=== PATIENT | male | born 1955 | race Caucasian/White ===

== ENCOUNTER → 2018-01-26 | Day surgery (SDC) | payer BC ==
[~2018-01-26] MED LIST: CEFAZOLIN SOD 2 GM/D5W 50ML 50 ML IV ONE; DESFLURANE 240 ML BTL INH ONE; DOXYCYCLINE HY100 MG PO; FENTANYL CITRATE/PF 100MCG/2 ML INJ ONE; GLIMEPIRIDE4 MG PO; JANUVIA100 MG PO; LEVAQUIN-D750 MG/150 IV; LIDOCAINE HCL 2% JELLY 5 ML TUBE ONE; LIDOCAINE HCL 2% LOCAL INJ 5 ML SDV VIAL INJ ONE; LIDOCAINE100 MG/53; METFORMIN HCL1000 MG PO; METOPROLOL SUCC25 MG PO; MIDAZOLAM HCL 2 MG/2 ML VIAL ONE; ONDANSETRON HCL INJ 2 MG/ML VIAL ONE; PROPOFOL IV EMULSION 10 MG/ML 20 ML VIAL ONE; SPIRONOLACTONE50 MG PO; VANCOMYCIN HCL1 GM IV; VIAGRA100 MG PO
[2018-01-26 09:05] LABS: INR 1.1; PROTHROMBIN TIME 13.4 seconds (11.9-14.5)
[2018-01-26 09:06] LABS: PARTIAL THROMBOPLASTIN TIME 25.2 seconds (23.8-35.5)
[2018-01-26 09:11] LABS: BLOOD UREA NITROGEN 21 mg/dL (7-26); BUN/CREATININE RATIO 24 (6-25); CREATININE, SERUM 0.86 mg/dL (0.72-1.25); EST GLOMERULAR FILTRATION RATE > 60 ML/MIN (60-)
[2018-01-26 10:45] LABS: ANION GAP 15.8 mmol/L (8-16); BLOOD UREA NITROGEN 21 mg/dL (7-26); BUN/CREATININE RATIO 25 (6-25); CALCIUM 9.8 mg/dL (8.4-10.2); CARBON DIOXIDE 20 mmol/L (22-29); CHLORIDE 104 mmol/L (98-107); CREATININE, SERUM 0.85 mg/dL (0.72-1.25); EST GLOMERULAR FILTRATION RATE > 60 ML/MIN (60-); GLUCOSE 168 mg/dL (74-118); POTASSIUM 4.8 mmol/L (3.5-5.1); SODIUM 135 mmol/L (136-145)
--- NOTE | 2018-01-26 11:14 | Diagnostic Imaging Report ---
PROCEDURE: A single AP view of the chest. COMPARISON: 01/05/2017 INDICATIONS: PICC LINE PLACEMENT FINDINGS: Lines/tubes: Right upper shotty PICC line has its tip at the cavoatrial junction Lungs: The lungs are well inflated and clear. There is no evidence of pneumonia or pulmonary edema. Pleura: There is no pleural effusion or pneumothorax. Heart and mediastinum: Normal heart size. Mild tortuosity of the thoracic aorta. Bones: No acute bony abnormality. IMPRESSION: Right upper extremity PICC line has its tip at the cavoatrial junction Dictated by: Osmany Ling M.D. on 01/26/2018 at 11:19 Electronically approved by: Osmany Lign M.D. on 01/26/2018 at 11:19
--- NOTE | 2018-01-26 14:08 | Operative Report ---
DATE OF PROCEDURE: January 26, 2018 PREOPERATIVE DIAGNOSES 1. Ulcer grade 3 left foot. 2. Osteomyelitis left foot. POSTOPERATIVE DIAGNOSES 1. Ulcer grade 3 left foot. 2. Osteomyelitis left foot. OPERATIONS PERFORMED 1. Excision of the ulcer left foot. 2. Fifth metatarsal osteotomy left foot. 3. Application of Integra graft to the base of the ulcer. COMPLICATIONS: None. CONDITION: Stable. MATERIALS: A 2 x 2 Integra graft was applied. PROCEDURE IN DETAIL: Under mild sedation, the patient was brought to the operating room, placed on the operating table in the supine position. Following IV sedation anesthesia was obtained with a general anesthetic. At this point, the foot was scrubbed, prepped and draped in the usual aseptic manner. The left foot was lowered to the table. Attention was directed to the lateral aspect of the left foot where 2 semi-elliptical incisions were made overlying the ulcer. The incision was deepened down to the level of the bone. At this point a full thickness flap was removed off of the ulcer. The ulcer measured 4 cm x 3 cm x 2 cm in depth. Utilizing an oscillating saw of 5th metatarsal, osteotomy was performed down to clean viable tissue. The body of the 5th metatarsal where the osteotomy was performed was clean, it was free of soft bone, the cortices were hard. Cultures and sensitivities were taken of the area of and the bone. The area was then flushed with pulse environmental services director and bacitracin. All nonviable tissue was removed with excisional debridement with a 15 blade. At this point the base where the 5th metatarsal osteotomy was performed, the head was removed, was packed with a 2 x 2 Integra graft. Retention sutures were applied. The wound remained opened distally where the area of the infection was. The area was then dressed with sterile compressive dressings consisting of Betadine wet-to-dry, 4 x 4's, Kerlix and an Eliu bandage. Patient tolerated the procedure and anesthesia well without complications, was transported to recovery room with vital signs stable and vascular status intact. Patient will be discharged home when he meets criteria. He was given instructions to be strictly nonweightbearing, to elevate the foot while at rest, to follow up with me in the office, to call the office if he has any questions, concerns or any problems that arise. I discussed with him preop signs and symptoms of DVT since he is going to be nonweightbearing to the lower extremity. Job#: [id number] DG
== END | disposition home or self-care (01) ==
LOC: OR 08:13
PROVIDERS: ATTEND Podiatrist Foot & Ankle Surgery
DX: M86.9 Osteomyelitis, unspecified (principal); M86.172 Other acute osteomyelitis, left ankle and foot; L97.526 Non-pressure chronic ulcer of other part of left foot with bone involvement without evidence of necrosis; Z45.2 Encounter for adjustment and management of vascular access device; I10 Essential (primary) hypertension; E11.9 Type 2 diabetes mellitus without complications; Z79.84 Long term (current) use of oral hypoglycemic drugs
CPT/HCPCS: 15275; 28308; 36415; 36569; 71045; 80048; 82948; 85049; 85610; 85730; 87071; 87075; 87186; 87205; 88305; 88311; J2001 ×2; J2250; J2405; Q4104; 76000; 82565; 84520

== ENCOUNTER → 2018-01-31 | Outpatient (CLI) | payer BC ==
[~2018-01-31] MED LIST changes: -CEFAZOLIN SOD 2 GM/D5W 50ML 50 ML IV ONE; -DESFLURANE 240 ML BTL INH ONE; -FENTANYL CITRATE/PF 100MCG/2 ML INJ ONE; -LIDOCAINE HCL 2% JELLY 5 ML TUBE ONE; -LIDOCAINE HCL 2% LOCAL INJ 5 ML SDV VIAL INJ ONE; -MIDAZOLAM HCL 2 MG/2 ML VIAL ONE; +MINERAL OIL/PETROLAT/GLYCERI 6OZ BTL ONE; -ONDANSETRON HCL INJ 2 MG/ML VIAL ONE; -PROPOFOL IV EMULSION 10 MG/ML 20 ML VIAL ONE
== END ==
LOC: WCC 16:33
PROVIDERS: ATTEND Podiatrist Foot & Ankle Surgery
DX: E11.65 Type 2 diabetes mellitus with hyperglycemia (principal); E11.621 Type 2 diabetes mellitus with foot ulcer; E11.69 Type 2 diabetes mellitus with other specified complication; L97.526 Non-pressure chronic ulcer of other part of left foot with bone involvement without evidence of necrosis; I10 Essential (primary) hypertension; W22.8XXA Striking against or struck by other objects, initial encounter; Z01.810 Encounter for preprocedural cardiovascular examination; Z01.811 Encounter for preprocedural respiratory examination

== ENCOUNTER → 2018-02-02 | Outpatient (CLI) | payer BC ==
[~2018-02-02] MED LIST changes: -MINERAL OIL/PETROLAT/GLYCERI 6OZ BTL ONE
== END ==
LOC: WCC 14:24
PROVIDERS: ATTEND Podiatrist Foot & Ankle Surgery
DX: E11.621 Type 2 diabetes mellitus with foot ulcer (principal); E11.65 Type 2 diabetes mellitus with hyperglycemia; E11.69 Type 2 diabetes mellitus with other specified complication; L97.526 Non-pressure chronic ulcer of other part of left foot with bone involvement without evidence of necrosis; W22.8XXA Striking against or struck by other objects, initial encounter; I10 Essential (primary) hypertension

== ENCOUNTER → 2018-02-08 | Outpatient (CLI) | payer BC | LOC: WCC 14:50 | PROVIDERS: ATTEND Podiatrist Foot & Ankle Surgery | DX: E11.621 Type 2 diabetes mellitus with foot ulcer (principal); E11.65 Type 2 diabetes mellitus with hyperglycemia; E11.69 Type 2 diabetes mellitus with other specified complication; M86.172 Other acute osteomyelitis, left ankle and foot; L97.526 Non-pressure chronic ulcer of other part of left foot with bone involvement without evidence of necrosis; I10 Essential (primary) hypertension; W22.8XXA Striking against or struck by other objects, initial encounter; Z01.810 Encounter for preprocedural cardiovascular examination; Z01.811 Encounter for preprocedural respiratory examination ==

== ENCOUNTER → 2018-02-12 | Outpatient (CLI) | payer BC | LOC: WCC 11:47 | PROVIDERS: ATTEND Podiatrist Foot & Ankle Surgery | DX: E11.621 Type 2 diabetes mellitus with foot ulcer (principal); E11.65 Type 2 diabetes mellitus with hyperglycemia; E11.69 Type 2 diabetes mellitus with other specified complication; M86.172 Other acute osteomyelitis, left ankle and foot; L97.526 Non-pressure chronic ulcer of other part of left foot with bone involvement without evidence of necrosis; I10 Essential (primary) hypertension; W22.8XXA Striking against or struck by other objects, initial encounter; Z01.810 Encounter for preprocedural cardiovascular examination; Z01.811 Encounter for preprocedural respiratory examination ==

== ENCOUNTER → 2018-02-14 | Outpatient (CLI) | payer BC | LOC: WCC 15:35 | PROVIDERS: ATTEND Podiatrist Foot & Ankle Surgery | DX: E11.621 Type 2 diabetes mellitus with foot ulcer (principal); E11.65 Type 2 diabetes mellitus with hyperglycemia; E11.69 Type 2 diabetes mellitus with other specified complication; M86.172 Other acute osteomyelitis, left ankle and foot; L97.526 Non-pressure chronic ulcer of other part of left foot with bone involvement without evidence of necrosis; I10 Essential (primary) hypertension; W22.8XXA Striking against or struck by other objects, initial encounter; Z01.810 Encounter for preprocedural cardiovascular examination; Z01.811 Encounter for preprocedural respiratory examination ==

== ENCOUNTER → 2018-02-16 | Outpatient (CLI) | payer BC | LOC: WCC 14:06 | PROVIDERS: ATTEND Internal Medicine Infectious Disease | DX: E11.621 Type 2 diabetes mellitus with foot ulcer (principal); E11.65 Type 2 diabetes mellitus with hyperglycemia; E11.69 Type 2 diabetes mellitus with other specified complication; M86.172 Other acute osteomyelitis, left ankle and foot; L97.526 Non-pressure chronic ulcer of other part of left foot with bone involvement without evidence of necrosis; I10 Essential (primary) hypertension; W22.8XXA Striking against or struck by other objects, initial encounter; Z01.810 Encounter for preprocedural cardiovascular examination; Z01.811 Encounter for preprocedural respiratory examination ==

== ENCOUNTER → 2018-02-19 | Outpatient (CLI) | payer BC | LOC: WCC 10:42 | PROVIDERS: ATTEND Podiatrist Foot & Ankle Surgery | DX: E11.65 Type 2 diabetes mellitus with hyperglycemia (principal); E11.621 Type 2 diabetes mellitus with foot ulcer; E11.69 Type 2 diabetes mellitus with other specified complication; M86.172 Other acute osteomyelitis, left ankle and foot; L97.526 Non-pressure chronic ulcer of other part of left foot with bone involvement without evidence of necrosis; W22.8XXA Striking against or struck by other objects, initial encounter; I10 Essential (primary) hypertension; Z01.810 Encounter for preprocedural cardiovascular examination; Z01.811 Encounter for preprocedural respiratory examination ==

== ENCOUNTER → 2018-02-21 | Outpatient (CLI) | payer BC | LOC: WCC 01:00 | PROVIDERS: ATTEND Family Medicine Adult Medicine | DX: E11.621 Type 2 diabetes mellitus with foot ulcer (principal); E11.65 Type 2 diabetes mellitus with hyperglycemia; E11.69 Type 2 diabetes mellitus with other specified complication; M86.172 Other acute osteomyelitis, left ankle and foot; L97.526 Non-pressure chronic ulcer of other part of left foot with bone involvement without evidence of necrosis; I10 Essential (primary) hypertension; W22.8XXA Striking against or struck by other objects, initial encounter; Z01.810 Encounter for preprocedural cardiovascular examination; Z01.811 Encounter for preprocedural respiratory examination ==

== ENCOUNTER → 2018-02-23 | Outpatient (CLI) | payer BC | LOC: WCC 15:21 | PROVIDERS: ATTEND Podiatrist Foot & Ankle Surgery | DX: E11.65 Type 2 diabetes mellitus with hyperglycemia (principal); E11.621 Type 2 diabetes mellitus with foot ulcer; E11.69 Type 2 diabetes mellitus with other specified complication; M86.172 Other acute osteomyelitis, left ankle and foot; L97.526 Non-pressure chronic ulcer of other part of left foot with bone involvement without evidence of necrosis; I10 Essential (primary) hypertension; W22.8XXA Striking against or struck by other objects, initial encounter; Z01.810 Encounter for preprocedural cardiovascular examination; Z01.811 Encounter for preprocedural respiratory examination ==

== ENCOUNTER → 2018-02-23 | Outpatient (CLI) | payer BC | LOC: WCC 16:05 | PROVIDERS: ATTEND Podiatrist Foot & Ankle Surgery | DX: E11.65 Type 2 diabetes mellitus with hyperglycemia (principal); E11.69 Type 2 diabetes mellitus with other specified complication; E11.621 Type 2 diabetes mellitus with foot ulcer; M86.172 Other acute osteomyelitis, left ankle and foot; L97.526 Non-pressure chronic ulcer of other part of left foot with bone involvement without evidence of necrosis; W22.8XXA Striking against or struck by other objects, initial encounter; I10 Essential (primary) hypertension; Z01.810 Encounter for preprocedural cardiovascular examination; Z01.811 Encounter for preprocedural respiratory examination ==

== ENCOUNTER → 2018-02-26 | Outpatient (CLI) | payer BC | LOC: WCC 13:34 | PROVIDERS: ATTEND Podiatrist Foot & Ankle Surgery | DX: E11.621 Type 2 diabetes mellitus with foot ulcer (principal); E11.69 Type 2 diabetes mellitus with other specified complication; E11.65 Type 2 diabetes mellitus with hyperglycemia; L97.526 Non-pressure chronic ulcer of other part of left foot with bone involvement without evidence of necrosis; M86.172 Other acute osteomyelitis, left ankle and foot; I10 Essential (primary) hypertension; W22.8XXA Striking against or struck by other objects, initial encounter; Z01.810 Encounter for preprocedural cardiovascular examination; Z01.811 Encounter for preprocedural respiratory examination ==

== ENCOUNTER → 2018-02-28 | Outpatient (CLI) | payer BC | LOC: WCC 09:51 | PROVIDERS: ATTEND Podiatrist Foot & Ankle Surgery | DX: E11.65 Type 2 diabetes mellitus with hyperglycemia (principal); E11.621 Type 2 diabetes mellitus with foot ulcer; E11.69 Type 2 diabetes mellitus with other specified complication; M86.172 Other acute osteomyelitis, left ankle and foot; L97.526 Non-pressure chronic ulcer of other part of left foot with bone involvement without evidence of necrosis; I10 Essential (primary) hypertension; W22.8XXA Striking against or struck by other objects, initial encounter; Z01.810 Encounter for preprocedural cardiovascular examination; Z01.811 Encounter for preprocedural respiratory examination ==

== ENCOUNTER → 2018-03-02 | Outpatient (CLI) | payer BC | LOC: WCC 14:42 | PROVIDERS: ATTEND Podiatrist Foot & Ankle Surgery | DX: E11.621 Type 2 diabetes mellitus with foot ulcer (principal); E11.65 Type 2 diabetes mellitus with hyperglycemia; E11.69 Type 2 diabetes mellitus with other specified complication; M86.172 Other acute osteomyelitis, left ankle and foot; L97.526 Non-pressure chronic ulcer of other part of left foot with bone involvement without evidence of necrosis; I10 Essential (primary) hypertension; W22.8XXA Striking against or struck by other objects, initial encounter; Z01.810 Encounter for preprocedural cardiovascular examination; Z01.811 Encounter for preprocedural respiratory examination ==

== ENCOUNTER → 2018-03-07 | Outpatient (CLI) | payer BC ==
[~2018-03-07] MED LIST changes: +LIDOCAINE VISC 2% SOLN 15 ML UDC ONE
== END ==
LOC: WCC 13:48
PROVIDERS: ATTEND Family Medicine
DX: E11.621 Type 2 diabetes mellitus with foot ulcer (principal); E11.65 Type 2 diabetes mellitus with hyperglycemia; E11.69 Type 2 diabetes mellitus with other specified complication; M86.172 Other acute osteomyelitis, left ankle and foot; L97.526 Non-pressure chronic ulcer of other part of left foot with bone involvement without evidence of necrosis; I10 Essential (primary) hypertension; W22.8XXA Striking against or struck by other objects, initial encounter; Z01.810 Encounter for preprocedural cardiovascular examination; Z01.811 Encounter for preprocedural respiratory examination

== ENCOUNTER → 2018-03-09 | Outpatient (CLI) | payer BC ==
[~2018-03-09] MED LIST changes: -LIDOCAINE VISC 2% SOLN 15 ML UDC ONE
--- NOTE | 2018-03-09 13:06 | Diagnostic Imaging Report ---
EXAMINATION: PA and lateral views of the chest. COMPARISON: None CLINICAL HISTORY: PICC position DISCUSSION: Right upper extremity PICC is noted. The tip projects over the low superior vena cava. Lungs are well-inflated and without focal consolidation, pleural effusion, or pneumothorax. Tortuosity of the thoracic aorta with atherosclerotic calcification. Normal heart size. No pulmonary edema. No acute osseous abnormalities. Multilevel degenerative disc changes of the thoracic spine. IMPRESSION: Tip of the right upper extremity PICC projects over the low superior vena cava. Signed by: Dr. Rod Lofton M.D. on 03/09/2018 1:02 PM
== END ==
LOC: RAD 11:56
PROVIDERS: ATTEND Internal Medicine Infectious Disease
DX: Z01.818 Encounter for other preprocedural examination (principal); Z45.2 Encounter for adjustment and management of vascular access device
CPT/HCPCS: 71046

== ENCOUNTER → 2018-03-21 | Outpatient (CLI) | payer BC | LOC: WCC 12:37 | PROVIDERS: ATTEND Family Medicine | DX: E11.621 Type 2 diabetes mellitus with foot ulcer (principal); E11.65 Type 2 diabetes mellitus with hyperglycemia; E11.69 Type 2 diabetes mellitus with other specified complication; M86.172 Other acute osteomyelitis, left ankle and foot; L97.526 Non-pressure chronic ulcer of other part of left foot with bone involvement without evidence of necrosis; I10 Essential (primary) hypertension; W22.8XXA Striking against or struck by other objects, initial encounter; Z01.810 Encounter for preprocedural cardiovascular examination; Z01.811 Encounter for preprocedural respiratory examination ==

== ENCOUNTER → 2018-03-28 | Outpatient (CLI) | payer BC ==
[~2018-03-28] MED LIST changes: +ANTIBIOTIC28.4 GM PO; +antibiotic PO
== END ==
LOC: WCC 12:23
PROVIDERS: ATTEND Family Medicine
DX: E11.621 Type 2 diabetes mellitus with foot ulcer (principal); E11.69 Type 2 diabetes mellitus with other specified complication; E11.65 Type 2 diabetes mellitus with hyperglycemia; L97.526 Non-pressure chronic ulcer of other part of left foot with bone involvement without evidence of necrosis; I10 Essential (primary) hypertension; M86.172 Other acute osteomyelitis, left ankle and foot; W22.8XXA Striking against or struck by other objects, initial encounter; Z01.810 Encounter for preprocedural cardiovascular examination; Z01.811 Encounter for preprocedural respiratory examination

== ENCOUNTER → 2018-04-11 | Outpatient (CLI) | payer BC ==
[~2018-04-11] MED LIST changes: -ANTIBIOTIC28.4 GM PO; -antibiotic PO
== END ==
LOC: WCC 13:47
PROVIDERS: ATTEND Family Medicine
DX: E11.621 Type 2 diabetes mellitus with foot ulcer (principal); E11.65 Type 2 diabetes mellitus with hyperglycemia; E11.69 Type 2 diabetes mellitus with other specified complication; L97.526 Non-pressure chronic ulcer of other part of left foot with bone involvement without evidence of necrosis; L97.529 Non-pressure chronic ulcer of other part of left foot with unspecified severity; I10 Essential (primary) hypertension; W22.8XXA Striking against or struck by other objects, initial encounter; Z01.810 Encounter for preprocedural cardiovascular examination; Z01.811 Encounter for preprocedural respiratory examination
CPT/HCPCS: 87071; 87075; 87205

== ENCOUNTER → 2018-04-18 | Outpatient (CLI) | payer BC ==
[~2018-04-18] MED LIST changes: +ANTIBIOTIC28.4 GM PO; +antibiotic PO
== END ==
LOC: WCC 13:11
PROVIDERS: ATTEND Family Medicine
DX: E11.621 Type 2 diabetes mellitus with foot ulcer (principal); L97.529 Non-pressure chronic ulcer of other part of left foot with unspecified severity; L97.526 Non-pressure chronic ulcer of other part of left foot with bone involvement without evidence of necrosis; W22.8XXA Striking against or struck by other objects, initial encounter; Z01.810 Encounter for preprocedural cardiovascular examination; Z01.811 Encounter for preprocedural respiratory examination

== ENCOUNTER → 2018-04-27 | Outpatient (CLI) | payer BC ==
[2018-04-27 14:05] LABS: BASOPHILS % 0.2 % (0.0-1.0); EOSINOPHILS # (AUTO) 0.2 (0.0-0.4); EOSINOPHILS % 1.9 % (0.0-6.0); HEMATOCRIT 41.1 % (38.2-49.6); HEMOGLOBIN 14.6 g/dL (14.0-18.0); LYMPHOCYTES # (AUTO) 1.3 (1.0-3.2); LYMPHOCYTES % 14.6 % (18.0-39.1); MEAN CORPUSCULAR HGB CONC 35.5 g/dL (31-35); MEAN CORPUSCULAR VOLUME 92.8 fL (81-99); MONOCYTES % 11.7 % (4.4-11.3); NEUTROPHILS # (AUTO) 6.1 (2.1-6.9); PLATELET COUNT 151 x10e3/uL (140-360); RED BLOOD COUNT 4.43 x10e6/uL (4.3-5.7); RED CELL DISTRIBUTION WIDTH 12.2 % (11.7-14.4)
[2018-04-27 14:46] LABS: ERYTHROCYTE SEDIMENTATION RATE 20 mm/hr (0-13)
[2018-04-27 15:12] LABS: ALBUMIN 3.7 g/dL (3.5-5.0); ALBUMIN/GLOBULIN RATIO 0.9 (0.8-2.0); ANION GAP 14.4 mmol/L (8-16); CALCIUM 9.6 mg/dL (8.4-10.2); CREATININE, SERUM 1.34 mg/dL (0.72-1.25); POTASSIUM 4.4 mmol/L (3.5-5.1)
== END ==
LOC: WCC 14:18
PROVIDERS: ATTEND Family Medicine
DX: E11.621 Type 2 diabetes mellitus with foot ulcer (principal); E11.65 Type 2 diabetes mellitus with hyperglycemia; E11.69 Type 2 diabetes mellitus with other specified complication; L97.529 Non-pressure chronic ulcer of other part of left foot with unspecified severity; I10 Essential (primary) hypertension; B96.89 Other specified bacterial agents as the cause of diseases classified elsewhere; W22.8XXA Striking against or struck by other objects, initial encounter; Z01.810 Encounter for preprocedural cardiovascular examination; Z01.811 Encounter for preprocedural respiratory examination
CPT/HCPCS: 36415; 80053; 83036; 84134; 85025; 85651

== ENCOUNTER → 2018-05-11 | Outpatient (CLI) | payer BC ==
[~2018-05-11] MED LIST changes: +LIDOCAINE VISC 2% SOLN 15 ML UDC ONE; +LIDOCAINE/PRILOCAINE 2.5-2.5% KIT ONE
== END ==
LOC: WCC 13:16
PROVIDERS: ATTEND Family Medicine
DX: E11.621 Type 2 diabetes mellitus with foot ulcer (principal); E11.65 Type 2 diabetes mellitus with hyperglycemia; E11.69 Type 2 diabetes mellitus with other specified complication; L97.529 Non-pressure chronic ulcer of other part of left foot with unspecified severity; I10 Essential (primary) hypertension; W22.8XXA Striking against or struck by other objects, initial encounter; Z01.810 Encounter for preprocedural cardiovascular examination; Z01.811 Encounter for preprocedural respiratory examination
CPT/HCPCS: 15275; Q4131

== ENCOUNTER → 2018-05-23 | Outpatient (CLI) | payer BC ==
[~2018-05-23] MED LIST changes: -LIDOCAINE VISC 2% SOLN 15 ML UDC ONE; -LIDOCAINE/PRILOCAINE 2.5-2.5% KIT ONE; +MEROPENEM1 GM
== END ==
LOC: WCC 01:00
PROVIDERS: ATTEND Family Medicine
DX: E11.621 Type 2 diabetes mellitus with foot ulcer (principal); E11.65 Type 2 diabetes mellitus with hyperglycemia; E11.69 Type 2 diabetes mellitus with other specified complication; L97.529 Non-pressure chronic ulcer of other part of left foot with unspecified severity; I10 Essential (primary) hypertension; W22.8XXA Striking against or struck by other objects, initial encounter; Z01.810 Encounter for preprocedural cardiovascular examination; Z01.811 Encounter for preprocedural respiratory examination

== ENCOUNTER → 2018-05-30 | Outpatient (CLI) | payer BC ==
[~2018-05-30] MED LIST changes: -MEROPENEM1 GM
== END ==
LOC: WCC 15:16
PROVIDERS: ATTEND Family Medicine
DX: E11.621 Type 2 diabetes mellitus with foot ulcer (principal); E11.65 Type 2 diabetes mellitus with hyperglycemia; E11.69 Type 2 diabetes mellitus with other specified complication; L97.529 Non-pressure chronic ulcer of other part of left foot with unspecified severity; I10 Essential (primary) hypertension; W22.8XXA Striking against or struck by other objects, initial encounter; Z01.810 Encounter for preprocedural cardiovascular examination; Z01.811 Encounter for preprocedural respiratory examination
CPT/HCPCS: 15275; Q4131

== ENCOUNTER → 2018-06-06 | Outpatient (CLI) | payer SELFPAY ==
[~2018-06-06] MED LIST changes: +LIDOCAINE/PRILOCAINE 2.5-2.5% KIT ONE; +MINERAL OIL/PETROLAT/GLYCERI 2OZ CRM ONE; +MINERAL OIL/PETROLAT/GLYCERI 6OZ BTL ONE
--- NOTE | 2018-06-19 09:59 | Discharge Summary ---
VICTOR M WOODARD, LENGTH 0:4 MALLIKA PEACE MD Job#: [id number] RI
== END ==
LOC: WCC 14:24
PROVIDERS: ATTEND Family Medicine
DX: E11.621 Type 2 diabetes mellitus with foot ulcer (principal); E11.65 Type 2 diabetes mellitus with hyperglycemia; E11.69 Type 2 diabetes mellitus with other specified complication; L97.529 Non-pressure chronic ulcer of other part of left foot with unspecified severity; I10 Essential (primary) hypertension; W22.8XXA Striking against or struck by other objects, initial encounter; Z01.810 Encounter for preprocedural cardiovascular examination; Z01.811 Encounter for preprocedural respiratory examination
CPT/HCPCS: 36415; 82948

== ENCOUNTER → 2018-06-11 | Outpatient (CLI) | payer BC ==
[~2018-06-11] MED LIST changes: -LIDOCAINE/PRILOCAINE 2.5-2.5% KIT ONE; -MINERAL OIL/PETROLAT/GLYCERI 2OZ CRM ONE; -MINERAL OIL/PETROLAT/GLYCERI 6OZ BTL ONE
== END ==
LOC: WCC 10:24
PROVIDERS: ATTEND Family Medicine
DX: E11.621 Type 2 diabetes mellitus with foot ulcer (principal); E11.65 Type 2 diabetes mellitus with hyperglycemia; E11.69 Type 2 diabetes mellitus with other specified complication; L97.529 Non-pressure chronic ulcer of other part of left foot with unspecified severity; I10 Essential (primary) hypertension; W22.8XXA Striking against or struck by other objects, initial encounter; Z01.810 Encounter for preprocedural cardiovascular examination; Z01.811 Encounter for preprocedural respiratory examination

== ENCOUNTER → 2018-06-13 | Day surgery (SDC) | payer SELFPAY ==
[2018-06-12 11:40] LABS: ANION GAP 13.5 mmol/L (8-16); BLOOD UREA NITROGEN 15 mg/dL (7-26); BUN/CREATININE RATIO 14 (6-25); CALCIUM 9.4 mg/dL (8.4-10.2); CARBON DIOXIDE 22 mmol/L (22-29); CHLORIDE 102 mmol/L (98-107); CREATININE, SERUM 1.11 mg/dL (0.72-1.25); EST GLOMERULAR FILTRATION RATE > 60 ML/MIN (60-); GLUCOSE 239 mg/dL (74-118); POTASSIUM 4.5 mmol/L (3.5-5.1); SODIUM 133 mmol/L (136-145)
[~2018-06-13] MED LIST changes: +BACITRACIN 50,000 UNIT VIAL ONE; +BUPIVACAINE HCL 0.5% INJ 30 ML VIAL INJ ONE; +CEFAZOLIN SOD 2 GM/D5W 50ML 50 ML IV ONE; +DEXAMETHASONE SOD PHOS INJ 4 MG/ML VIAL ONE; +FENTANYL CITRATE/PF 100MCG/2 ML INJ ONE; +INSULIN REGULAR, HUMAN 100 UNIT/1 ML 3ML VIAL ONE; +LIDOCAINE HCL 2% LOCAL INJ 5 ML SDV VIAL INJ ONE; +MIDAZOLAM HCL 2 MG/2 ML VIAL ONE; +NEOSTIGMINE 1 MG/ML 10ML VIAL ONE; +ONDANSETRON HCL INJ 2 MG/ML VIAL ONE; +PROPOFOL IV EMULSION 10 MG/ML 20 ML VIAL ONE; +SEVOFLURANE INHAL SOLN 250 ML PEN BTL ONE
--- OUTSIDE RECORDS SUMMARY | 2018-06-13 08:56 | XMS REPORT ---
Author Author Pantera Mancia Organization [employer] Address Unknown Phone Unavailable Care Team Providers Care Ambulatory Care Nurse Name Role Phone Pantera Mancia CP Unavailable Allergies No Known Allergies Problems Problem Type Condition Code Onset Dates Condition Status Problem Pressure ulcer of left foot, stage 4 L89.894 Active Problem Other acute osteomyelitis of left foot M86.172 Active Problem Type 2 diabetes mellitus with diabetic neuropathy, without long-term current use of insulin E11.40 Active Medications No Known Medications Results No Known Results Summary Purpose [employer] Submission
--- OUTSIDE RECORDS SUMMARY | 2018-06-13 08:56 | XMS REPORT ---
Author Author Pantera Mancia Organization [employer] Address Unknown Phone Unavailable Care Team Providers Care Senior Integration Developer Name Role Phone Pantera Mancia CP Unavailable [...]
--- OUTSIDE RECORDS SUMMARY | 2018-06-13 08:56 | XMS REPORT ---
Author Author [facility] Address Unknown Phone Unavailable Care Team Providers Care Casting Machine Service Operator Name Role Phone MAGALI CONTRERAS Unavailable Unavailable HAWK JIMENEZ Unavailable Unavailable Problems This patient has no known problems. Allergies, Adverse Reactions, Alerts This patient has no known allergies or adverse reactions. Medications This patient has no known medications. Results Test Description Test Time Test Comments Text Results Atomic Results Result Comments CHEST 2 VIEWS 2018-03-09 13:00:00 [place] [address] Patient Name: YORDAN LAMBERT MR #: [id number] : 1955 Age/Sex: 62/M Req #: [id number] Adm Physician: Ordered by: MAGALI CONTRERAS MD Report #: [id number] [facility] Room/Bed: Procedure: [id number] DX/CHEST 2 VIEWS Exam Date: 03/09/18 Exam Time: 1233 REPORT STATUS: Signed EXAMINATION: PA and lateral views of the chest. COMPARISON: None CLINICAL HISTORY: PICC position DISCUSSION: Right upper extremity PICC is noted. The tip projects over the low superior vena cava. Lungs are well-inflated and without focal consolidation, pleural effusion, or pneumothorax. Tortuosity of the thoracic aorta with atherosclerotic calcification. Normal heart size. No pulmonary edema. No acute osseous abnormalities. Multilevel degenerative disc changes of the thoracic spine. IMPRESSION: Tip of the right upper extremity PICC projects over the low superior vena cava. Signed by: Dr. Yordan Reynoso M.D. on 03/09/2018 1:02 PM Dictated By: YORDAN REYNOSO MD 1302 Transcribed By: RUBA on 03/09/18 1302 COPY TO: MAGALI CONTRERAS MD CHEST XRAY LINE PLACEMENT 2018-01-26 11:19:00 [place] [address] Patient Name: YORDAN LAMBERT MR #: [id number] : 1955 Age/Sex: 62/M Req #: [id number] Adm Physician: Ordered by: MAGALI CONTRERAS MD Report #: [id number] Location: OR Room/Bed: Procedure: [id number] DX/CHEST XRAY LINE PLACEMENT Exam Date: 01/26/18 Exam Time: 0900 REPORT STATUS: Signed PROCEDURE: A single AP view of the chest. COMPARISON: 01/05/2017 INDICATIONS: PICC LINE PLACEMENT FINDINGS: Lines/tubes: Right upper shotty PICC line has its tip at the cavoatrial junction Lungs: The lungs are well inflated and clear. There is no evidence of pneumonia or pulmonary edema. Pleura: There is no pleural effusion or pneumothorax. Heart and mediastinum: Normal heart size. Mild tortuosity of the thoracic aorta. Bones: No acute bony abnormality. IMPRESSION: Right upper extremity PICC line has its tip at the cavoatrial junction Dictated by: Osmany Ling M.D. on 01/26/2018 at 11:19 Electronically approved by: Osmany Ling M.D. on 01/26/2018 at 11:19 Dictated By: OSMANY LING MD 1119 Transcribed By: VICKI on 01/26/18 1119 COPY TO: MAGALI CONTRERAS MD
--- OUTSIDE RECORDS SUMMARY | 2018-06-13 08:56 | XMS REPORT | Continuity of Care Document ---
Author Author [facility] Interface Address Unknown Phone Unavailable Problems Problem Status Onset Date Classification Date Reported Comments Source Pressure ulcer of left foot, stage 4 Active Problem 02/09/2018 [facility] Other acute osteomyelitis of left foot Active Problem 02/09/2018 [facility] Type 2 diabetes mellitus with diabetic neuropathy, without long-term current use of insulin Active Problem 02/09/2018 [facility] Medications Medication Details Route Status Patient Instructions Ordering Provider Order Date Source Allergies, Adverse Reactions, Alerts Substance Category Reaction Severity Reaction type Status Date Reported Comments Source Immunizations Immunization Date Given Site Status Last Updated Comments Source Results Order Name Results Value Reference Range Date Interpretation Comments Source Vital Signs Vital Sign Value Date Comments Source Encounters Location Location Details Encounter Type Encounter Number Reason For Visit Attending Provider ADM Date DC Date Status Source Procedures Procedure Code Date Perfomer Comments Source
[2018-06-13 13:10] VITALS: BP 156/79
--- NOTE | 2018-06-19 15:30 | Operative Report ---
DATE OF PROCEDURE: June 13, 2018 PREOPERATIVE DIAGNOSIS: Osteomyelitis of left 4th diabetic foot wound, grade 3. POSTOPERATIVE DIAGNOSIS: Osteomyelitis of left 4th diabetic foot wound, grade 3. PROCEDURES 1. Debridement down to include the 4th metatarsal head of the left foot. 2. Bone cultures and sensitivities. 3. Application of an allograft with wound VAC, left foot. PATHOLOGY: Cultures and sensitivities, biopsy. COMPLICATIONS: None. CONDITION: Stable. DETAILS OF PROCEDURE: Under mild sedation, the patient was brought to the operating room and placed on the operating table in a supine position. Following IV sedation, anesthesia was obtained with a general anesthetic. At this point, the left foot was scrubbed, prepped and draped in the usual aseptic manner. The leg was lowered to the table. Attention was then directed to the plantar aspect of the left foot where utilizing a #15 blade, bone rongeurs and an oscillating saw, all nonviable tissue was removed to include the head of the 4th metatarsal. It was debrided down to clean viable bleeding tissue. Once all nonviable tissue was removed, pressure electrical development engineer was used to irrigate the wound. Cultures and sensitivity were taken. The bone was sent for biopsy. At this point, the wound was then packed with a human allograft and in order to provide healing a wound VAC will be applied in PACU. The patient tolerated the procedure and anesthesia well without complications and was transferred to the emergency room with vital signs stable and vascular status intact to both feet. The patient will be discharged home when he meets criteria. He was given instructions to be nonweightbearing, to elevate the foot while at rest, to follow up with [facility] and to call the office if any questions, concerns or any problems arise. Job#: [id number]
== END | disposition home or self-care (01) ==
LOC: OR 08:53
PROVIDERS: ATTEND Podiatrist Foot & Ankle Surgery
DX: E11.69 Type 2 diabetes mellitus with other specified complication (principal); M86.172 Other acute osteomyelitis, left ankle and foot; M86.672 Other chronic osteomyelitis, left ankle and foot; E11.621 Type 2 diabetes mellitus with foot ulcer; I10 Essential (primary) hypertension; Z01.810 Encounter for preprocedural cardiovascular examination; Z79.84 Long term (current) use of oral hypoglycemic drugs; Z01.812 Encounter for preprocedural laboratory examination
CPT/HCPCS: 11044; 36415 ×2; 80048; 82948; 87071; 87075; 87186; 87205; 88305; 88311; 93005; J0690; J1100; J2001; J2250; J2405; J2704; J2710

== ENCOUNTER → 2018-06-15 | Outpatient (CLI) | payer SELFPAY ==
[~2018-06-15] MED LIST changes: -BACITRACIN 50,000 UNIT VIAL ONE; -BUPIVACAINE HCL 0.5% INJ 30 ML VIAL INJ ONE; -CEFAZOLIN SOD 2 GM/D5W 50ML 50 ML IV ONE; -DEXAMETHASONE SOD PHOS INJ 4 MG/ML VIAL ONE; -FENTANYL CITRATE/PF 100MCG/2 ML INJ ONE; -INSULIN REGULAR, HUMAN 100 UNIT/1 ML 3ML VIAL ONE; -LIDOCAINE HCL 2% LOCAL INJ 5 ML SDV VIAL INJ ONE; -MIDAZOLAM HCL 2 MG/2 ML VIAL ONE; -NEOSTIGMINE 1 MG/ML 10ML VIAL ONE; -ONDANSETRON HCL INJ 2 MG/ML VIAL ONE; -PROPOFOL IV EMULSION 10 MG/ML 20 ML VIAL ONE; -SEVOFLURANE INHAL SOLN 250 ML PEN BTL ONE
== END ==
LOC: WCC 09:58
PROVIDERS: ATTEND Family Medicine
DX: E11.621 Type 2 diabetes mellitus with foot ulcer (principal); E11.65 Type 2 diabetes mellitus with hyperglycemia; E11.69 Type 2 diabetes mellitus with other specified complication; L97.529 Non-pressure chronic ulcer of other part of left foot with unspecified severity; I10 Essential (primary) hypertension; W22.8XXA Striking against or struck by other objects, initial encounter; Z01.810 Encounter for preprocedural cardiovascular examination; Z01.811 Encounter for preprocedural respiratory examination

== ENCOUNTER → 2018-06-18 | Outpatient (CLI) | payer SELFPAY | LOC: WCC 12:10 | PROVIDERS: ATTEND Family Medicine | DX: E11.621 Type 2 diabetes mellitus with foot ulcer (principal); E11.65 Type 2 diabetes mellitus with hyperglycemia; E11.69 Type 2 diabetes mellitus with other specified complication; L97.529 Non-pressure chronic ulcer of other part of left foot with unspecified severity; I10 Essential (primary) hypertension; B96.89 Other specified bacterial agents as the cause of diseases classified elsewhere; B96.5 Pseudomonas (aeruginosa) (mallei) (pseudomallei) as the cause of diseases classified elsewhere; B96.20 Unspecified Escherichia coli [E. coli] as the cause of diseases classified elsewhere; W22.8XXA Striking against or struck by other objects, initial encounter; Z01.810 Encounter for preprocedural cardiovascular examination; Z01.811 Encounter for preprocedural respiratory examination ==

== ENCOUNTER → 2018-06-22 | Outpatient (CLI) | payer SELFPAY ==
--- NOTE | 2018-06-22 18:07 | Diagnostic Imaging Report ---
EXAMINATION: CHEST XRAY LINE PLACEMENT COMPARISON: None INDICATION: PICC line placement DISCUSSION: Frontal view of the chest obtained at 1732 hours. HEART AND MEDIASTINUM: The cardiomediastinal silhouette is unremarkable. LINES: Right PICC line terminates in the SVC. LUNGS: The lungs are well inflated and clear. No pneumonia or pulmonary edema. PLEURA: No pleural effusion or pneumothorax. BONES AND SOFT TISSUES: Mild degenerative changes of the right AC joint. No focal osseous lesion. The soft tissues are normal. IMPRESSION: Right PICC line terminates in the SVC. No pneumothorax. Signed by: Dr. Fara Beth MD on 06/22/2018 6:03 PM
== END ==
LOC: DX 14:10
PROVIDERS: ATTEND Internal Medicine Infectious Disease
DX: M86.8X7 Other osteomyelitis, ankle and foot (principal)
CPT/HCPCS: 36569; 71045

== ENCOUNTER → 2018-06-22 | Outpatient (CLI) | payer SELFPAY | LOC: WCC 11:03 | PROVIDERS: ATTEND Family Medicine | DX: E11.621 Type 2 diabetes mellitus with foot ulcer (principal); E11.65 Type 2 diabetes mellitus with hyperglycemia; E11.69 Type 2 diabetes mellitus with other specified complication; M86.172 Other acute osteomyelitis, left ankle and foot; L97.529 Non-pressure chronic ulcer of other part of left foot with unspecified severity; I10 Essential (primary) hypertension; B96.20 Unspecified Escherichia coli [E. coli] as the cause of diseases classified elsewhere; B96.5 Pseudomonas (aeruginosa) (mallei) (pseudomallei) as the cause of diseases classified elsewhere; B96.89 Other specified bacterial agents as the cause of diseases classified elsewhere; W22.8XXA Striking against or struck by other objects, initial encounter; Z01.810 Encounter for preprocedural cardiovascular examination; Z01.811 Encounter for preprocedural respiratory examination ==

== ENCOUNTER → 2018-06-27 | Outpatient (CLI) | payer SELFPAY | LOC: WCC 12:50 | PROVIDERS: ATTEND Family Medicine | DX: E11.621 Type 2 diabetes mellitus with foot ulcer (principal); E11.65 Type 2 diabetes mellitus with hyperglycemia; E11.69 Type 2 diabetes mellitus with other specified complication; M86.172 Other acute osteomyelitis, left ankle and foot; L97.529 Non-pressure chronic ulcer of other part of left foot with unspecified severity; I10 Essential (primary) hypertension; B96.89 Other specified bacterial agents as the cause of diseases classified elsewhere; B96.5 Pseudomonas (aeruginosa) (mallei) (pseudomallei) as the cause of diseases classified elsewhere; B96.20 Unspecified Escherichia coli [E. coli] as the cause of diseases classified elsewhere; W22.8XXA Striking against or struck by other objects, initial encounter; Z01.810 Encounter for preprocedural cardiovascular examination; Z01.811 Encounter for preprocedural respiratory examination ==

== ENCOUNTER → 2018-06-29 | Outpatient (CLI) | payer SELFPAY | LOC: WCC 14:25 | PROVIDERS: ATTEND Family Medicine | DX: E11.621 Type 2 diabetes mellitus with foot ulcer (principal); E11.69 Type 2 diabetes mellitus with other specified complication; E11.65 Type 2 diabetes mellitus with hyperglycemia; M86.172 Other acute osteomyelitis, left ankle and foot; L97.529 Non-pressure chronic ulcer of other part of left foot with unspecified severity; I10 Essential (primary) hypertension; B96.20 Unspecified Escherichia coli [E. coli] as the cause of diseases classified elsewhere; B96.5 Pseudomonas (aeruginosa) (mallei) (pseudomallei) as the cause of diseases classified elsewhere; B96.89 Other specified bacterial agents as the cause of diseases classified elsewhere; W22.8XXA Striking against or struck by other objects, initial encounter; Z01.810 Encounter for preprocedural cardiovascular examination; Z01.811 Encounter for preprocedural respiratory examination ==

== ENCOUNTER → 2018-07-06 | Outpatient (CLI) | payer BC ==
[~2018-07-06] MED LIST changes: +MINERAL OIL/PETROLAT/GLYCERI 6OZ BTL ONE
== END ==
LOC: WCC 12:24
PROVIDERS: ATTEND Family Medicine
DX: E11.621 Type 2 diabetes mellitus with foot ulcer (principal); E11.65 Type 2 diabetes mellitus with hyperglycemia; E11.69 Type 2 diabetes mellitus with other specified complication; M86.172 Other acute osteomyelitis, left ankle and foot; L97.529 Non-pressure chronic ulcer of other part of left foot with unspecified severity; I10 Essential (primary) hypertension; B96.20 Unspecified Escherichia coli [E. coli] as the cause of diseases classified elsewhere; B96.5 Pseudomonas (aeruginosa) (mallei) (pseudomallei) as the cause of diseases classified elsewhere; B96.89 Other specified bacterial agents as the cause of diseases classified elsewhere; W22.8XXA Striking against or struck by other objects, initial encounter; Z01.810 Encounter for preprocedural cardiovascular examination; Z01.811 Encounter for preprocedural respiratory examination

== ENCOUNTER 2018-07-14 18:20 | Observation (INO) | payer BC ==
[~2018-07-14] VITALS: Ht 193 cm; Wt 135.3 kg
[~2018-07-14 18:20] MED LIST changes: -MINERAL OIL/PETROLAT/GLYCERI 6OZ BTL ONE
[2018-07-14] MEDS ORDERED: SODIUM CHLORIDE 0.9% 1000ML 1,000 ML IV SCH (19:00)
--- NOTE | 2018-07-14 19:39 | Diagnostic Imaging Report ---
CHEST SINGLE (PORTABLE), 07/14/2018 6:44 PM Technique: CHEST SINGLE (PORTABLE) Comparison: 06/22/2018 Clinical history: Orthostatic hypotension Findings: See Impression Impression: Limited by portable technique and soft tissue attenuation 1. Lines/Tubes: Right PICC now seen projecting over the right brachiocephalic subclavian vein junction. 2. Stable prominent cardiomediastinal silhouette. 3. No consolidation or edema. No effusion or pneumothorax. Signed by: Dr Verito Forbes MD on 07/14/2018 7:36 PM
[2018-07-14 19:50] LABS: BASOPHILS # (AUTO) 0.1 (0.0-0.1); BASOPHILS % 0.9 % (0.0-1.0); EOSINOPHILS # (AUTO) 0.6 (0.0-0.4); EOSINOPHILS % 8.7 % (0.0-6.0); HEMATOCRIT 35.6 % (38.2-49.6); HEMOGLOBIN 12.4 g/dL (14.0-18.0); LYMPHOCYTES # (AUTO) 1.1 (1.0-3.2); LYMPHOCYTES % 16.8 % (18.0-39.1); MEAN CORPUSCULAR HEMOGLOBIN 32.3 pg (28-32); MEAN CORPUSCULAR HGB CONC 34.8 g/dL (31-35); MEAN CORPUSCULAR VOLUME 92.7 fL (81-99); NEUTROPHILS % 58.9 % (38.7-80.0); PLATELET COUNT 160 x10e3/uL (140-360); RED BLOOD COUNT 3.84 x10e6/uL (4.3-5.7); RED CELL DISTRIBUTION WIDTH 11.2 % (11.7-14.4)
[2018-07-14 19:54] LABS: INR 0.96; PROTHROMBIN TIME 13.7 seconds (11.9-14.5)
[2018-07-14 20:01] LABS: ALANINE AMINOTRANSFERASE 17 IU/L (0-55); ALBUMIN 2.9 g/dL (3.5-5.0); ALBUMIN/GLOBULIN RATIO 0.7 (0.8-2.0); ALKALINE PHOSPHATASE 106 IU/L (40-150); ANION GAP 16.4 mmol/L (8-16); BLOOD UREA NITROGEN 12 mg/dL (7-26); BUN/CREATININE RATIO 14 (6-25); CALCIUM 8.9 mg/dL (8.4-10.2); CARBON DIOXIDE 22 mmol/L (22-29); CHLORIDE 102 mmol/L (98-107); CREATINE KINASE 40 IU/L (30-200); CREATININE, SERUM 0.85 mg/dL (0.72-1.25); EST GLOMERULAR FILTRATION RATE > 60 ML/MIN (60-); GLUCOSE 153 mg/dL (74-118); MAGNESIUM 2.5 MG/DL (1.3-2.1); POTASSIUM 5.4 mmol/L (3.5-5.1); SODIUM 135 mmol/L (136-145)
[2018-07-14] MEDS ORDERED: DEXTROSE 50% SYRINGE 50 ML IV PRN (20:30)
[2018-07-14] MEDS ORDERED: ONDANSETRON HCL INJ 2 MG/ML VIAL IV PRN (20:30)
[2018-07-14 20:33] LABS: COLOR,URINE YELLOW (YELLOW)
[2018-07-14 20:34] LABS: BILIRUBIN,URINE NEGATIVE (NEGATIVE); CLARITY,URINE HAZY (CLEAR); KETONES,URINE NEGATIVE (NEGATIVE); LEUKOCYTE ESTERASE ,URINE NEGATIVE (NEGATIVE); NITRITE,URINE NEGATIVE (NEGATIVE); PROTEIN,URINE DIPSTICK NEGATIVE (NEGATIVE); URINE UROBILINOGEN 0.2 mg/dL (0.2 - 1)
[2018-07-14 20:41] LABS: AMORPHOUS SEDIMENT,URINE FEW (FEW); BACTERIA,URINE FEW /HPF; CALCIUM OXALATE CRYSTALS,UR FEW (FEW); EPITHELIAL CELLS,URINE FEW /LPF; MUCUS,URINE FEW (RARE); RBC,URINE 0-5 /HPF (0-5)
[2018-07-14] MEDS ORDERED: MEROPENEM1 GM (20:56)
[2018-07-14] MEDS ORDERED: VANCOMYCIN HCL1 GM IV (20:56)
[2018-07-14] MEDS: INSULIN LISPRO 100 UNIT/1 ML 3ML VIAL SQ SCH (21:00)
[2018-07-14 21:14] VITALS: BP 147/66
[2018-07-14] MEDS ORDERED: MEROPENEM 1 GM VIAL IV SCH (21:15)
[2018-07-14 21:30] VITALS: BP 147/66
[2018-07-14] MEDS ORDERED: SODIUM CHLORIDE 0.9% 50ML 50 ML ONE (21:41)
[2018-07-14] MEDS: SODIUM CHLORIDE 0.9% 1000ML 1,000 ML IV SCH (22:18)
[2018-07-15 05:07] LABS: BASOPHILS # (AUTO) 0.1 (0.0-0.1); BASOPHILS % 0.9 % (0.0-1.0); EOSINOPHILS # (AUTO) 0.6 (0.0-0.4); EOSINOPHILS % 9.8 % (0.0-6.0); HEMATOCRIT 31.5 % (38.2-49.6); HEMOGLOBIN 10.9 g/dL (14.0-18.0); LYMPHOCYTES # (AUTO) 1.3 (1.0-3.2); LYMPHOCYTES % 22.8 % (18.0-39.1); MEAN CORPUSCULAR HEMOGLOBIN 31.8 pg (28-32); MEAN CORPUSCULAR HGB CONC 34.6 g/dL (31-35); MEAN CORPUSCULAR VOLUME 91.8 fL (81-99); MONOCYTES # (AUTO) 0.8 (0.2-0.8); MONOCYTES % 13.9 % (4.4-11.3); NEUTROPHILS # (AUTO) 2.9 (2.1-6.9); NEUTROPHILS % 51.9 % (38.7-80.0); PLATELET COUNT 138 x10e3/uL (140-360); RED BLOOD COUNT 3.43 x10e6/uL (4.3-5.7)
[2018-07-15 05:33] LABS: CREATINE KINASE MB 1.1 ng/mL (0-5.0)
[2018-07-15 05:36] VITALS: BP 160/79
[2018-07-15 05:54] LABS: ALANINE AMINOTRANSFERASE 14 IU/L (0-55); ALBUMIN 2.7 g/dL (3.5-5.0); ALBUMIN/GLOBULIN RATIO 0.9 (0.8-2.0); ALKALINE PHOSPHATASE 93 IU/L (40-150); BLOOD UREA NITROGEN 10 mg/dL (7-26); BUN/CREATININE RATIO 13 (6-25); CALCIUM 8.6 mg/dL (8.4-10.2); CARBON DIOXIDE 25 mmol/L (22-29); CHLORIDE 107 mmol/L (98-107); CREATININE, SERUM 0.76 mg/dL (0.72-1.25); EST GLOMERULAR FILTRATION RATE > 60 ML/MIN (60-); GLUCOSE 66 mg/dL (74-118); SODIUM 138 mmol/L (136-145)
[2018-07-15] MEDS: SODIUM CHLORIDE 0.9% 1000ML 1,000 ML IV SCH ×2 (06:26→12:16)
--- NOTE | 2018-07-15 07:12 | NUR ---
RCD PT AT BED PT IS ALERT AND ORIENTED PT RESTING ON BED NO SIGNS OF ANY DISTRESS NOTED IV PATENT FAMILY AT BED SIDE BED LOW AND LOCKED CALL LIGHT IN REACH
[2018-07-15] MEDS: INSULIN LISPRO 100 UNIT/1 ML 3ML VIAL SQ SCH ×2 (07:30→11:30)
[2018-07-15 07:48] VITALS: BP 158/83
[2018-07-15 08:00] VITALS: BP 158/83
[2018-07-15] MEDS ORDERED: VANCOMYCIN HCL 1 GM VIAL IV SCH (09:00)
[2018-07-15] MEDS ORDERED: MEROPENEM 1GM 100 ML IV SCH ×2 (09:00→09:45)
[2018-07-15] MEDS ORDERED: VANCOMYCIN HCL IV SCH (10:00)
[2018-07-15] MEDS ORDERED: SODIUM CHLORIDE 0.9% IV SCH (10:00)
[2018-07-15 11:57] VITALS: BP 167/93
--- NOTE | 2018-07-15 14:15 | NUR ---
PT WENT HOME IN SAFE CONDITION WITH HIS
--- NOTE | 2018-07-15 15:49 | History and Physical ---
DATE OF DISCHARGE: 07/15/2018 ADMIT DIAGNOSES: 1. Lactic acidosis. 2. Iatrogenic hypotension. 3. Left diabetic foot ulcer. 4. Type 2 diabetes. 5. Hyperkalemia. 6. Peripheral artery disease. HOSPITAL COURSE/HISTORY OF PRESENT ILLNESS: This is a 62-year-old white man who initially presented to [facility] with complaints of hypotension. Apparently, patient had been taking spironolactone and metoprolol up until 1 week prior to this admission. The patient's display decorator, Dr. Bender had stopped the spironolactone and metoprolol. In the emergency room, the patient was found to have an elevated lactic acid level of 19.9. The patient also was found to have potassium level of 5.4. The patient was started on intravenous fluids. He was continued on intravenous meropenem and vancomycin which he had been receiving as an outpatient for his chronic left diabetic foot ulcer. During this hospitalization, the patient's lactic acid normalized to a value of 10.8. Also, potassium normalized to a value of 4.0. Patient's hypotension which was thought to be iatrogenic in etiology resolved during this hospitalization with intravenous fluids. It was concluded that the patient's lactic acidosis was caused by his metformin use. Patient's condition on discharge was stable. REVIEW OF SYSTEMS: GENERAL: Weight has been stable. No fever or chills. He has had generalized weakness and lightheadedness in the last week though. HEENT: No headaches. No visual changes. CARDIOVASCULAR: No chest pain or cough. GI: No nausea or vomiting. No constipation. : No dysuria, hematuria or incontinence. NEUROMUSCULAR: He has a chronic wound in his left foot. PAST MEDICAL HISTORY: 1. Chronic left diabetic foot ulcer (receiving outpatient intravenous antibiotic therapy). 2. Hypertensive heart disease. 3. Obesity, BMI of 36. 4. Bilateral lower extremity venous insufficiency. PAST SURGICAL HISTORY: 1. Left ankle surgery. 2. Right lower extremity angioplasty. ALLERGIES: NO KNOWN DRUG ALLERGIES. HOME MEDICATIONS: 1. Glimepiride 4 mg daily. 2. Meropenem 1 g intravenous antibiotic. 3. Sitagliptin 100 mg daily. 4. Vancomycin 1.75 g intravenous daily. 5. Spironolactone 25 mg daily. 6. Metoprolol tartrate 25 mg b.i.d. FAMILY HISTORY: Father had type 2 diabetes and in fact was on hemodialysis when he at age 86. SOCIAL HISTORY: This man is . Lives with his . 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 Does not smoke tobacco. He quit drinking alcohol in May 2018 when he was diagnosed with left diabetic foot ulcer. Patient states that he drank primarily beer. PHYSICAL EXAMINATION GENERAL: He is awake, alert, and found to be very pleasant. Comes in with his and is at bedside. VITALS: Height is 6 feet 4 inches, weight is 298 pounds, calculated body mass 36, blood pressure is 167/93, pulse 82, respiratory rate is 18, oxygen saturation is 96%, and temperature 97.3. INTEGUMENT: Skin is warm and dry. No pallor, jaundice or diaphoresis. HEENT: Anicteric sclerae. Moist mucous membranes. NECK: Supple. CARDIOVASCULAR: Distant heart sounds. Regular rate and rhythm. LUNGS: No rales. No rhonchi. ABDOMEN: Obese, benign. EXTREMITIES: Left foot is currently dressed. Patient has skin discoloration in the right lower leg chronic venostasis. NEUROLOGIC: Intact. No gross focal deficits appreciated. DISCHARGE DIAGNOSES: 1. Lactic acidosis secondary to metformin use, resolved. 2. Iatrogenic hypotension, resolved. 3. Hypertensive heart disease. 4. Left diabetic foot ulcer (chronic). 5. Hyperkalemia, resolved. 6. Peripheral artery disease. PLAN: 1. Patient was discharged home and will continue his home medications except he will stop spironolactone and metformin. 2. Resume metoprolol tartrate 25 mg twice a day. 3. Resume outpatient intravenous antibiotic therapy namely meropenem and vancomycin. 4. Informed that patient's lactic acidosis most likely was caused by his metformin use. 5. Patient will follow up with his primary care physician namely Dr. Vito Blum, within 7 to 10 days. DISCHARGE MEDICATIONS: Will be as follows; 1. Glimepiride 4 mg daily. 2. Meropenem 1 g intravenous antibiotic. 3. Vancomycin 1.75 g intravenous daily. 4. Metoprolol tartrate 25 mg b.i.d. 5. Sitagliptin 100 mg daily. FOLLOWUP: As previously stated, patient will follow up with his primary care physician namely Dr. Vito Blum within 7 to 10 days. Job#: [id number] [facility] cc: DO TIMOTEO BAE MD MTDD
--- NOTE | 2018-07-15 21:53 | Discharge Summary ---
No dictation 74 minutes 47 seconds. MALLIKA PEACE MD Job#: [id number]
== END 2018-07-15 14:27 | disposition home or self-care (01) ==
LOC: ER 18:20 → ERHOLD 20:44 → MED/SURG2 21:16
PROVIDERS: ADMIT Internal Medicine; ATTEND Internal Medicine
DX: E87.2 Acidosis (principal); T38.3X5A Adverse effect of insulin and oral hypoglycemic [antidiabetic] drugs, initial encounter; E87.5 Hyperkalemia; E11.51 Type 2 diabetes mellitus with diabetic peripheral angiopathy without gangrene; Z79.4 Long term (current) use of insulin; E11.621 Type 2 diabetes mellitus with foot ulcer; E86.0 Dehydration; I87.2 Venous insufficiency (chronic) (peripheral); E66.9 Obesity, unspecified; Z68.36 Body mass index [BMI] 36.0-36.9, adult; I95.89 Other hypotension; L97.529 Non-pressure chronic ulcer of other part of left foot with unspecified severity
CPT/HCPCS: 36415 ×2; 71045; 80053 ×2; 80202; 81001; 82550 ×2; 82553 ×2; 82948 ×2; 83605 ×2; 83735; 84484 ×2; 85025 ×2; 85610; 85730; 87040; 87086; 93005; 99284; G0378 ×2; J2185 ×2; J3370; J7030 ×2; J7040

== ENCOUNTER → 2018-07-20 | Outpatient (CLI) | payer BC ==
[~2018-07-20] MED LIST changes: +MEROPENEM1 GM
== END ==
LOC: WCC 12:41
PROVIDERS: ATTEND Family Medicine
DX: E11.621 Type 2 diabetes mellitus with foot ulcer (principal); E11.65 Type 2 diabetes mellitus with hyperglycemia; M86.172 Other acute osteomyelitis, left ankle and foot; L97.529 Non-pressure chronic ulcer of other part of left foot with unspecified severity; I10 Essential (primary) hypertension; B96.20 Unspecified Escherichia coli [E. coli] as the cause of diseases classified elsewhere; B96.5 Pseudomonas (aeruginosa) (mallei) (pseudomallei) as the cause of diseases classified elsewhere; B96.89 Other specified bacterial agents as the cause of diseases classified elsewhere; W22.8XXA Striking against or struck by other objects, initial encounter; Z01.810 Encounter for preprocedural cardiovascular examination; Z01.811 Encounter for preprocedural respiratory examination

== ENCOUNTER → 2018-07-25 | Outpatient (CLI) | payer BC | LOC: WCC 14:55 | PROVIDERS: ATTEND Family Medicine | DX: E11.621 Type 2 diabetes mellitus with foot ulcer (principal); E11.69 Type 2 diabetes mellitus with other specified complication; E11.65 Type 2 diabetes mellitus with hyperglycemia; M86.172 Other acute osteomyelitis, left ankle and foot; L97.529 Non-pressure chronic ulcer of other part of left foot with unspecified severity; I10 Essential (primary) hypertension; B96.20 Unspecified Escherichia coli [E. coli] as the cause of diseases classified elsewhere; B96.5 Pseudomonas (aeruginosa) (mallei) (pseudomallei) as the cause of diseases classified elsewhere; B96.89 Other specified bacterial agents as the cause of diseases classified elsewhere; W22.8XXA Striking against or struck by other objects, initial encounter; Z01.810 Encounter for preprocedural cardiovascular examination; Z01.811 Encounter for preprocedural respiratory examination ==

== ENCOUNTER → 2018-07-27 | Outpatient (CLI) | payer BC | LOC: WCC 10:54 | PROVIDERS: ATTEND Family Medicine | DX: E11.621 Type 2 diabetes mellitus with foot ulcer (principal); E11.65 Type 2 diabetes mellitus with hyperglycemia; E11.69 Type 2 diabetes mellitus with other specified complication; M86.172 Other acute osteomyelitis, left ankle and foot; L97.529 Non-pressure chronic ulcer of other part of left foot with unspecified severity; I10 Essential (primary) hypertension; B96.20 Unspecified Escherichia coli [E. coli] as the cause of diseases classified elsewhere; B96.5 Pseudomonas (aeruginosa) (mallei) (pseudomallei) as the cause of diseases classified elsewhere; B96.89 Other specified bacterial agents as the cause of diseases classified elsewhere; W22.8XXA Striking against or struck by other objects, initial encounter; Z01.810 Encounter for preprocedural cardiovascular examination; Z01.811 Encounter for preprocedural respiratory examination ==

== ENCOUNTER → 2018-08-01 | Outpatient (CLI) | payer BC | LOC: WCC 12:55 | PROVIDERS: ATTEND Family Medicine | DX: E11.621 Type 2 diabetes mellitus with foot ulcer (principal); E11.69 Type 2 diabetes mellitus with other specified complication; E11.65 Type 2 diabetes mellitus with hyperglycemia; M86.172 Other acute osteomyelitis, left ankle and foot; L97.529 Non-pressure chronic ulcer of other part of left foot with unspecified severity; I10 Essential (primary) hypertension; B96.20 Unspecified Escherichia coli [E. coli] as the cause of diseases classified elsewhere; B96.5 Pseudomonas (aeruginosa) (mallei) (pseudomallei) as the cause of diseases classified elsewhere; B96.89 Other specified bacterial agents as the cause of diseases classified elsewhere; W22.8XXA Striking against or struck by other objects, initial encounter; Z01.810 Encounter for preprocedural cardiovascular examination; Z01.811 Encounter for preprocedural respiratory examination | CPT/HCPCS: 15275; Q4186 ==

== ENCOUNTER → 2018-08-03 | Outpatient (CLI) | payer BC | LOC: WCC 12:45 | PROVIDERS: ATTEND Podiatrist Foot & Ankle Surgery | DX: E11.621 Type 2 diabetes mellitus with foot ulcer (principal); E11.65 Type 2 diabetes mellitus with hyperglycemia; E11.69 Type 2 diabetes mellitus with other specified complication; M86.172 Other acute osteomyelitis, left ankle and foot; L97.529 Non-pressure chronic ulcer of other part of left foot with unspecified severity; I10 Essential (primary) hypertension; B96.20 Unspecified Escherichia coli [E. coli] as the cause of diseases classified elsewhere; B96.5 Pseudomonas (aeruginosa) (mallei) (pseudomallei) as the cause of diseases classified elsewhere; B96.89 Other specified bacterial agents as the cause of diseases classified elsewhere; W22.8XXA Striking against or struck by other objects, initial encounter; Z01.810 Encounter for preprocedural cardiovascular examination; Z01.811 Encounter for preprocedural respiratory examination ==

== ENCOUNTER → 2018-08-08 | Outpatient (CLI) | payer MEDICARE, BC | LOC: WCC 13:34 | PROVIDERS: ATTEND Family Medicine | DX: E11.621 Type 2 diabetes mellitus with foot ulcer (principal); E11.69 Type 2 diabetes mellitus with other specified complication; E11.65 Type 2 diabetes mellitus with hyperglycemia; L97.529 Non-pressure chronic ulcer of other part of left foot with unspecified severity; B96.20 Unspecified Escherichia coli [E. coli] as the cause of diseases classified elsewhere; B96.5 Pseudomonas (aeruginosa) (mallei) (pseudomallei) as the cause of diseases classified elsewhere; B96.89 Other specified bacterial agents as the cause of diseases classified elsewhere; I10 Essential (primary) hypertension; M86.172 Other acute osteomyelitis, left ankle and foot; W22.8XXA Striking against or struck by other objects, initial encounter; Z01.810 Encounter for preprocedural cardiovascular examination; Z01.811 Encounter for preprocedural respiratory examination ==

== ENCOUNTER → 2018-08-20 | Outpatient (CLI) | payer BC | LOC: WCC 14:25 | PROVIDERS: ATTEND Family Medicine | DX: E11.621 Type 2 diabetes mellitus with foot ulcer (principal); E11.65 Type 2 diabetes mellitus with hyperglycemia; L97.521 Non-pressure chronic ulcer of other part of left foot limited to breakdown of skin; L97.529 Non-pressure chronic ulcer of other part of left foot with unspecified severity; I10 Essential (primary) hypertension; W22.8XXA Striking against or struck by other objects, initial encounter; Z01.810 Encounter for preprocedural cardiovascular examination; Z01.811 Encounter for preprocedural respiratory examination | CPT/HCPCS: 15275; Q4186 ==

== ENCOUNTER → 2018-08-27 | Outpatient (CLI) | payer BC, MEDICARE | LOC: WCC 11:52 | PROVIDERS: ATTEND Family Medicine | DX: E11.621 Type 2 diabetes mellitus with foot ulcer (principal); E11.65 Type 2 diabetes mellitus with hyperglycemia; E11.69 Type 2 diabetes mellitus with other specified complication; L97.521 Non-pressure chronic ulcer of other part of left foot limited to breakdown of skin; L97.529 Non-pressure chronic ulcer of other part of left foot with unspecified severity; I10 Essential (primary) hypertension; W22.8XXA Striking against or struck by other objects, initial encounter; Z01.810 Encounter for preprocedural cardiovascular examination; Z01.811 Encounter for preprocedural respiratory examination ==

== ENCOUNTER 2018-09-27 09:26 | Outpatient (RCR) | payer MEDICARE, OTHER ==
[2018-09-30] MEDS ORDERED: METFORMIN HCL1000 MG PO (11:20)
[2018-09-30] MEDS ORDERED: CYMBALTA30 MG PO (11:22)
== END 2018-09-30 ==
LOC: WCC 09:26
PROVIDERS: ATTEND Family Medicine
DX: E11.621 Type 2 diabetes mellitus with foot ulcer (principal); E11.65 Type 2 diabetes mellitus with hyperglycemia; E11.69 Type 2 diabetes mellitus with other specified complication; L97.521 Non-pressure chronic ulcer of other part of left foot limited to breakdown of skin; L97.529 Non-pressure chronic ulcer of other part of left foot with unspecified severity; I10 Essential (primary) hypertension; W22.8XXA Striking against or struck by other objects, initial encounter; Z01.810 Encounter for preprocedural cardiovascular examination; Z01.811 Encounter for preprocedural respiratory examination

== ENCOUNTER 2018-09-29 16:16 | Inpatient (IN) | payer MEDICARE, OTHER ==
[~2018-09-29] VITALS: Ht 193 cm; Wt 145.1 kg
[~2018-09-29 16:16] MED LIST changes: +ACETAMINOPHEN 325 MG TAB PO ONE
[2018-09-29] MEDS ORDERED: SODIUM CHLORIDE 0.9% 1000ML 1,000 ML IV STA (16:40)
[2018-09-29] MEDS ORDERED: ONDANSETRON HCL INJ 2MG/ML 2ML 2 MG/ML VIAL IV ONE (17:00)
[2018-09-29 17:28] LABS: BASOPHILS % 0.2 % (0.0-1.0); EOSINOPHILS % 0.3 % (0.0-6.0); HEMATOCRIT 35.9 % (38.2-49.6); HEMOGLOBIN 12.8 g/dL (14.0-18.0); LYMPHOCYTES # (AUTO) 0.6 (1.0-3.2); LYMPHOCYTES % 5.6 % (18.0-39.1); MEAN CORPUSCULAR HEMOGLOBIN 33.2 pg (28-32); MEAN CORPUSCULAR HGB CONC 35.7 g/dL (31-35); MEAN CORPUSCULAR VOLUME 93.2 fL (81-99); MONOCYTES # (AUTO) 1.2 (0.2-0.8); MONOCYTES % 10.2 % (4.4-11.3); NEUTROPHILS # (AUTO) 9.5 (2.1-6.9); PLATELET COUNT 152 x10e3/uL (140-360); RED BLOOD COUNT 3.85 x10e6/uL (4.3-5.7); RED CELL DISTRIBUTION WIDTH 12.7 % (11.7-14.4)
[2018-09-29] MEDS ORDERED: MORPHINE SULFATE INJ 4 MG/ML INJ 1ML IV ONE (17:30)
--- NOTE | 2018-09-29 17:36 | Diagnostic Imaging Report ---
FOOT LEFT COMPLETE - 3 views HISTORY: Swollen toes. COMPARISON: None available. FINDINGS: Multifocal erosions, involving the second, third, fourth and fifth distal metatarsals with subluxation of the second metatarsophalangeal joint and complete destruction of the third through fifth metatarsophalangeal joints. There is associated soft tissue swelling of the fore and midfoot and periosteal thickening of the remainder of the metatarsal bones. Partially imaged distal fibular intramedullary telma fixation. Plantar calcaneal enthesophyte. IMPRESSION: Multifocal erosions, involving the second, third, fourth and fifth distal metatarsals with subluxation of the second metatarsophalangeal joint and complete destruction of the third through fifth metatarsophalangeal joints. Signed by: Dr. Juan Carlos Dupree MD on 09/29/2018 5:33 PM
[2018-09-29 17:40] LABS: ALANINE AMINOTRANSFERASE 13 IU/L (0-55); ALBUMIN 2.9 g/dL (3.5-5.0); ALBUMIN/GLOBULIN RATIO 0.6 (0.8-2.0); ALKALINE PHOSPHATASE 116 IU/L (40-150); ANION GAP 12.7 mmol/L (8-16); BLOOD UREA NITROGEN 17 mg/dL (7-26); BUN/CREATININE RATIO 17 (6-25); CARBON DIOXIDE 22 mmol/L (22-29); CHLORIDE 100 mmol/L (98-107); CREATININE, SERUM 1.01 mg/dL (0.72-1.25); EST GLOMERULAR FILTRATION RATE > 60 ML/MIN (60-); GLUCOSE 174 mg/dL (74-118); POTASSIUM 4.7 mmol/L (3.5-5.1); SODIUM 130 mmol/L (136-145)
[2018-09-29] MEDS: PIPER-TAZ 3.375 GM 50 ML IV SCH (17:51)
[2018-09-29] MEDS: VANCOMYCIN 1GM/NS 250 ML 250 ML IV SCH (18:26)
[2018-09-29] MEDS ORDERED: DEXTROSE 50% SYRINGE 50 ML IV PRN (18:30)
--- NOTE | 2018-09-29 18:42 | NUR ---
I SPOKE WITH Joe CARVER AND DR SEBASTIAN ZAMUDIO (COVERING FOR [facility])
[2018-09-29] MEDS: MORPHINE SULFATE INJ 4 MG/ML INJ 1ML IV PRN (18:47)
[2018-09-29] MEDS: ONDANSETRON HCL INJ 2MG/ML 2ML 2 MG/ML VIAL IV PRN (18:47)
[2018-09-29] MEDS: SODIUM CHLORIDE 0.9% 1000ML 1,000 ML IV SCH (21:25)
[2018-09-29] MEDS: INSULIN LISPRO 100 UNIT/1 ML 3ML VIAL SQ SCH (23:02)
--- NOTE | 2018-09-29 23:05 | NUR ---
RECEIVED REPORT FROM RIC LINARES DAY SHIFT NURSE.
--- NOTE | 2018-09-29 23:06 | NUR ---
Walking rounds completed with Maricruz LARIOS. Pt is in no acute distress at this time.
[2018-09-30] MEDS: ONDANSETRON HCL INJ 2MG/ML 2ML 2 MG/ML VIAL IV PRN ×2 (01:00→13:42)
[2018-09-30] MEDS: MORPHINE SULFATE INJ 4 MG/ML INJ 1ML IV PRN ×3 (01:00→20:49)
[2018-09-30] MEDS: PIPER-TAZ 3.375 GM 50 ML IV SCH ×4 (01:09→20:35)
[2018-09-30 05:39] LABS: BASOPHILS % 0.1 % (0.0-1.0); EOSINOPHILS # (AUTO) 0.1 (0.0-0.4); EOSINOPHILS % 0.7 % (0.0-6.0); HEMOGLOBIN 11.2 g/dL (14.0-18.0); LYMPHOCYTES # (AUTO) 0.7 (1.0-3.2); LYMPHOCYTES % 9.4 % (18.0-39.1); MEAN CORPUSCULAR HEMOGLOBIN 32.9 pg (28-32); MEAN CORPUSCULAR VOLUME 94.1 fL (81-99); MONOCYTES % 13.2 % (4.4-11.3); NEUTROPHILS # (AUTO) 5.5 (2.1-6.9); PLATELET COUNT 115 x10e3/uL (140-360); RED CELL DISTRIBUTION WIDTH 12.5 % (11.7-14.4)
[2018-09-30 06:08] LABS: ALANINE AMINOTRANSFERASE 9 IU/L (0-55); ALBUMIN 2.4 g/dL (3.5-5.0); ALBUMIN/GLOBULIN RATIO 0.6 (0.8-2.0); ALKALINE PHOSPHATASE 90 IU/L (40-150); BLOOD UREA NITROGEN 16 mg/dL (7-26); BUN/CREATININE RATIO 20 (6-25); CALCIUM 8.4 mg/dL (8.4-10.2); CARBON DIOXIDE 23 mmol/L (22-29); CHLORIDE 104 mmol/L (98-107); CREATININE, SERUM 0.81 mg/dL (0.72-1.25); EST GLOMERULAR FILTRATION RATE > 60 ML/MIN (60-); GLUCOSE 98 mg/dL (74-118); SODIUM 132 mmol/L (136-145)
[2018-09-30] MEDS: VANCOMYCIN 1GM/NS 250 ML 250 ML IV SCH ×2 (06:34→19:03)
--- NOTE | 2018-09-30 07:15 | NUR ---
REPORT GIVEN TO RIC CHINCHILLA DAY SHIFT NURSE.
[2018-09-30] MEDS: SODIUM CHLORIDE 0.9% 1000ML 1,000 ML IV SCH ×3 (07:52→23:10)
[2018-09-30] MEDS: INSULIN LISPRO 100 UNIT/1 ML 3ML VIAL SQ SCH ×4 (08:00→20:35)
[2018-09-30] MEDS ORDERED: METFORMIN HCL1000 MG PO (11:20)
[2018-09-30] MEDS ORDERED: CYMBALTA30 MG PO (11:22)
--- NOTE | 2018-09-30 13:07 | NUR ---
DR. Evonne CARVER AT [facility] AT THIS TIME FOR PT EVAL, PENDING ORDERS.
[2018-09-30 17:10] VITALS: BP 143/70
[2018-09-30] MEDS ORDERED: ACETAMINOPHEN 325 MG TAB PO PRN (18:00)
--- NOTE | 2018-09-30 19:23 | Consultation ---
DATE OF CONSULTATION: 09/30/2018 REASON FOR CONSULTATION: Possible osteomyelitis with cellulitis, left foot. HISTORY OF PRESENT ILLNESS: This is a pleasant 63-year-old male was seen at the emergency room accompanied by family members, who relates he has had an ulceration started approximately a week ago. His foot started turning red and swollen, but he is denying any history of fever, chills, nausea, or vomiting. PAST MEDICAL HISTORY: Remarkable for vcz-xtdkfyf-dewxwmpzu diabetes times 15+ years. Depression. PAST SURGICAL HISTORY: Remarkable for multiple foot surgeries to both lower extremities and also right ankle surgery. ALLERGIES: PATIENT DENIES. CURRENT MEDICATIONS: Vanco and Zosyn IV. SOCIAL HISTORY: Occasionally drinks beer. Denies any recreational drug use or smoking. FAMILY HISTORY: Remarkable for diabetes. REVIEW OF SYSTEMS: CARDIAC: Denies any palpitations or arrhythmias. RESPIRATORY: Denies any shortness of breath, productive cough. GASTROINTESTINAL: Denies any diarrhea or constipation. GENITOURINARY: Denies hematuria or problems with voiding. PHYSICAL EXAMINATION: VITAL SIGNS: Afebrile, O2 saturation 100%. PODIATRIC: Reveals vasculature, pedal pulses both DP and PT are palpable. CFT to all toes less than 3 seconds. NEUROLOGIC: Reveals loss of protective sensation when utilizing [place] 5.07 monofilament wire. Muscle mass is asymmetrical. Some swelling noted to the left lower extremity when compared to the right. Muscle strength is 4 to 5/5 to all muscle groups. DERMATOLOGIC: A grade 2/3 ulceration plantar aspect left foot with cellulitis to the dorsal aspect. LABORATORY DATA: Noted as white blood cell count of 7.2, hemoglobin 11.2, hematocrit 32.0, platelet 115 with a blood glucose of 98. X-rays were negative for any gas in the tissue. There is signs of previous surgery including amputations of the 2nd, 3rd, 4th, and 5th metatarsal heads. ASSESSMENT: An ulceration grade 2/3. Possible osteo with cellulitis. PLAN: We will continue IV antibiotics. Continue local wound care. Dr. Osuna will follow up on Monday. SALINA Murphy/LINDA /[id number]
[2018-09-30 20:33] VITALS: BP 151/67
[2018-09-30] MEDS: CLONAZEPAM 0.5 MG TAB PO SCH (21:00)
[2018-09-30] MEDS ORDERED: CLONAZEPAM 0.5 MG TAB PO SCH (21:00)
[2018-09-30 22:00] VITALS: BP 128/66
[2018-10-01] VITALS (11 sets, daily range): BP systolic 115–147; BP diastolic 58–79
[2018-10-01] MEDS: PIPER-TAZ 3.375 GM 50 ML IV SCH ×5 (02:00→21:00)
[2018-10-01] MEDS: VANCOMYCIN 1GM/NS 250 ML 250 ML IV SCH ×2 (05:00→18:00)
[2018-10-01 05:12] LABS: BASOPHILS % 0.2 % (0.0-1.0); EOSINOPHILS # (AUTO) 0.1 (0.0-0.4); EOSINOPHILS % 2.2 % (0.0-6.0); HEMATOCRIT 33.6 % (38.2-49.6); HEMOGLOBIN 11.4 g/dL (14.0-18.0); LYMPHOCYTES # (AUTO) 0.8 (1.0-3.2); LYMPHOCYTES % 12.6 % (18.0-39.1); MEAN CORPUSCULAR HEMOGLOBIN 32.2 pg (28-32); MEAN CORPUSCULAR HGB CONC 33.9 g/dL (31-35); MEAN CORPUSCULAR VOLUME 94.9 fL (81-99); MONOCYTES # (AUTO) 1.2 (0.2-0.8); MONOCYTES % 19.2 % (4.4-11.3); NEUTROPHILS # (AUTO) 4.1 (2.1-6.9); NEUTROPHILS % 65.3 % (38.7-80.0); PLATELET COUNT 123 x10e3/uL (140-360); RED BLOOD COUNT 3.54 x10e6/uL (4.3-5.7); RED CELL DISTRIBUTION WIDTH 12.3 % (11.7-14.4)
[2018-10-01 05:36] LABS: ALANINE AMINOTRANSFERASE 12 IU/L (0-55); ALBUMIN 2.2 g/dL (3.5-5.0); ALBUMIN/GLOBULIN RATIO 0.6 (0.8-2.0); ALKALINE PHOSPHATASE 96 IU/L (40-150); ANION GAP 9.1 mmol/L (8-16); BLOOD UREA NITROGEN 14 mg/dL (7-26); BUN/CREATININE RATIO 16 (6-25); CALCIUM 8.3 mg/dL (8.4-10.2); CARBON DIOXIDE 25 mmol/L (22-29); CHLORIDE 104 mmol/L (98-107); CREATININE, SERUM 0.87 mg/dL (0.72-1.25); EST GLOMERULAR FILTRATION RATE > 60 ML/MIN (60-); GLUCOSE 138 mg/dL (74-118); POTASSIUM 5.1 mmol/L (3.5-5.1); SODIUM 133 mmol/L (136-145)
[2018-10-01] MEDS: INSULIN LISPRO 100 UNIT/1 ML 3ML VIAL SQ SCH ×4 (08:20→21:00)
--- NOTE | 2018-10-01 11:49 | NUR ---
WOUND CARE CONSULTATION INITIAL EVALUATION Patient admitted from Home to ER for worsening chronic diabetic foot ulcers with redness and swelling to foot. Blood cultures+ Staph. DX: Cellulitis with Possible Osteomyelitis. HX:DM type 2, Chronic Diabetic foot ulcers, Restless leg syndrome. -Dr. Nam on Case for Infectious Disease -Madhu Martinez on case for Podiatry. LABS: WBC:6.25 HGB:11.4 HCT:33.6 NEUT%65.3 ALB2.2 [id number] Wound Care Consulted For LLE foot ulcers evaluation. PATIENT VISIT: Patient is in bed calm and in good spirits. Spouse at bedside. Able to turn self. Denies rash. Philip Score = 20 Alternating Pressure Air Mattress Conservative PUP LLE with +2-3 edema. Reddened area marked on admission and appears to be improving on current antibiotics. Dressing falling of at time of visit. patient states to have restless leg syndrome and dressings tend not to last very long. - Left Foot Plantar- 2nd Metatarsal ulcer, 90% Slough, Draining Heavy Pus, Probes to Bone at 1.3 cm. Periwound Calloused. Patient states started out as a blister that opened. - Left Foot Plantar - 3rd Metatarsal - Calloused periwound, boggy, straw colored pus upon expressed. - Left Foot Redness Streaking from Distal toward mid foot. IMPRESSION: - Left Foot Plantar- 2nd Met- DFU Grade 3 - Left Foot Plantar- 3rd Met- DFU Grade 3 RECOMMENDATION: 1. Left Foot- DFU Grade 3 Ulcers x2 - Cleanse wounds with Hibiclens Soap and Normal Saline with 4x4 Gauze. - Pack wound with Drawtex Strip and Cover with ABD Pad and Wrap with Kerlix Daily & PRN Strikethrough. 2. MRI/ CT to Rule out OM of Left Foot. 3. NWB of Left Foot/ Use Heel Bearing Post Op Shoe. 4. Encourage Turning and Repositioning Every 2 Hours Thank you for consulting with Wound Care. Addendum: 10/01/18 at 1213 by Reji Ahumada RN Amended: Links added. Addendum: 10/01/18 at 1233 by Reji Ahumada RN Reviewed Care with Madhu Martinez Ordered Stat MRI of Left Foot without Contrast. Will likely need surgical intervention tomorrow. Wound Culture Ordered and Collected, Walked to LAB Addendum: 10/01/18 at 1531 by Reji Ahumada RN [id number] - 10/01/18 - Dr. Osuna states patient will go to OR for I&D of Left Foot. Will likely require NPWT started tomorrow after procedure. Will need home VAC upon discharge.
[2018-10-01] MEDS: SODIUM CHLORIDE 0.9% 1000ML 1,000 ML IV SCH ×2 (12:44→21:15)
--- NOTE | 2018-10-01 12:49 | NUR ---
patient to go to MRI for foot after current patient. nsg report given to Sylvie LARIOSsurgical garment assembler 2. nurse will call when room ready.
--- NOTE | 2018-10-01 13:45 | NUR ---
rcd pt from icu by wheel chair pt is alert and oriented vitals checked pt resting on bed family at bed side bed low and locked call light in reach
--- NOTE | 2018-10-01 15:39 | NUR ---
Nutrition Screen Note RD Recommendation for Physician: -Continue current diet as ordered. Plan of Care: RD following, monitoring for tolerance and adequacy Nutrition reason for involvement: Nutrition Risk Trigger-MST 2 Primary Diagnose(s): Possible osteo with cellulitis. PMH: Remarkable for ylp-iechiml-xzpwyqxke diabetes times 15+ years, depression. Ht:76 in Wt: 298 lb BMI: 36 kg/m2 IBW: [address] Assessment: (10/01): 63 YOM admitted for osteo with cellulitis. Pt was seen d/t MST screen. Pt reported that he has lost weight but it was intentional. Pts reported that the pt does not eat much because he felt this would help lower his BG levels. Reiterated to pt importance of eating consistently throughout the day and provided education about DM to pt and . Provided them with handouts. They both verbalized understanding. Pt had no other questions or concerns. Chart reviewed. Labs and meds reviewed. Pt stated his appetite has been good and he had no GI complaints. Pt had no chewing or swallowing complaints. Will continue to follow. Current Diet: ADA 1800 Malnutrition Evaluation (10/01/18) The patient does not meet criteria for a specified degree of malnutrition at this time. Will re-evaluate at follow-up as appropriate. Diet Education Needs Assessment: Diet education indicated, pt was agreeable. Nutrition Education Learner(s): pt and Time spent: 30 min Barriers: No barriers identified. Cultural/Language Modifications: No cultural/language modifications noted. Pt and speak Rwandan. Readiness: Acceptance. Method: Provided pt and pts with Diabetes Education and handout. Topics: Carbohydrate exchanges, Carbohydrate counting handouts, Reading the nutrition label, meal planning tips, exercise tips, servings/portion sizes. Understanding/Compliance: Expect fair understanding/compliance from pt. Will benefit from reinforcement. All questions have been answered. Nutrition Care Level: low Signed: Heidy Davis, MS, RD, LD
--- NOTE | 2018-10-01 15:43 | Consultation ---
DATE OF CONSULTATION: 10/01/2018 REASON FOR CONSULTATION: Bacteremia, sepsis, infected foot, and osteomyelitis of the foot. Thank you so much for asking me to see this patient. This is a very pleasant 63-year-old white male. He said he has been having problem with ulcer on his foot for sometime, but in the last five days or so, he has been having fever sensation, redness and swelling in the foot, the ulcer with some drainage. The is telling me that the patient has been sick for a couple of weeks at least with some fever, some dizziness on and off and not feeling well. The patient was admitted currently in the intensive care unit. The patient apparently was hypotensive, but currently he is alert, oriented, has no complaints except some pain in the foot. PAST MEDICAL HISTORY: He has history of diabetes mellitus for more than 15 years. PAST SURGICAL HISTORY: Multiple debridements on his both feet. ALLERGIES: NKA. SOCIAL HISTORY: He drinks occasionally. He works in [employer]. He smokes occasionally. But he said when he drinks beer, he drinks four beers a day and the think he is drinking more. CURRENT MEDICATIONS: He is currently on Zosyn, insulin, vancomycin. REVIEW OF SYSTEMS: HEENT: Negative. PULMONARY: Negative. CARDIAC: Negative. : Negative. PHYSICAL EXAMINATION: GENERAL: He is currently alert, oriented, does not seem to be in acute distress. HEENT: He is not icteric. NECK: Supple. CHEST: Clear bilateral. HEART: S1, S2. No S3, S4, or murmur. ABDOMEN: Soft. Bowel sounds present. There is no hepatosplenomegaly. EXTREMITIES: Left foot, there is erythema, there is edema involving the distal third of the foot. LABORATORY DATA: Reviewed. His blood cultures came back positive for Staphylococcus aureus, two sets. White count is 6, hemoglobin 11, hematocrit 33. His sodium , potassium 5.1, creatinine 0.87. His albumin of 2.2. IMPRESSION: 1. Staph aureus bacteremia present on admission, rule out endocarditis. We will get echocardiogram. We will get a CT of abdomen and pelvis. He would need a PICC line for long-term IV antibiotics, perhaps eight weeks. 2. Osteomyelitis of the foot. Vascular workup. MRI of the foot. May need surgical debridement. 3. Diabetes mellitus. 4. We will follow. MD ESA Kaye/LINDA /[id number]
--- NOTE | 2018-10-01 15:49 | NUR ---
pt went to procedure in safe condition
--- NOTE | 2018-10-01 15:55 | NUR ---
CM SPOKE TO PATIENT AT BEDSIDE REGARDING IMM LETTER. IMM LETTER GIVEN WITH EXPLANATION BASED ON ANTICIPATED DISCHARGE DATE. ORIGINAL SIGNED AND PLACED IN CHART; COPY OF ORIGINAL DOCUMENT GIVEN TO PATIENT AT BEDSIDE AND PLACED IN CARE TRANSITION FOLDER. CM CONTACT INFORMATION GIVEN TO PATIENT FOR ANY NEEDS OR CONCERNS. PATIENT WITH NO FURTHER QUESTIONS.
--- NOTE | 2018-10-01 17:00 | NUR ---
PT GOING FOR SURGERY ON TOMORROW CONSENT SIGNED NPO AFTER MIDNIGHT
--- NOTE | 2018-10-01 17:11 | NUR ---
DR FREGOSO CAME TO SEE THE PT HE SAID DR GAGNON IS THE SECTION CUTTER PAGED TO DR Joe CARVER TO NOTIFY THAT
--- NOTE | 2018-10-01 17:14 | Diagnostic Imaging Report ---
MRI of the left forefoot without contrast. History: Cellulitis. Osteomyelitis. Ulcer. Decreased range of motion. Technique: Multiplanar multisequence MRI of the foot without contrast Comparison: Radiographs 09/29/2018 Findings: Abnormal skin ulceration with sinus tract and soft tissue edema at the plantar aspect of the foot at the level of the distal third/fourth metatarsals. There is associated abnormal soft tissue edema and a lobulated fluid collection extending from the plantar aspect of the foot measuring approximately 3 cm in maximal dimension consistent with a phlegmon/abscess. This is best seen on series 4 image 18. There is associated cortical destruction and bone marrow replacement with bone marrow edema centered at the third distal metatarsal and proximal third toe. Additionally, abnormal bone marrow edema and cortical destruction is seen at the distal second metatarsal, proximal second toe, distal fourth metatarsal and to a lesser extent proximal fourth toe. Findings are consistent with osteomyelitis. Chronic appearing deformity of the distal fifth metatarsal and proximal fifth toe. Dorsal medial subluxation of the proximal second toe with respect to the distal second metatarsal best seen on sagittal image 18 and 19. Scattered degenerative change. Diffuse soft tissue edema. Impression: Findings consistent with skin ulceration, sinus tract, phlegmon/abscess, cellulitis and osteomyelitis as described above centered at the distal third metatarsal/proximal third toe. Signed by: Dr. Trevon Espinal M.D. on 10/01/2018 5:11 PM
--- NOTE | 2018-10-01 18:05 | Diagnostic Imaging Report ---
EXAM: CT Abdomen and Pelvis WITH contrast INDICATION: Cellulitis. Osteomyelitis. Abscess. COMPARISON: None. TECHNIQUE: Abdomen and pelvis were scanned utilizing a multidetector helical scanner from the lung base to the pubic symphysis after administration of IV contrast. Coronal and sagittal reformations were obtained. Routine protocol was performed. Scan was performed when during portal venous phase. IV CONTRAST: 100 mL of Isovue-370 ORAL CONTRAST: Water COMPLICATIONS: None RADIATION DOSE: Total DLP: 1001.13 mGy*cm Estimated effective dose: (DLP x 0.015 x size factor) mSv CTDIvol has been reviewed. It is below the limits set by the Radiation Protocol Committee (RPC). Dose modulation, iterative reconstruction, and/or weight based adjustment of the mA/kV was utilized to reduce the radiation dose to as low as reasonably achievable. FINDINGS: LINES and TUBES: None. LOWER THORAX: Unremarkable HEPATOBILIARY: Scattered calcified granulomas. No biliary ductal dilation. GALLBLADDER: No radio-opaque stones or sludge. No wall thickening. SPLEEN: No splenomegaly. Small splenule. PANCREAS: No focal masses or ductal dilatation. ADRENALS: No adrenal nodules KIDNEYS/URETERS: Kidneys enhance symmetrically. No hydronephrosis. Too small to characterize hypodensity in the anterior right kidney. Bilateral perinephric fat stranding could be due to chronic medical renal disease. Nonobstructing 3 mm stone in the posterior left kidney. GI TRACT: No abnormal distention, wall thickening, or evidence of bowel obstruction. Appendix not clearly seen. No inflammatory change in the right lower quadrant of the abdomen. Scattered diverticulosis without evidence of diverticulitis. PELVIC ORGANS/BLADDER: Coarse calcifications in the prostate gland. LYMPH NODES: No lymphadenopathy. VESSELS: Scattered vascular calcifications.. PERITONEUM / RETROPERITONEUM: No free air or fluid. BONES: Scattered degenerative change. SOFT TISSUES: Small fat-containing inguinal hernias IMPRESSION: Scattered diverticulosis without evidence of diverticulitis. Appendix not clearly seen. No inflammatory change in the right lower quadrant of the abdomen. Too small to characterize hypodensity in the anterior right kidney. Bilateral perinephric fat stranding could be due to chronic medical renal disease. Nonobstructing 3 mm stone in the posterior left kidney. No abdominal or pelvic abscess is seen. Signed by: Dr. Trevon Espinal M.D. on 10/01/2018 6:01 PM
--- NOTE | 2018-10-01 18:41 | NUR ---
PT RESTING ON BED BED SIDE REPORT GIVEN TO ONCOMING NURSE
--- NOTE | 2018-10-01 18:47 | NUR ---
DR CARVER RETURNED CALL AND GOT THE ORDER TO CHANGE CONSULTATION TO DR GAGNON
--- NOTE | 2018-10-01 20:00 | NUR ---
CONSULT TO DR KALIN TIJERINA.
[2018-10-01] MEDS ORDERED: SODIUM CHLORIDE 0.9% 50ML 50 ML ONE (20:35)
[2018-10-01] MEDS ORDERED: IOPAMIDOL 370 MG/ML 200 ML INFUS..BTL INJ ONE (20:35)
[2018-10-01] MEDS: CLONAZEPAM 0.5 MG TAB PO SCH (21:00)
--- NOTE | 2018-10-01 23:39 | Progress Note ---
DATE: 10/01/2018 SUBJECTIVE: He was seen at bedside today. He is a patient well-known to my office. He is a patient of Wound Care. He developed a wound on the plantar aspect of the left foot at the 2nd metatarsal. He began to have a drainage, so he came in to the Emergency Room. PHYSICAL EXAMINATION: There is an ulcer at the plantar aspect of the left foot to metatarsal to the bone. There is purulence to the area, purulence was expressed. There is erythema and edema into the dorsal foot. Pedal pulses are palpable. Capillary refilling time is delayed. Skin is thin, shiny, and atrophic. Muscle mass is symmetrical, but the threshold is absent. He is pending an MRI, but the x-ray is positive for osteomyelitis. His blood culture is also positive. He is having CT of the abdomen to rule on another potential source of the foot. ASSESSMENT: 1. Diabetic foot ulcer grade 3, left foot, new ulcer. 2. Neuropathy. 3. Peripheral vascular disease. 4. Sepsis. PLAN: At this point, he is on-call to the OR tomorrow at 9:30. He will be n.p.o. after midnight. He will be consented. He is going to need to a wound VAC. Once he is discharged, he probably will go home on IV antibiotics. He has had a PICC line before and knows how to do it and he will follow up in the wound care center. For now, he is n.p.o. after midnight. He has to come to the OR tomorrow at 9:30. SALINA Figueroa/LINDA /[id number]
[2018-10-02] VITALS (9 sets, daily range): BP systolic 126–166; BP diastolic 61–72
[2018-10-02] MEDS: PIPER-TAZ 3.375 GM 50 ML IV SCH ×2 (02:26→08:00)
[2018-10-02] MEDS: VANCOMYCIN 1GM/NS 250 ML 250 ML IV SCH (05:49)
[2018-10-02 06:15] LABS: BASOPHILS % 0.4 % (0.0-1.0); EOSINOPHILS # (AUTO) 0.2 (0.0-0.4); EOSINOPHILS % 2.9 % (0.0-6.0); HEMATOCRIT 31.4 % (38.2-49.6); HEMOGLOBIN 10.7 g/dL (14.0-18.0); LYMPHOCYTES # (AUTO) 0.7 (1.0-3.2); LYMPHOCYTES % 13.5 % (18.0-39.1); MEAN CORPUSCULAR HEMOGLOBIN 32.2 pg (28-32); MEAN CORPUSCULAR HGB CONC 34.1 g/dL (31-35); MEAN CORPUSCULAR VOLUME 94.6 fL (81-99); MONOCYTES # (AUTO) 0.9 (0.2-0.8); NEUTROPHILS # (AUTO) 3.6 (2.1-6.9); NEUTROPHILS % 65.8 % (38.7-80.0); PLATELET COUNT 118 x10e3/uL (140-360); RED BLOOD COUNT 3.32 x10e6/uL (4.3-5.7); RED CELL DISTRIBUTION WIDTH 12.2 % (11.7-14.4)
[2018-10-02 06:44] LABS: ALANINE AMINOTRANSFERASE 12 IU/L (0-55); ALBUMIN 2.2 g/dL (3.5-5.0); ALBUMIN/GLOBULIN RATIO 0.6 (0.8-2.0); ALKALINE PHOSPHATASE 90 IU/L (40-150); ANION GAP 8.1 mmol/L (8-16); BLOOD UREA NITROGEN 12 mg/dL (7-26); BUN/CREATININE RATIO 16 (6-25); CALCIUM 8.2 mg/dL (8.4-10.2); CARBON DIOXIDE 24 mmol/L (22-29); CHLORIDE 103 mmol/L (98-107); CREATININE, SERUM 0.75 mg/dL (0.72-1.25); EST GLOMERULAR FILTRATION RATE > 60 ML/MIN (60-); GLUCOSE 145 mg/dL (74-118); POTASSIUM 4.1 mmol/L (3.5-5.1); SODIUM 131 mmol/L (136-145)
--- NOTE | 2018-10-02 07:00 | NUR ---
RCD PT AT BED PT IS ALERT AND ORIENTED PT RESTING ON BED NO SIGNS OF ANY DISTRESS NOTED IV PATENT PT NPO FOR PROCEDURE BED LOW AND LOCKED CALL LIGHT IN REACH
--- NOTE | 2018-10-02 07:02 | NUR ---
REPORT GIVEN TO ONCOMING NURSE.WALKING ROUNDS MADE.PT RESTING IN BED WITH NO S/S OF DISTRESS.
[2018-10-02] MEDS: SODIUM CHLORIDE 0.9% 1000ML 1,000 ML IV SCH ×2 (07:04→16:17)
[2018-10-02] MEDS: INSULIN LISPRO 100 UNIT/1 ML 3ML VIAL SQ SCH ×4 (07:30→21:15)
--- NOTE | 2018-10-02 09:12 | NUR ---
PT WENT TO PROCEDURE IN SAFE CONDITION
--- NOTE | 2018-10-02 10:45 | NUR ---
PT BACK AFTER PROCEDURE PT IS ALERT AND ORIENTED VITALS CHECKED PT RESTING ON BED SMALL OOZING ON THE SURGICAL SITE DR AWARE ABOUT IT AN ORDER TO WOUND VAC ORDER PAGED TO MATERIAL MGT AND NOTIFIED WOUND CARE
[2018-10-02 11:11] LABS: BASOPHILS % 0.4 % (0.0-1.0); EOSINOPHILS # (AUTO) 0.2 (0.0-0.4); EOSINOPHILS % 2.9 % (0.0-6.0); HEMOGLOBIN 9.9 g/dL (14.0-18.0); LYMPHOCYTES # (AUTO) 0.8 (1.0-3.2); LYMPHOCYTES % 14.8 % (18.0-39.1); MEAN CORPUSCULAR HGB CONC 34.1 g/dL (31-35); MEAN CORPUSCULAR VOLUME 93.9 fL (81-99); MONOCYTES # (AUTO) 0.7 (0.2-0.8); MONOCYTES % 14.2 % (4.4-11.3); NEUTROPHILS # (AUTO) 3.5 (2.1-6.9); NEUTROPHILS % 67.3 % (38.7-80.0); PLATELET COUNT 124 x10e3/uL (140-360); RED BLOOD COUNT 3.09 x10e6/uL (4.3-5.7); RED CELL DISTRIBUTION WIDTH 12.3 % (11.7-14.4)
[2018-10-02] MEDS: CEFAZOLIN SOD 2 GM/D5W 50ML 50 ML IV SCH ×2 (13:00→21:16)
[2018-10-02] MEDS: MORPHINE SULFATE INJ 4 MG/ML INJ 1ML IV PRN ×2 (13:47→23:00)
[2018-10-02] MEDS ORDERED: CEFAZOLIN SOD 1 GM VIAL IV SCH (14:00)
--- NOTE | 2018-10-02 14:00 | NUR ---
PT IS ON WOUND VAC ON THE LEFT FOOT
--- NOTE | 2018-10-02 14:33 | Operative Report ---
DATE OF PROCEDURE: 10/01/2018 SURGEON: Teri Hall DPM SAP DATA ARCHITECT: None. PREOPERATIVE DIAGNOSES: 1. Abscessed left foot. 2. Osteomyelitis. 3. Sepsis. 4. Diabetes with neuropathy and peripheral vascular disease. POSTOPERATIVE DIAGNOSES: 1. Abscessed left foot. 2. Osteomyelitis. 3. Sepsis. 4. Diabetes with neuropathy and peripheral vascular disease. PROCEDURES: 1. Debridement past fascia to include bone. 2. Bone culture and sensitivity with bone biopsy. 3. Application of wound VAC in PACU, left foot. PATHOLOGY: Culture and sensitivity and bone biopsy ANESTHESIA: General anesthetic. HEMOSTASIS: None. ESTIMATED BLOOD LOSS: Less than 30 mL. MATERIALS: Pulse systems support specialist with bacitracin and Betadine wet-to-dry. COMPLICATIONS: None. CONDITION: Stable. PROCEDURE IN DETAIL: Under mild sedation, the patient was brought to the operating room and placed on the operating table in a supine position. Following IV sedation, anesthesia was obtained with general anesthetic. At this point, the left foot was scrubbed, prepped, and draped in usual aseptic manner. Utilizing sharp dissection, two same elliptical incisions were made overlying the plantar aspect of the ulcer. The incisions were deepened down to the level of the intermetatarsal space. At this point, there was noted to be an abscess to the area. The abscess was completely drained. The ulcer was completely removed. Excisional debridement with a 15 blade, bone rongeur, and an oscillating saw was made past the fascia to include bone. The head of the first metatarsal was then removed. The area was then flushed with copious amount of irrigation with bacitracin with pulse systems support specialist. The area was then packed with Betadine wet to dry dressing, 4x4s, Kerlix, and Eliu bandage. The patient tolerated the procedure and anesthesia well without complications and was transported to recovery room, will be readmitted back into the hospital. He will need the wound VAC applied today, which will be applied by wound care. He will need to be nonweightbearing to that foot. ID is on the case and they have recommended IV antibiotics from possibly 6 to 8 weeks. He is going to need a wound VAC at home and he is going to need to follow up with me at wound care center. SALINA Figueroa/KANEL /[id number]
--- NOTE | 2018-10-02 14:47 | NUR ---
WOUND CARE CONSULTATION Follow up Patient admitted from Home to ER for worsening chronic diabetic foot ulcers with redness and swelling to foot. Blood cultures+ Staph. DX: Cellulitis with Possible Osteomyelitis. HX:DM type 2, Chronic Diabetic foot ulcers, Restless leg syndrome. -Dr. Nam on Case for Infectious Disease- Patient on IV ABX. -Madhu Martinez on case for Podiatry. - S/P Abscession and 1st Met Head Removal 10/02/[address] Osuna PATIENT VISIT: Patient is in bed calm and in good spirits. Spouse at bedside. Philip Score = 20 Alternating Pressure Air Mattress Conservative PUP LLE with +3 edema. Reddened area improving on current antibiotics. Dressing bloody strikethrough of at time of visit. - Left Foot Plantar- 2nd Metatarsal ulcer, 90% Slough, Draining Heavy Pus, Probes to Bone at 1.3 cm. Periwound macerated. - Reviewed Care with Madhu Martinez Ordered NPWT -120mmHG Continuous change TIW to left Foot Ulcer. IMPRESSION: DFU Grade 3 - S/P Abscession and 1st Met Head Removal PLAN: 1. Left Foot- DFU Grade 3 Ulcers x2 - NPWT -120mmHG Continuous. Change TIW. 2. D/C Home with OP . F/U with Dr. Osuna at [facility]. Addendum: 10/02/18 at 1456 by Reji Ahumada RN Amended: Links added.
--- NOTE | 2018-10-02 15:39 | NUR ---
ZAY SPOKE TO DEANNE WITH DR. JIMENEZ'S OFFICE REGARDING REQUESTED SIGNATURE FOR WOUND VAC ORDER. CM ASKED IF SHE WOULD LIKE TO SIGN IN HOUSE AT [facility] OR DOES SHE WANT US TO FAX THE PAPER WORK TO HER OFFICE. PER DEANNE, MD WILL BE IN HER OFFICE TOMORROW MORNING AND HER DERMATOLOGICAL SURGEON WILL HAVE MD SIGN PAPER WORK AFTER 8:30 AM MEETING. CM TO FOLLOW UP AND REQUEST SIGNED DOCUMENT FROM DR. MICHAEL MONTOYA TOMRROW AFTER 8:[address] MICHAEL MONTOYA OFFICE P) [phone] (F) [phone] NOT IN OFFICE TO GIVE ANTICIPATED DC DATE AT THIS TIME BUT CAN BE REQUESTED TOMORROW WHEN MD IS IN OFFICE. Addendum: 10/02/18 at 1554 by Urmila Sprague CM FAX NOT WORKING DUE TO NO TONER DOCUMENT REROUTED TO FAX [phone]
--- NOTE | 2018-10-02 15:51 | NUR ---
CASE MANAGEMENT ASSESSMENT Cake Former to bedside to discuss plan of care with patient/family. CM/SW role and care transitions discussed. Anticipated discharge plan discussed along with duration of care. CM/SW discussed patients right to make decisions in care. CM/SW work hours given. Patient lives: with [facility] Admit/Transfer: thru ED Hospital/ER visits since last admit: was discharged from this facility on Jul 15, 2018; was in observation POA/Emergency contact: [facility] [phone] Current/Previous Home Health: none PCP/Follow-up Care: Dr. Osuna (podiatry) - pt states he has a follow up appointment on Monday Current/Previous DME: none Medications (referring to index hospitalization or the first time you were in the hospital) a. Were changes made in your medications when you were in the hospital on Jul 2018? no new meds; just stopped some b. Did you understand the changes? yes c. Were you able to obtain your new medications right away? n/a d. Were you able to take your medications like the doctor wanted you to? n/a e. Did the hospital give you an accurate, easy to understand list of medications when you left? n/a Scale of 1-10 how comfortable does patient feel with disease management in outpatient setting: Other Services: was being seen in the wound clinic Employment Status: self-employed Areas of Concerns: foot infection Referral Needs: need wound vac; outpatient wound care choice letter signed for [facility] for wound vac. signed copy placed in chart. copy in pt's transition of care folder. Education Needs: wound care. medical management. IMM/UNDERWOOD given and signed (if applicable): none at this time Goal for discharge: home with outpatient wound care CM/SW left business card at the bedside with contact information. Name and number was also written on the patients whiteboard. Patient verbalized understanding of discussion. CM will follow-up with ongoing discharge and transition of care needs.
--- NOTE | 2018-10-02 18:47 | NUR ---
PT RESTING ON BED BED SIDE REPORT GIVEN TO ONCOMING NURSE
[2018-10-02] MEDS ORDERED: LIDOCAINE HCL 2% LOCAL INJ 5 ML SDV VIAL INJ ONE (18:54)
[2018-10-02] MEDS ORDERED: SEVOFLURANE INHAL SOLN 250 ML PEN BTL ONE (18:54)
[2018-10-02] MEDS ORDERED: PROPOFOL IV EMULSION 10 MG/ML 20 ML VIAL ONE (18:54)
[2018-10-02] MEDS ORDERED: ONDANSETRON HCL INJ 2MG/ML 2ML 2 MG/ML VIAL ONE (18:54)
[2018-10-02] MEDS ORDERED: FENTANYL CITRATE/PF 100MCG/2 ML INJ ONE (19:15)
[2018-10-02] MEDS ORDERED: MIDAZOLAM HCL 2 MG/2 ML VIAL ONE (19:15)
[2018-10-02] MEDS: CLONAZEPAM 0.5 MG TAB PO SCH (21:16)
[2018-10-03] VITALS (8 sets, daily range): BP systolic 125–156; BP diastolic 62–82
[2018-10-03] MEDS: SODIUM CHLORIDE 0.9% 1000ML 1,000 ML IV SCH ×3 (02:17→17:30)
[2018-10-03] MEDS: CEFAZOLIN SOD 2 GM/D5W 50ML 50 ML IV SCH ×3 (05:20→22:00)
[2018-10-03 05:44] LABS: BASOPHILS % 0.4 % (0.0-1.0); EOSINOPHILS # (AUTO) 0.2 (0.0-0.4); EOSINOPHILS % 3.7 % (0.0-6.0); HEMATOCRIT 29.4 % (38.2-49.6); LYMPHOCYTES # (AUTO) 0.9 (1.0-3.2); LYMPHOCYTES % 17.2 % (18.0-39.1); MEAN CORPUSCULAR HEMOGLOBIN 32.2 pg (28-32); MEAN CORPUSCULAR HGB CONC 34.4 g/dL (31-35); MEAN CORPUSCULAR VOLUME 93.6 fL (81-99); MONOCYTES # (AUTO) 0.7 (0.2-0.8); MONOCYTES % 13.1 % (4.4-11.3); NEUTROPHILS # (AUTO) 3.3 (2.1-6.9); NEUTROPHILS % 65.2 % (38.7-80.0); PLATELET COUNT 130 x10e3/uL (140-360); RED BLOOD COUNT 3.14 x10e6/uL (4.3-5.7); RED CELL DISTRIBUTION WIDTH 12.3 % (11.7-14.4)
[2018-10-03 05:55] LABS: HEMOGLOBIN 10.1 g/dL (14.0-18.0)
[2018-10-03 06:11] LABS: ALANINE AMINOTRANSFERASE 10 IU/L (0-55); ALBUMIN 2.1 g/dL (3.5-5.0); ALBUMIN/GLOBULIN RATIO 0.6 (0.8-2.0); ALKALINE PHOSPHATASE 100 IU/L (40-150); ANION GAP 7.9 mmol/L (8-16); BLOOD UREA NITROGEN 12 mg/dL (7-26); BUN/CREATININE RATIO 17 (6-25); CARBON DIOXIDE 24 mmol/L (22-29); CHLORIDE 107 mmol/L (98-107); CREATININE, SERUM 0.69 mg/dL (0.72-1.25); EST GLOMERULAR FILTRATION RATE > 60 ML/MIN (60-); GLUCOSE 136 mg/dL (74-118); POTASSIUM 3.9 mmol/L (3.5-5.1); SODIUM 135 mmol/L (136-145)
--- NOTE | 2018-10-03 07:09 | NUR ---
REPORT GIVEN TO ONCOMING NURSE,WALKING ROUNDS MADE.PT RESTING IN BED WITH NO S/S OF DISTRESS.
[2018-10-03] MEDS: INSULIN LISPRO 100 UNIT/1 ML 3ML VIAL SQ SCH ×4 (08:25→21:00)
--- NOTE | 2018-10-03 13:40 | NUR ---
REMOVED IV FROM RIGHT FOREARM, IV IN RIGHT HAND ALREADY INTACT, PATENT, AND CLEAN.
--- NOTE | 2018-10-03 16:19 | NUR ---
Spoke with Dr. Nam and received order for home IV abx. Spoke to pt at bedside. Pt signed choice letter for [facility]. Signed letter placed in chart. Copy to pt. [facility] will set up home health. Referral was faxed to [phone]. Nury with [facility] was notified [phone].
--- NOTE | 2018-10-03 16:40 | NUR ---
WOUND CARE CONSULTATION Follow up Patient admitted from Home to ER for worsening chronic diabetic foot ulcers with redness and swelling to foot. Blood cultures+ Staph. DX: Cellulitis with Possible Osteomyelitis. HX:DM type 2, Chronic Diabetic foot ulcers, Restless leg syndrome. -Dr. Nam on Case for Infectious Disease- Patient on IV ABX. -Madhu Martinez on case for Podiatry. - S/P Abscession and 1st Met Head Removal 10/02/[address] Coleman - Wound CX- S. Aureus+ many PATIENT VISIT: Patient is in bed calm and in good spirits. Spouse at bedside. Philip Score = 20 Alternating Pressure Air Mattress Conservative PUP Swelling Improved LLE with mild edema. Reddened area improving on current antibiotics. Dressing bloody strikethrough of at time of visit. - Left Foot Plantar- 2nd Metatarsal ulcer, 90% Slough, Draining Heavy Pus, Probes to Bone at 1.3 cm. Periwound macerated. - NPWT -120mmHG Continuous change TIW to left Foot Ulcer. VAC REMOVED AND REAPPLIED INSTRUCTED BY DR COLEMAN. REVIEWED PROGRESS WITH DR COLEMAN, WILL CONTINUE CURRENT TREATMENT PLAN IMPRESSION: DFU Grade 3 - S/P Abscession and 1st Met Head Removal PLAN: 1. Left Foot- DFU Grade 3 Ulcers x2 - NPWT -120mmHG Continuous. Change TIW. 2. D/C Home with OP . F/U with Dr. Coleman at [facility] Center. Addendum: 10/03/18 at 1642 by Reji Ahumada RN Amended: Links added.
[2018-10-03] MEDS ORDERED: ISOSORBIDE DINI20 MG PO (16:44)
[2018-10-03] MEDS ORDERED: eliquis PO (16:44)
[2018-10-03] MEDS ORDERED: LOSARTAN POTAS100 MG PO (16:44)
[2018-10-03] MEDS ORDERED: LEVOTHYROXINE50 MCG PO (16:44)
[2018-10-03] MEDS ORDERED: MIRTAZAPINE15 MG PO (16:44)
[2018-10-03] MEDS ORDERED: PROAIR HFA INH8.5 GM (16:44)
[2018-10-03] MEDS ORDERED: FUROSEMIDE40 MG PO (16:44)
[2018-10-03] MEDS ORDERED: CARVEDILOL3.125 MG PO (16:44)
[2018-10-03] MEDS ORDERED: ATORVASTATIN CA20 MG PO (16:44)
[2018-10-03] MEDS ORDERED: MELOXICAM7.5 MG PO (16:44)
[2018-10-03] MEDS ORDERED: CLOPIDOGREL75 MG PO (16:44)
--- NOTE | 2018-10-03 20:00 | NUR ---
PICC bottle line worker here for PICC line placement. Time out conducted.
--- NOTE | 2018-10-03 20:43 | NUR ---
PICC line placement completed in right upper arm 2X. X-Ray ordered to verify line placement.
--- NOTE | 2018-10-03 21:11 | Diagnostic Imaging Report ---
Examination: Single AP view of the chest. COMPARISON: None. INDICATION: Line placement DISCUSSION: Lines/tubes: Left PICC line with the tip overlying the SVC. Lungs: The lungs are well inflated and clear. No pneumonia or pulmonary edema. Pleura: No pleural effusion or pneumothorax. Heart and mediastinum: The heart and the mediastinum are unremarkable. Bones and soft tissues: No acute bony abnormalities. IMPRESSION: 1. PICC line with tip over the SVC. Signed by: Dr. Jerry Black M.D. on 10/03/2018 9:08 PM
[2018-10-03] MEDS: CLONAZEPAM 0.5 MG TAB PO SCH (22:07)
[2018-10-04] VITALS (8 sets, daily range): BP systolic 114–177; BP diastolic 70–91
--- NOTE | 2018-10-04 03:37 | Progress Note ---
DATE: 10/03/2018 HISTORY OF PRESENT ILLNESS: This patient is doing better. Currently, no new complaints. REVIEW OF SYSTEMS: HEENT: Negative. PULMONARY: Negative. PHYSICAL EXAMINATION: GENERAL: He is currently alert, oriented, does not seem to be in acute distress. VITAL SIGNS: Stable, currently afebrile. HEENT: He is not icteric. NECK: Supple. CHEST: Clear. EXTREMITIES: On the foot, she had a wound VAC on his left foot. IMPRESSION: Sepsis. Methicillin-sensitive Staphylococcus aureus bacteremia present on admission. 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 PLAN: Eight weeks of IV antibiotic, cefazolin 2 g q.8. Would need a PICC line. We will recheck her blood cultures. If they are negative, then start discharge planning. Further recommendations to follow. MD ESA Kaye/LINDA /[id number]
[2018-10-04 05:42] LABS: BASOPHILS % 0.4 % (0.0-1.0); EOSINOPHILS # (AUTO) 0.2 (0.0-0.4); HEMATOCRIT 29.7 % (38.2-49.6); HEMOGLOBIN 10.3 g/dL (14.0-18.0); LYMPHOCYTES # (AUTO) 0.8 (1.0-3.2); LYMPHOCYTES % 15.6 % (18.0-39.1); MEAN CORPUSCULAR HGB CONC 34.7 g/dL (31-35); MEAN CORPUSCULAR VOLUME 92.2 fL (81-99); MONOCYTES # (AUTO) 0.7 (0.2-0.8); MONOCYTES % 13.8 % (4.4-11.3); NEUTROPHILS # (AUTO) 3.3 (2.1-6.9); NEUTROPHILS % 65.6 % (38.7-80.0); PLATELET COUNT 146 x10e3/uL (140-360); RED BLOOD COUNT 3.22 x10e6/uL (4.3-5.7); RED CELL DISTRIBUTION WIDTH 11.9 % (11.7-14.4)
--- NOTE | 2018-10-04 05:48 | NUR ---
Patient's BP elevated (177/91). Dr. Evonne Merida notified. New order received.
[2018-10-04] MEDS ORDERED: HYDRALAZINE HCL 20 MG/ML VIAL IV PRN (06:00)
[2018-10-04 06:09] LABS: ALANINE AMINOTRANSFERASE 9 IU/L (0-55); ALBUMIN 2.2 g/dL (3.5-5.0); ALBUMIN/GLOBULIN RATIO 0.5 (0.8-2.0); ALKALINE PHOSPHATASE 102 IU/L (40-150); ANION GAP 7.8 mmol/L (8-16); BLOOD UREA NITROGEN 9 mg/dL (7-26); BUN/CREATININE RATIO 12 (6-25); CALCIUM 8.3 mg/dL (8.4-10.2); CARBON DIOXIDE 25 mmol/L (22-29); CHLORIDE 106 mmol/L (98-107); CREATININE, SERUM 0.74 mg/dL (0.72-1.25); EST GLOMERULAR FILTRATION RATE > 60 ML/MIN (60-); GLUCOSE 145 mg/dL (74-118); POTASSIUM 3.8 mmol/L (3.5-5.1); SODIUM 135 mmol/L (136-145)
[2018-10-04] MEDS: CEFAZOLIN SOD 2 GM/D5W 50ML 50 ML IV SCH ×3 (06:30→21:31)
[2018-10-04] MEDS: INSULIN LISPRO 100 UNIT/1 ML 3ML VIAL SQ SCH ×4 (08:45→21:00)
--- NOTE | 2018-10-04 11:09 | NUR ---
ZAY spoke with Nury with [facility] regarding status of IV abx referral. She stated that pt has accepted the copay costs. stated that she doesn't need teaching because she has done this three times before. [facility] is ready to deliver medication when pt discharges. CM or nursing staff to call Nury [phone] and inform her of when pt will discharge. Home health has been set up with [facility] [phone].
--- NOTE | 2018-10-04 14:31 | NUR ---
PATIENT PICKED UP BY MARKETING EDITOR FOR PERIPHERAL ANGIOGRAPH PROCEDURE
[2018-10-04] MEDS ORDERED: MIDAZOLAM HCL 2 MG/2 ML VIAL ONE ×2 (14:40→15:51)
[2018-10-04] MEDS ORDERED: HEPARIN SOD/SOD CHLORIDE 2,000 ML ONE (14:41)
[2018-10-04] MEDS ORDERED: LIDOCAINE HCL 2% LOCAL 20 ML VIAL ONE (14:41)
[2018-10-04] MEDS ORDERED: FENTANYL CITRATE/PF 100MCG/2 ML INJ ONE (14:41)
[2018-10-04] MEDS ORDERED: HEPARIN SOD (PORCINE) 1000 UNIT/ML 30ML ONE (15:02)
[2018-10-04] MEDS ORDERED: VERAPAMIL HCL 2.5 MG/ML 2 ML VIAL ONE (16:21)
[2018-10-04] MEDS ORDERED: SODIUM CHLORIDE 0.9% 1000ML 1,000 ML ONE (16:22)
[2018-10-04] MEDS ORDERED: IOPAMIDOL 370 MG/ML 200 ML INFUS..BTL INJ ONE (17:02)
[2018-10-04] MEDS ORDERED: CLOPIDOGREL BISULFATE 75 MG TAB ONE (17:15)
--- NOTE | 2018-10-04 17:20 | NUR ---
Received report from RIC Edmonds in the manager labor relations. Patient is s/p peripheral angio and coming back to room 214.
--- NOTE | 2018-10-04 18:05 | Progress Note ---
DATE: 10/04/2018 Cardiology Progress Note SUBJECTIVE: The patient is ready to go home. Denies any chest pain, shortness of breath. OBJECTIVE: VITAL SIGNS: Temperature is 97.1, heart rate is 101, respirations are 18, blood pressure is 151/90, and ox saturation 100% on room air. GENERAL: Well appearing, no apparent distress. CARDIOVASCULAR: Regular rate and rhythm. LUNGS: Clear to auscultation. ABDOMEN: Soft, nontender. EXTREMITIES: Left foot wound VAC in place. LABORATORY DATA: Reviewed. CARDIOVASCULAR MEDICATIONS: Reviewed. Peripheral angiography revealed chronic total occlusion of the left posterior tibial vessel with severe 70% to 80% stenosis of the ostium of the anterior tibial with 60% to 70% disease in the mid anterior tibial. IMPRESSION: 1. Peripheral arterial disease. 2. Diabetic foot ulcer status post debridement and wound VAC placement. 3. Hypertension. 4. Hyperlipidemia. RECOMMENDATIONS: The patient underwent successful percutaneous revascularization of the anterior tibial. During the procedure, the patient developed thrombus burden in the peroneal, which required angioplasty. We will give a dose of Lovenox tonight and start the patient on Plavix. Otherwise, continue current cardiovascular medications. Resume home antihypertensives. DO COREY Ellsworth/MODL /[id number]
--- NOTE | 2018-10-04 18:06 | NUR ---
PATIENT RETURNED FROM AUTOMOTIVE TIRE WORKER PROCEDURE ALERT AND ORIENTED, AUTOMOTIVE TIRE WORKER NURSE PRESENT, DRESSING ON RIGHT FEMUR DRY AND INTACT, PATIENT VOICED UNDERSTANDING OF EDUCATION AND INSTRUCTIONS, UNDERSTOOD THAT HE IS TO LAY FLAT FOR 4 HOURS, CALL LIGHT WITHIN REACH, FAMILY MEMBER AT BEDSIDE, WILL CONTINUE TO MONITOR. Addendum: 10/04/18 at 1819 by Nando Morocho RN PATIENT ARRIVED FROM [employer]OMOTIVE [employer]RE WORKER AT 17:35
--- NOTE | 2018-10-04 18:42 | NUR ---
PATIENT'S DRESSING ON RIGHT FEMORAL DRY AND INTACT, NO BLEEDING, NO BRUISING, PEDAL PULSES STRONG, SKIN WARM TO TOUCH, NO DRAINAGE NOTED.
[2018-10-04] MEDS ORDERED: ENOXAPARIN SODIUM INJ 100 MG/ML SYR SC ONE (19:00)
[2018-10-04] MEDS ORDERED: ENOXAPARIN SOD INJ 60 MG/0.6 ML SYR SC ONE ×2 (19:00)
--- NOTE | 2018-10-04 19:30 | NUR ---
Patient received lying flat in bed s/p peripheral angiogram as instructed by . at bedside. No c/o pain. No signs of respiratory distress. No drainage to dressing in femoral region. Wound vac in place with no drainage. Patient instructed to call for assistance when needed. Call light within reach.
[2018-10-04] MEDS: CLONAZEPAM 0.5 MG TAB PO SCH (21:20)
[2018-10-04] MEDS: MORPHINE SULFATE INJ 4 MG/ML INJ 1ML IV PRN (21:32)
[2018-10-05] VITALS: BP 138/57
[2018-10-05 04:00] VITALS: BP 135/62
[2018-10-05 04:12] VITALS: BP 138/57
--- NOTE | 2018-10-05 04:23 | Operative Report ---
DATE OF PROCEDURE: 10/04/2018 SURGEON: Song Blum DO PROCEDURES PERFORMED: 1. Conscious sedation 90 minutes. 2. Abdominal aortography. 3. Third-order peripheral angiography of the left lower extremity. 4. Bilateral extremity angiography. 5. Secondary thrombectomy. 6. Orbital atherectomy and percutaneous transluminal angioplasty of the left anterior tibial artery. 7. Percutaneous transluminal angioplasty of the left peroneal artery. PREPROCEDURE DIAGNOSIS: Peripheral artery disease with diabetic foot ulcer. POSTPROCEDURE DIAGNOSIS: Peripheral artery disease with diabetic foot ulcer. ESTIMATED BLOOD LOSS: Less than 20 mL. SPECIMENS REMOVED: None. PROCEDURE IN DETAIL: After informed consent was obtained, the patient was brought to the cardiac catheterization laboratory in a fasting and nonsedated state. Bilateral groins are prepped and draped in usual sterile fashion. A 2% lidocaine was injected over the right anterior groin for local anesthesia. Using a micropuncture needle, the right common femoral artery was accessed via the modified Seldinger technique and a 5-[place] sheath was placed. Abdominal aortography was performed using an Omni Flush catheter. Next, this was taken up and over the iliac bifurcation using an Advantage Wire and third-order peripheral angiography of left lower extremity was performed. Decision was made to attempt intervention of the left posterior tibial artery. This was revealed that there was 100% occluded with mild collateral flow from the peroneal arteries and the plantar arch. A 65 cm 6-[place] sheath was placed. I attempted to cross the chronic total occlusion with wire escalation in micro catheters; however, this proved to be unsuccessful. Next, I crossed the anterior tibial vessel with a Viper wire and performed orbital atherectomy and percutaneous transluminal angioplasty with a 3 mm balloon in the midportion and a 4 mm balloon at the ostium. Subsequent angiography revealed that there was thrombus burden in the peroneal vessel, so this was crossed with a wire and balloon angioplasty was performed with a 2.5 mm balloon distally and a 3 mm balloon within the midportion. Final angiography revealed excellent two-vessel runoff toward the foot with mild collateral flow to the distal PT from peroneal vessels. The patient tolerated the procedure well with no immediate complications. A right lower extremity angiogram was then performed, which revealed 100% occlusion of the right posterior tibial artery. PROCEDURAL FINDINGS: 1. The iliac and femoral systems are patent bilaterally in addition to patent popliteal vessels. 2. The left anterior tibial artery has an ostial 70-80% stenosis and to 60-70% tandem lesions in the midportion of the vessel. The peroneal vessel was patent however formed clot intraprocedurally. The left posterior tibial artery is chronically occluded at its ostium. 3. The right anterior tibial and peroneal vessels are patent with 100% occlusion of the right posterior tibial vessel. IMPRESSION AND PLAN: The patient underwent successful revascularization of the left anterior tibial and peroneal vessels. We will place the patient on dual antiplatelet therapy in addition to his anticoagulant. DO COREY Ellsworth/MODL /[id number]
--- NOTE | 2018-10-05 07:00 | NUR ---
RCD PT AT BED PT IS ALERT AND ORIENTED PT RESTING ON BED NO SIGNS OF ANY DISTRESS NOTED IV PATENT BED LOW AND LOCKED CALL LIGHT IN REACH
--- NOTE | 2018-10-05 07:11 | NUR ---
Walking rounds done. Shift report given to oncoming nurse.
[2018-10-05] MEDS: INSULIN LISPRO 100 UNIT/1 ML 3ML VIAL SQ SCH (07:30)
[2018-10-05 09:00] VITALS: BP 138/57
[2018-10-05] MEDS ORDERED: CLOPIDOGREL BISULFATE 75 MG TAB PO SCH (09:00)
[2018-10-05 09:36] VITALS: BP 136/63
[2018-10-05] MEDS: SODIUM CHLORIDE 0.9% 1000ML 1,000 ML IV SCH (09:41)
--- NOTE | 2018-10-05 11:54 | NUR ---
PT WENT HOME IN SAFE CONDITION WITH HIS HOME HEALTH SET UP AT HOME FOR IV ANTIBIOTICS
--- NOTE | 2018-10-05 11:54 | NUR ---
WOUND CARE CONSULTATION Follow up Patient admitted from Home to ER for worsening chronic diabetic foot ulcers with redness and swelling to foot. Blood cultures+ Staph. DX: Cellulitis with Possible Osteomyelitis. HX:DM type 2, Chronic Diabetic foot ulcers, Restless leg syndrome. -Dr. Nam on Case for Infectious Disease- Patient on IV ABX. -Madhu Martinez on case for Podiatry. - S/P Abscession and 1st Met Head Removal 10/02/[address] Coleman - Wound CX- S. Aureus+ many - Patient underwent Successful revascularization of the left anterior tibial and peroneal vessels. PATIENT VISIT: Patient is in bed calm and in good spirits. Spouse at bedside. Philip Score = 20 Alternating Pressure Air Mattress Conservative PUP Swelling Continues to Improve LLE with mild edema. Reddened area improving on current antibiotics. Dressing bloody strikethrough of at time of visit. - Left Foot Plantar- 2nd Metatarsal ulcer, 100 granular- Minimal Drainage. Healing Well - NPWT -120mmHG Continuous change TIW to left Foot Plantar Ulcer. VAC REMOVED AND REAPPLIED INSTRUCTED BY DR COLEMAN. PATIENT TO DISCHARGE TO DAY HOME AND FOLLOW UP AT [facility] FOR DRESSING CHANGES AND FOLLOW UP WITH DR. COLEMAN. IMPRESSION: DFU Grade 3 - S/P Abscession and 1st Met Head Removal. HEALING PLAN: 1. Left Foot- DFU Grade 3 Ulcers x2 - NPWT -120mmHG Continuous. Change TIW. 2. D/C Home with [facility]. F/U with Dr. Coleman at [facility]. 3. Patient to follow up at [facility] On Monday. Addendum: 10/05/18 at 1158 by Reji Ahumada RN Amended: Links added.
== END 2018-10-05 11:54 | disposition home health service (06) | DRG 853 ==
LOC: ER 16:16 → ERHOLD 18:17 → ICU 09-30 17:15 → MED/SURG2 10-01 14:14
PROC: 0QBP0ZZ Excision of Left Metatarsal, Open Approach (ICD-10-PCS; principal; 2018-10-02 09:29)
PROC: 02HV33Z Insertion of Infusion Device into Superior Vena Cava, Percutaneous Approach (ICD-10-PCS; 2018-10-03)
PROC: B548ZZA Ultrasonography of Superior Vena Cava, Guidance (ICD-10-PCS; 2018-10-03)
PROC: 047U3Z1 Dilation of Left Peroneal Artery using Drug-Coated Balloon, Percutaneous Approach (ICD-10-PCS; 2018-10-04)
PROC: 04CQ3ZZ Extirpation of Matter from Left Anterior Tibial Artery, Percutaneous Approach (ICD-10-PCS; 2018-10-04)
PROC: 04CU3ZZ Extirpation of Matter from Left Peroneal Artery, Percutaneous Approach (ICD-10-PCS; 2018-10-04)
PROC: 047Q3Z1 Dilation of Left Anterior Tibial Artery using Drug-Coated Balloon, Percutaneous Approach (ICD-10-PCS; 2018-10-04)
PROC: B41D1ZZ Fluoroscopy of Aorta and Bilateral Lower Extremity Arteries using Low Osmolar Contrast (ICD-10-PCS; 2018-10-04)
DX: A41.01 Sepsis due to Methicillin susceptible Staphylococcus aureus (principal); I33.0 Acute and subacute infective endocarditis; M86.172 Other acute osteomyelitis, left ankle and foot; L03.116 Cellulitis of left lower limb; I76 Septic arterial embolism; I74.3 Embolism and thrombosis of arteries of the lower extremities; L97.521 Non-pressure chronic ulcer of other part of left foot limited to breakdown of skin; I10 Essential (primary) hypertension; F32.9 Major depressive disorder, single episode, unspecified; E11.69 Type 2 diabetes mellitus with other specified complication; Z89.422 Acquired absence of other left toe(s); E11.621 Type 2 diabetes mellitus with foot ulcer; B95.61 Methicillin susceptible Staphylococcus aureus infection as the cause of diseases classified elsewhere; E11.42 Type 2 diabetes mellitus with diabetic polyneuropathy; E11.51 Type 2 diabetes mellitus with diabetic peripheral angiopathy without gangrene; I70.202 Unspecified atherosclerosis of native arteries of extremities, left leg; Z79.84 Long term (current) use of oral hypoglycemic drugs; Z79.01 Long term (current) use of anticoagulants
CPT/HCPCS: 36247; 36415; 36569; 37225; 71045; 74177; 75625; 75716; 80053; 80202; 82948; 83605; 84134; 85025; 87040; 87071; 87075; 87186; 87205; 88304; 88305; 88311; 93306; 93925; 96372; 97605; 97607; 99284; C1724; C1725; C1760; C1769; J0360; J0690; J1644; J1650; J2001; J2250; J2270; J2405; J2543; J3370; J7030; Q9967

== ENCOUNTER 2018-10-29 13:53 | Outpatient (RCR) | payer MEDICARE, OTHER ==
--- NOTE | 2018-10-02 23:24 | Consultation ---
DATE OF CONSULTATION: Cardiology Consultation HISTORY OF PRESENT ILLNESS: This is a 63-year-old man with a history of peripheral arterial disease, venous insufficiency, diabetes mellitus, hypertension, and hyperlipidemia, who was admitted for a left lower extremity foot wound. He had progressive redness and swelling of the foot, which began to become infected with drainage and he underwent debridement with wound VAC placement. He has history of peripheral arterial disease, status post interventions. We have been asked to evaluate the patient for his vascular status. The patient is currently recovering from his Anesthesia and cannot provide exact details of his medical history. He otherwise is feeling well. REVIEW OF SYSTEMS: Cannot be obtained due to recent Anesthesia. PAST MEDICAL HISTORY: As stated above. PAST SURGICAL HISTORY: As stated above. PAST FAMILY HISTORY: No premature coronary artery disease or sudden cardiac . ALLERGIES: NO DRUG ALLERGIES. MEDICATIONS: See medication reconciliation form. SOCIAL HISTORY: No illicit drugs, alcohol, or tobacco use. PHYSICAL EXAMINATION: VITAL SIGNS: Temperature is 97.2, heart rate is 60, respirations 18, blood pressure is 126/68, oxygen saturation 98% on room air. GENERAL: He is a well-appearing man, who is sleeping comfortably, arousable. CARDIOVASCULAR: Regular rate and rhythm. LUNGS: Clear to auscultation. ABDOMEN: Soft, nontender, and nondistended with normoactive bowel sounds. EXTREMITIES: Trace edema. Left lower extremity wound VAC in place with bandage present. Diminished pulses. LABORATORY DATA: Reviewed. Medications reviewed. IMPRESSION: 1. Peripheral arterial disease. 2. Osteomyelitis with abscess formation, status post wound debridement and wound VAC placement. 3. Hypertension. 4. Hyperlipidemia. RECOMMENDATIONS: Continue antibiotic therapy as per primary team. We will check arterial Dopplers to assess his vascular status. Restart home medications for his cardiovascular medical problems. Thank you for consultation. We will follow along with you. Song Blum DO BM/MODL /[id number]
--- NOTE | 2018-10-03 17:39 | Progress Note ---
DATE: Cardiology Progress Note SUBJECTIVE: The patient is overall feeling well. Denies any chest pain or shortness of breath. Mild foot pain. OBJECTIVE: VITAL SIGNS: Temperature is 96.2, heart rate is 62, respirations are 20, blood pressure is 145/62, and oxygen saturation 95% on room air. GENERAL: Well appearing, well built, in no apparent distress. CARDIOVASCULAR: Regular rate and rhythm. LUNGS: Clear to auscultation. ABDOMEN: Soft, nontender, and nondistended. EXTREMITIES: Trace edema. Left foot wound with wound VAC and dressed. 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 LABORATORY DATA: Reviewed. MEDICATIONS: Reviewed. IMPRESSION: 1. Diabetic foot ulcer, status post debridement and wound VAC placement. 2. Peripheral arterial disease. 3. Venous insufficiency. 4. Diabetes mellitus. RECOMMENDATIONS: To ensure adequate wound healing, recommend peripheral angiography with possible intervention. This can be performed tomorrow, October 04. Song Blum DO BM/MODL /[id number]
[~2018-10-29 13:53] MED LIST changes: -ACETAMINOPHEN 325 MG TAB PO ONE; +ATORVASTATIN CA20 MG PO; +BACITRACIN 50,000 UNIT VIAL ONE; +CARVEDILOL3.125 MG PO; +CLOPIDOGREL75 MG PO; +CYMBALTA30 MG PO; +FUROSEMIDE40 MG PO; +ISOSORBIDE DINI20 MG PO; +LEVOTHYROXINE50 MCG PO; +LOSARTAN POTAS100 MG PO; +MELOXICAM7.5 MG PO; +MINERAL OIL/PETROLAT/GLYCERI 6OZ BTL ONE; +MIRTAZAPINE15 MG PO; +PROAIR HFA INH8.5 GM; +VANCOMYCIN HCL 1 GM VIAL ONE; +eliquis PO
== END 2018-10-30 ==
LOC: WCC 13:53
PROVIDERS: ATTEND Family Medicine
DX: E11.621 Type 2 diabetes mellitus with foot ulcer (principal); E11.65 Type 2 diabetes mellitus with hyperglycemia; E11.69 Type 2 diabetes mellitus with other specified complication; L97.429 Non-pressure chronic ulcer of left heel and midfoot with unspecified severity; L84 Corns and callosities; S90.822A Blister (nonthermal), left foot, initial encounter; I10 Essential (primary) hypertension; W22.8XXA Striking against or struck by other objects, initial encounter; Z01.810 Encounter for preprocedural cardiovascular examination; Z01.811 Encounter for preprocedural respiratory examination
CPT/HCPCS: J3370

== ENCOUNTER 2018-11-19 15:30 | Outpatient (RCR) | payer MEDICARE, OTHER ==
[~2018-11-19 15:30] MED LIST changes: -BACITRACIN 50,000 UNIT VIAL ONE; -VANCOMYCIN HCL 1 GM VIAL ONE
== END 2018-11-30 ==
LOC: WCC 15:30
PROVIDERS: ATTEND Family Medicine
DX: E11.621 Type 2 diabetes mellitus with foot ulcer (principal); E11.65 Type 2 diabetes mellitus with hyperglycemia; E11.69 Type 2 diabetes mellitus with other specified complication; L97.429 Non-pressure chronic ulcer of left heel and midfoot with unspecified severity; S90.822A Blister (nonthermal), left foot, initial encounter; I87.8 Other specified disorders of veins; R60.0 Localized edema; L84 Corns and callosities; W22.8XXA Striking against or struck by other objects, initial encounter; I10 Essential (primary) hypertension; Z01.810 Encounter for preprocedural cardiovascular examination; Z01.811 Encounter for preprocedural respiratory examination

== ENCOUNTER 2018-12-17 15:54 | Outpatient (RCR) | payer MEDICARE, OTHER | END 2018-12-30 | LOC: WCC 15:54 | PROVIDERS: ATTEND Podiatrist Foot & Ankle Surgery | DX: E11.621 Type 2 diabetes mellitus with foot ulcer (principal); E11.65 Type 2 diabetes mellitus with hyperglycemia; E11.69 Type 2 diabetes mellitus with other specified complication; L97.429 Non-pressure chronic ulcer of left heel and midfoot with unspecified severity; I87.8 Other specified disorders of veins; W22.8XXA Striking against or struck by other objects, initial encounter; I10 Essential (primary) hypertension; Z01.810 Encounter for preprocedural cardiovascular examination; Z01.811 Encounter for preprocedural respiratory examination ==

== ENCOUNTER 2019-05-27 14:25 | Outpatient (RCR) | payer MEDICARE, OTHER ==
[2019-05-13 14:39] LABS: BASOPHILS % 0.3 % (0.0-1.0); EOSINOPHILS # (AUTO) 0.2 (0.0-0.4); EOSINOPHILS % 2.4 % (0.0-6.0); HEMATOCRIT 39.5 % (38.2-49.6); HEMOGLOBIN 13.9 g/dL (14.0-18.0); LYMPHOCYTES # (AUTO) 1.6 (1.0-3.2); LYMPHOCYTES % 17.5 % (18.0-39.1); MEAN CORPUSCULAR HEMOGLOBIN 32.1 pg (28-32); MEAN CORPUSCULAR HGB CONC 35.2 g/dL (31-35); MEAN CORPUSCULAR VOLUME 91.2 fL (81-99); MONOCYTES # (AUTO) 0.9 (0.2-0.8); MONOCYTES % 9.8 % (4.4-11.3); NEUTROPHILS # (AUTO) 6.3 (2.1-6.9); NEUTROPHILS % 69.7 % (38.7-80.0); PLATELET COUNT 148 x10e3/uL (140-360); RED BLOOD COUNT 4.33 x10e6/uL (4.3-5.7); RED CELL DISTRIBUTION WIDTH 11.1 % (11.7-14.4)
[~2019-05-27 14:25] MED LIST changes: -MINERAL OIL/PETROLAT/GLYCERI 6OZ BTL ONE
== END 2019-06-01 ==
LOC: WCC 14:25
PROVIDERS: ATTEND Podiatrist Foot & Ankle Surgery
DX: E11.621 Type 2 diabetes mellitus with foot ulcer (principal); E11.69 Type 2 diabetes mellitus with other specified complication; E11.65 Type 2 diabetes mellitus with hyperglycemia; I87.8 Other specified disorders of veins; I10 Essential (primary) hypertension; W22.8XXA Striking against or struck by other objects, initial encounter; Z01.810 Encounter for preprocedural cardiovascular examination; Z01.811 Encounter for preprocedural respiratory examination
CPT/HCPCS: 15275 ×4; 29445 ×2; 36415; 82948; 84550; 85025; 99213; Q4133; Q4186 ×3

== ENCOUNTER 2019-08-26 13:38 | Outpatient (RCR) | payer MEDICARE, OTHER ==
[~2019-08-26 13:38] MED LIST changes: +METFORMIN HCL500 MG PO
== END 2019-08-31 ==
LOC: WCC 13:38
PROVIDERS: ATTEND Podiatrist Foot & Ankle Surgery
DX: E11.621 Type 2 diabetes mellitus with foot ulcer (principal); E11.69 Type 2 diabetes mellitus with other specified complication; E11.65 Type 2 diabetes mellitus with hyperglycemia; L97.421 Non-pressure chronic ulcer of left heel and midfoot limited to breakdown of skin; L97.521 Non-pressure chronic ulcer of other part of left foot limited to breakdown of skin; I87.8 Other specified disorders of veins; L84 Corns and callosities; I10 Essential (primary) hypertension; W22.8XXA Striking against or struck by other objects, initial encounter; Z01.810 Encounter for preprocedural cardiovascular examination; Z01.811 Encounter for preprocedural respiratory examination
CPT/HCPCS: 36415; 82948

== ENCOUNTER 2019-09-30 13:33 | Outpatient (RCR) | payer MEDICARE, OTHER | END 2019-10-01 | LOC: WCC 13:33 | PROVIDERS: ATTEND Podiatrist Foot & Ankle Surgery | DX: E11.621 Type 2 diabetes mellitus with foot ulcer (principal); E11.69 Type 2 diabetes mellitus with other specified complication; E11.65 Type 2 diabetes mellitus with hyperglycemia; L97.521 Non-pressure chronic ulcer of other part of left foot limited to breakdown of skin; L97.421 Non-pressure chronic ulcer of left heel and midfoot limited to breakdown of skin; I87.8 Other specified disorders of veins; I10 Essential (primary) hypertension; W22.8XXA Striking against or struck by other objects, initial encounter; Z01.810 Encounter for preprocedural cardiovascular examination; Z01.811 Encounter for preprocedural respiratory examination | CPT/HCPCS: 36415; 82948 ==

== ENCOUNTER 2019-10-21 13:34 | Observation (INO) | payer MEDICARE, OTHER ==
[~2019-10-21] VITALS: Ht 193 cm; Wt 137.0 kg
[2019-10-21] MEDS ORDERED: PLAVIX75 MG PO (14:00)
[2019-10-21] MEDS ORDERED: ENOXAPARIN SODIUM INJ 100 MG/ML SYR SC STA (14:02)
[2019-10-21 14:11] LABS: BASOPHILS % 0.3 % (0.0-1.0); EOSINOPHILS # (AUTO) 0.2 (0.0-0.4); HEMATOCRIT 41.2 % (38.2-49.6); HEMOGLOBIN 14.6 g/dL (14.0-18.0); LYMPHOCYTES # (AUTO) 1.7 (1.0-3.2); LYMPHOCYTES % 16.7 % (18.0-39.1); MEAN CORPUSCULAR HEMOGLOBIN 31.5 pg (28-32); MEAN CORPUSCULAR HGB CONC 35.4 g/dL (31-35); MEAN CORPUSCULAR VOLUME 88.8 fL (81-99); MONOCYTES # (AUTO) 0.9 (0.2-0.8); MONOCYTES % 9.2 % (4.4-11.3); NEUTROPHILS # (AUTO) 7.1 (2.1-6.9); NEUTROPHILS % 71.1 % (38.7-80.0); PLATELET COUNT 174 x10e3/uL (140-360); RED BLOOD COUNT 4.64 x10e6/uL (4.3-5.7); RED CELL DISTRIBUTION WIDTH 11.9 % (11.7-14.4)
[2019-10-21 14:20] LABS: INR 0.96; PROTHROMBIN TIME 13.4 seconds (11.9-14.5)
[2019-10-21 14:21] LABS: PARTIAL THROMBOPLASTIN TIME 25.2 seconds (23.8-35.5)
--- NOTE | 2019-10-21 14:25 | Diagnostic Imaging Report ---
EXAMINATION: CHEST SINGLE (PORTABLE) INDICATION: Dizziness COMPARISON: Chest radiograph 10/03/2018 FINDINGS: LINES/TUBES:Previously seen right PICC line has been removed. LUNGS:The lungs are well-inflated. No focal consolidation or pulmonary edema. PLEURA:No pleural effusion or pneumothorax. MEDIASTINUM:The cardiomediastinal silhouette appears normal in size and shape. BONES/SOFT TISSUES:No acute osseous injury. ABDOMEN:No free air under the diaphragm. IMPRESSION: No focal pneumonia or pulmonary edema. Signed by: Lillie Logan MD on 10/21/2019 2:21 PM
[2019-10-21 14:28] LABS: ALANINE AMINOTRANSFERASE 14 IU/L (0-55); ALBUMIN 3.5 g/dL (3.5-5.0); ALBUMIN/GLOBULIN RATIO 0.8 (0.8-2.0); ALKALINE PHOSPHATASE 129 IU/L (40-150); ANION GAP 11.5 mmol/L (8-16); BLOOD UREA NITROGEN 18 mg/dL (7-26); BUN/CREATININE RATIO 16 (6-25); CALCIUM 9.8 mg/dL (8.4-10.2); CARBON DIOXIDE 27 mmol/L (22-29); CHLORIDE 104 mmol/L (98-107); CREATINE KINASE 62 IU/L (30-200); CREATININE, SERUM 1.16 mg/dL (0.72-1.25); EST GLOMERULAR FILTRATION RATE > 60 ML/MIN (60-); GLUCOSE 185 mg/dL (74-118); MAGNESIUM 1.9 MG/DL (1.3-2.1); POTASSIUM 4.5 mmol/L (3.5-5.1); SODIUM 138 mmol/L (136-145)
--- NOTE | 2019-10-21 14:37 | Diagnostic Imaging Report ---
History:Dizziness when walking Comparison studies:None Technique: Axial images were obtained from the skull base to the vertex. Coronal and sagittal images reconstructed from the axial data. Intravenous contrast: None Dose modulation, iterative reconstruction, and/or weight based adjustment of the mA/kV was utilized to reduce the radiation dose to as low as reasonably achievable. Findings: Scalp/skull: No abnormalities. Extra-axial spaces: 1.5 cm extra-axial calcification lateral to the right anterior clinoid, may represent a small calcified meningioma. Dystrophic calcification at the anterior falx cerebri. No fluid collections. Brain sulci: Age-appropriate. Ventricles: Age-appropriate. No hydrocephalus. Parenchyma: Subtle hypodensities in the supratentorial white matter are small vessel ischemic changes. Left subinsular chronic lacunar infarct. No masses, hemorrhage, acute or chronic cortical vascular insults. Sellar/suprasellar region: No abnormalities. Craniocervical junction: Patent foramen magnum. No Chiari one malformation. Incidental findings: Atherosclerotic calcifications in the carotid siphons and vertebral arteries . Impression: No acute abnormalities. Chronic findings: 1. Mild supratentorial white matter small vessel ischemic changes. 2. Left subinsular chronic lacunar infarct Signed by: DR Mike Roger M.D. on 10/21/2019 2:33 PM
[2019-10-21 14:49] LABS: THYROID STIMULATING HORMONE 0.944 uIU/mL (0.350-4.940)
[2019-10-21] MEDS ORDERED: DEXTROSE 50% SYRINGE 50 ML IV PRN (15:45)
[2019-10-21] MEDS ORDERED: ONDANSETRON HCL INJ 2MG/ML 2ML 2 MG/ML VIAL IV PRN (15:45)
[2019-10-21] MEDS: INSULIN LISPRO 100 UNIT/1 ML 3ML VIAL SQ SCH ×2 (16:29→21:00)
[2019-10-21] MEDS: METOPROLOL TARTRATE 25 MG TAB PO SCH (16:37)
[2019-10-21 20:00] VITALS: BP 134/68
[2019-10-21] MEDS: FAMOTIDINE 20 MG/2 ML VIAL IV SCH (20:59)
[2019-10-21 21:00] VITALS: BP 134/68
[2019-10-21 21:36] LABS: CREATINE KINASE 45 IU/L (30-200)
[2019-10-22] VITALS: BP 121/71
[2019-10-22 01:14] VITALS: BP 134/68
[2019-10-22] MEDS ORDERED: METFORMIN HCL850 MG PO (01:37)
[2019-10-22] MEDS ORDERED: ALPHA LIPOIC A300 MG PO (01:37)
[2019-10-22] MEDS: METOPROLOL TARTRATE 25 MG TAB PO SCH (04:44)
[2019-10-22 05:23] LABS: BASOPHILS % 0.3 % (0.0-1.0); EOSINOPHILS # (AUTO) 0.3 (0.0-0.4); EOSINOPHILS % 3.3 % (0.0-6.0); HEMATOCRIT 37.8 % (38.2-49.6); HEMOGLOBIN 13.3 g/dL (14.0-18.0); LYMPHOCYTES # (AUTO) 1.5 (1.0-3.2); LYMPHOCYTES % 19.7 % (18.0-39.1); MEAN CORPUSCULAR HEMOGLOBIN 31.4 pg (28-32); MEAN CORPUSCULAR HGB CONC 35.2 g/dL (31-35); MEAN CORPUSCULAR VOLUME 89.2 fL (81-99); MONOCYTES # (AUTO) 0.8 (0.2-0.8); MONOCYTES % 10.2 % (4.4-11.3); NEUTROPHILS # (AUTO) 4.9 (2.1-6.9); NEUTROPHILS % 65.7 % (38.7-80.0); PLATELET COUNT 137 x10e3/uL (140-360); RED BLOOD COUNT 4.24 x10e6/uL (4.3-5.7); RED CELL DISTRIBUTION WIDTH 12.1 % (11.7-14.4)
[2019-10-22 05:53] LABS: ALANINE AMINOTRANSFERASE 13 IU/L (0-55); ALBUMIN 3.1 g/dL (3.5-5.0); ALBUMIN/GLOBULIN RATIO 0.8 (0.8-2.0); ALKALINE PHOSPHATASE 103 IU/L (40-150); BLOOD UREA NITROGEN 19 mg/dL (7-26); BUN/CREATININE RATIO 20 (6-25); CALCIUM 9.1 mg/dL (8.4-10.2); CARBON DIOXIDE 27 mmol/L (22-29); CHLORIDE 108 mmol/L (98-107); CHOL/HDL RATIO 4.8 (3.9-4.7); CHOLESTEROL 154 MD/DL (0-199); CREATININE, SERUM 0.93 mg/dL (0.72-1.25); EST GLOMERULAR FILTRATION RATE > 60 ML/MIN (60-); GLUCOSE 63 mg/dL (74-118); HDL CHOLESTEROL 32 MG/DL (40-60); POTASSIUM 4.3 mmol/L (3.5-5.1); SODIUM 136 mmol/L (136-145)
[2019-10-22 05:54] LABS: ANION GAP 5.3 mmol/L (8-16)
[2019-10-22 06:17] LABS: CREATINE KINASE 48 IU/L (30-200)
[2019-10-22 06:50] LABS: LDL CHOLESTEROL 99 MG/DL (60-130); TRIGLYCERIDES 113 MG/DL (0-149)
[2019-10-22] MEDS: INSULIN LISPRO 100 UNIT/1 ML 3ML VIAL SQ SCH (07:30)
[2019-10-22 08:00] VITALS: BP 141/67
[2019-10-22 08:38] VITALS: BP 141/67
[2019-10-22] MEDS: FAMOTIDINE 20 MG/2 ML VIAL IV SCH (08:52)
[2019-10-22] MEDS ORDERED: ASPIRIN 81 MG ENTERIC COATED PO SCH (09:00)
[2019-10-22] MEDS ORDERED: CLOPIDOGREL BISULFATE 75 MG TAB PO SCH (09:00)
[2019-10-22] MEDS ORDERED: ELIQUIS5 MG PO (10:56)
[2019-10-22] MEDS ORDERED: METOPROLOL SUCC25 MG PO (10:57)
--- NOTE | 2019-10-23 17:21 | Consultation ---
DATE OF CONSULTATION: 10/22/2019 Cardiology consultation. REQUESTING PHYSICIAN: Keiry Merida MD REASON FOR CONSULTATION: Atrial fibrillation. HISTORY OF PRESENT ILLNESS: This is a 64-year-old male with history of hypertension, hyperlipidemia, peripheral arterial disease with recent right lower extremity revascularization, who presents with complaints of diaphoresis and weakness. The patient reports he was in his usual state of health yesterday until around 10:00 a.m. he states he had been at wound care when he began to feel diaphoretic and weak. He felt his heart flutter in his chest. Wound care instructed him to present to the ER for further evaluation. In the ER, EKG revealed atrial fibrillation and the patient was admitted for further management. The patient denies any chest pain, shortness of breath, orthopnea, or PND. He does endorse dizziness, but he states this has been ongoing for a number of years. REVIEW OF SYSTEMS: Negative except as per HPI. PAST MEDICAL HISTORY: 1. Hypertension. 2. Hyperlipidemia. 3. Diabetes mellitus. 4. Peripheral arterial disease. 5. Venous insufficiency. PAST SURGICAL HISTORY: 1. Knee surgery. 2. Back surgery. ALLERGIES: PLEASE SEE EMR. MEDICATIONS: Please see medication list. SOCIAL HISTORY: Denies tobacco, alcohol, or illicit drugs. FAMILY HISTORY: Pertinent for father with coronary artery disease. PHYSICAL EXAMINATION: VITAL SIGNS: Temperature 97.7 degrees, pulse 53, respiratory rate 20, blood pressure 141/67, oxygen saturation 99%. GENERAL: Awake and alert, in no acute distress. Well developed, well nourished. HEENT: Normocephalic, atraumatic. Pupils equal. No scleral icterus. NECK: Supple. No thyromegaly or cervical lymphadenopathy. No carotid bruits. LUNGS: Clear to auscultation bilaterally. No wheeze or crackles. CARDIOVASCULAR: Normal rate, regular rhythm. No murmur. Normal S1 and S2. ABDOMEN: Soft and nontender. EXTREMITIES: No edema. NEUROLOGIC: Nonfocal exam. LABORATORY DATA: WBC 7.4, hemoglobin 13.3, hematocrit 37.8, platelets 137. Sodium 136, potassium 4.3, chloride 108, CO2 of 27, BUN 19, and creatinine 0.93. Chest x-ray; no focal pneumonia or pulmonary edema. EKG; atrial fibrillation. Telemetry was personally reviewed and interpreted, revealing sinus bradycardia. IMPRESSION: 1. Atrial fibrillation, newly diagnosed. 2. Peripheral arterial disease. 3. Hypertension. 4. Hyperlipidemia. 5. Diabetes mellitus. RECOMMENDATIONS: The patient has converted back to normal sinus rhythm. Change to metoprolol succinate 25 mg daily for discharge. Discussed anticoagulation with the patient. His CHADS-VASc score is 4. Anticoagulation indicated. We will start Eliquis for CVA prophylaxis. The patient had an echocardiogram performed at the office earlier this year. No indication to repeat echocardiogram at this time. Given chronicity of his dizziness, he can obtain carotid Doppler as an outpatient. The patient to follow up with Dr. Blum in the office in 2 weeks. Thank you for this consult. We will continue to follow. Jaqueline Kinney MD ABS/MODL /[id number]
== END 2019-10-22 12:36 | disposition home or self-care (01) ==
LOC: ER 13:34 → ERHOLD 15:41 → MED/SURG2 18:55
DX: I48.91 Unspecified atrial fibrillation (principal); R00.2 Palpitations; I10 Essential (primary) hypertension; E11.9 Type 2 diabetes mellitus without complications; I25.10 Atherosclerotic heart disease of native coronary artery without angina pectoris; Z96.652 Presence of left artificial knee joint; E78.5 Hyperlipidemia, unspecified; I73.9 Peripheral vascular disease, unspecified; Z79.84 Long term (current) use of oral hypoglycemic drugs
CPT/HCPCS: 36415; 70450; 71045; 80053; 80061; 82550; 82553; 82948; 83735; 83880; 84443; 84484; 85025; 85610; 85730; 93005; 99284; G0378; J1650

== ENCOUNTER 2019-10-28 14:30 | Outpatient (RCR) | payer MEDICARE, OTHER ==
[~2019-10-28 14:30] MED LIST changes: +ALPHA LIPOIC A300 MG PO; +ELIQUIS5 MG PO; +LIDOCAINE/PRILOCAINE 2.5-2.5% KIT ONE; +METFORMIN HCL850 MG PO; +PLAVIX75 MG PO
== END 2019-10-31 ==
LOC: WCC 14:30
PROVIDERS: ATTEND Podiatrist Foot & Ankle Surgery
DX: E11.621 Type 2 diabetes mellitus with foot ulcer (principal); E11.69 Type 2 diabetes mellitus with other specified complication; E11.65 Type 2 diabetes mellitus with hyperglycemia; L97.521 Non-pressure chronic ulcer of other part of left foot limited to breakdown of skin; L97.421 Non-pressure chronic ulcer of left heel and midfoot limited to breakdown of skin; I87.8 Other specified disorders of veins; I10 Essential (primary) hypertension; W22.8XXA Striking against or struck by other objects, initial encounter; Z01.810 Encounter for preprocedural cardiovascular examination; Z01.811 Encounter for preprocedural respiratory examination
CPT/HCPCS: 36415; 82948

== ENCOUNTER 2019-11-18 13:13 | Outpatient (RCR) | payer MEDICARE, OTHER ==
[~2019-11-18 13:13] MED LIST changes: +LIDOCAINE VISC 2% SOLN 15 ML UDC ONE; -LIDOCAINE/PRILOCAINE 2.5-2.5% KIT ONE
== END 2019-12-01 ==
LOC: WCC 13:13
PROVIDERS: ATTEND Podiatrist Foot & Ankle Surgery
DX: E11.621 Type 2 diabetes mellitus with foot ulcer (principal); E11.69 Type 2 diabetes mellitus with other specified complication; E11.65 Type 2 diabetes mellitus with hyperglycemia; L97.421 Non-pressure chronic ulcer of left heel and midfoot limited to breakdown of skin; L97.521 Non-pressure chronic ulcer of other part of left foot limited to breakdown of skin; I87.8 Other specified disorders of veins; I10 Essential (primary) hypertension; I48.91 Unspecified atrial fibrillation; W22.8XXA Striking against or struck by other objects, initial encounter; Z01.810 Encounter for preprocedural cardiovascular examination; Z01.811 Encounter for preprocedural respiratory examination

== ENCOUNTER 2019-12-16 12:33 | Outpatient (RCR) | payer MEDICARE, OTHER ==
[~2019-12-16 12:33] MED LIST changes: -LIDOCAINE VISC 2% SOLN 15 ML UDC ONE; +MINERAL OIL/PETROLAT/GLYCERI 6OZ BTL ONE
[2019-12-31] MEDS ORDERED: METFORMIN HCL500 MG PO (10:04)
[2019-12-31] MEDS ORDERED: CYMBALTA30 MG PO (10:04)
== END 2019-12-31 ==
LOC: WCC 12:33
PROVIDERS: ATTEND Podiatrist Foot & Ankle Surgery
DX: E11.621 Type 2 diabetes mellitus with foot ulcer (principal); E11.69 Type 2 diabetes mellitus with other specified complication; E11.65 Type 2 diabetes mellitus with hyperglycemia; L97.421 Non-pressure chronic ulcer of left heel and midfoot limited to breakdown of skin; I87.8 Other specified disorders of veins; I10 Essential (primary) hypertension; I48.91 Unspecified atrial fibrillation; W22.8XXA Striking against or struck by other objects, initial encounter; Z01.810 Encounter for preprocedural cardiovascular examination; Z01.811 Encounter for preprocedural respiratory examination
CPT/HCPCS: 87071; 87075; 87186; 87205

== ENCOUNTER → 2019-12-30 | Outpatient (CLI) | payer MEDICARE, OTHER ==
[~2019-12-30] VITALS: Ht 193 cm; Wt 139.3 kg
[~2019-12-30] MED LIST changes: -MINERAL OIL/PETROLAT/GLYCERI 6OZ BTL ONE
[2019-12-30 13:38] LABS: BASOPHILS # (AUTO) 0.1 (0.0-0.1); BASOPHILS % 0.6 % (0.0-1.0); EOSINOPHILS # (AUTO) 0.2 (0.0-0.4); EOSINOPHILS % 2.5 % (0.0-6.0); HEMATOCRIT 42.1 % (38.2-49.6); HEMOGLOBIN 14.4 g/dL (14.0-18.0); LYMPHOCYTES # (AUTO) 1.6 (1.0-3.2); LYMPHOCYTES % 18.3 % (18.0-39.1); MEAN CORPUSCULAR HEMOGLOBIN 31.6 pg (28-32); MEAN CORPUSCULAR HGB CONC 34.2 g/dL (31-35); MEAN CORPUSCULAR VOLUME 92.5 fL (81-99); MONOCYTES # (AUTO) 0.7 (0.2-0.8); MONOCYTES % 8.7 % (4.4-11.3); NEUTROPHILS # (AUTO) 5.9 (2.1-6.9); NEUTROPHILS % 69.5 % (38.7-80.0); PLATELET COUNT 143 x10e3/uL (140-360); RED BLOOD COUNT 4.55 x10e6/uL (4.3-5.7)
[2019-12-30 13:47] LABS: INR 1.18; PROTHROMBIN TIME 15.8 seconds (11.9-14.5)
[2019-12-30 13:55] LABS: ALBUMIN 3.5 g/dL (3.5-5.0); ALBUMIN/GLOBULIN RATIO 0.8 (0.8-2.0); ANION GAP 11.2 mmol/L (8-16); CALCIUM 9.7 mg/dL (8.4-10.2); CREATININE, SERUM 1.23 mg/dL (0.72-1.25); POTASSIUM 4.2 mmol/L (3.5-5.1)
== END | disposition home or self-care (01) ==
LOC: LAB 05:00 → CATH LAB 01-02 06:21 → EDSTATUS 01-02 08:00
PROVIDERS: ATTEND Internal Medicine Cardiovascular Disease
DX: I25.10 Atherosclerotic heart disease of native coronary artery without angina pectoris (principal); Z53.9 Procedure and treatment not carried out, unspecified reason; Z11.59 Encounter for screening for other viral diseases
CPT/HCPCS: 36415; 80053; 85025; 85610; 87635

== ENCOUNTER → 2020-01-06 | Day surgery (SDC) | payer MEDICARE, OTHER ==
[2020-01-06] VITALS (9 sets, daily range): BP systolic 137–179; BP diastolic 70–91
--- NOTE | 2020-01-23 13:38 | Operative Report ---
DATE OF PROCEDURE: 01/06/2020 SURGEON: Song Blum DO PROCEDURES PERFORMED: 1. Conscious sedation, 26 minutes. 2. Selective coronary angiography x2. PREPROCEDURE DIAGNOSIS: Abnormal stress test. POSTPROCEDURE DIAGNOSIS: Nonobstructive coronary artery disease. ESTIMATED BLOOD LOSS: Less than 20 mL. SPECIMENS REMOVED: None. PROCEDURE IN DETAIL: After informed consent was obtained, the patient was brought to the cardiac catheterization laboratory in a fasting and nonsedated state. Bilateral groins were prepped and draped in usual sterile fashion. A 2% lidocaine was infiltrated over the right wrist for local anesthesia. The patient received fentanyl and midazolam for 26 minutes administered by the hospital laboratory technician nurse and his neurologic and physiologic status was monitored by myself and catheterization staff. Diagnostic coronary angiography was performed using a TIG-4 catheter. The patient tolerated the procedure well with no immediate complications. Hemostasis was achieved via TR band. There were no complications. PROCEDURAL FINDINGS: 1. Left main coronary artery is patent without significant coronary artery disease. 2. Left anterior descending coronary artery is patent proximally and has a mid 40% non-flow limiting stenosis. 3. The left circumflex coronary provides 3 obtuse marginal vessels with luminal irregularities only. 4. The right coronary artery is a medium caliber dominant vessel, provides posterior descending coronary artery and has a long diffuse 20% mid RCA stenosis. IMPRESSION: Nonobstructive coronary artery disease. RECOMMENDATIONS: Medical management. Song Blum DO BM/MODL /[id number]
== END | disposition home or self-care (01) ==
LOC: CATH LAB 06:33
PROVIDERS: ATTEND Internal Medicine Cardiovascular Disease
DX: I25.10 Atherosclerotic heart disease of native coronary artery without angina pectoris (principal); R94.39 Abnormal result of other cardiovascular function study; I82.493 Acute embolism and thrombosis of other specified deep vein of lower extremity, bilateral; I70.211 Atherosclerosis of native arteries of extremities with intermittent claudication, right leg; I87.2 Venous insufficiency (chronic) (peripheral); E66.01 Morbid (severe) obesity due to excess calories; I48.0 Paroxysmal atrial fibrillation; R00.1 Bradycardia, unspecified; E11.9 Type 2 diabetes mellitus without complications; Z79.02 Long term (current) use of antithrombotics/antiplatelets; Z79.82 Long term (current) use of aspirin; Z79.84 Long term (current) use of oral hypoglycemic drugs; Z68.37 Body mass index [BMI] 37.0-37.9, adult; Z82.49 Family history of ischemic heart disease and other diseases of the circulatory system; Z83.3 Family history of diabetes mellitus
CPT/HCPCS: 93454; C1887; C1894; J1644; J2001; J2250; J3010; J7030; Q9967; 99152; 99153

== ENCOUNTER 2020-01-07 12:56 | Emergency (ER) | payer MEDICARE, OTHER ==
[2020-01-07] MEDS ORDERED: AMOXICILLIN/CLAVULANATE K 500 MG TAB PO NR (14:00)
[2020-01-07] MEDS ORDERED: FENTANYL 50 MCG/HR PATCH TOP SCH (14:00)
== END 2020-01-07 15:02 | disposition left against medical advice (07) ==
LOC: ER 15:01
DX: R51 Headache (principal)

== ENCOUNTER → 2020-01-08 | Outpatient (CLI) | payer MEDICARE, OTHER ==
--- NOTE | 2020-01-08 13:06 | Diagnostic Imaging Report ---
EXAMINATION: MRI of the brain without contrast. HISTORY: Visual changes, right sided peripheral vision loss, headaches, right-sided numbness. COMPARISON: Head CT 10/21/2019 TECHNIQUE: Sagittal T2; axial DWI, T2, FLAIR, T1-IR, T2 gradient echo; coronal FLAIR. FINDINGS: Parenchyma: 1. Focal area of FLAIR hyperintensity and restricted diffusion along the anterior aspect of the left medial occipital lobe (calcarine cortex), which likely explains the patient's symptoms. 2. She is currently matter T2 hyperintense foci, most likely nonspecific chronic microvascular ischemic changes. Tiny chronic lacunar infarct in the right posterior putamen, and posterior body of the left caudate nucleus. 3. No mass, hemorrhage, or other infarcts. Skull: Unremarkable. Vessels: Expected flow voids present in the major arteries and dural sinuses. Extra-axial spaces: No abnormal signal intensity or mass effect. Brain volume: Within normal limits for age. Ventricles: No hydrocephalus or displacement. Foramen magnum: Unremarkable. Sella: Unremarkable. Paranasal / mastoid sinuses: No significant inflammatory disease. IMPRESSION: 1. Small acute left medial occipital cortical ischemic infarct which likely explains the patient's visual symptoms. 2. Minimal chronic microvascular ischemic changes and tiny chronic lacunar infarcts as detail above. A message was left for the attending physician Dr. Blum on 01/08/2020 at 1:00 PM about this finding. Signed by: Dr. Irma Ruffin M.D. on 01/08/2020 1:03 PM
== END ==
LOC: MRI 11:37
PROVIDERS: ATTEND Internal Medicine Cardiovascular Disease
DX: H53.8 Other visual disturbances (principal)
CPT/HCPCS: 70551

== ENCOUNTER 2020-01-27 13:10 | Outpatient (RCR) | payer MEDICARE, OTHER ==
[~2020-01-27 13:10] MED LIST changes: +FENTANYL CITRATE/PF 100MCG/2 ML INJ ONE; +HEPARIN SOD (PORCINE) 1000 UNIT/ML 30ML ONE; +IOPAMIDOL 370 MG/ML 200 ML INFUS..BTL INJ ONE; +LIDOCAINE HCL 2% LOCAL 20 ML VIAL ONE; +MIDAZOLAM HCL 2 MG/2 ML VIAL ONE; +NITROGLYCERIN/D5W 200 MCG/ML 250 ML ONE; +SODIUM CHLORIDE 0.9% 1000ML 1,000 ML ONE; +VERAPAMIL HCL 2.5 MG/ML 2 ML VIAL ONE
[2020-01-27] MEDS ORDERED: LIDOCAINE VISC 2% SOLN 15 ML UDC ONE (15:22)
== END 2020-01-31 ==
LOC: WCC 13:10
PROVIDERS: ATTEND Podiatrist Foot & Ankle Surgery
DX: E11.621 Type 2 diabetes mellitus with foot ulcer (principal); E11.69 Type 2 diabetes mellitus with other specified complication; E11.65 Type 2 diabetes mellitus with hyperglycemia; L97.421 Non-pressure chronic ulcer of left heel and midfoot limited to breakdown of skin; I87.8 Other specified disorders of veins; B96.5 Pseudomonas (aeruginosa) (mallei) (pseudomallei) as the cause of diseases classified elsewhere; G45.9 Transient cerebral ischemic attack, unspecified; I10 Essential (primary) hypertension; I48.91 Unspecified atrial fibrillation; W22.8XXA Striking against or struck by other objects, initial encounter; Z01.810 Encounter for preprocedural cardiovascular examination; Z01.811 Encounter for preprocedural respiratory examination
CPT/HCPCS: 93454; 99152; 99153; C1887; C1894; J1644; J2001; J2250; J3010; J7030; Q9967

== ENCOUNTER 2020-02-07 21:07 | Emergency (ER) | payer MEDICARE, OTHER ==
[~2020-02-07] VITALS: Ht 193 cm; Wt 139.3 kg
[~2020-02-07 21:07] MED LIST changes: -FENTANYL CITRATE/PF 100MCG/2 ML INJ ONE; -HEPARIN SOD (PORCINE) 1000 UNIT/ML 30ML ONE; -IOPAMIDOL 370 MG/ML 200 ML INFUS..BTL INJ ONE; -LIDOCAINE HCL 2% LOCAL 20 ML VIAL ONE; -MIDAZOLAM HCL 2 MG/2 ML VIAL ONE; -NITROGLYCERIN/D5W 200 MCG/ML 250 ML ONE; -SODIUM CHLORIDE 0.9% 1000ML 1,000 ML ONE; -VERAPAMIL HCL 2.5 MG/ML 2 ML VIAL ONE
[2020-02-07 21:55] LABS: BASOPHILS % 0.3 % (0.0-1.0); EOSINOPHILS # (AUTO) 0.2 (0.0-0.4); EOSINOPHILS % 2.8 % (0.0-6.0); HEMATOCRIT 40.6 % (38.2-49.6); HEMOGLOBIN 13.9 g/dL (14.0-18.0); LYMPHOCYTES # (AUTO) 1.7 (1.0-3.2); LYMPHOCYTES % 22.4 % (18.0-39.1); MEAN CORPUSCULAR HEMOGLOBIN 30.8 pg (28-32); MEAN CORPUSCULAR HGB CONC 34.2 g/dL (31-35); MONOCYTES # (AUTO) 0.9 (0.2-0.8); MONOCYTES % 11.7 % (4.4-11.3); NEUTROPHILS # (AUTO) 4.8 (2.1-6.9); NEUTROPHILS % 62.3 % (38.7-80.0); PLATELET COUNT 122 x10e3/uL (140-360); RED BLOOD COUNT 4.51 x10e6/uL (4.3-5.7); RED CELL DISTRIBUTION WIDTH 11.4 % (11.7-14.4)
--- NOTE | 2020-02-07 22:01 | Emergency Department Note ---
History of Present Illnes History of Present Illness Chief Complaint: Headache History of Present Illness This is a 64 year old male reports headache to right side of head x9.5 hrs; smile symmetrical, speech clear, hand doping supervisor equal and strong, no drift noted, no neuro deficits noted; PT HAD AN ISCHEMIC STROKE 1 MONTH AGO THAT AFFECTED HIS VISION. PT ON ELOQUIS. RATES PAIN 5/10 . Historian: Patient, Family Member Arrival Mode: Car Onset (how long ago): hour(s) (9.5) Location: RIGHT Quality: PAIN, HEADACHE Radiation: Reports non-radiation Severity: moderate Onset quality: gradual Duration (how long): hour(s) (9.5) Progression: unchanged Chronicity: new Context: Denies recent illness, Denies recent surgery Relieving factors: none Exacerbating factors: none Associated symptoms: Reports denies other symptoms Treatments prior to arrival: none Past Medical/Family History Physician Review I have reviewed the patient's past medical and family history. Any updates have been documented here. Past Medical History Recent Fever: No Clinical Suspicion of Infectio: No New/Unexplained Change in Ment: No Past Medical History: Diabetes, CVA, Kidney Stones Other Medical History: father- CAD, HTN Past Surgical History: Knee Replacement Other Surgery: stent placement to BLE Social History Smoking Cessation: Never Smoker Alcohol Use: Occasional Any Illegal Drug Use: No Family History Family history of heart diseas: Yes Other family history HTN,DM,CAD Other Last Tetanus: OOD Review of Systems Review of Systems Constitutional: Reports no symptoms EENTM: Reports no symptoms Cardiovascular: Reports no symptoms Respiratory: Reports no symptoms Gastrointestinal: Reports no symptoms Genitourinary: Reports no symptoms Musculoskeletal: Reports no symptoms Integumentary: Reports no symptoms Neurological: Reports as per HPI Psychological: Reports no symptoms Endocrine: Reports no symptoms Hematological/Lymphatic: Reports no symptoms Physical Exam Related Data Allergies: Coded Allergies: No Known Allergies (Unverified , 07/14/18) Triage Vital Signs Vital Signs Date Time Temp Pulse Resp B/P (MAP) Pulse Ox O2 Delivery O2 Flow Rate FiO2 02/07/20 21:20 98.4 88 17 152/79 100 Room Air Vital signs reviewed: Yes Physical Exam CONSTITUTIONAL Constitutional: Present well-developed, Present well-nourished; Absent distressed (PT IN NAD) HENT HENT: Present normocephalic, Present atraumatic, Present oropharynx clear/moist, Present nose normal HENT L/R: Present left ext ear normal, Present right ext ear normal EYES Eyes: Reports PERRL, Reports conjunctivae normal NECK Neck: Present ROM normal PULMONARY Pulmonary: Present effort normal, Present breath sounds normal CARDIOVASCULAR Cardiovascular: Present regular rhythm, Present heart sounds normal, Present capillary refill normal, Present normal rate GASTROINTESTINAL Abdominal: Present soft, Present nontender, Present bowel sounds normal GENITOURINARY Genitourinary: Present exam deferred SKIN Skin: Present warm, Present dry MUSCULOSKELETAL Musculoskeletal: Present ROM normal NEUROLOGICAL Neurological: Present alert, Present oriented x 3, Present no gross motor or sensory deficits PSYCHOLOGICAL Psychological: Present mood/affect normal, Present judgement normal Results Laboratory Result Diagram: 02/07/208 Laboratory Laboratory Tests Test 02/07/20 21:48 White Blood Count 7.63 x10e3/uL (4.8-10.8) Red Blood Count 4.51 x10e6/uL (4.3-5.7) Hemoglobin 13.9 g/dL (14.0-18.0) Hematocrit 40.6 % (38.2-49.6) Mean Corpuscular Volume 90.0 fL (81-99) Mean Corpuscular Hemoglobin 30.8 pg (28-32) Mean Corpuscular Hemoglobin Concent 34.2 g/dL (31-35) Red Cell Distribution Width 11.4 % (11.7-14.4) Platelet Count 122 x10e3/uL (140-360) Neutrophils (%) (Auto) 62.3 % (38.7-80.0) Lymphocytes (%) (Auto) 22.4 % (18.0-39.1) Monocytes (%) (Auto) 11.7 % (4.4-11.3) Eosinophils (%) (Auto) 2.8 % (0.0-6.0) Basophils (%) (Auto) 0.3 % (0.0-1.0) Neutrophils # (Auto) 4.8 (2.1-6.9) Lymphocytes # (Auto) 1.7 (1.0-3.2) Monocytes # (Auto) 0.9 (0.2-0.8) Eosinophils # (Auto) 0.2 (0.0-0.4) Basophils # (Auto) 0.0 (0.0-0.1) Absolute Immature Granulocyte (auto 0.04 x10e3/uL (0-0.1) Prothrombin Time 14.8 seconds (11.9-14.5) Prothromb Time International Ratio 1.10 Activated Partial Thromboplast Time 28.5 seconds (23.8-35.5) Sodium Level 134 mmol/L (136-145) Potassium Level 4.9 mmol/L (3.5-5.1) Chloride Level 104 mmol/L (98-107) Carbon Dioxide Level 24 mmol/L (22-29) Anion Gap 10.9 mmol/L (8-16) Blood Urea Nitrogen 20 mg/dL (7-26) Creatinine 1.24 mg/dL (0.72-1.25) Estimat Glomerular Filtration Rate 58 ML/MIN (60-) BUN/Creatinine Ratio 16 (6-25) Glucose Level 170 mg/dL (74-118) Calcium Level 9.3 mg/dL (8.4-10.2) Laboratory Tests Test 02/07/20 21:48 White Blood Count 7.63 x10e3/uL (4.8-10.8) Red Blood Count 4.51 x10e6/uL (4.3-5.7) Hemoglobin 13.9 g/dL (14.0-18.0) Hematocrit 40.6 % (38.2-49.6) Mean Corpuscular Volume 90.0 fL (81-99) Mean Corpuscular Hemoglobin 30.8 pg (28-32) Mean Corpuscular Hemoglobin Concent 34.2 g/dL (31-35) Red Cell Distribution Width 11.4 % (11.7-14.4) Platelet Count 122 x10e3/uL (140-360) Neutrophils (%) (Auto) 62.3 % (38.7-80.0) Lymphocytes (%) (Auto) 22.4 % (18.0-39.1) Monocytes (%) (Auto) 11.7 % (4.4-11.3) Eosinophils (%) (Auto) 2.8 % (0.0-6.0) Basophils (%) (Auto) 0.3 % (0.0-1.0) Neutrophils # (Auto) 4.8 (2.1-6.9) Lymphocytes # (Auto) 1.7 (1.0-3.2) Monocytes # (Auto) 0.9 (0.2-0.8) Eosinophils # (Auto) 0.2 (0.0-0.4) Basophils # (Auto) 0.0 (0.0-0.1) Absolute Immature Granulocyte (auto 0.04 x10e3/uL (0-0.1) Lab results reviewed: Yes Imaging Imaging results reviewed: Yes Impressions CT BRAIN IMPRESSION: 1. Progressive acute to subacute infarct in the medial left occipital lobe with local cytotoxic edema/brain swelling and possible petechial hemorrhagic conversion. The infarct is slightly larger when compared to acute ischemic signal abnormalities seen on MRI dated 01/08/2020. 2. No other significant changes were compared to MRI of the brain dated 01/08/2020 with differences in technique taken into account. 3. No other acute intracranial abnormalities. 4. Mild supratentorial chronic microvascular ischemic change. Mild generalized cerebral volume loss. Signed by: Dr. Fady Escalante M.D. on 02/07/2020 10:42 PM Assessment & Plan Medical Decision Making MDM PT WITH HEADACHE FOR [address] BRAIN, CBC, BMP ORDERED TO EVAL FOR INTRACRANIAL ABNORMALITY, ELECTROLYTE ABNORMALITY, CT BRAIN SHOWS PROGRESSION OF LEFT OCCIPITAL STROKE THAT OCCURRED ONE MONTH AGO AND ALSO NOW APPEARS TO HAVE A HEMOGRAPHIC CONVERSION WELL WITH SWELLING AND EDEMA PT WILL REQUIRE TRANSFER TO ANOTHER FACILITY WITH NEURO AND NEURO SURGERY SERVICES [address] HARLEEN ARCINIEGA AT [facility], HE STATES PT CAN BE TRANSFERRED BUT NEEDS TO BE ADMITTED TO A HOSPITALIST. AWAITING TO TALK WITH HOSPITALIST FOR TRANSFER [address] SPAIN HOSPITALIST AT [facility] ACCEPTS FOR TRANSFER. Reassessment Reassessment time: 23:04 Reassessment PT STILL WITH HEADACHE, NO NEURO DEFICITS, ALERT AND ORIENTED TIMES THREE Assessment & Plan Final Impression: (1) Intrapartum hemorrhage (2) Headache Depart Disposition: TRANS TO OTHER [facility] FAC[facility] Last Vital Signs Date Time Temp Pulse Resp B/P (MAP) Pulse Ox O2 Delivery O2 Flow Rate FiO2 02/07/20 21:20 98.4 88 17 152/79 100 Room Air Home Meds Reported Medications Duloxetine Hcl (CYMBALTA) 30 Mg Capsule., 30 MG PO DAILY, #30 CAP 12/31/19 Metformin Hcl (METFORMIN HCL) 500 Mg Tablet, 1000 MG PO DAILY, #60 TAB 12/31/19 Apixaban (Eliquis) 5 Mg Tablet, 5 MG PO DAILY, #60 10/22/19 Sitagliptin Phosphate (JANUVIA) 100 Mg Tablet, 100 MG PO DAILY, #30 TAB 07/04/19 Glimepiride (GLIMEPIRIDE) 4 Mg Tablet, 4 MG PO DAILY 08/29/16 ABBEY RUBIN MD Feb 07, 2020 22:01
[2020-02-07 22:04] LABS: INR 1.1; PROTHROMBIN TIME 14.8 seconds (11.9-14.5)
[2020-02-07 22:05] LABS: PARTIAL THROMBOPLASTIN TIME 28.5 seconds (23.8-35.5)
[2020-02-07 22:11] LABS: ANION GAP 10.9 mmol/L (8-16); CALCIUM 9.3 mg/dL (8.4-10.2); CREATININE, SERUM 1.24 mg/dL (0.72-1.25); POTASSIUM 4.9 mmol/L (3.5-5.1)
--- OUTSIDE RECORDS SUMMARY | 2020-02-07 22:21 | XMS REPORT | Continuity of Care Document ---
Author Author YORDAN Juarez [employer] 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, without long-term current use of insulin Active Problem 02/09/2018 [facility] Medications No Data Provided for This Section Allergies, Adverse Reactions, Alerts No Known Medication Allergies Immunizations No Data Provided for This Section Results No Data Provided for This Section Pathology Reports No Data Provided for This Section Diagnostic Reports No Data Provided for This Section Consultation Notes No Data Provided for This Section Discharge Summaries No Data Provided for This Section History and Physicals No Data Provided for This Section Vital Signs No Data Provided for This Section Encounters No Data Provided for This Section Procedures No Data Provided for This Section Assessment and Plan No Data Provided for This Section Plan of Care No Data Provided for This Section Social History No Data Provided for This Section Family History No Data Provided for This Section Advance Directives No Data Provided for This Section Functional Status No Data Provided for This Section
--- OUTSIDE RECORDS SUMMARY | 2020-02-07 22:21 | XMS REPORT | Clinical Summary ---
Author Author [facility]wan [facility] Organization [facility] Address Unknown Phone Unavailable Care Team Providers Care Sap Security Architect Name Role Phone ViktoriaHero red PCP Allergies No Known Allergies Medications End Date Status Medication Sig Dispensed Refills Start Date Active glimepiride (AMARYL) 2 MG Take 2 mg by 0 tablet mouth daily. Active metFORMIN (GLUCOPHAGE) Take 500 mg 0 500 mg tablet by mouth daily. Active metoprolol tartrate Take 25 mg by 0 (LOPRESSOR) 25 mg tablet mouth daily. Active SITagliptin (JANUVIA) 50 Take 50 mg by 0 MG tablet mouth daily. Active aspirin (ECOTRIN) 81 MG Take 81 mg by 0 enteric coated tablet mouth daily. Active apixaban (ELIQUIS) 5 mg Take by mouth 0 tablet 2 (two) times a day. Patient and spouse unsure of exact dosage Active Problems Problem Noted Date Ischemic stroke 01/13/2020 Atrial fibrillation 01/13/2020 Essential hypertension 01/13/2020 Cognitive impairment 01/13/2020 Encounters Care Team Description Date Type Specialty Ting Jett MD Ischemic stroke (HCC); Atrial fibrillation, unspecified type (HCC) 01/17/2020 Hospital Radiology Encounter Ting Jett MD Ischemic stroke (HCC); Atrial fibrillation, unspecified type (HCC) 01/17/2020 Hospital Radiology Encounter 01/17/2020 Travel Ting Jett MD Ischemic stroke (HCC) (Primary Dx); Atrial fibrillation, unspecified type (HCC); Essential hypertension; Cognitive impairment 01/13/2020 Office Visit Neurology 01/13/2020 Travel after 02/06/2019 Social History Date Tobacco Use Types Packs/Day Years Used Never Smoker Smokeless Tobacco: Never Used Drinks/Week oz/Week Comments Alcohol Use social Not Currently Sex Assigned at Date Recorded Not on file Industry Job Start Date Occupation Not on file Not on file Not on file Travel End Travel History Travel Start No recent travel history available. Date Recorded COVID-19 Exposure Response 01/17/2020 1:16 PM CDT In the last month, have you been in contact with No / Unsure someone who was confirmed or suspected to have Coronavirus / COVID-19? Last Filed Vital Signs Reading Time Taken Comments Vital Sign 137/80 01/13/2020 10:41 AM CDT Blood Pressure 66 01/13/2020 10:41 AM CDT Pulse - - Temperature - - Respiratory Rate - - Oxygen Saturation - - Inhaled Oxygen Concentration - - Weight - - Height - - Body Mass Index Plan of Treatment Care Team Description Date Type Specialty Ting Jett MD [address] [facility] [address] [place] [address] 07/17/2020 Office Visit Neurology Health Maintenance Due Date Last Done Comments DIABETIC RETINAL EYE EXAM 1953 DIABETIC FOOT EXAM 1963 URINE MICROALBUMIN 1963 COLONOSCOPY SCREENING 2003 SHINGLES VACCINES (#1) 2003 65+ PNEUMOCOCCAL VACCINE 2018 (1 of 2 - PCV13) INFLUENZA VACCINE 02/01/2020 Procedures Comments Procedure Name Priority Date/Time Associated Diag nosis CT ANGIOGRAM NECK W WO Routine 01/17/2020 Ischemi c stroke (HCC) CONTRAST 2:16 PM CDT Atrial fibrillation , unspecified type (HCC) CT ANGIOGRAM HEAD W WO Routine 01/17/2020 Ischemi c stroke (HCC) CONTRAST 2:16 PM CDT Atrial fibrillation , unspecified type (HCC) ESTIMATED GFR Routine 01/17/2020 2:09 PM CDT POC CREATININE Routine 01/17/2020 2:09 PM CDT FOLATE LEVEL Routine 01/17/2020 Cognitive impai rment 8:57 AM CDT VITAMIN B12 LEVEL Routine 01/17/2020 Cognitive im pairment 8:57 AM CDT VITAMIN B1 LEVEL, WHOLE Routine 01/17/2020 [place] impairment BLOOD 8:57 AM CDT THYROID STIMULATING Routine 01/17/2020 Cognitive impairment HORMONE 8:57 AM CDT LIPID PANEL Routine 01/17/2020 Ischemic stroke (HCC) 8:57 AM CDT after 02/06/2019 Results * CTA Neck W Wo Contrast (01/17/2020 2:16 PM CDT) Specimen Narrative Performed At EXAMINATION: CT ANGIOGRAM NECK W WO CONTRAST DIAJAVAD CLINICAL HISTORY: I63.9 Cerebral infa rction unspecified, I48.91 Unspecified atrial fibrillation, L occipital stroke COMPARISON: None. TECHNIQUE: Neck CTA with multi-planar MIP and volu metric rendering (3D) after bolus intravenous iodinated contrast administ ration was performed. All CT images were acquired using low-dose technique with automated exposure control. FINDINGS: Aortic arch is not imaged. There is no significant stenosis of the bilateral common, internal, and external carotid arteries. There is no significa nt stenosis according to the NASCET criteria (0%). Minimal calcified athero sclerosis of the carotid bifurcations. There is no significant stenosis of the bilateral vertebral arteries. Vertebral arteries are codominant. Left CRAFT DEMONSTRATOR distribution infarct, age inde terminate on this examination. Occlusion of the left posterior cerebral artery P 1 segment. Multiple thyroid nodules, the largest i dentified measuring 2 cm in the right lobe of the thyroid gland. Multilevel severe degenerative changes of the cervical spine with multilevel severe neural foraminal stenosis. There is moderate to severe spinal canal stenosis at C5-6 secondary to uncoverte bral osteophytes. IMPRESSION: 1. No significant cervical carotid or v ertebral artery stenosis. 2. Redemonstration of occluded left pos terior cerebral artery P1 segment. 3. Thyroid nodules, the largest measuri ng 2 cm in the right lobe of the thyroid gland. Nonemergent carotid ultrasound c an be performed for further assessment. 4. Multilevel severe degenerative davila es of the cervical spine with multilevel severe neural foraminal stenosis. Moder ate to severe spinal canal stenosis at C5-6 secondary to uncovertebral osteoph ytes. Results will be tracked in [employer] tracker . HMRM-MPHYBXN Procedure Note Hm Interface, Radiology Results Incoming - 01/17/2020 3:03 PM CDT EXAMINATION: CT ANGIOGRAM NECK W WO CONTRAST CLINICAL HISTORY: I63.9 Cerebral infarction unspecified, I48.91 Unspecified atrial fibrillation, L occipital stroke COMPARISON: None. TECHNIQUE: Neck CTA with multi-planar MIP and volumetric rendering (3D) after bolus intravenous iodinated contrast administration was performed. All CT images were acquired using low-dose technique with automated exposure control. FINDINGS: Aortic arch is not imaged. There is no significant stenosis of the bilateral common, internal, and external carotid arteries. There is no significant stenosis according to the NASCET criteria (0%). Minimal calcified atherosclerosis of the carotid bifurcations. There is no significant stenosis of the bilateral vertebral arteries. Vertebral arteries are codominant. Left CRAFT DEMONSTRATOR distribution infarct, age indeterminate on this examination. Occlusion of the left posterior cerebral artery P1 segment. Multiple thyroid nodules, the largest identified measuring 2 cm in the right lobe of the thyroid gland. Multilevel severe degenerative changes of the cervical spine with multilevel severe neural foraminal stenosis. There is moderate to severe spinal canal stenosis at C5-6 secondary to uncovertebral osteophytes. IMPRESSION: 1. No significant cervical carotid or ve rtebral artery stenosis. 2. Redemonstration of occluded left post erior cerebral artery P1 segment. 3. Thyroid nodules, the largest measurin g 2 cm in the right lobe of the thyroid gland. Nonemergent carotid ultrasound can be performed for further assessment. 4. Multilevel severe degenerative change s of the cervical spine with multilevel severe neural foraminal stenosis. Moderate to severe spinal canal stenosis at C5-6 secondary to uncovertebral osteophytes. Results will be tracked in [employer] tracker. HMRM-MPHYBXN Performing Organization Address City/State/Zipcode Ph one Number [facility] [address] [place] [address] * CTA Head W Wo Contrast (01/17/2020 2:16 PM CDT) Specimen Narrative Performed At EXAMINATION: CT ANGIOGRAM HEAD W WO CONTRAST [facility] CLINICAL HISTORY: I63.9 Cerebral infarc tion unspecified, I48.91 Unspecified atrial fibrillation, L occipital stroke COMPARISON: None TECHNIQUE: Imaging of the intracrania l circulation was obtained from the skull base to the vertex during the arterial phase of enhancement. Postprocessing was performed with MIP multiplanar and 3D r econstructed images. CT imaging was performed with iterative reconstruction technique and/ or automated exposure control to reduce radiation dose. FINDINGS: Calcified arteriosclerosis of the carot id siphons with luminal irregularity. No focal stenosis of the anterior intracra nial circulation. No aneurysm. The conclusion of the left posterior ce rebral artery P1 segment with large infarct in left occipital lobe. This ex amination is not optimized for evaluation of acuity of infarcts. Limited evaluation of the venous sinuse s demonstrates no evidence of thrombosis. Limited examination of the brain demons trates no evidence of acute intracranial abnormality. IMPRESSION: Occlusion of the left posterior cerebra l artery P1 segment, with left occipital lobe infarct. This examination is not o ptimized for evaluation of acuity of infarct. Recommend comparison with prev ious examination. Findings were discussed with and acknow ledged by VALARIE Abarca at 01/17/2020 2:51 PM who verbalized understanding. MILAGRO-MPHYBFAMILIA Procedure Note Hm Interface, Radiology Results Incoming - 01/17/2020 3:01 PM CDT EXAMINATION: CT ANGIOGRAM HEAD W WO CONTRAST CLINICAL HISTORY: I63.9 Cerebral infarction unspecified, I48.91 Unspecified atrial fibrillation, L occipital stroke COMPARISON: None TECHNIQUE: Imaging of the intracranial circulation was obtained from the skull base to the vertex during the arterial phase of enhancement. Postprocessing was performed with MIP multiplanar and 3D reconstructed images. CT imaging was performed with iterative reconstruction technique and/or automated exposure control to reduce radiation dose. FINDINGS: Calcified arteriosclerosis of the carotid siphons with luminal irregularity. No focal stenosis of the anterior intracranial circulation. No aneurysm. The conclusion of the left posterior cerebral artery P1 segment with large infarct in left occipital lobe. This examination is not optimized for evaluation of acuity of infarcts. Limited evaluation of the venous sinuses demonstrates no evidence of thrombosis. Limited examination of the brain demonstrates no evidence of acute intracranial abnormality. IMPRESSION: Occlusion of the left posterior cerebral artery P1 segment, with left occipital lobe infarct. This examination is not optimized for evaluation of acuity of infarct. Recommend comparison with previous examination. Findings were discussed with and acknowledged by VALARIE Abarca at 01/17/2020 2:51 PM who verbalized understanding. RM-MPHYBXN Performing Organization Address City/State/Zipcode Ph one Number [facility] [address] [place] [address] * Estimated GFR (01/17/2020 2:09 PM CDT) [facility] Estimated GFR 78 mL/min/1.73 m2 [place] Comment: RELIGION CLEAR [facility] Interpretation G1 >=90 Normal or high G2 60-89 Mildly decreased G3a 45-59 Mildly to moderately decreased G3b 30-44 Moderately to severely decreased G4 15-29 Severely decreased G5 <15 Kidney failure The eGFR was calculated using the Chronic Kidney Disease Epidemiology Collaboration (CKD-EPI) equation. Interpretation is based on recommendations of the National Kidney Foundation-Kidney Disease Outcomes Quality Initiative (NKF-KDOQI) published in 2014. Specimen Blood Performing Organization Address [facility] one Number [place] [address] [place], [place] [address] PATHOLOGY AND GENOMIC MEDICINE [place] MAKSIM LANG [address] [place] [address] [facility] [place] * POC creatinine (01/17/2020 2:09 PM CDT) [facility] POC creatinine 1.0 0.7 - 1.2 mg/dl [place] Comment: MAKSIM LANG Pharmacy Services Representative Name: [facility] Device ID: [id number] Specimen Blood Performing Organization Address [facility] one Number [facility] [address] [place] [id number] [place] [address] [place], [place] [address] PATHOLOGY AND GENOMIC MEDICINE [place] MAKSIM LANG [address] [place] [address] [facility] [place] * Vitamin B1 level, whole blood (01/17/2020 8:57 AM CDT) [facility] Vitamin B1, 144 78 - 185 nmol/L [facility] whole blood Comment: DIAGNOSTICS Vitamin supplementation within [place] 24 hours prior to [place] blood draw may affect the accuracy of results. This test was developed and its analytical performance characteristics have been determined by [facility]. It has not been cleared or approved by the FDA. This assay has been validated pursuant to the CLIA regulations and is used for clinical purposes. Specimen Blood Narrative Performed At FASTING:YES [facility] FASTING: YES Resulting Agency Comment Performing Organization Information: Site ID: [id number] Name: [facility] Address: [address] [place] [id number] Director: Balwinder Tavera M.D., Ph.D Performing Organization Address [facility] Ph one Number [employer] [address] [place] * Thyroid stimulating hormone (01/17/2020 8:57 AM CDT) [facility] TSH 1.12 0.40 - 4.50 mIU/L [employer] [place] Specimen Blood Narrative Performed At FASTING:YES [facility] FASTING: YES Resulting Agency Comment Performing Organization Information: Site ID: [id number] Name: [facility] Address: [address] [place], [place] [address] Director: Saurav Hutchinson Performing Organization Address [facility] one Number [employer] [place] [phone] * Folate level (01/17/2020 8:57 AM CDT) [facility] Folate 11.8 ng/mL [facility] Comment: DIAGNOSTICS [place] Reference Range Low: <3.4 Borderline: 3.4-5.4 Normal: >5.4 Specimen Blood Narrative Performed At FASTING:YES [facility] FASTING: YES Resulting Agency Comment Performing Organization Information: Site ID: [facility] Name: [facility] Address: [address] [place] [phone] Director: Saurav Hutchinson Performing Organization Address [facility] one Number [employer] [place] [address] * Vitamin B12 level (01/17/2020 8:57 AM CDT) [facility] Vitamin B12 319 200 - 1,100 pg/mL [facility] Comment: DIAGNOSTICS Please Note: Although the [place] reference range for vitamin B12 is 200-1100 pg/mL, it has been reported that between 5 and 10% of patients with values between 200 and 400 pg/mL may experience neuropsychiatric and hematologic abnormalities due to occult B12 deficiency; less than 1% of patients with values above 400 pg/mL will have symptoms. Specimen Blood Narrative Performed At FASTING:YES [facility] FASTING: YES Resulting Agency Comment Performing Organization Information: Site ID: [facility] Name: [facility] Address: [address] [place] [phone] Director: Saurav Hutchinson Performing Organization Address [facility] one Number [employer] [place] [address] * Lipid panel (01/17/2020 8:57 AM CDT) Cholesterol, 149 <200 mg/dL [facility] total DIAGNOSTICS [place] HDL cholesterol 37 (L) > OR = 40 mg/dL [facility] [place] Triglycerides 122 <150 mg/dL [facility] [place] LDL cholesterol 90 mg/dL (calc) [facility] calculated Comment: DIAGNOSTICS Reference range: <100 [place] Desirable range <100 mg/dL for primary prevention; <70 mg/dL for patients with CHD or diabetic patients with > or = 2 CHD risk factors. LDL-C is now calculated using the Jazmine calculation, which is a validated novel method providing better accuracy than the Friedewald equation in the estimation of LDL-C. Naldo JAIMES et al. IDANIA. 2013;310(19): 4541-3160 (http://education.[employer].com/faq/EMT642) Cholesterol/HDL 4.0 <5.0 (calc) [facility] ratio DIAGNOSTICS [place] Non-HDL 112 <130 mg/dL (calc) [facility] cholesterol Comment: DIAGNOSTICS For patients with diabetes [place] plus 1 major ASCVD risk factor, treating to a non-HDL-C goal of <100 mg/dL (LDL-C of <70 mg/dL) is considered a therapeutic option. Specimen Blood Narrative Performed At FASTING:YES [facility] FASTING: YES Resulting Agency Comment Performing Organization Information: Site ID: [id number] Name: [facility] Address: [address] [place] [address] Director: Saurav Hutchinson Performing Organization Address City/State/[facility] Ph one Number [employer] [place] [address] [place] [phone] after 02/06/2019 Insurance Type Payer Benefit Subscriber ID Effective Phone Address Plan / Dates Group Medicare MEDICARE MEDICARE xxxxxxxxxxx 2018-P [place], PART A AND resent [place] B Commercial COMMERCIAL MISC MISC xxxxxxxx 2019-P COMMERCIAL resent Advance Directives For more information, please contact: [phone] Patient Segmental Wall Installer Explanation Type Date Recorded Advance Directives, 01/17/2020 1:18 PM 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
--- OUTSIDE RECORDS SUMMARY | 2020-02-07 22:23 | XMS REPORT | Continuity of Care Document ---
Author Author [facility] t Organization [facility] Address [facility] [place] [address] Phone Unavailable Care Team Providers Care Lightning Rod Erector Name Role Phone DO ROSA BLUM DO PCP Johnie BLOCK, Avtar Attphys Cecile BLUM Attphys Unavailable YAMILA, Mohsen LAIRD Attphys Unavailable CARVER, SOUHEIL Attphys Unavailable PEDRO, MEERA Attphys Unavailable SHEBIB, ZAHER Attphys Unavailable VIRGINIA-MONTOYA, HAWK Attphys Unavailable CARVER, SOUHEIL Admphys Unavailable Payers Payer Name Policy Type Policy Number Effective Date Expiration Date Joe stauffer Miscellaneous Indemnity [id number] 2018 00:00:00 [facility] Medicare A & B [id number] 2018 00:00:00 [facility] Cdc Review Covid19 [id number] [facility] MEDICAREMEDICARE PART A AND Bxxxxxxxxxxx2018-PresentGINA VELA TXMedicare xxxxxxxxxxx 2018 00:00:00 [place] COMMERCIAL MISCMISC COMMERCIALxxxxxxxx2019-PresentCommercial xxxxxxxx 2019 00:00:00 [facility] Pp [id number] 2015 00:00:00 [facility] Problems Condition Name Condition Details Condition Category Status Onset Date Resolution Date Last Treatment Date Treating Clinician Comments Source Ischemic stroke Ischemic stroke Disease Active 2020-01-13 00:00:00 Juwan Gonzáles Essential hypertension Essential hypertension Disease Active 2020-01-13 00:00:[address] Cognitive impairment Cognitive impairment Disease Active 00:00:00 Juwan Gonzáles Pressure ulcer of left foot, stage 4 Pressure ulcer of left foot, stage 4 Active Problem 02/09/2018 [facility] Problem Active 2018-02-09 02:45:04 Mo Horton Other acute osteomyelitis of left foot Other acute osteomyelitis of left foot Active Problem 02/09/2018 [facility] Problem Active 2018-02-09 02:45:04 Levi Horton Type 2 diabetes mellitus with diabetic n europathy, without long-term current use of insulin Type 2 diabetes mellitus with diabetic neuropathy, without long-term current use of insulin Active Problem 02/09/2018 [facility] Problem Active 2018-02-09 02:45:04 [facility] Hyperkalemia Hyperkalemia Problem Active [facility] Orthostatic hypotension Postural hypotension Problem Active [facility] Cellulitis Cellulitis Problem Active [facility] Osteomyelitis Osteomyelitis Problem Active [facility] Volume depletion Volume depletion Problem Active [facility] Dizziness Dizziness Problem Active [facility] New onset atrial fibrillation New onset atrial fibrillation Problem Active [facility] Allergies, Adverse Reactions, Alerts This patient has no known allergies or adverse reactions. Social History Social Habit Start Date Stop Date Quantity Comments Source Exposure to SARS-CoV-2 (event) Not sure Juwan Gonzáles Alcohol intake 2020-01-17 00:00:00 2020-01-17 00:00:00 Ex-drinker (fi nding) Juwan Gonzáles Alcohol Comment 2020-01-13 00:00:00 2020-01-13 00:00:00 social Juwan Gonzáles Sex Ass[birth year] At 1955 00:00:00 1955 00:00:00 Male [facility] Smoking Status Start Date Stop Date Source Never smoker Juwan hernandez Medications Ordered Medication Name Filled Medication Name Start Date Stop Da te Current Medication? Ordering Clinician Indication Dosage Frequency Signature (SIG) Comments Components Source glimepiride (AMARYL) 2 MG tablet 2020-01-13 11:37:46 Yes 2mg QD Take 2 mg by mouth daily. Juwan Gonzáles metFORMIN (GLUCOPHAGE) 500 mg tablet 2020-01-13 11:37:46 Ye s 500mg QD Take 500 mg by mouth daily. Juwan del rio metoprolol tartrate (LOPRESSOR) 25 mg tablet 2020-01-13 11:37:46 Yes 25mg QD Take 25 mg by mouth daily. Juwan Gonzáles SITagliptin (JANUVIA) 50 MG tablet 2020-01-13 11:37:46 Yes 50mg QD Take 50 mg by mouth daily. Juwan Gonzáles aspirin (ECOTRIN) 81 MG enteric coated tablet 2020-01-13 11:37:4 6 Yes 81mg QD Take 81 mg by mouth daily. Evangelista Gonzáles apixaban (ELIQUIS) 5 mg tablet 2020-01-13 11:37:46 Yes Q.5D Take by mouth 2 (two) times a day. Patient and spouse unsure of exact dosage Juwan Gonzáles Apixaban (Eliquis) 5 Mg TABLET Apixaban (Eliquis) 5 Mg TABLET Yes 5 Daily [facility] Duloxetine Hcl (Cymbalta) 30 Mg CAPSULE. Duloxetine Hcl (Cymbalta) 30 Mg CAPSULE. Yes 30 Daily [facility] Glimepiride Glimepiride Yes 4 Daily [facility] Metformin Hcl Metformin Hcl Yes 1000 Daily [facility] Sitagliptin Phosphate (Januvia) 100 Mg TABLET Sitaglip tin Phosphate (Januvia) 100 Mg TABLET Yes 100 Daily [facility] Alpha Lipoic Acid Alpha Lipoic Acid 2019-12-31 00:00:00 No 600 [facility] Clopidogrel Bisulfate (Plavix) 75 Mg TABLET Clopidogre l Bisulfate (Plavix) 75 Mg TABLET 2019-12-31 00:00:00 No 75 Daily [facility] Metformin Hcl Metformin Hcl 2019-12-31 00:00:00 No 1000 Daily [facility] Metoprolol Succinate Metoprolol Succinate 2019-12-31 00:00:00 No Daily [facility] Metformin Hcl Metformin Hcl 2019-10-22 00:00:00 No 1000 Twice A Day [facility] Albuterol Sulfate (Proair Hfa Inhaler*) 8.5 Gm INH Alb uterol Sulfate (Proair Hfa Inhaler*) 8.5 Gm INH 2019-07-04 00:00:00 No 2 Every 6 Hours as needed for Shortness Of Breath [facility] Atorvastatin Calcium Atorvastatin Calcium 2019-07-04 00:00:00 No 20 Daily [facility] Carvedilol Carvedilol 2019-07-04 00:00:00 No 3.125 Tw ice A Day [facility] Clopidogrel Bisulfate (Clopidogrel) 75 Mg TABLET Clopi dogrel Bisulfate (Clopidogrel) 75 Mg TABLET 2019-07-04 00:00:00 No 75 Daily [facility] Eliquis Eliquis 2019-07-04 00:00:00 No 2.5 Twice A D ay [facility] Furosemide Furosemide 2019-07-04 00:00:00 No 40 Marilee ly [facility] Isosorbide Dinitrate Isosorbide Dinitrate 2019-07-04 00:00:00 No 10 Twice A Day [facility] Levothyroxine Sodium Levothyroxine Sodium 2019-07-04 00:00:00 No 50 Before Breakfast [facility] Losartan Potassium Losartan Potassium 2019-07-04 00:00:00 No 100 Daily [facility] Meloxicam Meloxicam 2019-07-04 00:00:00 No 15 Daily [facility] Mirtazapine Mirtazapine 2019-07-04 00:00:00 No 30 D aily [facility] Metformin Hcl Metformin Hcl 2018-10-03 00:00:00 No 1000 Twice A Day [facility] Sitagliptin Phosphate (Januvia) 100 Mg TABLET Sitaglip tin Phosphate (Januvia) 100 Mg TABLET 2018-10-03 00:00:00 No 100 Daily [facility] Meropenem Meropenem 2018-09-30 00:00:00 No 1 Every 12 Hours [facility] Vancomycin Hcl Vancomycin Hcl 2018-09-30 00:00:00 No 1750 Daily [facility] Metformin Hcl Metformin Hcl 2018-07-15 00:00:00 No 1000 Daily [facility] Antibiotic Antibiotic 2018-07-14 00:00:00 No [facility] Metoprolol Succinate Metoprolol Succinate 2018-07-14 00:00:00 No 25 Daily [facility] Spironolactone Spironolactone 2018-07-14 00:00:00 No 50 Daily [facility] Bacitracin Zinc (Antibiotic) 28.4 Gm OINT...G. Bacitra martina Zinc (Antibiotic) 28.4 Gm OINT...G. 2018-06-13 00:00:00 No [facility] Doxycycline Hyclate Doxycycline Hyclate 2018-06-12 00:00:00 No 100 Daily [facility] Sildenafil Citrate (Viagra) 100 Mg TABLET Sildenafil C itrate (Viagra) 100 Mg TABLET 2018-01-25 00:00:00 No 100 Daily [facility] Levofloxacin/Dextrose (Levaquin-D5w 750 Mg/150 Ml Bag) 750 Mg/150 Ml SOLN Levofloxacin/Dextrose (Levaquin-D5w 750 Mg/150 Ml Bag) 750 Mg/150 Ml SOLN 2017-01-05 00:00:00 No 500 Daily [facility] Lidocaine Hcl/Pf (Lidocaine Hcl 2% Luer-Jet) 100 Mg/5 Ml DISP.SYRIN Lidocaine Hcl/Pf (Lidocaine Hcl 2% Luer-Jet) 100 Mg/5 Ml DISP.SYRIN 20 16-01-06 00:00:00 [facility] Vancomycin Hcl Vancomycin Hcl 2017-01-05 00:00:00 No 1.5 Daily [facility] Vital Signs Vital Name Observation Time Observation Value Comments Source Systolic blood pressure 2020-01-13 10:41:00 137 mm[Hg] Juwan Gonzáles Diastolic blood pressure 2020-01-13 10:41:00 80 mm[Hg] Juwan Gonzáles Heart rate 2020-01-13 10:41:00 66 /min Juwan Gonzáles Body Temperature 2020-01-06 07:00:00 98.8 [degF] [facility] Body Temperature 2019-10-22 08:38:00 97.7 [degF] [facility] Procedures Procedure Date / Time Performed Performing Clinician [facility] e CT ANGIOGRAM HEAD W WO CONTRAST 2020-01-17 14:16:[address] ANGIOGRAM NECK W WO CONTRAST 2020-01-17 14:16:00 Avtar Jett POC CREATININE 2020-01-17 14:09:00 Avtar Jett ESTIMATED GFR 2020-01-17 14:09:00 Avtar Jett LIPID PANEL 2020-01-17 08:57:00 Avtar Jett THYROID STIMULATING HORMONE 2020-01-17 08:57:00 Josselin Jett VITAMIN B1 LEVEL, WHOLE BLOOD 2020-01-17 08:57:00 Mohsen Jett VITAMIN B12 LEVEL 2020-01-17 08:57:00 Avtar Jett FOLATE LEVEL 2020-01-17 08:57:00 Avtar Jett Magnetic resonance imaging of brain without contrast 2020-01-08 00:00:00 [facility] Computed tomography of brain without radiopaque contrast 00:00:00 SARAH TALLEY [facility] TIB/PER REVASC W/TLA 2019-07-04 00:00:00 [facility] TIB/PER REVASC ADD-ON 2019-07-04 00:00:00 [facility] CONTRAST EXAM ABDOMINL AORTA 2019-07-04 00:00:00 [facility] Plan of Care Planned Activity Planned Date Details Comments Source Future Scheduled Test 2020-02-01 00:00:00 INFLUENZA VACCINE [code = INFLUENZA VACCINE] [facility] Scheduled Test 2018 00:00:00 65+ PNEUMOCOCCAL V ACCINE (1 of 2 - PCV13) [code = 65+ PNEUMOCOCCAL VACCINE (1 of 2 - PCV13)] [facility] Scheduled Test 2003 00:00:00 COLONOSCOPY SCREEN ING [code = COLONOSCOPY SCREENING] [facility] Scheduled Test 2003 00:00:00 SHINGLES VACCINES (#1) [code = SHINGLES VACCINES (#1)] [facility] Scheduled Test 1963 00:00:00 DIABETIC FOOT EXAM [code = DIABETIC FOOT EXAM] [facility] Scheduled Test 1963 00:00:00 URINE MICROALBUMIN [code = URINE MICROALBUMIN] [facility] Scheduled Test 1955 00:00:00 DIABETIC RETINAL E YE EXAM [code = DIABETIC RETINAL EYE EXAM] [facility] Encounters Start Date/Time End Date/Time Encounter Type Admission Type Attendi [facility] Care Department Encounter ID Source 2020-01-27 13:10:00 2020-01-31 23:59:00 Discharged Recurring [facility] [id number] [facility] 2020-01-17 00:00:00 2020-01-17 00:00:00 Outpatient AVTAR GILLESPIE [facility] [id number] [facility] 2020-01-17 00:00:00 2020-01-17 00:00:00 Outpatient AVTAR GILLESPIE [facility] [id number] [facility] 2020-01-13 00:00:00 2020-01-13 00:00:00 Outpatient VIJAYAKAVTAR ESTRELLA [facility] [id number] [facility] 2020-01-08 11:37:00 2020-01-08 11:37:00 Registered Clinic 3 AUGUSTUS BLUM [facility] [id number] [facility] 2020-01-08 10:47:00 2020-01-08 10:58:00 Departed Emergency Room [facility] [id number] [facility] 2020-01-07 15:01:00 2020-01-07 15:02:[address] [facility] [id number] [facility] 2020-01-06 06:37:00 2020-01-06 06:37:00 Registered Surgical Day Care [facility] [id number] [facility] 2019-12-02 14:31:00 2019-12-31 23:59:[address] [facility] [id number] [facility] 2019-12-30 05:00:00 2019-12-30 05:00:[address] [facility] [id number] [facility] 2019-11-11 13:48:00 2019-12-01 23:59:[address] [facility] [id number] [facility] 2019-10-14 12:55:00 2019-10-31 23:59:[address] [facility] [id number] [facility] 2019-10-21 15:41:00 2019-10-22 12:36:00 Discharged Inpatient (obs) [address] [facility] [id number] [facility] 2019-09-09 02:00:00 2019-10-01 23:59:[address] [facility] [id number] [facility] 2019-08-05 02:00:00 2019-08-31 22:59:[address] [facility] [id number] [facility] 2019-07-08 13:02:00 2019-08-02 22:59:[address] [facility] [id number] [facility] 2019-07-04 05:21:00 2019-07-04 05:21:00 Registered Surgical Day Care [facility] [id number] [facility] 2019-06-03 15:15:00 2019-07-02 22:59:[address] [facility] [id number] [facility] 2019-05-06 14:05:00 2019-06-01 22:59:[address] [facility] [id number] [facility] 2018-12-04 12:10:00 2018-12-30 23:59:00 Discharged Recurring [facility] [id number] [facility] 2018-10-31 12:27:00 2018-11-30 23:59:00 Discharged Recurring [facility] [id number] [facility] 2018-10-08 14:31:00 2018-10-30 23:59:00 Discharged Recurring [facility] [id number] [facility] 2018-09-29 18:17:00 2018-10-05 11:54:00 Discharged Inpatient 1 PAULETTE CARVER [facility] [id number] [facility] 2018-09-17 14:06:00 2018-09-30 23:59:00 Discharged Recurring [facility] [id number] [facility] 2018-08-27 11:52:00 2018-08-27 11:52:00 Registered Clinic [facility] [id number] [facility] 2018-08-20 14:25:00 2018-08-20 14:25:00 Registered Clinic [facility] [id number] [facility] 2018-08-08 13:34:00 2018-08-08 13:34:00 Registered Clinic [facility] [id number] [facility] 2018-08-03 12:45:00 2018-08-03 12:45:00 Registered [facility] [id number] [facility] 2018 12:55:00 2018 12:55:00 Registered [facility] [id number] [facility] 2018-07-27 10:54:00 2018-07-27 10:54:00 Registered [facility] [id number] [facility] 2018-07-25 14:55:00 2018-07-25 14:55:00 Registered [facility] [id number] [facility] 2018-07-20 12:41:00 2018-07-20 12:41:00 Registered [facility] [id number] [facility] 2018-07-14 20:44:00 2018-07-15 14:27:00 Discharged Inpatient (obs) 1 ROSELINE DRISCOLL [facility] [id number] [facility] 2018-07-13 13:34:00 2018-07-13 13:34:00 Registered [facility] [id number] [facility] 2018-07-06 12:24:00 2018-07-06 12:24:00 Registered [facility] [id number] [facility] 2018-06-29 14:25:00 2018-06-29 14:25:00 Registered [facility] [id number] [facility] 2018-06-27 12:50:00 2018-06-27 12:50:00 Registered [facility] [id number] [facility] 2018-06-22 14:10:00 2018-06-22 14:10:00 Registered Clinic 3 LYNDONMEERA [facility] [id number] [facility] 2018-06-22 11:03:00 2018-06-22 11:03:00 Registered Clinic [facility] [id number] [facility] 2018-06-18 12:10:00 2018-06-18 12:10:00 Registered Clinic [facility] [id number] [facility] 2018-06-15 09:58:00 2018-06-15 09:58:00 Registered Clinic [facility] [id number] [facility] 2018-06-13 08:53:00 2018-06-13 08:53:00 Registered Surgical Day Care [facility] [id number] [facility] 2018-06-11 10:24:00 2018-06-11 10:24:00 Registered Clinic [facility] [id number] [facility] 2018-06-06 14:24:00 2018-06-06 14:24:00 Registered Clinic [facility] [id number] [facility] 2018-05-30 15:16:00 2018-05-30 15:16:00 Registered Clinic [facility] [id number] [facility] 2018-05-23 01:00:00 2018-05-23 01:00:00 Registered Clinic [facility] [id number] [facility] 2018-05-18 13:10:00 2018-05-18 13:10:00 Registered Clinic [facility] [id number] [facility] 2018-05-11 13:16:00 2018-05-11 13:16:00 Registered Clinic [facility] [id number] [facility] 2018-04-27 14:18:00 2018-04-27 14:18:00 Registered Clinic [facility] [id number] [facility] 2018-04-18 13:11:00 2018-04-18 13:11:00 Registered Clinic [facility] [id number] [facility] 2018-04-11 13:47:00 2018-04-11 13:47:00 Registered Clinic [facility] [id number] [facility] 2018-03-28 12:23:00 2018-03-28 12:23:00 Registered Clinic [facility] [id number] [facility] 2018-03-21 12:37:00 2018-03-21 12:37:00 Registered Clinic [facility] [id number] [facility] 2018-03-14 12:13:00 2018-03-14 12:13:00 Registered Clinic [facility] [id number] [facility] 2018-03-09 11:56:00 2018-03-09 11:56:00 Registered Clinic MAGALI HERNÁNDEZ [facility] [id number] [facility] 2018-03-07 13:48:00 2018-03-07 13:48:00 Registered Clinic [facility] [id number] [facility] 2018-03-02 14:42:00 2018-03-02 14:42:00 Registered Clinic [facility] [id number] [facility] 2018-02-28 09:51:00 2018-02-28 09:51:00 Registered Clinic [facility] [id number] [facility] 2018-02-26 13:34:00 2018-02-26 13:34:00 Registered Clinic [facility] [id number] [facility] 2018-02-23 16:05:00 2018-02-23 16:05:00 Registered Clinic [facility] [id number] [facility] 2018-02-23 15:21:00 2018-02-23 15:21:00 Registered Clinic [facility] [id number] [facility] 2018-02-21 01:00:00 2018-02-21 01:00:00 Registered Clinic [facility] [id number] [facility] 2018-02-19 10:42:00 2018-02-19 10:42:00 Registered Clinic [facility] [id number] [facility] 2018-02-16 14:06:00 2018-02-16 14:06:00 Registered Clinic [facility] [id number] [facility] 2018-02-14 15:35:00 2018-02-14 15:35:00 Registered Clinic [facility] [id number] [facility] 2018-02-12 11:47:00 2018-02-12 11:47:00 Registered Clinic [facility] [id number] [facility] 2018-02-08 14:50:00 2018-02-08 14:50:00 Registered Clinic [facility] [id number] [facility] 2018-02-07 12:30:00 2018-02-07 12:30:00 Outpatient [facility] [place] [id number] eClinicalWorks 2018-02-05 13:32:00 2018-02-05 13:32:00 Outpatient [facility] [place] [id number] eClinicalFirstString 2018-02-02 14:24:00 2018-02-02 14:24:00 Registered Clinic [facility] [id number] [facility] 2018-01-31 16:33:00 2018-01-31 16:33:00 Registered Clinic [facility] [id number] [facility] 2018-01-26 08:13:00 2018-01-26 08:13:00 Registered Surgical Day Car e 3 VIRGINIAOralia MONTOYA, HAWK [facility] [id number] [facility] Results Test Description Test Time Test Comments Results Result Comments Source Lipid panel 2020-01-21 20:48:00 Test Item Cholesterol, total (test code = 2093-3) 149 mg/dL <200 HDL cholesterol (test code = 2085-9) 37 mg/dL > OR = 40 L Triglycerides (test code = 2571-8) 122 mg/dL <150 LDL cholesterol calculated (test code = 73488-8) 90 mg/dL (calc) Reference range: <100 Desirable range <100 mg/dL for primary prevention; <70 mg/dL for patients with CHD or diabetic patients with > or = 2 CHD risk factors. LDL-C is now calculated using the Jazmine calculation, which is a validated novel method providing better accuracy than the Friedewald equation in the estimation of LDL-C. Naldo SS et al. IDANIA. 2013;310(19): 3830-3555 (http:/ /education.Apparcando/faq/PKH922) Cholesterol/HDL ratio (test code = 9830-1) 4.0 <5.0 (calc) Non-HDL cholesterol (test code = 64769-6) 112 <130 mg/dL ( calc) For patients with diabetes plus 1 major ASCVD risk factor, treating to a non-HDL-C goal of <100 mg/dL (LDL-C of <70 mg/dL) is considered a therapeutic option. RAIMUNDO (test code = RAIMUNDO) FASTING:YESFASTING: YES RAC (test code = RAC) Performing Organization Info rmation: Site ID: [id number] Name: [facility] Lab Address: [address] [place] [id number] Director: Saurav Hutchinson Lab Interpretation (test code = 70205-4) Abnormal [place] [facility] [id number] 20:48:00* Test Item Value Reference Range Interpretation Comments Vitamin B12 (test code = 2132-9) 319 pg/mL 200-1100 Please Note: Although the reference range for [id number] is 200-1100 pg/mL, it has been reported that between5 and 10% of patients with values between 200 and 400pg/mL may experience neuropsychiatric and hematologicabnormalities due to occult B12 deficiency; less than 1%of patients with values above 400 pg/mL will have symptoms. RAIMUNDO (test code = RAIMUNDO) FASTING:YESFASTING: YES RAC (test code = RAC) Performing Organization Info rmation: Site ID: RGA Name: [facility] Lab Address: [address] [place] [phone] Director: Saurav Hutchinson [place] MethodistFolate [id number] 20:48:00* Test Item Value Reference Range Interpretation Comments Folate (test code = 2284-8) 11.8 ng/mL Reference Range Low: <3.4 Borderline: 3.4-5.4 Normal: >5.4 RAIMUNDO (test code = RAIMUNDO) FASTING:YESFASTING: YES RAC (test code = RAC) Performing Organization Info rmation: Site ID: RGA Name: [facility] Address: [address] [place] [phone] Director: Saurav Echeverria MethodistThyroid stimulating [id number] 20:48:00* Test Item Value Reference Range Interpretation Comments TSH (test code = 3016-3) 1.12 0.40- 4.50 mIU/L RAIMUNDO (test code = RAIMUNDO) FASTING:YESFASTING: YES RAC (test code = RAC) Performing Organization Info rmation: Site ID: RGA Name: [facility] Address: [address] [place] [phone] Director: Saurav Hutchinson [place] NiviaVitamin B1 level, whole [id number] 20:48:00* Test Item Value Reference Range Interpretation Comments Vitamin B1, whole blood (test code = 57290-3) 144 nmol/L 78-185 Vitamin supplementation within 24 hours prior toblood draw may affect the accuracy of results. This test was developed and its analytical performance characteristics have been determined by [employer]. It has not been cleared or approved by theA. This assay has been validated pursuant to the CLIA regulations and is used for clinical purposes. RAIMUNDO (test code = RAIMUNDO) FASTING:YESFASTING: YES RAC (test code = RAC) Performing Organization Info rmation: Site ID: SLI Name: [facility] Address: [address] [place] [address] Director: Balwinder Tavera M.D., Ph.D [facility] [id number] 19:47:21* Test Item Value Reference Range Interpretation Comments POC creatinine (test code = 50700-8) 1.0 mg/dl 0.7-1.2 Help Desk Agent Name: Teofilo Jaylyn ID: [id number] [place] MethodistEstimated [id number] 19:47:21* Test Item Value Reference Range Interpretation Comments Estimated GFR (test code = 5488) 78 mL/min/1.73 m2 Catergory Units InterpretationG1 >=90 Normal or highG2 60-89 Mildly jyeojpfdyZ0f 45-59 Mildly to moderately zoczjduvjU3i 30-44 Moderately to severely decreasedG4 15-29 Severely decreasedG5 <15 Kidney failureThe eGFR was calculated using the Chronic Kidney Disease Epidemiology Collaboration (CKD-EPI) equation. Interpretation is based on recommendations of the National Kidney Foundation-Kidney Disease Outcomes Quality Initiative (NKF-KDOQI) published in 2014. Echeverria NiviaCT Neck W Wo Zaxogwtr8564-36-79 15:00:44Hm Interface, Radiology Results 01/17/2020 3:03 PM CDTEXAMINATION: CT ANGIOGRAM NECK W WO CONTRASTCLINICAL HISTORY: I63.9 Cerebral infarction unspecified, I48.91 Unspecified atrial fibrillation, L occipital strokeCOMPARISON: None.TECHNIQUE:Neck CTA with multi-planar MIP and volumetric rendering (3D) aft er bolus intravenous iodinated contrast administration was performed. All CT umer ges were acquired using low-dose technique with automated exposure control.FINDI NGS:Aortic arch is not imaged.There is no significant stenosis of the bilateral common, internal, and external carotid arteries. There is no significant stenosi s according to the NASCET criteria (0%). Minimal calcified atherosclerosis of th e carotid bifurcations.There is no significant stenosis of the bilateral vertebr al arteries. Vertebral arteries are codominant.Left [employer]INTE[employer]CE INSTRUCTOR distribution infarct, ag e indeterminate on this examination. Occlusion of the left posterior cerebral ar lalo P1 segment.Multiple thyroid nodules, the largest identified measuring 2 cm in the right lobe of the thyroid gland.Multilevel severe degenerative changes of the cervical spine with multilevel severe neural foraminal stenosis. There is m oderate to severe spinal canal stenosis at C5-6 secondary to uncovertebral osteo phytes.IMPRESSION:1. No significant cervical carotid or vertebral artery stenosi s.2. Redemonstration of occluded left posterior cerebral artery P1 segment.3. Th yroid nodules, the largest measuring 2 cm in the right lobe of the thyroid gland . Nonemergent carotid ultrasound can be performed for further assessment.4. Mult ilevel severe degenerative changes of the cervical spine with multilevel severe neural foraminal stenosis. Moderate to severe spinal canal stenosis at C5-6 seco ndary to uncovertebral osteophytes.Results will be tracked in Epic tracker.RM- MPHYBXNHousmichael MethodistCTA Head W Wo Jzfkjexu4991-30-42 14:57:54Hm Interface, Radiology Results - 01/17/2020 3:01 PM CDTEXAMINATION: CT ANGIOGRAM HEAD W WO CONTRASTCLINICAL HISTORY: I63.9 Cerebral infarction unspecified, I48.91 Unspecified atrial fibrillation, L occipital strokeCOMPARISON: N oneTECHNIQUE: Imaging of the intracranial circulation was obtained from the sku ll base to the vertex during the arterial phase of enhancement. Postprocessing w as performed with MIP multiplanar and 3D reconstructed images. CT imaging was p erformed with iterative reconstruction technique and/or automated exposure contr ol to reduce radiation dose.FINDINGS:Calcified arteriosclerosis of the carotid s iphons with luminal irregularity. No focal stenosis of the anterior intracranial circulation. No aneurysm.The conclusion of the left posterior cerebral artery P1 segment with large infarct in left occipital lobe. This examination is not opt imized for evaluation of acuity of infarcts.Limited evaluation of the venous sin uses demonstrates no evidence of thrombosis. Limited examination of the brain d emonstrates no evidence of acute intracranial abnormality.IMPRESSION:Occlusion o f the left posterior cerebral artery P1 segment, with left occipital lobe infarc t. This examination is not optimized for evaluation of acuity of infarct. Recomm end comparison with previous examination.Findings were discussed with and acknow ledged by VALARIE Abarca at 01/17/2020 2:51 PM who verbalized understanding. RM-M PHYBXNHousmichael MethodistMRI BRAIN [id number] 12:55:00 [place] [address] Patient Name: YORDAN LAMBERT MR #: [id number] : 1955 Age/Sex: 64/M Req #: [id number] Adm Physician: Ordered by: AUGUSTUS BLUM DO Report #: [id number] Location: MRI Room/Bed: Procedure: [id number] MRI/MRI BRAIN WO Exam Date: Exam Time: REPORT STATUS: Signed EXAMINATION: MRI of the brain with out contrast. HISTORY: Visual changes, right sided peripheral vision loss, headaches, right-sided numbness. COMPARISON: Head CT 10/21/2019 TECHNIQUE: Sagittal T2; axial DWI, T2, FLAIR, T1-IR, T2 gradient echo; coronal FLAIR. FINDINGS: Parenchyma: 1. Focal area of FLAIR hyperintensity and re stricted diffusion along the anterior aspect of the left medial occipital lobe (calcarine cortex), which likely explains the patient's symptoms. 2. She is currently matter T2 hyperintense foci, most likely nonspecific chronic micro vascular ischemic changes. Tiny chronic lacunar infarct in the right posterior putamen, and posterior body of the left caudate nucleus. 3. No mass, hemorrh age, or other infarcts. Skull: Unremarkable. Vessels: Ex pected flow voids present in the major arteries and dural sinuses. Extr a-axial spaces: No abnormal signal intensity or mass effect. Brain volume : Within normal limits for age. Ventricles: No hydrocephalus or displacem ent. Foramen magnum: Unremarkable. Sella: Unremarkable. Paranasal / mastoid sinuses: No significant inflammatory disease. IMPRESSI ON: 1. 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 2. Minimal chronic microva scular ischemic changes and tiny chronic lacunar infarcts as detail above. A message was left for the attending physician Dr. Blum on 01/08/2020 at 1:00 PM about this finding. Signed by: Dr. Negra Ruffin M.D. on 01/08/2020 1:03 PM Dictated By: NEGRA RUFFIN MD 1305 Transcribed By: RUBA on 01/08/20 1303 COPY TO: AUGUSTUS BLUM DO Fluoroscopic procedure less than one hour duration 2019-12-30 13:54:00* Test Item Value Reference Range Interpretation Comments Coronavirus (PCR) (test code = Coronavirus (PCR)) NOT DETECTED NOTD ETECTED SARS-COV-2 (COVID19), HIGHRISK, RT-PCRNegative results do not preclude SARS-CoV- 2 infection and should not be used as the sole basis for patient management deci sions. Negative results must be combined with clinical observations, patient his tory, and epidemiological information. Optimum specimen types and timing for pea k viral levels during infections caused by SARS-CoV-2 have not been determined. Collection of multiple specimens ot types of specimens may be necessary to detec t virus. Improper specimen collection and handling, sequence variability under p rimers/probes, or organism present below the limit of detection may lead to fals e negative results. Positive and negative predictive values of testing are highl y dependent on prevalance. False negative test results are more likely when prev alence is high.The expected result is negative (not detected).The SARS-CoV-2 luisito t is intended for the qualitative detection of nucleic acid from SARS-CoV-2 in n asopharyngeal and oropharyngeal swab samples from patients who meet COVID-19 cli nical and or epidemiological criteria. For lower respiratory tract specimens, th e assay is submitted for authoriztion by FDA under an Emergency Use Authorizatio n (EUA). Testing methodology is real time RT-PCR. If received as separate collec tion devices, nasopharygeal and oropharyngeal specimens are combined for analysi s. Additional specimens may be split to a separate accession for analysi and rep orting as this test includes a single unit of service.Test results must be corre lated with clinical presentation and evaluated in the context of other laborator y and epidemiologic data. Test performance can be affected because the epidemiol ogy and clinical spectrum of infection caused by SARS-CoV-2 is not fully known. For example, the optimum types of specimens to collect and when during the cours e of infection these specimens are most likely to contain detectable viral RNA m ay not be known.This test has not been Food and Drug Administration (FDA) cleare d or approved and has been authorized by FDA under an Emergency Use Authorizatio n (EUA). The test is only authorized for the duration of the declaration that ci rcumstances exist justifying the authorization of emergency use of in vitro diag nostic tests for detection and/or diagnosis of SARS-CoV-2 under section 564(b) o f the Act, 21 U.S.C. section 360bbb-3(b)(1), unless the authorization is termina najma or revoked sooner. [facility] are certified under the C linical Laboratory Improvement Amendments of 1988 (CLIA), 42 U.S.C. section 263a , to perform high complexity tests.Testing performed by [facility] [id number] [place], [place] [phone] Director: Marcelino Dalton M.D.CLIA # [id number] [facility] Fluoroscopic procedure less than one hour adpkucdv1773-67-89 13:54:00* Test Item Value Reference Range Interpretation Comments Coronavirus (PCR) (test code = Coronavirus (PCR)) NOT DETECTED NOTD ETECTED SARS-COV-2 (COVID19), HIGHRISK, RT-PCRNegative results do not preclude SARS-CoV- 2 infection and should not be used as the sole basis for patient management deci sions. Negative results must be combined with clinical observations, patient his tory, and epidemiological information. Optimum specimen types and timing for pea k viral levels during infections caused by SARS-CoV-2 have not been determined. Collection of multiple specimens ot types of specimens may be necessary to detec t virus. Improper specimen collection and handling, sequence variability under p rimers/probes, or organism present below the limit of detection may lead to fals e negative results. Positive and negative predictive values of testing are highl y dependent on prevalance. False negative test results are more likely when prev alence is high.The expected result is negative (not detected).The SARS-CoV-2 luisito t is intended for the qualitative detection of nucleic acid from SARS-CoV-2 in n asopharyngeal and oropharyngeal swab samples from patients who meet COVID-19 cli nical and or epidemiological criteria. For lower respiratory tract specimens, th e assay is submitted for authoriztion by FDA under an Emergency Use Authorizatio n (EUA). Testing methodology is real time RT-PCR. If received as separate collec tion devices, nasopharygeal and oropharyngeal specimens are combined for analysi s. Additional specimens may be split to a separate accession for analysi and rep orting as this test includes a single unit of service.Test results must be corre lated with clinical presentation and evaluated in the context of other laborator y and epidemiologic data. Test performance can be affected because the epidemiol ogy and clinical spectrum of infection caused by SARS-CoV-2 is not fully known. For example, the optimum types of specimens to collect and when during the cours e of infection these specimens are most likely to contain detectable viral RNA m ay not be known.This test has not been Food and Drug Administration (FDA) cleare d or approved and has been authorized by FDA under an Emergency Use Authorizatio n (EUA). The test is only authorized for the duration of the declaration that ci rcumstances exist justifying the authorization of emergency use of in vitro diag nostic tests for detection and/or diagnosis of SARS-CoV-2 under section 564(b) o f the Act, 21 U.S.C. section 360bbb-3(b)(1), unless the authorization is termina najma or revoked sooner. [facility] are certified under the C linical Laboratory Improvement Amendments of 1988 (CLIA), 42 U.S.C. section 263a , to perform high complexity tests.Testing performed by [facility] [id number] [place], [place] [phone] Director: Marcelino Dalton M.D.CLIA # [id number] [facility] Fluoroscopic procedure less than one hour tpgumbbm1540-06-16 13:54:00* Test Item Value Reference Range Interpretation Comments Coronavirus (PCR) (test code = Coronavirus (PCR)) NOT DETECTED NOTD ETECTED SARS-COV-2 (COVID19), HIGHRISK, RT-PCRNegative results do not preclude SARS-CoV- 2 infection and should not be used as the sole basis for patient management deci sions. Negative results must be combined with clinical observations, patient his tory, and epidemiological information. Optimum specimen types and timing for pea k viral levels during infections caused by SARS-CoV-2 have not been determined. Collection of multiple specimens ot types of specimens may be necessary to detec t virus. Improper specimen collection and handling, sequence variability under p rimers/probes, or organism present below the limit of detection may lead to fals e negative results. Positive and negative predictive values of testing are highl y dependent on prevalance. False negative test results are more likely when prev alence is high.The expected result is negative (not detected).The SARS-CoV-2 luisito t is intended for the qualitative detection of nucleic acid from SARS-CoV-2 in n asopharyngeal and oropharyngeal swab samples from patients who meet COVID-19 cli nical and or epidemiological criteria. For lower respiratory tract specimens, th e assay is submitted for authoriztion by FDA under an Emergency Use Authorizatio n (EUA). Testing methodology is real time RT-PCR. If received as separate collec tion devices, nasopharygeal and oropharyngeal specimens are combined for analysi s. Additional specimens may be split to a separate accession for analysi and rep orting as this test includes a single unit of service.Test results must be corre lated with clinical presentation and evaluated in the context of other laborator y and epidemiologic data. Test performance can be affected because the epidemiol ogy and clinical spectrum of infection caused by SARS-CoV-2 is not fully known. For example, the optimum types of specimens to collect and when during the cours e of infection these specimens are most likely to contain detectable viral RNA m ay not be known.This test has not been Food and Drug Administration (FDA) cleare d or approved and has been authorized by FDA under an Emergency Use Authorizatio n (EUA). The test is only authorized for the duration of the declaration that ci rcumstances exist justifying the authorization of emergency use of in vitro diag nostic tests for detection and/or diagnosis of SARS-CoV-2 under section 564(b) o f the Act, 21 U.S.C. section 360bbb-3(b)(1), unless the authorization is termina najma or revoked sooner. [facility] are certified under the C linical Laboratory Improvement Amendments of 1988 (CLIA), 42 U.S.C. section 263a , to perform high complexity tests.Testing performed by [facility] [id number] [place] [phone] Director: Marcelino Dalton M.D.CLIA # [id number] [facility] leukocytes automated count (number/volume)2019-12-30 13:28:00* Test Item Value Reference Range Interpretation Comments White Blood Count (test code = 6690-2) 8.48 4.8-10.8 [facility] automated count (number/volume)2019-12-30 13:28:00* Test Item Value Reference Range Interpretation Comments Red Blood Count (test code = 789-8) 4.55 4.3-5.7 [facility] hemoglobin measurement (moles/volume)2019-12-30 13:28:00* Test Item Value Reference Range Interpretation Comments Hemoglobin (test code = 08929-3) 14.4 14.0-18.0 [facility]eville[facility] blood hematocrit (volume fraction)2019-12-30 13:28:00* Test Item Value Reference Range Interpretation Comments Hematocrit (test code = 4544-3) 42.1 38.2-49.6 [facility] erythrocyte mean corpuscular [id number] 13:28:00* Test Item Value Reference Range Interpretation Comments Mean Corpuscular Volume (test code = 787-2) 92.5 81-99 [facility] erythrocyte mean corpuscular hemoglobin (mass per erythrocyte)2019-12-30 13:28:00* Test Item Value Reference Range Interpretation Comments Mean Corpuscular Hemoglobin (test code = 785-6) 31.6 28-32 [facility] erythrocyte mean corpuscular hemoglobin concentration measurement (mass/volume)2019-12-30 13:28:00* Test Item Value Reference Range Interpretation Comments Mean Corpuscular Hemoglobin Concent (test code = 786-4) 34.2 31-35 [facility]evilleRDW BorBg-Kxy8335-58-29 13:28:00* Test Item Value Reference Range Interpretation Comments Red Cell Distribution Width (test code = 61144-0) 12.0 11.7 -14.4 [facility]eville[facility] blood platelet count (count/volume)2019-12-30 13:28:00* Test Item Value Reference Range Interpretation Comments Platelet Count (test code = 777-3) 143 140-360 [facility]eville[facility] blood segmented neutrophil count as percentage of total lioijxxfqq5131-40-98 13:28:00* Test Item Value Reference Range Interpretation Comments Neutrophils (%) (Auto) (test code = 96574-0) 69.5 38.7-80.0 [facility] blood lymphocyte count as percentage ot total hkerunhnvj6900-36-67 13:28:00* Test Item Value Reference Range Interpretation Comments Lymphocytes (%) (Auto) (test code = 736-9) 18.3 18.0-39.1 [facility] blood monocyte count as percentage of total pqdqvxlnct2503-26-37 13:28:00* Test Item Value Reference Range Interpretation Comments Monocytes (%) (Auto) (test code = 5905-5) 8.7 4.4-11.3 [facility] blood eosinophil count as percentage of total ifgqatxzxd4155-45-79 13:28:00* Test Item Value Reference Range Interpretation Comments Eosinophils (%) (Auto) (test code = 713-8) 2.5 0.0-6.0 [facility] blood basophil count as percentage of total yrhhcqbqih8843-59-93 13:28:00* Test Item Value Reference Range Interpretation Comments Basophils (%) (Auto) (test code = 706-2) 0.6 0.0-1.0 [facility]evilleFluoroscopic procedure less than one hour nsdjgyfg3634-79-13 13:28:00* Test Item Value Reference Range Interpretation Comments IM GRANULOCYTES % (test code = IM GRANULOCYTES %) 0.4 0.0- 1.0 [facility] blood neutrophil count 2019-12-30 13:28:00* Test Item Value Reference Range Interpretation Comments Neutrophils # (Auto) (test code = 751-8) 5.9 2.1-6.9 [facility] lymphocytes count (number/volume) 2019-12-30 13:28:00* Test Item Value Reference Range Interpretation Comments Lymphocytes # (Auto) (test code = 44404-8) 1.6 1.0-3.2 [facility] monocytes automated count (number/volume)2019-12-30 13:28:00* Test Item Value Reference Range Interpretation Comments Monocytes # (Auto) (test code = 742-7) 0.7 0.2-0.8 [facility] blood eosinophil count 2019-12-30 13:28:00* Test Item Value Reference Range Interpretation Comments Eosinophils # (Auto) (test code = 711-2) 0.2 0.0-0.4 [facility] blood basophil count (count/volume)2019-12-30 13:28:00* Test Item Value Reference Range Interpretation Comments Basophils # (Auto) (test code = 704-7) 0.1 0.0-0.1 [facility]evilleFluoroscopic procedure less than one hour isnayrex5920-47-17 13:28:00* Test Item Value Reference Range Interpretation Comments Absolute Immature Granulocyte (auto (luisito t code = Absolute Immature Granulocyte (auto) 0.03 0-0.1 [facility]evilleProthrombin time (PT) in platelet poor plasma by coagulation pqild8599-94-91 13:28:00* Test Item Value Reference Range Interpretation Comments Prothrombin Time (test code = 5902-2) 15.8 11.9-14.5 [facility]evilleINR in Platelet poor plasma by Coagulation gmwfe0319-02-77 13:28:00* Test Item Value Reference Range Interpretation Comments Prothromb Time International Ratio (test code = 6301-6) 1.18 Oral Anticoagulant Therapy INR Values:1. Low Intensity Therapy 1.5 - 2.02 . Moderate Intensity Therapy 2.0 - 3.03. High Intensity Therapy(1) 2.5 - 3. 54. High Intensity Therapy(2) 3.0 - 4.05. Panic Value INR > 5.0 [facility] plasma sodium measurement (moles/volume)2019-12-30 13:28:00* Test Item Value Reference Range Interpretation Comments Sodium Level (test code = 2951-2) 135 136-145 [facility] Lake[facility]um or plasma potassium measurement (moles/volume)2019-12-30 13:28:00* Test Item Value Reference Range Interpretation Comments Potassium Level (test code = 2823-3) 4.2 3.5-5.1 [facility] Lakeerum or plasma chloride measurement (moles/volume)2019-12-30 13:28:00* Test Item Value Reference Range Interpretation Comments Chloride Level (test code = 2075-0) 105 98-107 [facility] Lakeerum or plasma carbon dioxide, total measurement (moles/volume)2019-12-30 13:28:00* Test Item Value Reference Range Interpretation Comments Carbon Dioxide Level (test code = 2028-9) 23 22-29 [facility] Lakeerum or plasma anion eki5691-60-96 13:28:00* Test Item Value Reference Range Interpretation Comments Anion Gap (test code = 26939-8) 11.2 8-16 [facility] Lake[facility]um or plasma urea nitrogen measurement (mass/volume)2019-12-30 13:28:00* Test Item Value Reference Range Interpretation Comments Blood Urea Nitrogen (test code = 3094-0) 17 7-26 [facility] Lake[facility]um or plasma creatinine measurement (mass/volume)2019-12-30 13:28:00* Test Item Value Reference Range Interpretation Comments Creatinine (test code = 2160-0) 1.23 0.72-1.25 [facility] Lake[facility]um or plasma urea nitrogen/creatinine mass rltgq3318-28-45 13:28:00* Test Item Value Reference Range Interpretation Comments BUN/Creatinine Ratio (test code = 3097-3) 14 6-25 [facility]evilleEstimated glomerular filtration rate (GFR) izuwhalluzloo4914-09-78 13:28:00* Test Item Value Reference Range Interpretation Comments Estimat Glomerular Filtration Rate (test code = 783160526) 59 >60 Ranges were taken from the National Kidney Disease Education Program and the [facility] literature.Reference ranges:60 or greater: Vzxoqh04-22 ( for 3 consecutive months): Chronic kidney disease 15 or less: Kidney failureCH[facility]ST[facility] BeevilleGlucose gqwycigvwie4476-24-58 13:28:00* Test Item Value Reference Range Interpretation Comments Glucose Level (test code = JQQ2466) 166 74-118 [facility] calcium measurement (mass/volume)2019-12-30 13:28:00* Test Item Value Reference Range Interpretation Comments Calcium Level (test code = 83931-1) 9.7 8.4-10.2 [facility] Lakeerum or plasma total bilirubin measurement (mass/volume)2019-12-30 13:28:00* Test Item Value Reference Range Interpretation Comments Total Bilirubin (test code = 1975-2) 0.7 0.2-1.2 [facility] BeevilleFluoroscopic procedure less than one hour gwizmody8555-73-96 13:28:00* Test Item Value Reference Range Interpretation Comments Aspartate Amino Transf (AST/SGOT) (test code = Aspartate Amino Transf (AST/SGOT)) 24 5-34 [facility] Lakeerum or plasma alanine aminotransferase measurement (enzymatic activity/volume)2019-12-30 13:28:00* Test Item Value Reference Range Interpretation Comments Alanine Aminotransferase (ALT/SGPT) (test code = 1742-6) 19 0-55 [facility] Lakeerum or plasma protein measurement (mass/volume)2019-12-30 13:28:00* Test Item Value Reference Range Interpretation Comments Total Protein (test code = 2885-2) 7.7 6.5-8.1 [facility] Lakeerum or plasma albumin measurement (mass/volume)2019-12-30 13:28:00* Test Item Value Reference Range Interpretation Comments Albumin (test code = 1751-7) 3.5 3.5-5.0 [facility] BeevillePlasma globulin measurement (mass/volume) 2019-12-30 13:28:00* Test Item Value Reference Range Interpretation Comments Globulin (test code = 02162-0) 4.2 2.3-3.5 [facility] Lakeerum or plasma albumin/globulin mass ulbou5886-01-15 13:28:00* Test Item Value Reference Range Interpretation Comments Albumin/Globulin Ratio (test code = 1759-0) 0.8 0.8-2.0 [facility] Lakeerum or plasma alkaline phosphatase measurement (enzymatic activity/volume)2019-12-30 13:28:00* Test Item Value Reference Range Interpretation Comments Alkaline Phosphatase (test code = 6768-6) 124 40-150 [facility] BeevilleBlood leukocytes automated count (number/volume)2019-12-30 13:28:00* Test Item Value Reference Range Interpretation Comments White Blood Count (test code = 6690-2) 8.48 4.8-10.8 [facility] erythrocytes automated count (number/volume)2019-12-30 13:28:00* Test Item Value Reference Range Interpretation Comments Red Blood Count (test code = 789-8) 4.55 4.3-5.7 [facility]evilleBlood hemoglobin measurement (moles/volume)2019-12-30 13:28:00* Test Item Value Reference Range Interpretation Comments Hemoglobin (test code = 32811-0) 14.4 14.0-18.0 [facility] BeevilleAutomated blood hematocrit (volume fraction)2019-12-30 13:28:00* Test Item Value Reference Range Interpretation Comments Hematocrit (test code = 4544-3) 42.1 38.2-49.6 [facility] BeevilleAutomated erythrocyte mean corpuscular hgwsjv1633-37-23 13:28:00* Test Item Value Reference Range Interpretation Comments Mean Corpuscular Volume (test code = 787-2) 92.5 81-99 [facility] BeevilleAutomated erythrocyte mean corpuscular hemoglobin (mass per erythrocyte)2019-12-30 13:28:00* Test Item Value Reference Range Interpretation Comments Mean Corpuscular Hemoglobin (test code = 785-6) 31.6 28-32 [facility] BeevilleAutomated erythrocyte mean corpuscular hemoglobin concentration measurement (mass/volume)2019-12-30 13:28:00* Test Item Value Reference Range Interpretation Comments Mean Corpuscular Hemoglobin Concent (test code = 786-4) 34.2 31-35 [facility] BeevilleRDW UieVo-Ows7259-56-29 13:28:00* Test Item Value Reference Range Interpretation Comments Red Cell Distribution Width (test code = 01288-7) 12.0 11.7 -14.4 [facility] BeevilleAutomated blood platelet count (count/volume)2019-12-30 13:28:00* Test Item Value Reference Range Interpretation Comments Platelet Count (test code = 777-3) 143 140-360 [facility] BeevilleAutomated blood segmented neutrophil count as percentage of total uydtwvrgpp8184-08-79 13:28:00* Test Item Value Reference Range Interpretation Comments Neutrophils (%) (Auto) (test code = 65550-8) 69.5 38.7-80.0 [facility] BeevilleAutomated blood lymphocyte count as percentage ot total xohjixpguh2513-21-96 13:28:00* Test Item Value Reference Range Interpretation Comments Lymphocytes (%) (Auto) (test code = 736-9) 18.3 18.0-39.1 [facility] BeevilleAutomated blood monocyte count as percentage of total uqnnfrqmie6313-81-27 13:28:00* Test Item Value Reference Range Interpretation Comments Monocytes (%) (Auto) (test code = 5905-5) 8.7 4.4-11.3 [facility] BeevilleAutomated blood eosinophil count as percentage of total okfjsviwmd8506-34-07 13:28:00* Test Item Value Reference Range Interpretation Comments Eosinophils (%) (Auto) (test code = 713-8) 2.5 0.0-6.0 [facility] BeevilleAutomated blood basophil count as percentage of total djoejgfqnl0406-15-55 13:28:00* Test Item Value Reference Range Interpretation Comments Basophils (%) (Auto) (test code = 706-2) 0.6 0.0-1.0 [facility] BeevilleFluoroscopic procedure less than one hour bjrhevvq9438-14-59 13:28:00* Test Item Value Reference Range Interpretation Comments IM GRANULOCYTES % (test code = IM GRANULOCYTES %) 0.4 0.0- 1.0 [facility] BeevilleAutomated blood neutrophil count 2019-12-30 13:28:00* Test Item Value Reference Range Interpretation Comments Neutrophils # (Auto) (test code = 751-8) 5.9 2.1-6.9 [facility]evilleBlood lymphocytes count (number/volume) 2019-12-30 13:28:00* Test Item Value Reference Range Interpretation Comments Lymphocytes # (Auto) (test code = 55569-7) 1.6 1.0-3.2 [facility]evilleBlood monocytes automated count (number/volume)2019-12-30 13:28:00* Test Item Value Reference Range Interpretation Comments Monocytes # (Auto) (test code = 742-7) 0.7 0.2-0.8 [facility]evilleAutomated blood eosinophil count 2019-12-30 13:28:00* Test Item Value Reference Range Interpretation Comments Eosinophils # (Auto) (test code = 711-2) 0.2 0.0-0.4 [facility]evilleAutomated blood basophil count (count/volume)2019-12-30 13:28:00* Test Item Value Reference Range Interpretation Comments Basophils # (Auto) (test code = 704-7) 0.1 0.0-0.1 [facility]evilleFluoroscopic procedure less than one hour gjrncvza0666-47-11 13:28:00* Test Item Value Reference Range Interpretation Comments Absolute Immature Granulocyte (auto (luisito t code = Absolute Immature Granulocyte (auto) 0.03 0-0.1 [facility] BeevilleProthrombin time (PT) in platelet poor plasma by coagulation efltm0332-11-69 13:28:00* Test Item Value Reference Range Interpretation Comments Prothrombin Time (test code = 5902-2) 15.8 11.9-14.5 [facility] BeevilleINR in Platelet poor plasma by Coagulation aoyvy2160-71-04 13:28:00* Test Item Value Reference Range Interpretation Comments Prothromb Time International Ratio (test code = 6301-6) 1.18 Oral Anticoagulant Therapy INR Values:1. Low Intensity Therapy 1.5 - 2.02 . Moderate Intensity Therapy 2.0 - 3.03. High Intensity Therapy(1) 2.5 - 3. 54. High Intensity Therapy(2) 3.0 - 4.05. Panic Value INR > 5.0 [facility] or plasma sodium measurement (moles/volume)2019-12-30 13:28:00* Test Item Value Reference Range Interpretation Comments Sodium Level (test code = 2951-2) 135 136-145 [facility] Lakeerum or plasma potassium measurement (moles/volume)2019-12-30 13:28:00* Test Item Value Reference Range Interpretation Comments Potassium Level (test code = 2823-3) 4.2 3.5-5.1 [facility] Lakeerum or plasma chloride measurement (moles/volume)2019-12-30 13:28:00* Test Item Value Reference Range Interpretation Comments Chloride Level (test code = 2075-0) 105 98-107 [facility] Lakeerum or plasma carbon dioxide, total measurement (moles/volume)2019-12-30 13:28:00* Test Item Value Reference Range Interpretation Comments Carbon Dioxide Level (test code = 2028-9) 23 22- [facility] Lakeerum or plasma anion zyi6464-51-17 13:28:00* Test Item Value Reference Range Interpretation Comments Anion Gap (test code = 58919-8) 11.2 8-16 [facility] Lakeerum or plasma urea nitrogen measurement (mass/volume)2019-12-30 13:28:00* Test Item Value Reference Range Interpretation Comments Blood Urea Nitrogen (test code = 3094-0) 17 7-26 [facility] Lakeerum or plasma creatinine measurement (mass/volume)2019-12-30 13:28:00* Test Item Value Reference Range Interpretation Comments Creatinine (test code = 2160-0) 1.23 0.72-1.25 [facility] Lakeerum or plasma urea nitrogen/creatinine mass otnys0276-39-41 13:28:00* Test Item Value Reference Range Interpretation Comments BUN/Creatinine Ratio (test code = 3097-3) 14 6-25 [facility] BeevilleEstimated glomerular filtration rate (GFR) jjmcwdoivhduu9160-91-09 13:28:00* Test Item Value Reference Range Interpretation Comments Estimat Glomerular Filtration Rate (test code = 708657616) 59 >60 Ranges were taken from the National Kidney Disease Education Program and the [facility] literature.Reference ranges:60 or greater: [id number] ( for 3 consecutive months): Chronic kidney disease 15 or less: Kidney failureCHRISTUS Spohn Hospital BeevilleGlucose kcvayoozcvg4100-71-38 13:28:00* Test Item Value Reference Range Interpretation Comments Glucose Level (test code = TWX3152) 166 74-118 [facility] Lakeer[facility] or plasma calcium measurement (mass/volume)2019-12-30 13:28:00* Test Item Value Reference Range Interpretation Comments Calcium Level (test code = 23112-8) 9.7 8.4-10.2 [facility] Lakeerum or plasma total bilirubin measurement (mass/volume)2019-12-30 13:28:00* Test Item Value Reference Range Interpretation Comments Total Bilirubin (test code = 1975-2) 0.7 0.2-1.2 [facility] BeevilleFluoroscopic procedure less than one hour rsnmxmve5687-37-15 13:28:00* Test Item Value Reference Range Interpretation Comments Aspartate Amino Transf (AST/SGOT) (test code = Aspartate Amino Transf (AST/SGOT)) 24 5-34 [facility] Lakeerum or plasma alanine aminotransferase measurement (enzymatic activity/volume)2019-12-30 13:28:00* Test Item Value Reference Range Interpretation Comments Alanine Aminotransferase (ALT/SGPT) (test code = 1742-6) 19 0-55 [facility] Lakeerum or plasma protein measurement (mass/volume)2019-12-30 13:28:00* Test Item Value Reference Range Interpretation Comments Total Protein (test code = 2885-2) 7.7 6.5-8.1 [facility] Lakeerum or plasma albumin measurement (mass/volume)2019-12-30 13:28:00* Test Item Value Reference Range Interpretation Comments Albumin (test code = 1751-7) 3.5 3.5-5.0 [facility]evillePlasma globulin measurement (mass/volume) 2019-12-30 13:28:00* Test Item Value Reference Range Interpretation Comments Globulin (test code = 83138-2) 4.2 2.3-3.5 [facility] Lakeerum or plasma albumin/globulin mass kzflc7167-06-83 13:28:00* Test Item Value Reference Range Interpretation Comments Albumin/Globulin Ratio (test code = 1759-0) 0.8 0.8-2.0 [facility] Lakeerum or plasma alkaline phosphatase measurement (enzymatic activity/volume)2019-12-30 13:28:00* Test Item Value Reference Range Interpretation Comments Alkaline Phosphatase (test code = 6768-6) 124 40-150 [facility]evilleBlood leukocytes automated count (number/volume)2019-12-30 13:28:00* Test Item Value Reference Range Interpretation Comments White Blood Count (test code = 6690-2) 8.48 4.8-10.8 [facility]evilleBlood erythrocytes automated count (number/volume)2019-12-30 13:28:00* Test Item Value Reference Range Interpretation Comments Red Blood Count (test code = 789-8) 4.55 4.3-5.7 [facility]evilleBlood hemoglobin measurement (moles/volume)2019-12-30 13:28:00* Test Item Value Reference Range Interpretation Comments Hemoglobin (test code = 78252-3) 14.4 14.0-18.0 [facility] BeevilleAutomated blood hematocrit (volume fraction)2019-12-30 13:28:00* Test Item Value Reference Range Interpretation Comments Hematocrit (test code = 4544-3) 42.1 38.2-49.6 [facility] BeevilleAutomated erythrocyte mean corpuscular tvwuoz5736-28-28 13:28:00* Test Item Value Reference Range Interpretation Comments Mean Corpuscular Volume (test code = 787-2) 92.5 81-99 [facility] BeevilleAutomated erythrocyte mean corpuscular hemoglobin (mass per erythrocyte)2019-12-30 13:28:00* Test Item Value Reference Range Interpretation Comments Mean Corpuscular Hemoglobin (test code = 785-6) 31.6 28-32 [facility] BeevilleAutomated erythrocyte mean corpuscular hemoglobin concentration measurement (mass/volume)2019-12-30 13:28:00* Test Item Value Reference Range Interpretation Comments Mean Corpuscular Hemoglobin Concent (test code = 786-4) 34.2 31-35 [facility] BeevilleRDW XgcJh-Rpj4041-21-29 13:28:00* Test Item Value Reference Range Interpretation Comments Red Cell Distribution Width (test code = 79541-2) 12.0 11.7 -14.4 [facility] BeevilleAutomated blood platelet count (count/volume)2019-12-30 13:28:00* Test Item Value Reference Range Interpretation Comments Platelet Count (test code = 777-3) 143 140-360 [facility] BeevilleAutomated blood segmented neutrophil count as percentage of total xilyatyjfm4331-16-33 13:28:00* Test Item Value Reference Range Interpretation Comments Neutrophils (%) (Auto) (test code = 88547-1) 69.5 38.7-80.0 [facility] BeevilleAutomated blood lymphocyte count as percentage ot total mvznxwjppx4486-19-64 13:28:00* Test Item Value Reference Range Interpretation Comments Lymphocytes (%) (Auto) (test code = 736-9) 18.3 18.0-39.1 [facility] BeevilleAutomated blood monocyte count as percentage of total xnercndiyc8047-86-89 13:28:00* Test Item Value Reference Range Interpretation Comments Monocytes (%) (Auto) (test code = 5905-5) 8.7 4.4-11.3 [facility]evilleAutomated blood eosinophil count as percentage of total rukssyzqap3445-71-12 13:28:00* Test Item Value Reference Range Interpretation Comments Eosinophils (%) (Auto) (test code = 713-8) 2.5 0.0-6.0 [facility] BeevilleAutomated blood basophil count as percentage of total ohylrufrzz5861-67-92 13:28:00* Test Item Value Reference Range Interpretation Comments Basophils (%) (Auto) (test code = 706-2) 0.6 0.0-1.0 [facility] BeevilleFluoroscopic procedure less than one hour wdsmqjtr6042-10-10 13:28:00* Test Item Value Reference Range Interpretation Comments IM GRANULOCYTES % (test code = IM GRANULOCYTES %) 0.4 0.0- 1.0 [facility] BeevilleAutomated blood neutrophil count 2019-12-30 13:28:00* Test Item Value Reference Range Interpretation Comments Neutrophils # (Auto) (test code = 751-8) 5.9 2.1-6.9 [facility]evilleBlood lymphocytes count (number/volume) 2019-12-30 13:28:00* Test Item Value Reference Range Interpretation Comments Lymphocytes # (Auto) (test code = 80938-8) 1.6 1.0-3.2 [facility]evilleBlood monocytes automated count (number/volume)2019-12-30 13:28:00* Test Item Value Reference Range Interpretation Comments Monocytes # (Auto) (test code = 742-7) 0.7 0.2-0.8 [facility] BeevilleAutomated blood eosinophil count 2019-12-30 13:28:00* Test Item Value Reference Range Interpretation Comments Eosinophils # (Auto) (test code = 711-2) 0.2 0.0-0.4 [facility]evilleAutomated blood basophil count (count/volume)2019-12-30 13:28:00* Test Item Value Reference Range Interpretation Comments Basophils # (Auto) (test code = 704-7) 0.1 0.0-0.1 [facility] BeevilleFluoroscopic procedure less than one hour vmqoakui0609-08-78 13:28:00* Test Item Value Reference Range Interpretation Comments Absolute Immature Granulocyte (auto (luisito t code = Absolute Immature Granulocyte (auto) 0.03 0-0.1 [facility] BeevilleProthrombin time (PT) in platelet poor plasma by coagulation qaade4708-73-26 13:28:00* Test Item Value Reference Range Interpretation Comments Prothrombin Time (test code = 5902-2) 15.8 11.9-14.5 [facility] BeevilleINR in Platelet poor plasma by Coagulation thcrm2190-91-86 13:28:00* Test Item Value Reference Range Interpretation Comments Prothromb Time International Ratio (test code = 6301-6) 1.18 Oral Anticoagulant Therapy INR Values:1. Low Intensity Therapy 1.5 - 2.02 . Moderate Intensity Therapy 2.0 - 3.03. High Intensity Therapy(1) 2.5 - 3. 54. High Intensity Therapy(2) 3.0 - 4.05. Panic Value INR > 5.0 [facility] Lakeer[facility] or plasma sodium measurement (moles/volume)2019-12-30 13:28:00* Test Item Value Reference Range Interpretation Comments Sodium Level (test code = 2951-2) 135 136-145 [facility] Lakeerum or plasma potassium measurement (moles/volume)2019-12-30 13:28:00* Test Item Value Reference Range Interpretation Comments Potassium Level (test code = 2823-3) 4.2 3.5-5.1 [facility] Lakeerum or plasma chloride measurement (moles/volume)2019-12-30 13:28:00* Test Item Value Reference Range Interpretation Comments Chloride Level (test code = 2075-0) 105 98-107 [facility] Lakeerum or plasma carbon dioxide, total measurement (moles/volume)2019-12-30 13:28:00* Test Item Value Reference Range Interpretation Comments Carbon Dioxide Level (test code = 2028-9) 23 22-29 [facility] Lakeerum or plasma anion qmw1746-63-79 13:28:00* Test Item Value Reference Range Interpretation Comments Anion Gap (test code = 24621-4) 11.2 8-16 [facility] Lakeerum or plasma urea nitrogen measurement (mass/volume)2019-12-30 13:28:00* Test Item Value Reference Range Interpretation Comments Blood Urea Nitrogen (test code = 3094-0) 17 7-26 [facility] Lakeerum or plasma creatinine measurement (mass/volume)2019-12-30 13:28:00* Test Item Value Reference Range Interpretation Comments Creatinine (test code = 2160-0) 1.23 0.72-1.25 [facility] Lakeerum or plasma urea nitrogen/creatinine mass umtrv1151-88-25 13:28:00* Test Item Value Reference Range Interpretation Comments BUN/Creatinine Ratio (test code = 3097-3) 14 6-25 [facility] BeevilleEstimated glomerular filtration rate (GFR) ksefswqktuuly6399-76-62 13:28:00* Test Item Value Reference Range Interpretation Comments Estimat Glomerular Filtration Rate (test code = 692592052) 59 >60 Ranges were taken from the National Kidney Disease Education Program and the [facility] Kidney Foundation literature.Reference ranges:60 or greater: Fscwxl17-98 ( for 3 consecutive months): Chronic kidney disease 15 or less: Kidney failureCHRISTUS [facility]ohn [facility] BeevilleGlucose nexmmaemrna1015-44-53 13:28:00* Test Item Value Reference Range Interpretation Comments Glucose Level (test code = TCZ5182) 166 74-118 [facility] Lakeerum or plasma calcium measurement (mass/volume)2019-12-30 13:28:00* Test Item Value Reference Range Interpretation Comments Calcium Level (test code = 31310-9) 9.7 8.4-10.2 [facility] Lakeerum or plasma total bilirubin measurement (mass/volume)2019-12-30 13:28:00* Test Item Value Reference Range Interpretation Comments Total Bilirubin (test code = 1975-2) 0.7 0.2-1.2 [facility] BeevilleFluoroscopic procedure less than one hour imvnwpnu5523-91-13 13:28:00* Test Item Value Reference Range Interpretation Comments Aspartate Amino Transf (AST/SGOT) (test code = Aspartate Amino Transf (AST/SGOT)) 24 5-34 [facility] Lakeerum or plasma alanine aminotransferase measurement (enzymatic activity/volume)2019-12-30 13:28:00* Test Item Value Reference Range Interpretation Comments Alanine Aminotransferase (ALT/SGPT) (test code = 1742-6) 19 0-55 [facility] Lakeerum or plasma protein measurement (mass/volume)2019-12-30 13:28:00* Test Item Value Reference Range Interpretation Comments Total Protein (test code = 2885-2) 7.7 6.5-8.1 [facility] Lakeerum or plasma albumin measurement (mass/volume)2019-12-30 13:28:00* Test Item Value Reference Range Interpretation Comments Albumin (test code = 1751-7) 3.5 3.5-5.0 [facility] BeevillePlasma globulin measurement (mass/volume) 2019-12-30 13:28:00* Test Item Value Reference Range Interpretation Comments Globulin (test code = 49994-6) 4.2 2.3-3.5 [facility] Lakeerum or plasma albumin/globulin mass gosyd9331-66-89 13:28:00* Test Item Value Reference Range Interpretation Comments Albumin/Globulin Ratio (test code = 1759-0) 0.8 0.8-2.0 [facility] Lakeerum or plasma alkaline phosphatase measurement (enzymatic activity/volume)2019-12-30 13:28:00* Test Item Value Reference Range Interpretation Comments Alkaline Phosphatase (test code = 6768-6) 124 40-150 [facility] BeevilleBacteria identification in wound by czdbtdo1271-05-80 15:00:00* Test Item Value Reference Range Interpretation Comments Wound Culture (test code = 6462-6) PSEUDOMONAS AERUGINOSA [facility] BeevilleBacteria identification in wound by lmqwvzd3517-55-11 15:00:00* Test Item Value Reference Range Interpretation Comments Wound Culture (test code = 6462-6) PSEUDOMONAS AERUGINOSA [facility] BeevilleBacteria identification in wound by mqiecjz3206-26-72 15:00:00* Test Item Value Reference Range Interpretation Comments Wound Culture (test code = 6462-6) PSEUDOMONAS AERUGINOSA [facility] BeevilleBacteria identification in wound by adbaell9869-21-68 15:00:00* Test Item Value Reference Range Interpretation Comments Wound Culture (test code = 6462-6) PSEUDOMONAS AERUGINOSA [facility] BeevilleBedside Stljiko0421-20-47 08:21:00* Test Item Value Reference Range Interpretation Comments Bedside Glucose (test code = 07690-6) 84 70-120 Meter ID: [id number] [facility] LancasterCapillary blood glucose measurement by glucometer (mass/volume)2019-10-22 07:49:00* Test Item Value Reference Range Interpretation Comments Bedside Glucose (test code = 39775-0) 84 70-120 Meter ID: [id number] [facility] LancasterCapillary blood glucose measurement by glucometer (mass/volume)2019-10-22 07:49:00* Test Item Value Reference Range Interpretation Comments Bedside Glucose (test code = 19378-8) 84 70-120 Meter ID: [id number] [facility] LancasterCapillary blood glucose measurement by glucometer (mass/volume)2019-10-22 07:49:00* Test Item Value Reference Range Interpretation Comments Bedside Glucose (test code = 31372-6) 84 70-120 Meter ID: [id number] [facility] HospitalCap[facility] blood glucose measurement by glucometer (mass/volume)2019-10-22 07:49:00* Test Item Value Reference Range Interpretation Comments Bedside Glucose (test code = 75027-7) 84 70-120 Meter ID: [id number] [facility] HospitalCapillary blood glucose measurement by glucometer (mass/volume)2019-10-22 07:49:00* Test Item Value Reference Range Interpretation Comments Bedside Glucose (test code = 83548-0) 84 70-120 Meter ID: [id number] Hospital of Austinillary blood glucose measurement by glucometer (mass/volume)2019-10-22 07:49:00* Test Item Value Reference Range Interpretation Comments Bedside Glucose (test code = 19499-7) 84 70-120 Meter ID: [id number] [facility] HospitalTriglycerides Level 2019-10-22 06:50:00* Test Item Value Reference Range Interpretation Comments Triglycerides Level (test code = 2571-8) 113 0-149 [facility]LDL Ysmbvtmidho9797-71-48 06:50:00* Test Item Value Reference Range Interpretation Comments LDL Cholesterol (test code = 2089-1) 99 60-130 [facility] BeevilleCreatine Kinase ML5972-94-93 06:25:00* Test Item Value Reference Range Interpretation Comments Creatine Kinase MB (test code = 47700-5) 1.50 0-5.0 [facility]evilleTroponin S2041-99-85 06:25:00* Test Item Value Reference Range Interpretation Comments Troponin I (test code = 52791-4) < 0.001 0-0.300 [facility]evilleCreatine Fxjwzi3987-45-68 06:19:00* Test Item Value Reference Range Interpretation Comments Creatine Kinase (test code = 2157-6) 48 30-200 [facility]evilleWhite Blood Jylyf0729-51-48 05:55:00* Test Item Value Reference Range Interpretation Comments White Blood Count (test code = 6690-2) 7.48 4.8-10.8 [facility]evilleRed Blood Aaads7505-79-88 05:55:00* Test Item Value Reference Range Interpretation Comments Red Blood Count (test code = 789-8) 4.24 4.3-5.7 L [facility]evilleHemoglobin2020-04-21 05:55:00* Test Item Value Reference Range Interpretation Comments Hemoglobin (test code = 50494-4) 13.3 14.0-18.0 L [facility]evilleHematocrit2020-04-21 05:55:00* Test Item Value Reference Range Interpretation Comments Hematocrit (test code = 4544-3) 37.8 38.2-49.6 L [facility]evilleMean Corpuscular Toqzis0125-81-17 05:55:00* Test Item Value Reference Range Interpretation Comments Mean Corpuscular Volume (test code = 787-2) 89.2 81-99 [facility]evilleMean Corpuscular Jbshgvzfnj5785-24-19 05:55:00* Test Item Value Reference Range Interpretation Comments Mean Corpuscular Hemoglobin (test code = 785-6) 31.4 28-32 [facility]evilleMean Corpuscular Hemoglobin Concent 2019-10-22 05:55:00* Test Item Value Reference Range Interpretation Comments Mean Corpuscular Hemoglobin Concent (test code = 786-4) 35.2 31-35 H [facility] [place]evilleRed Cell Distribution Rdhhd5815-04-78 05:55:00* Test Item Value Reference Range Interpretation Comments Red Cell Distribution Width (test code = 69697-7) 12.1 11.7 -14.4 [facility] BeevillePlatelet Thggj6723-16-02 05:55:00* Test Item Value Reference Range Interpretation Comments Platelet Count (test code = 777-3) 137 140-360 L [facility] BeevilleNeutrophils (%) (Auto)2019-10-22 05:55:00 * Test Item Value Reference Range Interpretation Comments Neutrophils (%) (Auto) (test code = 75497-4) 65.7 38.7-80.0 [facility] BeevilleLymphocytes (%) (Auto)2019-10-22 05:55:00 * Test Item Value Reference Range Interpretation Comments Lymphocytes (%) (Auto) (test code = 736-9) 19.7 18.0-39.1 [facility]evilleMonocytes (%) (Auto)2019-10-22 05:55:00* Test Item Value Reference Range Interpretation Comments Monocytes (%) (Auto) (test code = 5905-5) 10.2 4.4-11.3 [facility]evilleEosinophils (%) (Auto)2019-10-22 05:55:00 * Test Item Value Reference Range Interpretation Comments Eosinophils (%) (Auto) (test code = 713-8) 3.3 0.0-6.0 [facility]evilleBasophils (%) (Auto)2019-10-22 05:55:00* Test Item Value Reference Range Interpretation Comments Basophils (%) (Auto) (test code = 706-2) 0.3 0.0-1.0 [facility]evilleIM GRANULOCYTES %2019-10-22 05:55:00* Test Item Value Reference Range Interpretation Comments IM GRANULOCYTES % (test code = IM GRANULOCYTES %) 0.8 0.0- 1.0 [facility]evilleNeutrophils # (Auto)2019-10-22 05:55:00* Test Item Value Reference Range Interpretation Comments Neutrophils # (Auto) (test code = 751-8) 4.9 2.1-6.9 [facility]evilleLymphocytes # (Auto)2019-10-22 05:55:00* Test Item Value Reference Range Interpretation Comments Lymphocytes # (Auto) (test code = 46057-3) 1.5 1.0-3.2 [facility]evilleMonocytes # (Auto)2019-10-22 05:55:00* Test Item Value Reference Range Interpretation Comments Monocytes # (Auto) (test code = 742-7) 0.8 0.2-0.8 [facility]evilleEosinophils # (Auto)2019-10-22 05:55:00* Test Item Value Reference Range Interpretation Comments Eosinophils # (Auto) (test code = 711-2) 0.3 0.0-0.4 [facility]evilleBasophils # (Auto)2019-10-22 05:55:00* Test Item Value Reference Range Interpretation Comments Basophils # (Auto) (test code = 704-7) 0.0 0.0-0.1 [facility] BeevilleAbsolute Immature Granulocyte (auto 2019-10-22 05:55:00* Test Item Value Reference Range Interpretation Comments Absolute Immature Granulocyte (auto (luisito t code = Absolute Immature Granulocyte (auto) 0.06 0-0.1 [facility] Lakeodium Ratiw2730-62-18 05:54:00* Test Item Value Reference Range Interpretation Comments Sodium Level (test code = 2951-2) 136 136-145 [facility]evillePotassium Ouadn1377-83-95 05:54:00* Test Item Value Reference Range Interpretation Comments Potassium Level (test code = 2823-3) 4.3 3.5-5.1 [facility]evilleChloride Fembk7722-98-02 05:54:00* Test Item Value Reference Range Interpretation Comments Chloride Level (test code = 2075-0) 108 98-107 H [facility] BeevilleCarbon Dioxide Baggo1586-23-38 05:54:00* Test Item Value Reference Range Interpretation Comments Carbon Dioxide Level (test code = 2028-9) 27 22-29 [facility] BeevilleAnion Qnl5374-85-32 05:54:00* Test Item Value Reference Range Interpretation Comments Anion Gap (test code = 29685-1) 5.3 8-16 L [facility] BeevilleBlood Urea Tyrtnhcm0920-16-48 05:54:00* Test Item Value Reference Range Interpretation Comments Blood Urea Nitrogen (test code = 3094-0) 19 7-26 [facility] BeevilleCreatinine2020-04-21 05:54:00* Test Item Value Reference Range Interpretation Comments Creatinine (test code = 2160-0) 0.93 0.72-1.25 [facility]evilleBUN/Creatinine Tivvr4394-02-98 05:54:00* Test Item Value Reference Range Interpretation Comments BUN/Creatinine Ratio (test code = 3097-3) 20 6-25 [facility] BeevilleEstimat Glomerular Filtration Rate 2019-10-22 05:54:00* Test Item Value Reference Range Interpretation Comments Estimat Glomerular Filtration Rate (test code = 079010813) > 60 >60 Ranges were taken from the National Kidney Disease Education Program and the [facility] literature.Reference ranges:60 or greater: Wwunze52-62 ( for 3 consecutive months): Chronic kidney disease 15 or less: Kidney failureCHRISTUS Spohn Hospital BeevilleGlucose Crwqo0933-53-72 05:54:00* Test Item Value Reference Range Interpretation Comments Glucose Level (test code = IJX5066) 63 74-118 L [facility] BeevilleCalcium Qfvwa6438-56-85 05:54:00* Test Item Value Reference Range Interpretation Comments Calcium Level (test code = 88879-8) 9.1 8.4-10.2 [facility] BeevilleTotal Cdxiippcn2415-22-02 05:54:00* Test Item Value Reference Range Interpretation Comments Total Bilirubin (test code = 1975-2) 0.6 0.2-1.2 [facility] BeevilleAspartate Amino Transf (AST/SGOT) 2019-10-22 05:54:00* Test Item Value Reference Range Interpretation Comments Aspartate Amino Transf (AST/SGOT) (test code = Aspartate Amino Transf (AST/SGOT)) 24 5-34 [facility] BeevilleAlanine Aminotransferase (ALT/SGPT) 2019-10-22 05:54:00* Test Item Value Reference Range Interpretation Comments Alanine Aminotransferase (ALT/SGPT) (test code = 1742-6) 13 0-55 [facility] BeevilleTotal Ybzimkx9705-08-11 05:54:00* Test Item Value Reference Range Interpretation Comments Total Protein (test code = 2885-2) 6.8 6.5-8.1 [facility] BeevilleAlbumin2020-04-21 05:54:00* Test Item Value Reference Range Interpretation Comments Albumin (test code = 1751-7) 3.1 3.5-5.0 L [facility] BeevilleGlobulin2020-04-21 05:54:00* Test Item Value Reference Range Interpretation Comments Globulin (test code = 89291-7) 3.7 2.3-3.5 H [facility] BeevilleAlbumin/Globulin Myftx3845-06-60 05:54:00 * Test Item Value Reference Range Interpretation Comments Albumin/Globulin Ratio (test code = 1759-0) 0.8 0.8-2.0 [facility] BeevilleAlkaline Ekrlqimrgin4352-36-25 05:54:00* Test Item Value Reference Range Interpretation Comments Alkaline Phosphatase (test code = 6768-6) 103 40-150 [facility] BeevilleCholesterol Axeln7203-28-43 05:54:00* Test Item Value Reference Range Interpretation Comments Cholesterol Level (test code = 2093-3) 154 0-199 Less than 200 mg/dL Low Pztq447 - 239 mg/dL Borderline Ynox991 m g/dl and greater High Risk [facility] BeevilleHDL Jaczwjqektm1365-87-35 05:54:00* Test Item Value Reference Range Interpretation Comments HDL Cholesterol (test code = 2085-9) 32 40-60 L [facility]evilleCholesterol/HDL Oided0173-76-26 05:54:00 * Test Item Value Reference Range Interpretation Comments Cholesterol/HDL Ratio (test code = 9830-1) 4.8 3.9-4.7 H [facility] BeevilleBlood leukocytes automated count (number/volume)2019-10-22 04:55:00* Test Item Value Reference Range Interpretation Comments White Blood Count (test code = 6690-2) 7.48 4.8-10.8 [facility]evilleBlood erythrocytes automated count (number/volume)2019-10-22 04:55:00* Test Item Value Reference Range Interpretation Comments Red Blood Count (test code = 789-8) 4.24 4.3-5.7 [facility]evilleBlood hemoglobin measurement (moles/volume)2019-10-22 04:55:00* Test Item Value Reference Range Interpretation Comments Hemoglobin (test code = 33590-6) 13.3 14.0-18.0 [facility] BeevilleAutomated blood hematocrit (volume fraction)2019-10-22 04:55:00* Test Item Value Reference Range Interpretation Comments Hematocrit (test code = 4544-3) 37.8 38.2-49.6 [facility] BeevilleAutomated erythrocyte mean corpuscular wurqni3635-19-88 04:55:00* Test Item Value Reference Range Interpretation Comments Mean Corpuscular Volume (test code = 787-2) 89.2 81-99 [facility] BeevilleAutomated erythrocyte mean corpuscular hemoglobin (mass per erythrocyte)2019-10-22 04:55:00* Test Item Value Reference Range Interpretation Comments Mean Corpuscular Hemoglobin (test code = 785-6) 31.4 28-32 [facility] BeevilleAutomated erythrocyte mean corpuscular hemoglobin concentration measurement (mass/volume)2019-10-22 04:55:00* Test Item Value Reference Range Interpretation Comments Mean Corpuscular Hemoglobin Concent (test code = 786-4) 35.2 31-35 [facility] BeevilleRDW KowIr-Rzx5885-98-21 04:55:00* Test Item Value Reference Range Interpretation Comments Red Cell Distribution Width (test code = 00970-0) 12.1 11.7 -14.4 [facility] BeevilleAutomated blood platelet count (count/volume)2019-10-22 04:55:00* Test Item Value Reference Range Interpretation Comments Platelet Count (test code = 777-3) 137 140-360 [facility]evilleAutformerly [facility] blood segmented neutrophil count as percentage of total smfuynfyac8761-37-99 04:55:00* Test Item Value Reference Range Interpretation Comments Neutrophils (%) (Auto) (test code = 71506-7) 65.7 38.7-80.0 [facility] BeevilleAutomated blood lymphocyte count as percentage ot total asippvmjku7869-84-21 04:55:00* Test Item Value Reference Range Interpretation Comments Lymphocytes (%) (Auto) (test code = 736-9) 19.7 18.0-39.1 [facility] BeevilleAutomated blood monocyte count as percentage of total krucifsuma9325-40-26 04:55:00* Test Item Value Reference Range Interpretation Comments Monocytes (%) (Auto) (test code = 5905-5) 10.2 4.4-11.3 [facility] BeevilleAutomated blood eosinophil count as percentage of total qhkcvxjekh5789-59-04 04:55:00* Test Item Value Reference Range Interpretation Comments Eosinophils (%) (Auto) (test code = 713-8) 3.3 0.0-6.0 [facility] BeevilleAutomated blood basophil count as percentage of total bbyodovovo2227-44-06 04:55:00* Test Item Value Reference Range Interpretation Comments Basophils (%) (Auto) (test code = 706-2) 0.3 0.0-1.0 [facility] BeevilleFluoroscopic procedure less than one hour crpaaqvu7404-00-53 04:55:00* Test Item Value Reference Range Interpretation Comments IM GRANULOCYTES % (test code = IM GRANULOCYTES %) 0.8 0.0- 1.0 [facility] BeevilleAutomated blood neutrophil count 2019-10-22 04:55:00* Test Item Value Reference Range Interpretation Comments Neutrophils # (Auto) (test code = 751-8) 4.9 2.1-6.9 [facility]evilleBlood lymphocytes count (number/volume) 2019-10-22 04:55:00* Test Item Value Reference Range Interpretation Comments Lymphocytes # (Auto) (test code = 50030-8) 1.5 1.0-3.2 [facility]evilleBlood monocytes automated count (number/volume)2019-10-22 04:55:00* Test Item Value Reference Range Interpretation Comments Monocytes # (Auto) (test code = 742-7) 0.8 0.2-0.8 [facility] BeevilleAutomated blood eosinophil count 2019-10-22 04:55:00* Test Item Value Reference Range Interpretation Comments Eosinophils # (Auto) (test code = 711-2) 0.3 0.0-0.4 [facility]evilleAutomated blood basophil count (count/volume)2019-10-22 04:55:00* Test Item Value Reference Range Interpretation Comments Basophils # (Auto) (test code = 704-7) 0.0 0.0-0.1 [facility] BeevilleFluoroscopic procedure less than one hour vzckpdnc4811-83-54 04:55:00* Test Item Value Reference Range Interpretation Comments Absolute Immature Granulocyte (auto (luisito t code = Absolute Immature Granulocyte (auto) 0.06 0-0.1 [facility] Lakeerum or plasma sodium measurement (moles/volume)2019-10-22 04:55:00* Test Item Value Reference Range Interpretation Comments Sodium Level (test code = 2951-2) 136 136-145 [facility] Lakeerum or plasma potassium measurement (moles/volume)2019-10-22 04:55:00* Test Item Value Reference Range Interpretation Comments Potassium Level (test code = 2823-3) 4.3 3.5-5.1 [facility] Lakeerum or plasma chloride measurement (moles/volume)2019-10-22 04:55:00* Test Item Value Reference Range Interpretation Comments Chloride Level (test code = 2075-0) 108 98-107 [facility] Lakeerum or plasma carbon dioxide, total measurement (moles/volume)2019-10-22 04:55:00* Test Item Value Reference Range Interpretation Comments Carbon Dioxide Level (test code = 2028-9) 27 22-29 [facility] Lakeerum or plasma anion udo2071-35-38 04:55:00* Test Item Value Reference Range Interpretation Comments Anion Gap (test code = 37729-6) 5.3 8-16 [facility] Lakeerum or plasma urea nitrogen measurement (mass/volume)2019-10-22 04:55:00* Test Item Value Reference Range Interpretation Comments Blood Urea Nitrogen (test code = 3094-0) 19 7-26 [facility] Lakeerum or plasma creatinine measurement (mass/volume)2019-10-22 04:55:00* Test Item Value Reference Range Interpretation Comments Creatinine (test code = 2160-0) 0.93 0.72-1.25 [facility] Lakeerum or plasma urea nitrogen/creatinine mass gexko4426-58-07 04:55:00* Test Item Value Reference Range Interpretation Comments BUN/Creatinine Ratio (test code = 3097-3) 20 6-25 [facility]evilleEstimated glomerular filtration rate (GFR) dygmrpbpjgovk8691-34-84 04:55:00* Test Item Value Reference Range Interpretation Comments Estimat Glomerular Filtration Rate (test code = 683353507) > 60 >60 Ranges were taken from the National Kidney Disease Education Program and the [facility] Kidney Foundation literature.Reference ranges:60 or greater: Nylaki83-69 ( for 3 consecutive months): Chronic kidney disease 15 or less: Kidney failureCHRISTUS [facility]ohn [facility] BeevilleGlucose oybgifqjynz1602-99-42 04:55:00* Test Item Value Reference Range Interpretation Comments Glucose Level (test code = WRW1173) 63 74-118 [facility] Lakeerum or plasma calcium measurement (mass/volume)2019-10-22 04:55:00* Test Item Value Reference Range Interpretation Comments Calcium Level (test code = 51096-5) 9.1 8.4-10.2 [facility] Lakeerum or plasma total bilirubin measurement (mass/volume)2019-10-22 04:55:00* Test Item Value Reference Range Interpretation Comments Total Bilirubin (test code = 1975-2) 0.6 0.2-1.2 [facility] BeevilleFluoroscopic procedure less than one hour yzcjqyov4883-06-44 04:55:00* Test Item Value Reference Range Interpretation Comments Aspartate Amino Transf (AST/SGOT) (test code = Aspartate Amino Transf (AST/SGOT)) 24 5-34 [facility] Lakeerum or plasma alanine aminotransferase measurement (enzymatic activity/volume)2019-10-22 04:55:00* Test Item Value Reference Range Interpretation Comments Alanine Aminotransferase (ALT/SGPT) (test code = 1742-6) 13 0-55 [facility] Lakeerum or plasma protein measurement (mass/volume)2019-10-22 04:55:00* Test Item Value Reference Range Interpretation Comments Total Protein (test code = 2885-2) 6.8 6.5-8.1 [facility] Lakeerum or plasma albumin measurement (mass/volume)2019-10-22 04:55:00* Test Item Value Reference Range Interpretation Comments Albumin (test code = 1751-7) 3.1 3.5-5.0 [facility]evillePlasma globulin measurement (mass/volume) 2019-10-22 04:55:00* Test Item Value Reference Range Interpretation Comments Globulin (test code = 19635-6) 3.7 2.3-3.5 [facility] Lakeerum or plasma albumin/globulin mass koitl2698-11-53 04:55:00* Test Item Value Reference Range Interpretation Comments Albumin/Globulin Ratio (test code = 1759-0) 0.8 0.8-2.0 [facility] Lakeerum or plasma alkaline phosphatase measurement (enzymatic activity/volume)2019-10-22 04:55:00* Test Item Value Reference Range Interpretation Comments Alkaline Phosphatase (test code = 6768-6) 103 40-150 [facility] Lakeerum or plasma triglyceride measurement (mass/volume)2019-10-22 04:55:00* Test Item Value Reference Range Interpretation Comments Triglycerides Level (test code = 2571-8) 113 0-149 [facility] Lakeerum or plasma cholesterol measurement (mass/volume)2019-10-22 04:55:00* Test Item Value Reference Range Interpretation Comments Cholesterol Level (test code = 2093-3) 154 0-199 Less than 200 mg/dL Low Uupv067 - 239 mg/dL Borderline Xrsv330 m g/dl and greater High Risk [facility] Lakeerum or plasma cholesterol in LDL measurement (mass/volume) 2019-10-22 04:55:00* Test Item Value Reference Range Interpretation Comments LDL Cholesterol (test code = 2089-1) 99 60-130 [facility] Lakeerum or plasma cholesterol in HDL measurement (mass/volume)2019-10-22 04:55:00* Test Item Value Reference Range Interpretation Comments HDL Cholesterol (test code = 2085-9) 32 40-60 [facility] Lakeerum or plasma total cholesterol/cholesterol in HDL mass ovxur7354-41-15 04:55:00* Test Item Value Reference Range Interpretation Comments Cholesterol/HDL Ratio (test code = 9830-1) 4.8 3.9-4.7 [facility] Lakeerum or plasma creatine kinase measurement (enzymatic activity/volume)2019-10-22 04:55:00* Test Item Value Reference Range Interpretation Comments Creatine Kinase (test code = 2157-6) 48 30-200 [facility] Lakeerum or plasma creatine kinase MB measurement (mass/volume)2019-10-22 04:55:00* Test Item Value Reference Range Interpretation Comments Creatine Kinase MB (test code = 49910-1) 1.50 0-5.0 [facility]evilleTroponin I measurement by highly sensitive enzyme phrbvzjlxlu6471-38-55 04:55:00* Test Item Value Reference Range Interpretation Comments Troponin I (test code = 16215-9) < 0.001 0-0.300 [facility]evilleBlood leukocytes automated count (number/volume)2019-10-22 04:55:00* Test Item Value Reference Range Interpretation Comments White Blood Count (test code = 6690-2) 7.48 4.8-10.8 [facility]evilleBlood erythrocytes automated count (number/volume)2019-10-22 04:55:00* Test Item Value Reference Range Interpretation Comments Red Blood Count (test code = 789-8) 4.24 4.3-5.7 [facility]evilleBlood hemoglobin measurement (moles/volume)2019-10-22 04:55:00* Test Item Value Reference Range Interpretation Comments Hemoglobin (test code = 32164-7) 13.3 14.0-18.0 [facility] BeevilleAutomated blood hematocrit (volume fraction)2019-10-22 04:55:00* Test Item Value Reference Range Interpretation Comments Hematocrit (test code = 4544-3) 37.8 38.2-49.6 [facility] BeevilleAutomated erythrocyte mean corpuscular gswbna6613-84-32 04:55:00* Test Item Value Reference Range Interpretation Comments Mean Corpuscular Volume (test code = 787-2) 89.2 81-99 [facility] BeevilleAutomated erythrocyte mean corpuscular hemoglobin (mass per erythrocyte)2019-10-22 04:55:00* Test Item Value Reference Range Interpretation Comments Mean Corpuscular Hemoglobin (test code = 785-6) 31.4 28-32 [facility] BeevilleAutomated erythrocyte mean corpuscular hemoglobin concentration measurement (mass/volume)2019-10-22 04:55:00* Test Item Value Reference Range Interpretation Comments Mean Corpuscular Hemoglobin Concent (test code = 786-4) 35.2 31-35 [facility] BeevilleRDW KwbSy-Jyy6724-61-21 04:55:00* Test Item Value Reference Range Interpretation Comments Red Cell Distribution Width (test code = 80084-8) 12.1 11.7 -14.4 [facility] BeevilleAutomated blood platelet count (count/volume)2019-10-22 04:55:00* Test Item Value Reference Range Interpretation Comments Platelet Count (test code = 777-3) 137 140-360 [facility] BeevilleAutomated blood segmented neutrophil count as percentage of total mdkqyopunm3918-66-96 04:55:00* Test Item Value Reference Range Interpretation Comments Neutrophils (%) (Auto) (test code = 94780-6) 65.7 38.7-80.0 [facility] BeevilleAutomated blood lymphocyte count as percentage ot total swazmxzrbb8054-11-51 04:55:00* Test Item Value Reference Range Interpretation Comments Lymphocytes (%) (Auto) (test code = 736-9) 19.7 18.0-39.1 [facility] BeevilleAutomated blood monocyte count as percentage of total swiekywdxf4836-10-70 04:55:00* Test Item Value Reference Range Interpretation Comments Monocytes (%) (Auto) (test code = 5905-5) 10.2 4.4-11.3 [facility]evilleAutomated blood eosinophil count as percentage of total fspooinasa0736-29-47 04:55:00* Test Item Value Reference Range Interpretation Comments Eosinophils (%) (Auto) (test code = 713-8) 3.3 0.0-6.0 [facility]evilleAutomated blood basophil count as percentage of total aavpnjevpg1383-14-65 04:55:00* Test Item Value Reference Range Interpretation Comments Basophils (%) (Auto) (test code = 706-2) 0.3 0.0-1.0 [facility] BeevilleFluoroscopic procedure less than one hour cykacbay1389-24-74 04:55:00* Test Item Value Reference Range Interpretation Comments IM GRANULOCYTES % (test code = IM GRANULOCYTES %) 0.8 0.0- 1.0 [facility] BeevilleAutomated blood neutrophil count 2019-10-22 04:55:00* Test Item Value Reference Range Interpretation Comments Neutrophils # (Auto) (test code = 751-8) 4.9 2.1-6.9 [facility]evilleBlood lymphocytes count (number/volume) 2019-10-22 04:55:00* Test Item Value Reference Range Interpretation Comments Lymphocytes # (Auto) (test code = 68761-1) 1.5 1.0-3.2 [facility]evilleBlood monocytes automated count (number/volume)2019-10-22 04:55:00* Test Item Value Reference Range Interpretation Comments Monocytes # (Auto) (test code = 742-7) 0.8 0.2-0.8 [facility] BeevilleAutomated blood eosinophil count 2019-10-22 04:55:00* Test Item Value Reference Range Interpretation Comments Eosinophils # (Auto) (test code = 711-2) 0.3 0.0-0.4 [facility]evilleAutomated blood basophil count (count/volume)2019-10-22 04:55:00* Test Item Value Reference Range Interpretation Comments Basophils # (Auto) (test code = 704-7) 0.0 0.0-0.[address] [facility] than one hour jlceqobm3528-44-44 04:55:00* Test Item Value Reference Range Interpretation Comments Absolute Immature Granulocyte (auto (luisito t code = Absolute Immature Granulocyte (auto) 0.06 0-0.1 [facility] sodium measurement (moles/volume)2019-10-22 04:55:00* Test Item Value Reference Range Interpretation Comments Sodium Level (test code = 2951-2) 136 136-145 [facility] plasma potassium measurement (moles/volume)2019-10-22 04:55:00* Test Item Value Reference Range Interpretation Comments Potassium Level (test code = 2823-3) 4.3 3.5-5.1 [facility]um or plasma chloride measurement (moles/volume)2019-10-22 04:55:00* Test Item Value Reference Range Interpretation Comments Chloride Level (test code = 2075-0) 108 98-107 [facility] Lakeerum or plasma carbon dioxide, total measurement (moles/volume)2019-10-22 04:55:00* Test Item Value Reference Range Interpretation Comments Carbon Dioxide Level (test code = 2028-9) 27 22-29 [facility] Lakeerum or plasma anion efe8792-25-54 04:55:00* Test Item Value Reference Range Interpretation Comments Anion Gap (test code = 60684-9) 5.3 8-16 [facility] plasma urea nitrogen measurement (mass/volume)2019-10-22 04:55:00* Test Item Value Reference Range Interpretation Comments Blood Urea Nitrogen (test code = 3094-0) 19 7-26 [facility] plasma creatinine measurement (mass/volume)2019-10-22 04:55:00* Test Item Value Reference Range Interpretation Comments Creatinine (test code = 2160-0) 0.93 0.72-1.25 [facility]erum or plasma urea nitrogen/creatinine mass rsoia2119-50-66 04:55:00* Test Item Value Reference Range Interpretation Comments BUN/Creatinine Ratio (test code = 3097-3) 20 6-25 [facility]evilleEstimated glomerular filtration rate (GFR) lvgqnrcjfzots3204-09-68 04:55:00* Test Item Value Reference Range Interpretation Comments Estimat Glomerular Filtration Rate (test code = 741823283) > 60 >60 Ranges were taken from the National Kidney Disease Education Program and the [facility] literature.Reference ranges:60 or greater: Lrqjbn36-15 ( for 3 consecutive months): Chronic kidney disease 15 or less: Kidney failureCHRISTUS [facility] BeevilleGlucose tjhhremqlom9963-42-80 04:55:00* Test Item Value Reference Range Interpretation Comments Glucose Level (test code = VPQ7038) 63 74-118 [facility] or plasma calcium measurement (mass/volume)2019-10-22 04:55:00* Test Item Value Reference Range Interpretation Comments Calcium Level (test code = 68451-9) 9.1 8.4-10.2 [facility] Lakeerum or plasma total bilirubin measurement (mass/volume)2019-10-22 04:55:00* Test Item Value Reference Range Interpretation Comments Total Bilirubin (test code = 1975-2) 0.6 0.2-1.2 [facility]evilleFluoroscopic procedure less than one hour cozzmixs0462-12-38 04:55:00* Test Item Value Reference Range Interpretation Comments Aspartate Amino Transf (AST/SGOT) (test code = Aspartate Amino Transf (AST/SGOT)) 24 5-34 [facility] Lakeerum or plasma alanine aminotransferase measurement (enzymatic activity/volume)2019-10-22 04:55:00* Test Item Value Reference Range Interpretation Comments Alanine Aminotransferase (ALT/SGPT) (test code = 1742-6) 13 0-55 [facility]erum or plasma protein measurement (mass/volume)2019-10-22 04:55:00* Test Item Value Reference Range Interpretation Comments Total Protein (test code = 2885-2) 6.8 6.5-8.1 [facility]er[facility] or plasma albumin measurement (mass/volume)2019-10-22 04:55:00* Test Item Value Reference Range Interpretation Comments Albumin (test code = 1751-7) 3.1 3.5-5.0 [facility]evillePlasma globulin measurement (mass/volume) 2019-10-22 04:55:00* Test Item Value Reference Range Interpretation Comments Globulin (test code = 01386-5) 3.7 2.3-3.5 [facility]erum or plasma albumin/globulin mass azkvg9076-82-39 04:55:00* Test Item Value Reference Range Interpretation Comments Albumin/Globulin Ratio (test code = 1759-0) 0.8 0.8-2.0 [facility]er[facility] or plasma alkaline phosphatase measurement (enzymatic activity/volume)2019-10-22 04:55:00* Test Item Value Reference Range Interpretation Comments Alkaline Phosphatase (test code = 6768-6) 103 40-150 [facility] Lakeerum or plasma triglyceride measurement (mass/volume)2019-10-22 04:55:00* Test Item Value Reference Range Interpretation Comments Triglycerides Level (test code = 2571-8) 113 0-149 [facility] Lakeerum or plasma cholesterol measurement (mass/volume)2019-10-22 04:55:00* Test Item Value Reference Range Interpretation Comments Cholesterol Level (test code = 2093-3) 154 0-199 Less than 200 mg/dL Low Nrot666 - 239 mg/dL Borderline Poju894 m g/dl and greater High Risk [facility]er[facility] or plasma cholesterol in LDL measurement (mass/volume) 2019-10-22 04:55:00* Test Item Value Reference Range Interpretation Comments LDL Cholesterol (test code = 2089-1) 99 60-130 [facility] Lakeerum or plasma cholesterol in HDL measurement (mass/volume)2019-10-22 04:55:00* Test Item Value Reference Range Interpretation Comments HDL Cholesterol (test code = 2085-9) 32 40-60 [facility] Lakeerum or plasma total cholesterol/cholesterol in HDL mass qnokp4658-06-42 04:55:00* Test Item Value Reference Range Interpretation Comments Cholesterol/HDL Ratio (test code = 9830-1) 4.8 3.9-4.7 [facility] or plasma creatine kinase measurement (enzymatic activity/volume)2019-10-22 04:55:00* Test Item Value Reference Range Interpretation Comments Creatine Kinase (test code = 2157-6) 48 30-200 [facility] Lakeerum or plasma creatine kinase MB measurement (mass/volume)2019-10-22 04:55:00* Test Item Value Reference Range Interpretation Comments Creatine Kinase MB (test code = 45545-9) 1.50 0-5.0 [facility]evilleTroponin I measurement by highly sensitive enzyme sbxbttknlpq7868-92-68 04:55:00* Test Item Value Reference Range Interpretation Comments Troponin I (test code = 83500-7) < 0.001 0-0.300 [facility] leukocytes automated count (number/volume)2019-10-22 04:55:00* Test Item Value Reference Range Interpretation Comments White Blood Count (test code = 6690-2) 7.48 4.8-10.8 [facility] erythrocytes automated count (number/volume)2019-10-22 04:55:00* Test Item Value Reference Range Interpretation Comments Red Blood Count (test code = 789-8) 4.24 4.3-5.7 [facility]evilleBlood hemoglobin measurement (moles/volume)2019-10-22 04:55:00* Test Item Value Reference Range Interpretation Comments Hemoglobin (test code = 95979-2) 13.3 14.0-18.0 [facility]evilleAutomated blood hematocrit (volume fraction)2019-10-22 04:55:00* Test Item Value Reference Range Interpretation Comments Hematocrit (test code = 4544-3) 37.8 38.2-49.6 [facility]evilleAutomated erythrocyte mean corpuscular ukpcda4818-82-41 04:55:00* Test Item Value Reference Range Interpretation Comments Mean Corpuscular Volume (test code = 787-2) 89.2 81-99 [facility]evilleAutomated erythrocyte mean corpuscular hemoglobin (mass per erythrocyte)2019-10-22 04:55:00* Test Item Value Reference Range Interpretation Comments Mean Corpuscular Hemoglobin (test code = 785-6) 31.4 28-32 [facility]evilleAutomated erythrocyte mean corpuscular hemoglobin concentration measurement (mass/volume)2019-10-22 04:55:00* Test Item Value Reference Range Interpretation Comments Mean Corpuscular Hemoglobin Concent (test code = 786-4) 35.2 31-35 [facility] BeevilleRDW CalFj-Ytp9196-44-21 04:55:00* Test Item Value Reference Range Interpretation Comments Red Cell Distribution Width (test code = 95352-0) 12.1 11.7 -14.4 [facility]evilleAutomated blood platelet count (count/volume)2019-10-22 04:55:00* Test Item Value Reference Range Interpretation Comments Platelet Count (test code = 777-3) 137 140-360 [facility]evilleAutomated blood segmented neutrophil count as percentage of total zlyyumtsap3660-64-60 04:55:00* Test Item Value Reference Range Interpretation Comments Neutrophils (%) (Auto) (test code = 49190-8) 65.7 38.7-80.0 [facility]evilleAutomated blood lymphocyte count as percentage ot total azuuoobbei3369-76-28 04:55:00* Test Item Value Reference Range Interpretation Comments Lymphocytes (%) (Auto) (test code = 736-9) 19.7 18.0-39.1 [facility]evilleAutomated blood monocyte count as percentage of total kvkigghjfb1239-82-83 04:55:00* Test Item Value Reference Range Interpretation Comments Monocytes (%) (Auto) (test code = 5905-5) 10.2 4.4-11.3 [facility]evilleAutom[facility] blood eosinophil count as percentage of total mnxzvhtdoh0121-58-61 04:55:00* Test Item Value Reference Range Interpretation Comments Eosinophils (%) (Auto) (test code = 713-8) 3.3 0.0-6.0 [facility]evilleAutomated blood basophil count as percentage of total sahsroqcvc8325-96-66 04:55:00* Test Item Value Reference Range Interpretation Comments Basophils (%) (Auto) (test code = 706-2) 0.3 0.0-1.0 [facility]evilleFluoroscopic procedure less than one hour alcpyhpc5946-19-51 04:55:00* Test Item Value Reference Range Interpretation Comments IM GRANULOCYTES % (test code = IM GRANULOCYTES %) 0.8 0.0- 1.0 [facility]evilleAutomated blood neutrophil count 2019-10-22 04:55:00* Test Item Value Reference Range Interpretation Comments Neutrophils # (Auto) (test code = 751-8) 4.9 2.1-6.9 [facility]evilleBlood lymphocytes count (number/volume) 2019-10-22 04:55:00* Test Item Value Reference Range Interpretation Comments Lymphocytes # (Auto) (test code = 96277-2) 1.5 1.0-3.2 [facility] monocytes automated count (number/volume)2019-10-22 04:55:00* Test Item Value Reference Range Interpretation Comments Monocytes # (Auto) (test code = 742-7) 0.8 0.2-0.8 [facility]evilleAutom[facility] blood eosinophil count 2019-10-22 04:55:00* Test Item Value Reference Range Interpretation Comments Eosinophils # (Auto) (test code = 711-2) 0.3 0.0-0.4 [facility]evilleAutom[facility] blood basophil count (count/volume)2019-10-22 04:55:00* Test Item Value Reference Range Interpretation Comments Basophils # (Auto) (test code = 704-7) 0.0 0.0-0.1 [facility]evilleFluoroscopic procedure less than one hour qctsngcp4854-22-55 04:55:00* Test Item Value Reference Range Interpretation Comments Absolute Immature Granulocyte (auto (luisito t code = Absolute Immature Granulocyte (auto) 0.06 0-0.1 [facility] plasma sodium measurement (moles/volume)2019-10-22 04:55:00* Test Item Value Reference Range Interpretation Comments Sodium Level (test code = 2951-2) 136 136-145 [facility]erum or plasma potassium measurement (moles/volume)2019-10-22 04:55:00* Test Item Value Reference Range Interpretation Comments Potassium Level (test code = 2823-3) 4.3 3.5-5.1 [facility] or plasma chloride measurement (moles/volume)2019-10-22 04:55:00* Test Item Value Reference Range Interpretation Comments Chloride Level (test code = 2075-0) 108 98-107 [facility] Lakeerum or plasma carbon dioxide, total measurement (moles/volume)2019-10-22 04:55:00* Test Item Value Reference Range Interpretation Comments Carbon Dioxide Level (test code = 2028-9) 27 22-29 [facility] Lakeer[facility] or plasma anion zct3540-48-48 04:55:00* Test Item Value Reference Range Interpretation Comments Anion Gap (test code = 67968-5) 5.3 8-16 [facility]er[facility] or plasma urea nitrogen measurement (mass/volume)2019-10-22 04:55:00* Test Item Value Reference Range Interpretation Comments Blood Urea Nitrogen (test code = 3094-0) 19 7-26 [facility]er[facility] or plasma creatinine measurement (mass/volume)2019-10-22 04:55:00* Test Item Value Reference Range Interpretation Comments Creatinine (test code = 2160-0) 0.93 0.72-1.25 [facility]erum or plasma urea nitrogen/creatinine mass hfzob9765-84-22 04:55:00* Test Item Value Reference Range Interpretation Comments BUN/Creatinine Ratio (test code = 3097-3) 20 6-25 [facility]evilleEstimated glomerular filtration rate (GFR) xtzjryaktblog6991-90-16 04:55:00* Test Item Value Reference Range Interpretation Comments Estimat Glomerular Filtration Rate (test code = 469239802) > 60 >60 Ranges were taken from the National Kidney Disease Education Program and the [facility] literature.Reference ranges:60 or greater: Vjrlhz24-11 ( for 3 consecutive months): Chronic kidney disease 15 or less: Kidney failureCH[facility]ST[facility] BeevilleGlucose qxcuwghwsvg6784-19-87 04:55:00* Test Item Value Reference Range Interpretation Comments Glucose Level (test code = IPW0398) 63 74-118 [facility] or plasma calcium measurement (mass/volume)2019-10-22 04:55:00* Test Item Value Reference Range Interpretation Comments Calcium Level (test code = 80772-6) 9.1 8.4-10.2 [facility]er[facility] or plasma total bilirubin measurement (mass/volume)2019-10-22 04:55:00* Test Item Value Reference Range Interpretation Comments Total Bilirubin (test code = 1975-2) 0.6 0.2-1.2 [facility]evilleFluoroscopic procedure less than one hour hoeygchd7339-49-25 04:55:00* Test Item Value Reference Range Interpretation Comments Aspartate Amino Transf (AST/SGOT) (test code = Aspartate Amino Transf (AST/SGOT)) 24 5-34 [facility] Lakeerum or plasma alanine aminotransferase measurement (enzymatic activity/volume)2019-10-22 04:55:00* Test Item Value Reference Range Interpretation Comments Alanine Aminotransferase (ALT/SGPT) (test code = 1742-6) 13 0-55 [facility]er[facility] or plasma protein measurement (mass/volume)2019-10-22 04:55:00* Test Item Value Reference Range Interpretation Comments Total Protein (test code = 2885-2) 6.8 6.5-8.1 [facility] or plasma albumin measurement (mass/volume)2019-10-22 04:55:00* Test Item Value Reference Range Interpretation Comments Albumin (test code = 1751-7) 3.1 3.5-5.0 [facility]evillePlasma globulin measurement (mass/volume) 2019-10-22 04:55:00* Test Item Value Reference Range Interpretation Comments Globulin (test code = 98149-1) 3.7 2.3-3.5 [facility]er[facility] or plasma albumin/globulin mass vpwum2292-31-66 04:55:00* Test Item Value Reference Range Interpretation Comments Albumin/Globulin Ratio (test code = 1759-0) 0.8 0.8-2.0 [facility]er[facility] or plasma alkaline phosphatase measurement (enzymatic activity/volume)2019-10-22 04:55:00* Test Item Value Reference Range Interpretation Comments Alkaline Phosphatase (test code = 6768-6) 103 40-150 [facility]erum or plasma triglyceride measurement (mass/volume)2019-10-22 04:55:00* Test Item Value Reference Range Interpretation Comments Triglycerides Level (test code = 2571-8) 113 0-149 [facility] Lakeerum or plasma cholesterol measurement (mass/volume)2019-10-22 04:55:00* Test Item Value Reference Range Interpretation Comments Cholesterol Level (test code = 2093-3) 154 0-199 Less than 200 mg/dL Low Mjcc939 - 239 mg/dL Borderline Xoxn806 m g/dl and greater High Risk [facility] or plasma cholesterol in LDL measurement (mass/volume) 2019-10-22 04:55:00* Test Item Value Reference Range Interpretation Comments LDL Cholesterol (test code = 2089-1) 99 60-130 [facility]erum or plasma cholesterol in HDL measurement (mass/volume)2019-10-22 04:55:00* Test Item Value Reference Range Interpretation Comments HDL Cholesterol (test code = 2085-9) 32 40-60 [facility]erum or plasma total cholesterol/cholesterol in HDL mass losjw1416-60-75 04:55:00* Test Item Value Reference Range Interpretation Comments Cholesterol/HDL Ratio (test code = 9830-1) 4.8 3.9-4.7 [facility] or plasma creatine kinase measurement (enzymatic activity/volume)2019-10-22 04:55:00* Test Item Value Reference Range Interpretation Comments Creatine Kinase (test code = 2157-6) 48 30-200 [facility] Lakeerum or plasma creatine kinase MB measurement (mass/volume)2019-10-22 04:55:00* Test Item Value Reference Range Interpretation Comments Creatine Kinase MB (test code = 83999-5) 1.50 0-5.0 [facility]evilleTroponin I measurement by highly sensitive enzyme pzvtybilpkr2534-15-28 04:55:00* Test Item Value Reference Range Interpretation Comments Troponin I (test code = 36782-5) < 0.001 0-0.300 [facility] or plasma triglyceride measurement (mass/volume)2019-10-22 04:55:00* Test Item Value Reference Range Interpretation Comments Triglycerides Level (test code = 2571-8) 113 0-149 [facility] Lakeerum or plasma cholesterol measurement (mass/volume)2019-10-22 04:55:00* Test Item Value Reference Range Interpretation Comments Cholesterol Level (test code = 2093-3) 154 0-199 Less than 200 mg/dL Low Uslz416 - 239 mg/dL Borderline Fzgo461 m g/dl and greater High Risk [facility] or plasma cholesterol in LDL measurement (mass/volume) 2019-10-22 04:55:00* Test Item Value Reference Range Interpretation Comments LDL Cholesterol (test code = 2089-1) 99 60-130 [facility]erum or plasma cholesterol in HDL measurement (mass/volume)2019-10-22 04:55:00* Test Item Value Reference Range Interpretation Comments HDL Cholesterol (test code = 2085-9) 32 40-60 [facility] Lakeerum or plasma total cholesterol/cholesterol in HDL mass dfxwl0600-28-94 04:55:00* Test Item Value Reference Range Interpretation Comments Cholesterol/HDL Ratio (test code = 9830-1) 4.8 3.9-4.7 [facility] or plasma creatine kinase measurement (enzymatic activity/volume)2019-10-22 04:55:00* Test Item Value Reference Range Interpretation Comments Creatine Kinase (test code = 2157-6) 48 30-200 [facility] Lakeerum or plasma creatine kinase MB measurement (mass/volume)2019-10-22 04:55:00* Test Item Value Reference Range Interpretation Comments Creatine Kinase MB (test code = 93576-1) 1.50 0-5.0 [facility]evilleTroponin I measurement by highly sensitive enzyme wywyzuaenkc1787-92-73 04:55:00* Test Item Value Reference Range Interpretation Comments Troponin I (test code = 14713-9) < 0.001 0-0.300 [facility] or plasma triglyceride measurement (mass/volume)2019-10-22 04:55:00* Test Item Value Reference Range Interpretation Comments Triglycerides Level (test code = 2571-8) 113 0-149 [facility] Lakeerum or plasma cholesterol measurement (mass/volume)2019-10-22 04:55:00* Test Item Value Reference Range Interpretation Comments Cholesterol Level (test code = 2093-3) 154 0-199 Less than 200 mg/dL Low Ssnv056 - 239 mg/dL Borderline Fxqc756 m g/dl and greater High Risk [facility] or plasma cholesterol in LDL measurement (mass/volume) 2019-10-22 04:55:00* Test Item Value Reference Range Interpretation Comments LDL Cholesterol (test code = 2089-1) 99 60-130 [facility]erum or plasma cholesterol in HDL measurement (mass/volume)2019-10-22 04:55:00* Test Item Value Reference Range Interpretation Comments HDL Cholesterol (test code = 2085-9) 32 40-60 [facility] Lakeerum or plasma total cholesterol/cholesterol in HDL mass gmbxi6594-20-06 04:55:00* Test Item Value Reference Range Interpretation Comments Cholesterol/HDL Ratio (test code = 9830-1) 4.8 3.9-4.7 [facility] or plasma creatine kinase measurement (enzymatic activity/volume)2019-10-22 04:55:00* Test Item Value Reference Range Interpretation Comments Creatine Kinase (test code = 2157-6) 48 30-200 [facility] Lakeerum or plasma creatine kinase MB measurement (mass/volume)2019-10-22 04:55:00* Test Item Value Reference Range Interpretation Comments Creatine Kinase MB (test code = 78221-8) 1.50 0-5.0 [facility]evilleTroponin I measurement by highly sensitive enzyme xvctbxjzlhp3930-32-07 04:55:00* Test Item Value Reference Range Interpretation Comments Troponin I (test code = 49461-6) < 0.001 0-0.300 [facility] or plasma triglyceride measurement (mass/volume)2019-10-22 04:55:00* Test Item Value Reference Range Interpretation Comments Triglycerides Level (test code = 2571-8) 113 0-149 [facility] Lakeerum or plasma cholesterol measurement (mass/volume)2019-10-22 04:55:00* Test Item Value Reference Range Interpretation Comments Cholesterol Level (test code = 2093-3) 154 0-199 Less than 200 mg/dL Low Hqkm437 - 239 mg/dL Borderline Zgbv394 m g/dl and greater High Risk [facility] Lake[facility] or plasma cholesterol in LDL measurement (mass/volume) 2019-10-22 04:55:00* Test Item Value Reference Range Interpretation Comments LDL Cholesterol (test code = 2089-1) 99 60-130 [facility]erum or plasma cholesterol in HDL measurement (mass/volume)2019-10-22 04:55:00* Test Item Value Reference Range Interpretation Comments HDL Cholesterol (test code = 2085-9) 32 40-60 [facility] Lakeerum or plasma total cholesterol/cholesterol in HDL mass xxmzn5032-42-32 04:55:00* Test Item Value Reference Range Interpretation Comments Cholesterol/HDL Ratio (test code = 9830-1) 4.8 3.9-4.7 [facility] or plasma creatine kinase measurement (enzymatic activity/volume)2019-10-22 04:55:00* Test Item Value Reference Range Interpretation Comments Creatine Kinase (test code = 2157-6) 48 30-200 [facility] Lakeerum or plasma creatine kinase MB measurement (mass/volume)2019-10-22 04:55:00* Test Item Value Reference Range Interpretation Comments Creatine Kinase MB (test code = 89207-9) 1.50 0-5.0 [facility]evilleTroponin I measurement by highly sensitive enzyme wcmvkqknszr9059-43-63 04:55:00* Test Item Value Reference Range Interpretation Comments Troponin I (test code = 59760-9) < 0.001 0-0.300 [facility]evilleThyroid Stimulating Hormone (TSH) 2019-10-21 14:53:00* Test Item Value Reference Range Interpretation Comments Thyroid Stimulating Hormone (TSH) (test code = 63132-0) 0.944 0.350-4.940 [facility]evilleB-Type Natriuretic Goacnpp7850-90-83 14:42:00* Test Item Value Reference Range Interpretation Comments B-Type Natriuretic Peptide (test code = 56603-9) 85.1 0-100 [facility] BeevilleMagnesium Cyast3607-85-03 14:29:00* Test Item Value Reference Range Interpretation Comments Magnesium Level (test code = 02679-5) 1.9 1.3-2.1 [facility]evilleCT BRAIN [id number] 14:27:00 [facility] [address] [address] Patient Name: YORDAN LAMBERT MR #: [id number] : 1955 Age/Sex: 64/M Req #: [id number] Adm Physician: Ordered by: SARAH TALLEY NP Report #: [id number] Location: ER Room/Bed: Procedure: [id number] CT /CT BRAIN WO Exam Date: 10/21/19 Exam Time: 1410 REPORT STATUS: Signed History:Dizzi ness when walking Comparison studies:None Technique: Axial images were obtained from the skull base to the vertex. Coronal and sagittal images recons tructed from the axial data. Intravenous contrast: None Dose modulation, ite rative reconstruction, and/or weight based adjustment of the mA/kV was utilize d to reduce the radiation dose to as low as reasonably achievable. Findin gs: Scalp/skull: No abnormalities. Extra-axial spaces: 1.5 cm ex tra-axial calcification lateral to the right anterior clinoid, may represent a small calcified meningioma. Dystrophic calcification at the anterior falx cer ebri. No fluid collections. Brain sulci: Age-appropriate. Ventricles: A ge-appropriate. No hydrocephalus. Parenchyma: Subtle hypodensities in th e supratentorial white matter are small vessel ischemic changes. Left subinsul ar chronic lacunar infarct. No masses, hemorrhage, acute or chronic cortical v ascular insults. Sellar/suprasellar region: No abnormalities. Craniocervi andrews junction: Patent foramen magnum. No Chiari one malformation. Incidenta l findings: Atherosclerotic calcifications in the carotid siphons and vertebra l arteries . Impression: No acute abnormalities. Chronic findings : 1. Mild supratentorial white matter small vessel ischemic changes. 2. Le ft subinsular chronic lacunar infarct Signed by: Jordyn Abdi on 10/21/2019 2:33 PM Dictated By: NATHALIE CABRERA MD Electronical ly Signed By: NATHALIE CABRERA MD on 10/21/19 143 Transcribed By: RUBA on 10/21/19 143 COPY TO: SARAH TALLEY NP Prothrombin Time 2019-10-21 14:23:00* Test Item Value Reference Range Interpretation Comments Prothrombin Time (test code = 5902-2) 13.4 11.9-14.5 [facility]evilleProth[facility] International Ratio 2019-10-21 14:23:00* Test Item Value Reference Range Interpretation Comments Prothromb Time International Ratio (test code = 6301-6) 0.96 Oral Anticoagulant Therapy INR Values:1. Low Intensity Therapy 1.5 - 2.02 . Moderate Intensity Therapy 2.0 - 3.03. High Intensity Therapy(1) 2.5 - 3. 54. High Intensity Therapy(2) 3.0 - 4.05. Panic Value INR > 5.0 [facility]evilleActivated Partial Thromboplast Time 2019-10-21 14:23:00* Test Item Value Reference Range Interpretation Comments Activated Partial Thromboplast Time (test code = 21159-3) 25.2 23.8-35.5 [facility]eville[facility])2019-10-21 14:20:00 [place] [id number] Patient Name: YORDAN LAMBERT MR #: [id number] : 1955 Age/Sex: 64/M Req #: [id number] Adm Physician: Ordered by: SARAH TALLEY NP Report #: [id number] Location: ER Room/Bed: Procedure: [id number] DX /CHEST SINGLE (PORTABLE) Exam Date: 10/21/19 Exam Ti me: 1405 REPORT STATUS: Signed E XAMINATION: CHEST SINGLE (PORTABLE) INDICATION: Dizziness COMPARI SON: Chest radiograph 10/03/2018 FINDINGS: LINES/TUBES:Previously s een right PICC line has been removed. LUNGS:The lungs are well-inflated. No focal consolidation or pulmonary edema. PLEURA:No pleural effusion or pneu mothorax. MEDIASTINUM:The cardiomediastinal silhouette appears normal in si ze and shape. BONES/SOFT TISSUES:No acute osseous injury. ABDOMEN:No f ree air under the diaphragm. IMPRESSION: No focal pneumonia or pulmon shellie edema. Signed by: Vu Gaytan MD on 10/21/2019 2:21 PM Dictated B y: VU GAYTAN MD 142 Garcia scribed By: RUBA on 10/21/19 142 COPY TO: SARAH TALLEY BACK OFFICE MEDICAL ASSISTANT Prothrombin time (PT) in platelet poor plasma by coagulation ngnjt9249-89-02 13:50:00* Test Item Value Reference Range Interpretation Comments Prothrombin Time (test code = 5902-2) 13.4 11.9-14.5 [facility]evilleINR in Platelet poor plasma by Coagulation ivaym7117-94-05 13:50:00* Test Item Value Reference Range Interpretation Comments Prothromb Time International Ratio (test code = 6301-6) 0.96 Oral Anticoagulant Therapy INR Values:1. Low Intensity Therapy 1.5 - 2.02 . Moderate Intensity Therapy 2.0 - 3.03. High Intensity Therapy(1) 2.5 - 3. 54. High Intensity Therapy(2) 3.0 - 4.05. Panic Value INR > 5.0 [facility]evilleActivated partial thromboplastin time (aPTT) in platelet poor plasma by coagulation zytuq8695-99-16 13:50:00* Test Item Value Reference Range Interpretation Comments Activated Partial Thromboplast Time (test code = 83948-2) 25.2 23.8-35.5 [facility] Lake[facility]um or plasma magnesium measurement (mass/volume)2019-10-21 13:50:00* Test Item Value Reference Range Interpretation Comments Magnesium Level (test code = 99039-2) 1.9 1.3-2.1 [facility]evilleBNP Vje-iHym2617-93-20 13:50:00* Test Item Value Reference Range Interpretation Comments B-Type Natriuretic Peptide (test code = 36207-9) 85.1 0-100 [facility] Lakeerum or plasma thyrotropin measurement by detection limit <= 0.005 miu/l (units/volume)2019-10-21 13:50:00* Test Item Value Reference Range Interpretation Comments Thyroid Stimulating Hormone (TSH) (test code = 39025-9) 0.944 0.350-4.940 [facility]evilleProthrombin time (PT) in platelet poor plasma by coagulation ilaqi0641-23-06 13:50:00* Test Item Value Reference Range Interpretation Comments Prothrombin Time (test code = 5902-2) 13.4 11.9-14.5 [facility]evilleINR in Platelet poor plasma by Coagulation fifza9431-72-99 13:50:00* Test Item Value Reference Range Interpretation Comments Prothromb Time International Ratio (test code = 6301-6) 0.96 Oral Anticoagulant Therapy INR Values:1. Low Intensity Therapy 1.5 - 2.02 . Moderate Intensity Therapy 2.0 - 3.03. High Intensity Therapy(1) 2.5 - 3. 54. High Intensity Therapy(2) 3.0 - 4.05. Panic Value INR > 5.0 [facility]evilleActivated partial thromboplastin time (aPTT) in platelet poor plasma by coagulation pnlpt9581-75-99 13:50:00* Test Item Value Reference Range Interpretation Comments Activated Partial Thromboplast Time (test code = 15911-8) 25.2 23.8-35.5 [facility] Lakeerum or plasma magnesium measurement (mass/volume)2019-10-21 13:50:00* Test Item Value Reference Range Interpretation Comments Magnesium Level (test code = 10900-1) 1.9 1.3-2.1 [facility]evilleBNP Klx-tEvu9237-02-20 13:50:00* Test Item Value Reference Range Interpretation Comments B-Type Natriuretic Peptide (test code = 34872-8) 85.1 0-100 [facility] Lakeerum or plasma thyrotropin measurement by detection limit <= 0.005 miu/l (units/volume)2019-10-21 13:50:00* Test Item Value Reference Range Interpretation Comments Thyroid Stimulating Hormone (TSH) (test code = 13344-4) 0.944 0.350-4.940 [facility]evilleProthrombin time (PT) in platelet poor plasma by coagulation dziyd8873-34-32 13:50:00* Test Item Value Reference Range Interpretation Comments Prothrombin Time (test code = 5902-2) 13.4 11.9-14.5 [facility]evilleINR in Platelet poor plasma by Coagulation cooul1620-20-55 13:50:00* Test Item Value Reference Range Interpretation Comments Prothromb Time International Ratio (test code = 6301-6) 0.96 Oral Anticoagulant Therapy INR Values:1. Low Intensity Therapy 1.5 - 2.02 . Moderate Intensity Therapy 2.0 - 3.03. High Intensity Therapy(1) 2.5 - 3. 54. High Intensity Therapy(2) 3.0 - 4.05. Panic Value INR > 5.0 [facility]evilleActivated partial thromboplastin time (aPTT) in platelet poor plasma by coagulation pzxby7968-51-19 13:50:00* Test Item Value Reference Range Interpretation Comments Activated Partial Thromboplast Time (test code = 29649-8) 25.2 23.8-35.5 [facility] Lakeerum or plasma magnesium measurement (mass/volume)2019-10-21 13:50:00* Test Item Value Reference Range Interpretation Comments Magnesium Level (test code = 32518-5) 1.9 1.3-2.1 [facility]-sKtu5068-38-41 13:50:00* Test Item Value Reference Range Interpretation Comments B-Type Natriuretic Peptide (test code = 45839-0) 85.1 0-100 [facility] Lakeerum or plasma thyrotropin measurement by detection limit <= 0.005 miu/l (units/volume)2019-10-21 13:50:00* Test Item Value Reference Range Interpretation Comments Thyroid Stimulating Hormone (TSH) (test code = 89197-9) 0.944 0.350-4.940 [facility]evilleActivated partial thromboplastin time (aPTT) in platelet poor plasma by coagulation kbeym4977-06-27 13:50:00* Test Item Value Reference Range Interpretation Comments Activated Partial Thromboplast Time (test code = 78633-5) 25.2 23.8-35.5 [facility] Lakeerum or plasma magnesium measurement (mass/volume)2019-10-21 13:50:00* Test Item Value Reference Range Interpretation Comments Magnesium Level (test code = 64472-0) 1.9 1.3-2.1 [facility]-cJlz5876-61-58 13:50:00* Test Item Value Reference Range Interpretation Comments B-Type Natriuretic Peptide (test code = 18400-0) 85.1 0-100 [facility] Lakeerum or plasma thyrotropin measurement by detection limit <= 0.005 miu/l (units/volume)2019-10-21 13:50:00* Test Item Value Reference Range Interpretation Comments Thyroid Stimulating Hormone (TSH) (test code = 44944-3) 0.944 0.350-4.940 [facility]evilleActivated partial thromboplastin time (aPTT) in platelet poor plasma by coagulation vadpf2841-30-29 13:50:00* Test Item Value Reference Range Interpretation Comments Activated Partial Thromboplast Time (test code = 94793-8) 25.2 23.8-35.5 [facility] Lakeerum or plasma magnesium measurement (mass/volume)2019-10-21 13:50:00* Test Item Value Reference Range Interpretation Comments Magnesium Level (test code = 06136-3) 1.9 1.3-2.1 [facility]gf3005-29-22 13:50:00* Test Item Value Reference Range Interpretation Comments B-Type Natriuretic Peptide (test code = 41224-1) 85.1 0-100 [facility] Lakeerum or plasma thyrotropin measurement by detection limit <= 0.005 miu/l (units/volume)2019-10-21 13:50:00* Test Item Value Reference Range Interpretation Comments Thyroid Stimulating Hormone (TSH) (test code = 46097-8) 0.944 0.350-4.940 [facility]evilleActivated partial thromboplastin time (aPTT) in platelet poor plasma by coagulation ejuhz4353-02-46 13:50:00* Test Item Value Reference Range Interpretation Comments Activated Partial Thromboplast Time (test code = 43577-3) 25.2 23.8-35.5 [facility] Lakeerum or plasma magnesium measurement (mass/volume)2019-10-21 13:50:00* Test Item Value Reference Range Interpretation Comments Magnesium Level (test code = 78321-0) 1.9 1.3-2.1 [facility]-xCnv5958-34-26 13:50:00* Test Item Value Reference Range Interpretation Comments B-Type Natriuretic Peptide (test code = 10430-1) 85.1 0-100 [facility] Lakeerum or plasma thyrotropin measurement by detection limit <= 0.005 miu/l (units/volume)2019-10-21 13:50:00* Test Item Value Reference Range Interpretation Comments Thyroid Stimulating Hormone (TSH) (test code = 29409-0) 0.944 0.350-4.940 [facility] BeevilleBedside Cvxmgwi5038-61-21 14:43:00* Test Item Value Reference Range Interpretation Comments Bedside Glucose (test code = 24345-8) 227 70-120 H Meter ID: [id number] [facility] Glucose 2019-08-12 17:13:00* Test Item Value Reference Range Interpretation Comments Bedside Glucose (test code = 56156-9) 258 70-120 H Meter ID: [id number] [facility] Glucose 2019-07-29 14:17:00* Test Item Value Reference Range Interpretation Comments Bedside Glucose (test code = 86415-4) 110 70-120 Meter ID: [id number] [facility]ohn [facility] BeevilleProthrombin Time 2019-07-04 08:02:00* Test Item Value Reference Range Interpretation Comments Prothrombin Time (test code = 5902-2) 13.5 11.9-14.5 [facility] BeevilleProthromb Time International Ratio 2019-07-04 08:02:00* Test Item Value Reference Range Interpretation Comments Prothromb Time International Ratio (test code = 6301-6) 0.98 Oral Anticoagulant Therapy INR Values:1. Low Intensity Therapy 1.5 - 2.02 . Moderate Intensity Therapy 2.0 - 3.03. High Intensity Therapy(1) 2.5 - 3. 54. High Intensity Therapy(2) 3.0 - 4.05. Panic Value INR > 5.0 [facility] Lakeodium Ktrur7656-67-59 08:02:00* Test Item Value Reference Range Interpretation Comments Sodium Level (test code = 2951-2) 136 136-145 [facility]evillePotassium Ukwrp6448-79-42 08:02:00* Test Item Value Reference Range Interpretation Comments Potassium Level (test code = 2823-3) 4.3 3.5-5.1 [facility] BeevilleChloride Qnrkn2946-82-10 08:02:00* Test Item Value Reference Range Interpretation Comments Chloride Level (test code = 2075-0) 104 98-107 [facility] BeevilleCarbon Dioxide Pvdyz8502-29-32 08:02:00* Test Item Value Reference Range Interpretation Comments Carbon Dioxide Level (test code = 2028-9) 23 22-29 [facility] BeevilleAnion Hmh6332-84-11 08:02:00* Test Item Value Reference Range Interpretation Comments Anion Gap (test code = 18932-6) 13.3 8-16 [facility] BeevilleBlood Urea Rqfrhhcy1386-10-51 08:02:00* Test Item Value Reference Range Interpretation Comments Blood Urea Nitrogen (test code = 3094-0) 16 7-26 [facility] BeevilleCreatinine2020-01-02 08:02:00* Test Item Value Reference Range Interpretation Comments Creatinine (test code = 2160-0) 1.05 0.72-1.25 [facility]evilleBUN/Creatinine Optaw7435-59-24 08:02:00* Test Item Value Reference Range Interpretation Comments BUN/Creatinine Ratio (test code = 3097-3) 15 6-25 [facility] BeevilleEstimat Glomerular Filtration Rate 2019-07-04 08:02:00* Test Item Value Reference Range Interpretation Comments Estimat Glomerular Filtration Rate (test code = 587869142) > 60 >60 Ranges were taken from the National Kidney Disease Education Program and the [facility] literature.Reference ranges:60 or greater: Izmlwx94-25 ( for 3 consecutive months): Chronic kidney disease 15 or less: Kidney failureCHRISTUS Spohn Hospital BeevilleGlucose Fynuf5817-47-62 08:02:00* Test Item Value Reference Range Interpretation Comments Glucose Level (test code = OPR1157) 147 74-118 H [facility] BeevilleCalcium Ptzas0821-20-04 08:02:00* Test Item Value Reference Range Interpretation Comments Calcium Level (test code = 35045-2) 9.3 8.4-10.2 [facility] BeevilleTotal Cbmarvzzt0812-75-16 08:02:00* Test Item Value Reference Range Interpretation Comments Total Bilirubin (test code = 1975-2) 0.9 0.2-1.2 [facility] BeevilleAspartate Amino Transf (AST/SGOT) 2019-07-04 08:02:00* Test Item Value Reference Range Interpretation Comments Aspartate Amino Transf (AST/SGOT) (test code = Aspartate Amino Transf (AST/SGOT)) 27 5-34 [facility] BeevilleAlanine Aminotransferase (ALT/SGPT) 2019-07-04 08:02:00* Test Item Value Reference Range Interpretation Comments Alanine Aminotransferase (ALT/SGPT) (test code = 1742-6) 20 0-55 [facility] BeevilleTotal Tiaywnb6984-92-82 08:02:00* Test Item Value Reference Range Interpretation Comments Total Protein (test code = 2885-2) 7.7 6.5-8.1 [facility] BeevilleAlbumin2020-01-02 08:02:00* Test Item Value Reference Range Interpretation Comments Albumin (test code = 1751-7) 3.6 3.5-5.0 [facility] BeevilleGlobulin2020-01-02 08:02:00* Test Item Value Reference Range Interpretation Comments Globulin (test code = 37403-8) 4.1 2.3-3.5 H [facility] BeevilleAlbumin/Globulin Wfytz7784-83-05 08:02:00 * Test Item Value Reference Range Interpretation Comments Albumin/Globulin Ratio (test code = 1759-0) 0.9 0.8-2.0 [facility] BeevilleAlkaline Ssuzlamglku4023-01-25 08:02:00* Test Item Value Reference Range Interpretation Comments Alkaline Phosphatase (test code = 6768-6) 106 40-150 [facility] BeevilleProthrombin Ttvd4371-39-88 08:02:00* Test Item Value Reference Range Interpretation Comments Prothrombin Time (test code = 5902-2) 13.5 11.9-14.5 [facility] BeevilleProthromb Time International Ratio 2019-07-04 08:02:00* Test Item Value Reference Range Interpretation Comments Prothromb Time International Ratio (test code = 6301-6) 0.98 Oral Anticoagulant Therapy INR Values:1. Low Intensity Therapy 1.5 - 2.02 . Moderate Intensity Therapy 2.0 - 3.03. High Intensity Therapy(1) 2.5 - 3. 54. High Intensity Therapy(2) 3.0 - 4.05. Panic Value INR > 5.0 [facility] Lakeodium Emtqb9241-22-10 08:02:00* Test Item Value Reference Range Interpretation Comments Sodium Level (test code = 2951-2) 136 136-145 [facility] BeevillePotassium Jyyya5308-54-84 08:02:00* Test Item Value Reference Range Interpretation Comments Potassium Level (test code = 2823-3) 4.3 3.5-5.1 [facility] BeevilleChloride Kciem2041-54-81 08:02:00* Test Item Value Reference Range Interpretation Comments Chloride Level (test code = 2075-0) 104 98-107 [facility] BeevilleCarbon Dioxide Rtfvi3999-81-91 08:02:00* Test Item Value Reference Range Interpretation Comments Carbon Dioxide Level (test code = 2028-9) 23 22-29 [facility] BeevilleAnion Pvi4077-10-39 08:02:00* Test Item Value Reference Range Interpretation Comments Anion Gap (test code = 83516-3) 13.3 8-16 [facility]evilleBlood Urea Kutdfvem0884-22-90 08:02:00* Test Item Value Reference Range Interpretation Comments Blood Urea Nitrogen (test code = 3094-0) 16 7-26 [facility] BeevilleCreatinine2020-01-02 08:02:00* Test Item Value Reference Range Interpretation Comments Creatinine (test code = 2160-0) 1.05 0.72-1.25 [facility]evilleBUN/Creatinine Bezrh7795-10-07 08:02:00* Test Item Value Reference Range Interpretation Comments BUN/Creatinine Ratio (test code = 3097-3) 15 6-25 [facility] BeevilleEstimat Glomerular Filtration Rate 2019-07-04 08:02:00* Test Item Value Reference Range Interpretation Comments Estimat Glomerular Filtration Rate (test code = 260429275) > 60 >60 Ranges were taken from the National Kidney Disease Education Program and the [facility] literature.Reference ranges:60 or greater: Dlumtn60-60 ( for 3 consecutive months): Chronic kidney disease 15 or less: Kidney failureCHRISTUS Spohn Hospital BeevilleGlucose Jshpt8238-23-00 08:02:00* Test Item Value Reference Range Interpretation Comments Glucose Level (test code = TAC6588) 147 74-118 H [facility] BeevilleCalcium Nvnpd5756-47-73 08:02:00* Test Item Value Reference Range Interpretation Comments Calcium Level (test code = 93496-2) 9.3 8.4-10.2 [facility] BeevilleTotal Spaxylvtb0389-02-28 08:02:00* Test Item Value Reference Range Interpretation Comments Total Bilirubin (test code = 1975-2) 0.9 0.2-1.2 [facility] BeevilleAspartate Amino Transf (AST/SGOT) 2019-07-04 08:02:00* Test Item Value Reference Range Interpretation Comments Aspartate Amino Transf (AST/SGOT) (test code = Aspartate Amino Transf (AST/SGOT)) 27 5-34 [facility] BeevilleAlanine Aminotransferase (ALT/SGPT) 2019-07-04 08:02:00* Test Item Value Reference Range Interpretation Comments Alanine Aminotransferase (ALT/SGPT) (test code = 1742-6) 20 0-55 [facility] BeevilleTotal Oleythx0326-29-15 08:02:00* Test Item Value Reference Range Interpretation Comments Total Protein (test code = 2885-2) 7.7 6.5-8.1 [facility] BeevilleAlbumin2020-01-02 08:02:00* Test Item Value Reference Range Interpretation Comments Albumin (test code = 1751-7) 3.6 3.5-5.0 [facility] BeevilleGlobulin2020-01-02 08:02:00* Test Item Value Reference Range Interpretation Comments Globulin (test code = 36488-7) 4.1 2.3-3.5 H [facility] BeevilleAlbumin/Globulin Jprow1301-79-36 08:02:00 * Test Item Value Reference Range Interpretation Comments Albumin/Globulin Ratio (test code = 1759-0) 0.9 0.8-2.0 [facility] BeevilleAlkaline Ckwwjzfazmt6184-97-91 08:02:00* Test Item Value Reference Range Interpretation Comments Alkaline Phosphatase (test code = 6768-6) 106 40-150 [facility] BeevilleProthrombin Gzfy8347-64-84 08:02:00* Test Item Value Reference Range Interpretation Comments Prothrombin Time (test code = 5902-2) 13.5 11.9-14.5 [facility] BeevilleProthromb Time International Ratio 2019-07-04 08:02:00* Test Item Value Reference Range Interpretation Comments Prothromb Time International Ratio (test code = 6301-6) 0.98 Oral Anticoagulant Therapy INR Values:1. Low Intensity Therapy 1.5 - 2.02 . Moderate Intensity Therapy 2.0 - 3.03. High Intensity Therapy(1) 2.5 - 3. 54. High Intensity Therapy(2) 3.0 - 4.05. Panic Value INR > 5.0 [facility] Lakeodium Tfgjd4993-56-55 08:02:00* Test Item Value Reference Range Interpretation Comments Sodium Level (test code = 2951-2) 136 136-145 [facility]evillePotassium Cpazn0377-58-40 08:02:00* Test Item Value Reference Range Interpretation Comments Potassium Level (test code = 2823-3) 4.3 3.5-5.1 [facility] BeevilleChloride Viikn2898-65-59 08:02:00* Test Item Value Reference Range Interpretation Comments Chloride Level (test code = 2075-0) 104 98-107 [facility] BeevilleCarbon Dioxide Jnvfd6581-39-15 08:02:00* Test Item Value Reference Range Interpretation Comments Carbon Dioxide Level (test code = 2028-9) 23 22-29 [facility] BeevilleAnion End4378-23-07 08:02:00* Test Item Value Reference Range Interpretation Comments Anion Gap (test code = 06767-4) 13.3 8-16 [facility]evilleBlood Urea Iezxswgr5277-93-15 08:02:00* Test Item Value Reference Range Interpretation Comments Blood Urea Nitrogen (test code = 3094-0) 16 7-26 [facility] BeevilleCreatinine2020-01-02 08:02:00* Test Item Value Reference Range Interpretation Comments Creatinine (test code = 2160-0) 1.05 0.72-1.25 [facility]evilleBUN/Creatinine Vfrpu6928-35-33 08:02:00* Test Item Value Reference Range Interpretation Comments BUN/Creatinine Ratio (test code = 3097-3) 15 6-25 [facility] BeevilleEstimat Glomerular Filtration Rate 2019-07-04 08:02:00* Test Item Value Reference Range Interpretation Comments Estimat Glomerular Filtration Rate (test code = 275771435) > 60 >60 Ranges were taken from the National Kidney Disease Education Program and the [facility] Kidney Foundation literature.Reference ranges:60 or greater: Ydzcrl64-72 ( for 3 consecutive months): Chronic kidney disease 15 or less: Kidney failureCHRISTUS Spohn Hospital BeevilleGlucose Wnjst0280-02-54 08:02:00* Test Item Value Reference Range Interpretation Comments Glucose Level (test code = HBN2610) 147 74-118 H [facility] BeevilleCalcium Zzivp0861-03-80 08:02:00* Test Item Value Reference Range Interpretation Comments Calcium Level (test code = 78426-0) 9.3 8.4-10.2 [facility]evilleTotal Kdgvyjcmj1025-65-60 08:02:00* Test Item Value Reference Range Interpretation Comments Total Bilirubin (test code = 1975-2) 0.9 0.2-1.2 [facility] BeevilleAspartate Amino Transf (AST/SGOT) 2019-07-04 08:02:00* Test Item Value Reference Range Interpretation Comments Aspartate Amino Transf (AST/SGOT) (test code = Aspartate Amino Transf (AST/SGOT)) 27 5-34 [facility] BeevilleAlanine Aminotransferase (ALT/SGPT) 2019-07-04 08:02:00* Test Item Value Reference Range Interpretation Comments Alanine Aminotransferase (ALT/SGPT) (test code = 1742-6) 20 0-55 [facility]evilleTotal Mqwjwrh0611-25-48 08:02:00* Test Item Value Reference Range Interpretation Comments Total Protein (test code = 2885-2) 7.7 6.5-8.1 [facility] BeevilleAlbumin2020-01-02 08:02:00* Test Item Value Reference Range Interpretation Comments Albumin (test code = 1751-7) 3.6 3.5-5.0 [facility] BeevilleGlobulin2020-01-02 08:02:00* Test Item Value Reference Range Interpretation Comments Globulin (test code = 72347-4) 4.1 2.3-3.5 [facility]evilleAlbumin/Globulin Lemod9065-07-80 08:02:00 * Test Item Value Reference Range Interpretation Comments Albumin/Globulin Ratio (test code = 1759-0) 0.9 0.8-2.0 [facility]evilleAlkaline Cwfhssmohke4373-81-15 08:02:00* Test Item Value Reference Range Interpretation Comments Alkaline Phosphatase (test code = 6768-6) 106 40-150 [facility]evilleWhite Blood Xovfx6015-47-89 08:01:00* Test Item Value Reference Range Interpretation Comments White Blood Count (test code = 6690-2) 7.71 4.8-10.8 [facility]Red Blood Ssmrv1109-63-37 08:01:00* Test Item Value Reference Range Interpretation Comments Red Blood Count (test code = 789-8) 4.65 4.3-5.7 [facility]evilleHemoglobin2020-01-02 08:01:00* Test Item Value Reference Range Interpretation Comments Hemoglobin (test code = 05654-1) 14.7 14.0-18.0 [facility]evilleHematocrit2020-01-02 08:01:00* Test Item Value Reference Range Interpretation Comments Hematocrit (test code = 4544-3) 41.6 38.2-49.6 [facility]Mean Corpuscular Nnpvrd4806-49-97 08:01:00* Test Item Value Reference Range Interpretation Comments Mean Corpuscular Volume (test code = 787-2) 89.5 81-99 [facility]Mean Corpuscular Xbgauflcab4893-05-64 08:01:00* Test Item Value Reference Range Interpretation Comments Mean Corpuscular Hemoglobin (test code = 785-6) 31.6 28-32 [facility] Corpuscular Hemoglobin Concent 2019-07-04 08:01:00* Test Item Value Reference Range Interpretation Comments Mean Corpuscular Hemoglobin Concent (test code = 786-4) 35.3 31-35 H [facility]evilleRed Cell Distribution Zlsvp5942-49-97 08:01:00* Test Item Value Reference Range Interpretation Comments Red Cell Distribution Width (test code = 14651-5) 11.8 11.7 -14.4 [facility]evillePlatelet Hjloe7665-03-50 08:01:00* Test Item Value Reference Range Interpretation Comments Platelet Count (test code = 777-3) 144 140-360 [facility]evilleNeutrophils (%) (Auto)2019-07-04 08:01:00 * Test Item Value Reference Range Interpretation Comments Neutrophils (%) (Auto) (test code = 74430-1) 69.8 38.7-80.0 [facility]evilleLymphocytes (%) (Auto)2019-07-04 08:01:00 * Test Item Value Reference Range Interpretation Comments Lymphocytes (%) (Auto) (test code = 736-9) 17.8 18.0-39.1 L [facility]evilleMonocytes (%) (Auto)2019-07-04 08:01:00* Test Item Value Reference Range Interpretation Comments Monocytes (%) (Auto) (test code = 5905-5) 8.9 4.4-11.3 [facility]evilleEosinophils (%) (Auto)2019-07-04 08:01:00 * Test Item Value Reference Range Interpretation Comments Eosinophils (%) (Auto) (test code = 713-8) 2.5 0.0-6.0 [facility]evilleBasophils (%) (Auto)2019-07-04 08:01:00* Test Item Value Reference Range Interpretation Comments Basophils (%) (Auto) (test code = 706-2) 0.5 0.0-1.0 [facility]evilleIM GRANULOCYTES %2019-07-04 08:01:00* Test Item Value Reference Range Interpretation Comments IM GRANULOCYTES % (test code = IM GRANULOCYTES %) 0.5 0.0- 1.0 [facility]evilleNeutrophils # (Auto)2019-07-04 08:01:00* Test Item Value Reference Range Interpretation Comments Neutrophils # (Auto) (test code = 751-8) 5.4 2.1-6.9 [facility]evilleLymphocytes # (Auto)2019-07-04 08:01:00* Test Item Value Reference Range Interpretation Comments Lymphocytes # (Auto) (test code = 42751-0) 1.4 1.0-3.2 [facility]evilleMonocytes # (Auto)2019-07-04 08:01:00* Test Item Value Reference Range Interpretation Comments Monocytes # (Auto) (test code = 742-7) 0.7 0.2-0.8 [facility]evilleEosinophils # (Auto)2019-07-04 08:01:00* Test Item Value Reference Range Interpretation Comments Eosinophils # (Auto) (test code = 711-2) 0.2 0.0-0.4 [facility]Basophils # (Auto)2019-07-04 08:01:00* Test Item Value Reference Range Interpretation Comments Basophils # (Auto) (test code = 704-7) 0.0 0.0-0.1 [facility]evilleAbsolute Immature Granulocyte (auto 2019-07-04 08:01:00* Test Item Value Reference Range Interpretation Comments Absolute Immature Granulocyte (auto (luisito t code = Absolute Immature Granulocyte (auto) 0.04 0-0.1 [facility]evilleWhite Blood Nvfnz5470-91-60 08:01:00* Test Item Value Reference Range Interpretation Comments White Blood Count (test code = 6690-2) 7.71 4.8-10.8 [facility]evilleRed Blood Rkmbd0200-83-91 08:01:00* Test Item Value Reference Range Interpretation Comments Red Blood Count (test code = 789-8) 4.65 4.3-5.7 [facility]evilleHemoglobin2020-01-02 08:01:00* Test Item Value Reference Range Interpretation Comments Hemoglobin (test code = 37958-9) 14.7 14.0-18.0 [facility]evilleHematocrit2020-01-02 08:01:00* Test Item Value Reference Range Interpretation Comments Hematocrit (test code = 4544-3) 41.6 38.2-49.6 [facility]Mean Corpuscular Cdmgsb0300-07-56 08:01:00* Test Item Value Reference Range Interpretation Comments Mean Corpuscular Volume (test code = 787-2) 89.5 81-99 [facility]Mean Corpuscular Xafvdccore6294-01-74 08:01:00* Test Item Value Reference Range Interpretation Comments Mean Corpuscular Hemoglobin (test code = 785-6) 31.6 28-32 [facility]Mean Corpuscular Hemoglobin Concent 2019-07-04 08:01:00* Test Item Value Reference Range Interpretation Comments Mean Corpuscular Hemoglobin Concent (test code = 786-4) 35.3 31-35 H [facility]evilleRed Cell Distribution Pwaci9530-93-46 08:01:00* Test Item Value Reference Range Interpretation Comments Red Cell Distribution Width (test code = 68205-4) 11.8 11.7 -14.4 [facility] BeevillePlatelet Speew5320-51-88 08:01:00* Test Item Value Reference Range Interpretation Comments Platelet Count (test code = 777-3) 144 140-360 [facility]evilleNeutrophils (%) (Auto)2019-07-04 08:01:00 * Test Item Value Reference Range Interpretation Comments Neutrophils (%) (Auto) (test code = 67089-6) 69.8 38.7-80.0 [facility]evilleLymphocytes (%) (Auto)2019-07-04 08:01:00 * Test Item Value Reference Range Interpretation Comments Lymphocytes (%) (Auto) (test code = 736-9) 17.8 18.0-39.1 L [facility]evilleMonocytes (%) (Auto)2019-07-04 08:01:00* Test Item Value Reference Range Interpretation Comments Monocytes (%) (Auto) (test code = 5905-5) 8.9 4.4-11.3 [facility]evilleEosinophils (%) (Auto)2019-07-04 08:01:00 * Test Item Value Reference Range Interpretation Comments Eosinophils (%) (Auto) (test code = 713-8) 2.5 0.0-6.0 [facility]evilleBasophils (%) (Auto)2019-07-04 08:01:00* Test Item Value Reference Range Interpretation Comments Basophils (%) (Auto) (test code = 706-2) 0.5 0.0-1.0 [facility]evilleIM GRANULOCYTES %2019-07-04 08:01:00* Test Item Value Reference Range Interpretation Comments IM GRANULOCYTES % (test code = IM GRANULOCYTES %) 0.5 0.0- 1.0 [facility]evilleNeutrophils # (Auto)2019-07-04 08:01:00* Test Item Value Reference Range Interpretation Comments Neutrophils # (Auto) (test code = 751-8) 5.4 2.1-6.9 [facility]evilleLymphocytes # (Auto)2019-07-04 08:01:00* Test Item Value Reference Range Interpretation Comments Lymphocytes # (Auto) (test code = 83390-3) 1.4 1.0-3.2 [facility]evilleMonocytes # (Auto)2019-07-04 08:01:00* Test Item Value Reference Range Interpretation Comments Monocytes # (Auto) (test code = 742-7) 0.7 0.2-0.8 [facility]evilleEosinophils # (Auto)2019-07-04 08:01:00* Test Item Value Reference Range Interpretation Comments Eosinophils # (Auto) (test code = 711-2) 0.2 0.0-0.4 [facility]evilleBasophils # (Auto)2019-07-04 08:01:00* Test Item Value Reference Range Interpretation Comments Basophils # (Auto) (test code = 704-7) 0.0 0.0-0.1 [facility]evilleAbsolute Immature Granulocyte (auto 2019-07-04 08:01:00* Test Item Value Reference Range Interpretation Comments Absolute Immature Granulocyte (auto (luisito t code = Absolute Immature Granulocyte (auto) 0.04 0-0.1 [facility]evilleWhite Blood Exsjx4664-58-37 08:01:00* Test Item Value Reference Range Interpretation Comments White Blood Count (test code = 6690-2) 7.71 4.8-10.8 [facility]evilleRed Blood Nolej6475-69-23 08:01:00* Test Item Value Reference Range Interpretation Comments Red Blood Count (test code = 789-8) 4.65 4.3-5.7 [facility]evilleHemoglobin2020-01-02 08:01:00* Test Item Value Reference Range Interpretation Comments Hemoglobin (test code = 57860-7) 14.7 14.0-18.0 [facility]evilleHematocrit2020-01-02 08:01:00* Test Item Value Reference Range Interpretation Comments Hematocrit (test code = 4544-3) 41.6 38.2-49.6 [facility]Mean Corpuscular Kglics0726-41-31 08:01:00* Test Item Value Reference Range Interpretation Comments Mean Corpuscular Volume (test code = 787-2) 89.5 81-99 [facility]Mean Corpuscular Luykzwugdr9622-24-23 08:01:00* Test Item Value Reference Range Interpretation Comments Mean Corpuscular Hemoglobin (test code = 785-6) 31.6 28-32 [facility]Mean Corpuscular Hemoglobin Concent 2019-07-04 08:01:00* Test Item Value Reference Range Interpretation Comments Mean Corpuscular Hemoglobin Concent (test code = 786-4) 35.3 31-35 H [facility]evilleRed Cell Distribution Yedxt6105-19-81 08:01:00* Test Item Value Reference Range Interpretation Comments Red Cell Distribution Width (test code = 69516-4) 11.8 11.7 -14.4 [facility] BeevillePlatelet Fitkm5740-28-38 08:01:00* Test Item Value Reference Range Interpretation Comments Platelet Count (test code = 777-3) 144 140-360 [facility]evilleNeutrophils (%) (Auto)2019-07-04 08:01:00 * Test Item Value Reference Range Interpretation Comments Neutrophils (%) (Auto) (test code = 78957-3) 69.8 38.7-80.0 [facility]evilleLymphocytes (%) (Auto)2019-07-04 08:01:00 * Test Item Value Reference Range Interpretation Comments Lymphocytes (%) (Auto) (test code = 736-9) 17.8 18.0-39.1 L [facility]evilleMonocytes (%) (Auto)2019-07-04 08:01:00* Test Item Value Reference Range Interpretation Comments Monocytes (%) (Auto) (test code = 5905-5) 8.9 4.4-11.3 [facility]evilleEosinophils (%) (Auto)2019-07-04 08:01:00 * Test Item Value Reference Range Interpretation Comments Eosinophils (%) (Auto) (test code = 713-8) 2.5 0.0-6.0 [facility]evilleBasophils (%) (Auto)2019-07-04 08:01:00* Test Item Value Reference Range Interpretation Comments Basophils (%) (Auto) (test code = 706-2) 0.5 0.0-1.0 [facility]evilleIM GRANULOCYTES %2019-07-04 08:01:00* Test Item Value Reference Range Interpretation Comments IM GRANULOCYTES % (test code = IM GRANULOCYTES %) 0.5 0.0- 1.0 [facility]evilleNeutrophils # (Auto)2019-07-04 08:01:00* Test Item Value Reference Range Interpretation Comments Neutrophils # (Auto) (test code = 751-8) 5.4 2.1-6.9 [facility]evilleLymphocytes # (Auto)2019-07-04 08:01:00* Test Item Value Reference Range Interpretation Comments Lymphocytes # (Auto) (test code = 73734-1) 1.4 1.0-3.2 [facility]evilleMonocytes # (Auto)2019-07-04 08:01:00* Test Item Value Reference Range Interpretation Comments Monocytes # (Auto) (test code = 742-7) 0.7 0.2-0.8 [facility]evilleEosinophils # (Auto)2019-07-04 08:01:00* Test Item Value Reference Range Interpretation Comments Eosinophils # (Auto) (test code = 711-2) 0.2 0.0-0.4 [facility]evilleBasophils # (Auto)2019-07-04 08:01:00* Test Item Value Reference Range Interpretation Comments Basophils # (Auto) (test code = 704-7) 0.0 0.0-0.1 [facility]evilleAbsolute Immature Granulocyte (auto 2019-07-04 08:01:00* Test Item Value Reference Range Interpretation Comments Absolute Immature Granulocyte (auto (luisito t code = Absolute Immature Granulocyte (auto) 0.04 0-0.1 [facility] Jqsrkll0877-66-40 12:34:00* Test Item Value Reference Range Interpretation Comments Bedside Glucose (test code = 19330-8) 292 70-120 H Meter ID: [id number] [facility] Glucose 2019-05-13 15:42:00* Test Item Value Reference Range Interpretation Comments Bedside Glucose (test code = 05321-1) 150 70-120 H Meter ID: [id number] [facility] BeevilleUric Hyjt4185-59-26 15:04:00* Test Item Value Reference Range Interpretation Comments Uric Acid (test code = 3084-1) 5.8 4.8-8.0 [facility] BeevilleUric Klxc1000-51-68 15:04:00* Test Item Value Reference Range Interpretation Comments Uric Acid (test code = 3084-1) 5.8 4.8-8.0 [facility]evilleUric Lwec0371-02-96 15:04:00* Test Item Value Reference Range Interpretation Comments Uric Acid (test code = 3084-1) 5.8 4.8-8.0 [facility]evilleUric Bkby2177-97-88 15:04:00* Test Item Value Reference Range Interpretation Comments Uric Acid (test code = 3084-1) 5.8 4.8-8.0 [facility]evilleUric Tuly6517-68-79 15:04:00* Test Item Value Reference Range Interpretation Comments Uric Acid (test code = 3084-1) 5.8 4.8-8.0 [facility]evilleUric Acpp8682-15-92 15:04:00* Test Item Value Reference Range Interpretation Comments Uric Acid (test code = 3084-1) 5.8 4.8-8.0 [facility]evilleWhite Blood Alubd9936-42-77 14:40:00* Test Item Value Reference Range Interpretation Comments White Blood Count (test code = 6690-2) 9.02 4.8-10.8 [facility]evilleRed Blood Aydqi2789-97-19 14:40:00* Test Item Value Reference Range Interpretation Comments Red Blood Count (test code = 789-8) 4.33 4.3-5.7 [facility]evilleHemoglobin2019-11-11 14:40:00* Test Item Value Reference Range Interpretation Comments Hemoglobin (test code = 47269-7) 13.9 14.0-18.0 L [facility]evilleHematocrit2019-11-11 14:40:00* Test Item Value Reference Range Interpretation Comments Hematocrit (test code = 4544-3) 39.5 38.2-49.6 [facility]Mean Corpuscular Xxekwy8381-73-69 14:40:00* Test Item Value Reference Range Interpretation Comments Mean Corpuscular Volume (test code = 787-2) 91.2 81-99 [facility]Mean Corpuscular Ykuwecqwjj9327-04-30 14:40:00* Test Item Value Reference Range Interpretation Comments Mean Corpuscular Hemoglobin (test code = 785-6) 32.1 28-32 H [facility]Mean Corpuscular Hemoglobin Concent 2019-05-13 14:40:00* Test Item Value Reference Range Interpretation Comments Mean Corpuscular Hemoglobin Concent (test code = 786-4) 35.2 31-35 H [facility]evilleRed Cell Distribution Njjhx7553-92-15 14:40:00* Test Item Value Reference Range Interpretation Comments Red Cell Distribution Width (test code = 24091-6) 11.1 11.7 -14.4 L [facility]evillePlatelet Oksww7753-23-59 14:40:00* Test Item Value Reference Range Interpretation Comments Platelet Count (test code = 777-3) 148 140-360 [facility]evilleNeutrophils (%) (Auto)2019-05-13 14:40:00 * Test Item Value Reference Range Interpretation Comments Neutrophils (%) (Auto) (test code = 16140-1) 69.7 38.7-80.0 [facility]evilleLymphocytes (%) (Auto)2019-05-13 14:40:00 * Test Item Value Reference Range Interpretation Comments Lymphocytes (%) (Auto) (test code = 736-9) 17.5 18.0-39.1 L [facility]evilleMonocytes (%) (Auto)2019-05-13 14:40:00* Test Item Value Reference Range Interpretation Comments Monocytes (%) (Auto) (test code = 5905-5) 9.8 4.4-11.3 [facility]evilleEosinophils (%) (Auto)2019-05-13 14:40:00 * Test Item Value Reference Range Interpretation Comments Eosinophils (%) (Auto) (test code = 713-8) 2.4 0.0-6.0 [facility]evilleBasophils (%) (Auto)2019-05-13 14:40:00* Test Item Value Reference Range Interpretation Comments Basophils (%) (Auto) (test code = 706-2) 0.3 0.0-1.0 [facility]evilleIM GRANULOCYTES %2019-05-13 14:40:00* Test Item Value Reference Range Interpretation Comments IM GRANULOCYTES % (test code = IM GRANULOCYTES %) 0.3 0.0- 1.0 [facility]evilleNeutrophils # (Auto)2019-05-13 14:40:00* Test Item Value Reference Range Interpretation Comments Neutrophils # (Auto) (test code = 751-8) 6.3 2.1-6.9 [facility]evilleLymphocytes # (Auto)2019-05-13 14:40:00* Test Item Value Reference Range Interpretation Comments Lymphocytes # (Auto) (test code = 74967-3) 1.6 1.0-3.2 [facility]evilleMonocytes # (Auto)2019-05-13 14:40:00* Test Item Value Reference Range Interpretation Comments Monocytes # (Auto) (test code = 742-7) 0.9 0.2-0.8 H [facility]evilleEosinophils # (Auto)2019-05-13 14:40:00* Test Item Value Reference Range Interpretation Comments Eosinophils # (Auto) (test code = 711-2) 0.2 0.0-0.4 [facility]evilleBasophils # (Auto)2019-05-13 14:40:00* Test Item Value Reference Range Interpretation Comments Basophils # (Auto) (test code = 704-7) 0.0 0.0-0.1 [facility]evilleAbsolute Immature Granulocyte (auto 2019-05-13 14:40:00* Test Item Value Reference Range Interpretation Comments Absolute Immature Granulocyte (auto (luisito t code = Absolute Immature Granulocyte (auto) 0.03 0-0.1 [facility]evilleWhite Blood Hhepj1741-77-90 14:40:00* Test Item Value Reference Range Interpretation Comments White Blood Count (test code = 6690-2) 9.02 4.8-10.8 [facility]evilleRed Blood Utduj1997-75-98 14:40:00* Test Item Value Reference Range Interpretation Comments Red Blood Count (test code = 789-8) 4.33 4.3-5.7 [facility]evilleHemoglobin2019-11-11 14:40:00* Test Item Value Reference Range Interpretation Comments Hemoglobin (test code = 44519-4) 13.9 14.0-18.0 L [facility]evilleHematocrit2019-11-11 14:40:00* Test Item Value Reference Range Interpretation Comments Hematocrit (test code = 4544-3) 39.5 38.2-49.6 [facility]Mean Corpuscular Cijewh0129-90-28 14:40:00* Test Item Value Reference Range Interpretation Comments Mean Corpuscular Volume (test code = 787-2) 91.2 81-99 [facility]Mean Corpuscular Yeyhsgfljz3472-94-60 14:40:00* Test Item Value Reference Range Interpretation Comments Mean Corpuscular Hemoglobin (test code = 785-6) 32.1 28-32 H [facility]evilleMean Corpuscular Hemoglobin Concent 2019-05-13 14:40:00* Test Item Value Reference Range Interpretation Comments Mean Corpuscular Hemoglobin Concent (test code = 786-4) 35.2 31-35 H [facility]evilleRed Cell Distribution Gauld7294-04-38 14:40:00* Test Item Value Reference Range Interpretation Comments Red Cell Distribution Width (test code = 30340-2) 11.1 11.7 -14.4 L [facility] BeevillePlatelet Wmuoz4834-41-78 14:40:00* Test Item Value Reference Range Interpretation Comments Platelet Count (test code = 777-3) 148 140-360 [facility]evilleNeutrophils (%) (Auto)2019-05-13 14:40:00 * Test Item Value Reference Range Interpretation Comments Neutrophils (%) (Auto) (test code = 90542-6) 69.7 38.7-80.0 [facility]evilleLymphocytes (%) (Auto)2019-05-13 14:40:00 * Test Item Value Reference Range Interpretation Comments Lymphocytes (%) (Auto) (test code = 736-9) 17.5 18.0-39.1 L [facility]evilleMonocytes (%) (Auto)2019-05-13 14:40:00* Test Item Value Reference Range Interpretation Comments Monocytes (%) (Auto) (test code = 5905-5) 9.8 4.4-11.3 [facility]evilleEosinophils (%) (Auto)2019-05-13 14:40:00 * Test Item Value Reference Range Interpretation Comments Eosinophils (%) (Auto) (test code = 713-8) 2.4 0.0-6.0 [facility]evilleBasophils (%) (Auto)2019-05-13 14:40:00* Test Item Value Reference Range Interpretation Comments Basophils (%) (Auto) (test code = 706-2) 0.3 0.0-1.0 [facility]evilleIM GRANULOCYTES %2019-05-13 14:40:00* Test Item Value Reference Range Interpretation Comments IM GRANULOCYTES % (test code = IM GRANULOCYTES %) 0.3 0.0- 1.0 [facility]evilleNeutrophils # (Auto)2019-05-13 14:40:00* Test Item Value Reference Range Interpretation Comments Neutrophils # (Auto) (test code = 751-8) 6.3 2.1-6.9 [facility]evilleLymphocytes # (Auto)2019-05-13 14:40:00* Test Item Value Reference Range Interpretation Comments Lymphocytes # (Auto) (test code = 99408-0) 1.6 1.0-3.2 [facility]evilleMonocytes # (Auto)2019-05-13 14:40:00* Test Item Value Reference Range Interpretation Comments Monocytes # (Auto) (test code = 742-7) 0.9 0.2-0.8 H [facility]evilleEosinophils # (Auto)2019-05-13 14:40:00* Test Item Value Reference Range Interpretation Comments Eosinophils # (Auto) (test code = 711-2) 0.2 0.0-0.4 [facility]evilleBasophils # (Auto)2019-05-13 14:40:00* Test Item Value Reference Range Interpretation Comments Basophils # (Auto) (test code = 704-7) 0.0 0.0-0.1 [facility]evilleAbsolute Immature Granulocyte (auto 2019-05-13 14:40:00* Test Item Value Reference Range Interpretation Comments Absolute Immature Granulocyte (auto (luisito t code = Absolute Immature Granulocyte (auto) 0.03 0-0.1 [facility] ur[facility] acid [facility] (mass/volume)2019-05-13 12:30:00* Test Item Value Reference Range Interpretation Comments Uric Acid (test code = 3084-1) 5.8 4.8-8.0 [facility]erum or plasma uric acid measurement (mass/volume)2019-05-13 12:30:00* Test Item Value Reference Range Interpretation Comments Uric Acid (test code = 3084-1) 5.8 4.8-8.0 [facility]erum or plasma uric acid measurement (mass/volume)2019-05-13 12:30:00* Test Item Value Reference Range Interpretation Comments Uric Acid (test code = 3084-1) 5.8 4.8-8.0 [facility]erum or plasma uric acid measurement (mass/volume)2019-05-13 12:30:00* Test Item Value Reference Range Interpretation Comments Uric Acid (test code = 3084-1) 5.8 4.8-8.0 [facility]erum or plasma uric acid measurement (mass/volume)2019-05-13 12:30:00* Test Item Value Reference Range Interpretation Comments Uric Acid (test code = 3084-1) 5.8 4.8-8.0 [facility] Lakeerum or plasma uric acid measurement (mass/volume)2019-05-13 12:30:00* Test Item Value Reference Range Interpretation Comments Uric Acid (test code = 3084-1) 5.8 4.8-8.0 [facility]evilleBlood Fuunjnm6663-33-04 17:10:00* Test Item Value Reference Range Interpretation Comments Blood Culture (test code = 05472022) NO GROWTH AFTER 5 DAYS, FINAL REPORT [facility] Cejclar9880-33-16 17:10:00* Test Item Value Reference Range Interpretation Comments Blood Culture (test code = 40371292) NO GROWTH AFTER 5 DAYS, FINAL REPORT [facility] Fiiskve1150-30-28 17:10:00* Test Item Value Reference Range Interpretation Comments Blood Culture (test code = 72966965) NO GROWTH AFTER 5 DAYS, FINAL REPORT [facility]2019-04-08 17:10:00* Test Item Value Reference Range Interpretation Comments Blood Culture (test code = 37879725) NO GROWTH AFTER 5 DAYS, FINAL REPORT [facility]2019-04-08 17:10:00* Test Item Value Reference Range Interpretation Comments Blood Culture (test code = 78110236) NO GROWTH AFTER 5 DAYS, FINAL REPORT [facility] Ztqhlyh1545-90-86 20:48:00* Test Item Value Reference Range Interpretation Comments Bedside Glucose (test code = 89420-8) 124 70-120 H Meter ID: [id number] [facility] Glucose 2018-10-05 20:48:00* Test Item Value Reference Range Interpretation Comments Bedside Glucose (test code = 20041-4) 124 70-120 H Meter ID: [id number] [facility] Glucose 2018-10-05 20:48:00* Test Item Value Reference Range Interpretation Comments Bedside Glucose (test code = 08001-2) 124 70-120 H Meter ID: [id number] [facility] Glucose 2018-10-05 08:55:00* Test Item Value Reference Range Interpretation Comments Bedside Glucose (test code = 21985-3) 199 70-120 H Meter ID: [id number] 2018-10-04 17:10:00* Test Item Value Reference Range Interpretation Comments Blood Culture (test code = 29533537) NO GROWTH AFTER 24 HOURS [facility] Jiwxb6950-02-86 06:14:00* Test Item Value Reference Range Interpretation Comments Sodium Level (test code = 2951-2) 135 136-145 L [facility] Dqcpa2102-34-83 06:14:00* Test Item Value Reference Range Interpretation Comments Potassium Level (test code = 2823-3) 3.8 3.5-5.1 [facility] Pqyvo5269-81-59 06:14:00* Test Item Value Reference Range Interpretation Comments Chloride Level (test code = 2075-0) 106 98-107 [facility]evilleCar[facility] Dioxide Vqems2207-10-58 06:14:00* Test Item Value Reference Range Interpretation Comments Carbon Dioxide Level (test code = 2028-9) 25 22-29 [facility]evilleAnion Sbq7571-66-60 06:14:00* Test Item Value Reference Range Interpretation Comments Anion Gap (test code = 87077-7) 7.8 8-16 L [facility]evilleBlood Urea Vqxpkqwr7927-51-64 06:14:00* Test Item Value Reference Range Interpretation Comments Blood Urea Nitrogen (test code = 3094-0) 9 7-26 [facility]evilleCreatinine2019-04-04 06:14:00* Test Item Value Reference Range Interpretation Comments Creatinine (test code = 2160-0) 0.74 0.72-1.25 [facility]/Creatinine Cqbgy7653-54-05 06:14:00* Test Item Value Reference Range Interpretation Comments BUN/Creatinine Ratio (test code = 3097-3) 12 6-25 [facility]evilleEstim[facility] Glomerular Filtration Rate 2018-10-04 06:14:00* Test Item Value Reference Range Interpretation Comments Estimat Glomerular Filtration Rate (test code = 204583928) > 60 >60 Ranges were taken from the National Kidney Disease Education Program and the [facility] literature.Reference ranges:60 or greater: Imgdlt72-17 ( for 3 consecutive months): Chronic kidney disease 15 or less: Kidney failureCHRISTUS [facility]ohn [facility] BeevilleGlucose Rujqy4266-83-92 06:14:00* Test Item Value Reference Range Interpretation Comments Glucose Level (test code = EIR0691) 145 74-118 H [facility]evilleCalcium Kmizv0774-53-93 06:14:00* Test Item Value Reference Range Interpretation Comments Calcium Level (test code = 78992-1) 8.3 8.4-10.2 L [facility]evilleTotal Hzfotxvla9991-17-79 06:14:00* Test Item Value Reference Range Interpretation Comments Total Bilirubin (test code = 1975-2) 0.6 0.2-1.2 [facility]evilleAspartate Amino Transf (AST/SGOT) 2018-10-04 06:14:00* Test Item Value Reference Range Interpretation Comments Aspartate Amino Transf (AST/SGOT) (test code = Aspartate Amino Transf (AST/SGOT)) 24 5-34 [facility]evilleAlanine Aminotransferase (ALT/SGPT) 2018-10-04 06:14:00* Test Item Value Reference Range Interpretation Comments Alanine Aminotransferase (ALT/SGPT) (test code = 1742-6) 9 0-55 [facility] Dhztbst6761-34-14 06:14:00* Test Item Value Reference Range Interpretation Comments Total Protein (test code = 2885-2) 6.4 6.5-8.1 L [facility]evilleAlbumin2019-04-04 06:14:00* Test Item Value Reference Range Interpretation Comments Albumin (test code = 1751-7) 2.2 3.5-5.0 L [facility]evilleGlobulin2019-04-04 06:14:00* Test Item Value Reference Range Interpretation Comments Globulin (test code = 33075-9) 4.2 2.3-3.5 H [facility]evilleAlbumin/Globulin Yrctw9207-03-37 06:14:00 * Test Item Value Reference Range Interpretation Comments Albumin/Globulin Ratio (test code = 1759-0) 0.5 0.8-2.0 L [facility] BeevilleAlkaline Tokexvavddj0342-93-10 06:14:00* Test Item Value Reference Range Interpretation Comments Alkaline Phosphatase (test code = 6768-6) 102 40-150 [facility]odium Esrep9249-78-88 06:14:00* Test Item Value Reference Range Interpretation Comments Sodium Level (test code = 2951-2) 135 136-145 L [facility]evillePotassium Ycwhh5264-80-34 06:14:00* Test Item Value Reference Range Interpretation Comments Potassium Level (test code = 2823-3) 3.8 3.5-5.1 [facility]evilleChloride Osxvo6537-31-81 06:14:00* Test Item Value Reference Range Interpretation Comments Chloride Level (test code = 2075-0) 106 98-107 [facility]evilleCarbon Dioxide Mtjil4775-22-19 06:14:00* Test Item Value Reference Range Interpretation Comments Carbon Dioxide Level (test code = 2028-9) 25 22-29 [facility] BeevilleAnion Nfr9549-59-51 06:14:00* Test Item Value Reference Range Interpretation Comments Anion Gap (test code = 85667-3) 7.8 8-16 L [facility]evilleBlood Urea Svafvqzo2438-83-78 06:14:00* Test Item Value Reference Range Interpretation Comments Blood Urea Nitrogen (test code = 3094-0) 9 7-26 [facility]evilleCreatinine2019-04-04 06:14:00* Test Item Value Reference Range Interpretation Comments Creatinine (test code = 2160-0) 0.74 0.72-1.25 [facility]evilleB[facility]/Creatinine Fyuuf3368-48-19 06:14:00* Test Item Value Reference Range Interpretation Comments BUN/Creatinine Ratio (test code = 3097-3) 12 6-25 [facility]evilleEstimat Glomerular Filtration Rate 2018-10-04 06:14:00* Test Item Value Reference Range Interpretation Comments Estimat Glomerular Filtration Rate (test code = 194641955) > 60 >60 Ranges were taken from the National Kidney Disease Education Program and the [facility] Foundation literature.Reference ranges:60 or greater: Mjrtvd49-52 ( for 3 consecutive months): Chronic kidney disease 15 or less: Kidney failureCHRISTUS Spohn Hospital BeevilleGlucose Qugfv4639-73-91 06:14:00* Test Item Value Reference Range Interpretation Comments Glucose Level (test code = MIF1284) 145 74-118 H [facility]evilleCalcium Wltvu5249-37-77 06:14:00* Test Item Value Reference Range Interpretation Comments Calcium Level (test code = 82126-3) 8.3 8.4-10.2 L [facility]evilleTotal Eucbygpgs8111-68-66 06:14:00* Test Item Value Reference Range Interpretation Comments Total Bilirubin (test code = 1975-2) 0.6 0.2-1.2 [facility]evilleAspartate Amino Transf (AST/SGOT) 2018-10-04 06:14:00* Test Item Value Reference Range Interpretation Comments Aspartate Amino Transf (AST/SGOT) (test code = Aspartate Amino Transf (AST/SGOT)) 24 5-34 [facility]evilleAlanine Aminotransferase (ALT/SGPT) 2018-10-04 06:14:00* Test Item Value Reference Range Interpretation Comments Alanine Aminotransferase (ALT/SGPT) (test code = 1742-6) 9 0-55 [facility]evilleTotal Qfoyeyk3687-22-23 06:14:00* Test Item Value Reference Range Interpretation Comments Total Protein (test code = 2885-2) 6.4 6.5-8.1 L [facility] BeevilleAlbumin2019-04-04 06:14:00* Test Item Value Reference Range Interpretation Comments Albumin (test code = 1751-7) 2.2 3.5-5.0 L [facility] BeevilleGlobulin2019-04-04 06:14:00* Test Item Value Reference Range Interpretation Comments Globulin (test code = 46355-0) 4.2 2.3-3.5 H [facility]evilleAlbumin/Globulin Fmcgx3722-78-77 06:14:00 * Test Item Value Reference Range Interpretation Comments Albumin/Globulin Ratio (test code = 1759-0) 0.5 0.8-2.0 L [facility] BeevilleAlkaline Fvwfmldlzsc6825-79-05 06:14:00* Test Item Value Reference Range Interpretation Comments Alkaline Phosphatase (test code = 6768-6) 102 40-150 [facility]odium Vuinl6683-08-21 06:14:00* Test Item Value Reference Range Interpretation Comments Sodium Level (test code = 2951-2) 135 136-145 L [facility]evillePotassium Ifyjh4311-97-98 06:14:00* Test Item Value Reference Range Interpretation Comments Potassium Level (test code = 2823-3) 3.8 3.5-5.1 [facility]evilleChloride Lhvgv1979-11-63 06:14:00* Test Item Value Reference Range Interpretation Comments Chloride Level (test code = 2075-0) 106 98-107 [facility]evilleCarbon Dioxide Axjin5079-46-44 06:14:00* Test Item Value Reference Range Interpretation Comments Carbon Dioxide Level (test code = 2028-9) 25 22-29 [facility] BeevilleAnion Hsy4750-44-39 06:14:00* Test Item Value Reference Range Interpretation Comments Anion Gap (test code = 00444-6) 7.8 8-16 L [facility]evilleBlood Urea Wulnijec5587-03-29 06:14:00* Test Item Value Reference Range Interpretation Comments Blood Urea Nitrogen (test code = 3094-0) 9 7-26 [facility]evilleCreatinine2019-04-04 06:14:00* Test Item Value Reference Range Interpretation Comments Creatinine (test code = 2160-0) 0.74 0.72-1.25 [facility]evilleBUN/Creatinine Ocdui8339-19-81 06:14:00* Test Item Value Reference Range Interpretation Comments BUN/Creatinine Ratio (test code = 3097-3) 12 6-25 [facility]evilleEstimat Glomerular Filtration Rate 2018-10-04 06:14:00* Test Item Value Reference Range Interpretation Comments Estimat Glomerular Filtration Rate (test code = 168446844) > 60 >60 Ranges were taken from the National Kidney Disease Education Program and the [facility] Foundation literature.Reference ranges:60 or greater: Cxsqga84-16 ( for 3 consecutive months): Chronic kidney disease 15 or less: Kidney failureCHRISTUS Spohn Hospital BeevilleGlucose Fglbe1394-13-75 06:14:00* Test Item Value Reference Range Interpretation Comments Glucose Level (test code = CIB9666) 145 74-118 H [facility]evilleCalcium Clgwu0624-33-37 06:14:00* Test Item Value Reference Range Interpretation Comments Calcium Level (test code = 97111-4) 8.3 8.4-10.2 L [facility]evilleTotal Pyyeawqim3082-68-54 06:14:00* Test Item Value Reference Range Interpretation Comments Total Bilirubin (test code = 1975-2) 0.6 0.2-1.2 [facility]evilleAspartate Amino Transf (AST/SGOT) 2018-10-04 06:14:00* Test Item Value Reference Range Interpretation Comments Aspartate Amino Transf (AST/SGOT) (test code = Aspartate Amino Transf (AST/SGOT)) 24 5-34 [facility]evilleAlanine Aminotransferase (ALT/SGPT) 2018-10-04 06:14:00* Test Item Value Reference Range Interpretation Comments Alanine Aminotransferase (ALT/SGPT) (test code = 1742-6) 9 0-55 [facility]evilleTotal Qniqzgw5343-44-12 06:14:00* Test Item Value Reference Range Interpretation Comments Total Protein (test code = 2885-2) 6.4 6.5-8.1 L [facility] BeevilleAlbumin2019-04-04 06:14:00* Test Item Value Reference Range Interpretation Comments Albumin (test code = 1751-7) 2.2 3.5-5.0 L [facility] BeevilleGlobulin2019-04-04 06:14:00* Test Item Value Reference Range Interpretation Comments Globulin (test code = 57225-2) 4.2 2.3-3.5 H [facility]evilleAlbumin/Globulin Ckoki5624-85-31 06:14:00 * Test Item Value Reference Range Interpretation Comments Albumin/Globulin Ratio (test code = 1759-0) 0.5 0.8-2.0 L [facility] BeevilleAlkaline Gktfhygyiry5114-85-18 06:14:00* Test Item Value Reference Range Interpretation Comments Alkaline Phosphatase (test code = 6768-6) 102 40-150 [facility]odium Ecoxk0032-82-22 06:14:00* Test Item Value Reference Range Interpretation Comments Sodium Level (test code = 2951-2) 135 136-145 L [facility]evillePotassium Rbwgj1947-69-57 06:14:00* Test Item Value Reference Range Interpretation Comments Potassium Level (test code = 2823-3) 3.8 3.5-5.1 [facility]evilleChloride Lfdvj2122-51-73 06:14:00* Test Item Value Reference Range Interpretation Comments Chloride Level (test code = 2075-0) 106 98-107 [facility] BeevilleCarbon Dioxide Ttudf9633-75-65 06:14:00* Test Item Value Reference Range Interpretation Comments Carbon Dioxide Level (test code = 2028-9) 25 22-29 [facility] BeevilleAnion Fsp2897-19-07 06:14:00* Test Item Value Reference Range Interpretation Comments Anion Gap (test code = 99554-3) 7.8 8-16 L [facility]evilleBlood Urea Pfzmjjyj4849-95-28 06:14:00* Test Item Value Reference Range Interpretation Comments Blood Urea Nitrogen (test code = 3094-0) 9 7-26 [facility]evilleCreatinine2019-04-04 06:14:00* Test Item Value Reference Range Interpretation Comments Creatinine (test code = 2160-0) 0.74 0.72-1.25 [facility]evilleBUN/Creatinine Imvak9239-78-69 06:14:00* Test Item Value Reference Range Interpretation Comments BUN/Creatinine Ratio (test code = 3097-3) 12 6-25 [facility]evilleEstimat Glomerular Filtration Rate 2018-10-04 06:14:00* Test Item Value Reference Range Interpretation Comments Estimat Glomerular Filtration Rate (test code = 869659167) > 60 >60 Ranges were taken from the National Kidney Disease Education Program and the [facility] Foundation literature.Reference ranges:60 or greater: Zkadbj21-34 ( for 3 consecutive months): Chronic kidney disease 15 or less: Kidney failureCHRISTUS Spohn [facility] BeevilleGlucose Bjnlp0212-58-41 06:14:00* Test Item Value Reference Range Interpretation Comments Glucose Level (test code = KZU1486) 145 74-118 H [facility]evilleCalcium Yfhgi6840-85-85 06:14:00* Test Item Value Reference Range Interpretation Comments Calcium Level (test code = 28805-0) 8.3 8.4-10.2 L [facility]evilleTotal Roixeydil2667-06-13 06:14:00* Test Item Value Reference Range Interpretation Comments Total Bilirubin (test code = 1975-2) 0.6 0.2-1.2 [facility]evilleAspartate Amino Transf (AST/SGOT) 2018-10-04 06:14:00* Test Item Value Reference Range Interpretation Comments Aspartate Amino Transf (AST/SGOT) (test code = Aspartate Amino Transf (AST/SGOT)) 24 5-34 [facility]evilleAlanine Aminotransferase (ALT/SGPT) 2018-10-04 06:14:00* Test Item Value Reference Range Interpretation Comments Alanine Aminotransferase (ALT/SGPT) (test code = 1742-6) 9 0-55 [facility]evilleTotal Hdoutyb8103-40-67 06:14:00* Test Item Value Reference Range Interpretation Comments Total Protein (test code = 2885-2) 6.4 6.5-8.1 L [facility] BeevilleAlbumin2019-04-04 06:14:00* Test Item Value Reference Range Interpretation Comments Albumin (test code = 1751-7) 2.2 3.5-5.0 L [facility] BeevilleGlobulin2019-04-04 06:14:00* Test Item Value Reference Range Interpretation Comments Globulin (test code = 68940-4) 4.2 2.3-3.5 H [facility]evilleAlbumin/Globulin Jqnoc7916-61-54 06:14:00 * Test Item Value Reference Range Interpretation Comments Albumin/Globulin Ratio (test code = 1759-0) 0.5 0.8-2.0 L [facility] BeevilleAlkaline Pgqfhjniqoy4646-19-85 06:14:00* Test Item Value Reference Range Interpretation Comments Alkaline Phosphatase (test code = 6768-6) 102 40-150 [facility] Lakeodium Nuplc9474-89-98 06:14:00* Test Item Value Reference Range Interpretation Comments Sodium Level (test code = 2951-2) 135 136-145 L [facility]evillePotassium Qmovx0181-62-69 06:14:00* Test Item Value Reference Range Interpretation Comments Potassium Level (test code = 2823-3) 3.8 3.5-5.1 [facility]evilleChloride Wyvqu0039-17-06 06:14:00* Test Item Value Reference Range Interpretation Comments Chloride Level (test code = 2075-0) 106 98-107 [facility]evilleCarbon Dioxide Gtayi9171-94-21 06:14:00* Test Item Value Reference Range Interpretation Comments Carbon Dioxide Level (test code = 2028-9) 25 22-29 [facility] BeevilleAnion Lbf5003-81-32 06:14:00* Test Item Value Reference Range Interpretation Comments Anion Gap (test code = 41282-1) 7.8 8-16 L [facility]evilleBlood Urea Wagpmbhi5709-06-62 06:14:00* Test Item Value Reference Range Interpretation Comments Blood Urea Nitrogen (test code = 3094-0) 9 7-26 [facility]evilleCreatinine2019-04-04 06:14:00* Test Item Value Reference Range Interpretation Comments Creatinine (test code = 2160-0) 0.74 0.72-1.25 [facility]evilleBUN/Creatinine Gybcq4358-47-34 06:14:00* Test Item Value Reference Range Interpretation Comments BUN/Creatinine Ratio (test code = 3097-3) 12 6-25 [facility]evilleEstimat Glomerular Filtration Rate 2018-10-04 06:14:00* Test Item Value Reference Range Interpretation Comments Estimat Glomerular Filtration Rate (test code = 508435616) > 60 >60 Ranges were taken from the National Kidney Disease Education Program and the [facility] Foundation literature.Reference ranges:60 or greater: Zbgjcy20-28 ( for 3 consecutive months): Chronic kidney disease 15 or less: Kidney failureCHRISTUS Spohn Hospital BeevilleGlucose Cfais8420-77-65 06:14:00* Test Item Value Reference Range Interpretation Comments Glucose Level (test code = DCM8655) 145 74-118 H [facility]evilleCalcium Cktxn5173-85-32 06:14:00* Test Item Value Reference Range Interpretation Comments Calcium Level (test code = 49855-0) 8.3 8.4-10.2 L [facility]evilleTotal Upykyspvw6303-62-21 06:14:00* Test Item Value Reference Range Interpretation Comments Total Bilirubin (test code = 1975-2) 0.6 0.2-1.2 [facility]evilleAspartate Amino Transf (AST/SGOT) 2018-10-04 06:14:00* Test Item Value Reference Range Interpretation Comments Aspartate Amino Transf (AST/SGOT) (test code = Aspartate Amino Transf (AST/SGOT)) 24 5-34 [facility]evilleAlanine Aminotransferase (ALT/SGPT) 2018-10-04 06:14:00* Test Item Value Reference Range Interpretation Comments Alanine Aminotransferase (ALT/SGPT) (test code = 1742-6) 9 0-55 [facility]evilleTotal Hkixgbh1764-32-50 06:14:00* Test Item Value Reference Range Interpretation Comments Total Protein (test code = 2885-2) 6.4 6.5-8.1 L [facility]evilleAlbumin2019-04-04 06:14:00* Test Item Value Reference Range Interpretation Comments Albumin (test code = 1751-7) 2.2 3.5-5.0 L [facility] BeevilleGlobulin2019-04-04 06:14:00* Test Item Value Reference Range Interpretation Comments Globulin (test code = 95391-3) 4.2 2.3-3.5 H [facility]evilleAlbumin/Globulin Cywfy4712-37-86 06:14:00 * Test Item Value Reference Range Interpretation Comments Albumin/Globulin Ratio (test code = 1759-0) 0.5 0.8-2.0 L [facility] BeevilleAlkaline Lkaynmdgqpi0711-12-91 06:14:00* Test Item Value Reference Range Interpretation Comments Alkaline Phosphatase (test code = 6768-6) 102 40-150 [facility] Lakeodium Etrju9491-35-11 06:14:00* Test Item Value Reference Range Interpretation Comments Sodium Level (test code = 2951-2) 135 136-145 L [facility]evillePotassium Ahrfh0461-28-00 06:14:00* Test Item Value Reference Range Interpretation Comments Potassium Level (test code = 2823-3) 3.8 3.5-5.1 [facility]evilleChloride Sdhmj7255-63-38 06:14:00* Test Item Value Reference Range Interpretation Comments Chloride Level (test code = 2075-0) 106 98-107 [facility]evilleCarbon Dioxide Cttwx6967-61-68 06:14:00* Test Item Value Reference Range Interpretation Comments Carbon Dioxide Level (test code = 2028-9) 25 22-29 [facility] BeevilleAnion Vfa4749-78-54 06:14:00* Test Item Value Reference Range Interpretation Comments Anion Gap (test code = 75098-9) 7.8 8-16 L [facility]evilleBlood Urea Teeoryki1096-28-39 06:14:00* Test Item Value Reference Range Interpretation Comments Blood Urea Nitrogen (test code = 3094-0) 9 7-26 [facility]evilleCreatinine2019-04-04 06:14:00* Test Item Value Reference Range Interpretation Comments Creatinine (test code = 2160-0) 0.74 0.72-1.25 [facility]evilleBUN/Creatinine Emavw5911-70-59 06:14:00* Test Item Value Reference Range Interpretation Comments BUN/Creatinine Ratio (test code = 3097-3) 12 6-25 [facility]evilleEstimat Glomerular Filtration Rate 2018-10-04 06:14:00* Test Item Value Reference Range Interpretation Comments Estimat Glomerular Filtration Rate (test code = 779868504) > 60 >60 Ranges were taken from the National Kidney Disease Education Program and the [facility] Foundation literature.Reference ranges:60 or greater: Xfjzav89-58 ( for 3 consecutive months): Chronic kidney disease 15 or less: Kidney failureCHRISTUS Spohn [facility] BeevilleGlucose Rtlgl5380-35-98 06:14:00* Test Item Value Reference Range Interpretation Comments Glucose Level (test code = MAA3335) 145 74-118 H [facility] BeevilleCalcium Delvd8374-28-95 06:14:00* Test Item Value Reference Range Interpretation Comments Calcium Level (test code = 09876-2) 8.3 8.4-10.2 L [facility]evilleTotal Zhfebjpqu5617-38-12 06:14:00* Test Item Value Reference Range Interpretation Comments Total Bilirubin (test code = 1975-2) 0.6 0.2-1.2 [facility]evilleAspartate Amino Transf (AST/SGOT) 2018-10-04 06:14:00* Test Item Value Reference Range Interpretation Comments Aspartate Amino Transf (AST/SGOT) (test code = Aspartate Amino Transf (AST/SGOT)) 24 5-34 [facility]evilleAlanine Aminotransferase (ALT/SGPT) 2018-10-04 06:14:00* Test Item Value Reference Range Interpretation Comments Alanine Aminotransferase (ALT/SGPT) (test code = 1742-6) 9 0-55 [facility]evilleTotal Cscwvyh6242-02-66 06:14:00* Test Item Value Reference Range Interpretation Comments Total Protein (test code = 2885-2) 6.4 6.5-8.1 L [facility] BeevilleAlbumin2019-04-04 06:14:00* Test Item Value Reference Range Interpretation Comments Albumin (test code = 1751-7) 2.2 3.5-5.0 L [facility]evilleGlobulin2019-04-04 06:14:00* Test Item Value Reference Range Interpretation Comments Globulin (test code = 19645-1) 4.2 2.3-3.5 H [facility] BeevilleAlbumin/Globulin Auhti2797-73-00 06:14:00 * Test Item Value Reference Range Interpretation Comments Albumin/Globulin Ratio (test code = 1759-0) 0.5 0.8-2.0 L [facility] BeevilleAlkaline Qwtkdgbmdcl7877-02-96 06:14:00* Test Item Value Reference Range Interpretation Comments Alkaline Phosphatase (test code = 6768-6) 102 40-150 [facility] BeevilleWhite Blood Ycmhn2726-24-78 05:46:00* Test Item Value Reference Range Interpretation Comments White Blood Count (test code = 6690-2) 5.00 4.8-10.8 [facility]evilleRed Blood Fkzat0821-48-12 05:46:00* Test Item Value Reference Range Interpretation Comments Red Blood Count (test code = 789-8) 3.22 4.3-5.7 L [facility]evilleHemoglobin2019-04-04 05:46:00* Test Item Value Reference Range Interpretation Comments Hemoglobin (test code = 02433-4) 10.3 14.0-18.0 L [facility] BeevilleHematocrit2019-04-04 05:46:00* Test Item Value Reference Range Interpretation Comments Hematocrit (test code = 4544-3) 29.7 38.2-49.6 L [facility] BeevilleMean Corpuscular Azbmwz4412-39-92 05:46:00* Test Item Value Reference Range Interpretation Comments Mean Corpuscular Volume (test code = 787-2) 92.2 81-99 [facility]evilleMean Corpuscular Nlnkpmpuum3116-62-04 05:46:00* Test Item Value Reference Range Interpretation Comments Mean Corpuscular Hemoglobin (test code = 785-6) 32.0 28-32 [facility] BeevilleMean Corpuscular Hemoglobin Concent 2018-10-04 05:46:00* Test Item Value Reference Range Interpretation Comments Mean Corpuscular Hemoglobin Concent (test code = 786-4) 34.7 31-35 [facility]eville[facility] Cell Distribution Mmhiz0114-34-40 05:46:00* Test Item Value Reference Range Interpretation Comments Red Cell Distribution Width (test code = 93849-9) 11.9 11.7 -14.4 [facility]evillePlatelet Kvkyg5419-59-02 05:46:00* Test Item Value Reference Range Interpretation Comments Platelet Count (test code = 777-3) 146 140-360 [facility]evilleNeutrophils (%) (Auto)2018-10-04 05:46:00 * Test Item Value Reference Range Interpretation Comments Neutrophils (%) (Auto) (test code = 27869-0) 65.6 38.7-80.0 [facility]evilleLymphocytes (%) (Auto)2018-10-04 05:46:00 * Test Item Value Reference Range Interpretation Comments Lymphocytes (%) (Auto) (test code = 736-9) 15.6 18.0-39.1 L [facility]evilleMonocytes (%) (Auto)2018-10-04 05:46:00* Test Item Value Reference Range Interpretation Comments Monocytes (%) (Auto) (test code = 5905-5) 13.8 4.4-11.3 H [facility]evilleEosinophils (%) (Auto)2018-10-04 05:46:00 * Test Item Value Reference Range Interpretation Comments Eosinophils (%) (Auto) (test code = 713-8) 4.0 0.0-6.0 [facility]evilleBasophils (%) (Auto)2018-10-04 05:46:00* Test Item Value Reference Range Interpretation Comments Basophils (%) (Auto) (test code = 706-2) 0.4 0.0-1.0 [facility]evilleIM GRANULOCYTES %2018-10-04 05:46:00* Test Item Value Reference Range Interpretation Comments IM GRANULOCYTES % (test code = IM GRANULOCYTES %) 0.6 0.0- 1.0 [facility]evilleNeutrophils # (Auto)2018-10-04 05:46:00* Test Item Value Reference Range Interpretation Comments Neutrophils # (Auto) (test code = 751-8) 3.3 2.1-6.9 [facility]evilleLymphocytes # (Auto)2018-10-04 05:46:00* Test Item Value Reference Range Interpretation Comments Lymphocytes # (Auto) (test code = 09995-0) 0.8 1.0-3.2 L [facility]evilleMonocytes # (Auto)2018-10-04 05:46:00* Test Item Value Reference Range Interpretation Comments Monocytes # (Auto) (test code = 742-7) 0.7 0.2-0.8 [facility]evilleEosinophils # (Auto)2018-10-04 05:46:00* Test Item Value Reference Range Interpretation Comments Eosinophils # (Auto) (test code = 711-2) 0.2 0.0-0.4 [facility]evilleBasophils # (Auto)2018-10-04 05:46:00* Test Item Value Reference Range Interpretation Comments Basophils # (Auto) (test code = 704-7) 0.0 0.0-0.1 [facility]evilleAbsolute Immature Granulocyte (auto 2018-10-04 05:46:00* Test Item Value Reference Range Interpretation Comments Absolute Immature Granulocyte (auto (luisito t code = Absolute Immature Granulocyte (auto) 0.03 0-0.1 [facility] BeevilleWhite Blood Hgtcs6767-00-95 05:46:00* Test Item Value Reference Range Interpretation Comments White Blood Count (test code = 6690-2) 5.00 4.8-10.8 [facility]evilleRed Blood Ncybb4006-84-35 05:46:00* Test Item Value Reference Range Interpretation Comments Red Blood Count (test code = 789-8) 3.22 4.3-5.7 L [facility]evilleHemoglobin2019-04-04 05:46:00* Test Item Value Reference Range Interpretation Comments Hemoglobin (test code = 10144-0) 10.3 14.0-18.0 L [facility]evilleHematocrit2019-04-04 05:46:00* Test Item Value Reference Range Interpretation Comments Hematocrit (test code = 4544-3) 29.7 38.2-49.6 L [facility]evilleMean Corpuscular Cnurwe1918-32-64 05:46:00* Test Item Value Reference Range Interpretation Comments Mean Corpuscular Volume (test code = 787-2) 92.2 81-99 [facility]evilleMean Corpuscular Mzujxuknlj3840-34-02 05:46:00* Test Item Value Reference Range Interpretation Comments Mean Corpuscular Hemoglobin (test code = 785-6) 32.0 28-32 [facility]evilleMean Corpuscular Hemoglobin Concent 2018-10-04 05:46:00* Test Item Value Reference Range Interpretation Comments Mean Corpuscular Hemoglobin Concent (test code = 786-4) 34.7 31-35 [facility]evilleRed Cell Distribution Xtazr5520-58-79 05:46:00* Test Item Value Reference Range Interpretation Comments Red Cell Distribution Width (test code = 97803-6) 11.9 11.7 -14.4 [facility]evillePlatelet Vliwb9047-55-74 05:46:00* Test Item Value Reference Range Interpretation Comments Platelet Count (test code = 777-3) 146 140-360 [facility]evilleNeutrophils (%) (Auto)2018-10-04 05:46:00 * Test Item Value Reference Range Interpretation Comments Neutrophils (%) (Auto) (test code = 45720-5) 65.6 38.7-80.0 [facility]evilleLymphocytes (%) (Auto)2018-10-04 05:46:00 * Test Item Value Reference Range Interpretation Comments Lymphocytes (%) (Auto) (test code = 736-9) 15.6 18.0-39.1 L [facility]evilleMonocytes (%) (Auto)2018-10-04 05:46:00* Test Item Value Reference Range Interpretation Comments Monocytes (%) (Auto) (test code = 5905-5) 13.8 4.4-11.3 H [facility]evilleEosinophils (%) (Auto)2018-10-04 05:46:00 * Test Item Value Reference Range Interpretation Comments Eosinophils (%) (Auto) (test code = 713-8) 4.0 0.0-6.0 [facility]evilleBasophils (%) (Auto)2018-10-04 05:46:00* Test Item Value Reference Range Interpretation Comments Basophils (%) (Auto) (test code = 706-2) 0.4 0.0-1.0 [facility]evilleIM GRANULOCYTES %2018-10-04 05:46:00* Test Item Value Reference Range Interpretation Comments IM GRANULOCYTES % (test code = IM GRANULOCYTES %) 0.6 0.0- 1.0 [facility]evilleNeutrophils # (Auto)2018-10-04 05:46:00* Test Item Value Reference Range Interpretation Comments Neutrophils # (Auto) (test code = 751-8) 3.3 2.1-6.9 [facility]evilleLymphocytes # (Auto)2018-10-04 05:46:00* Test Item Value Reference Range Interpretation Comments Lymphocytes # (Auto) (test code = 37731-7) 0.8 1.0-3.2 L [facility]evilleMonocytes # (Auto)2018-10-04 05:46:00* Test Item Value Reference Range Interpretation Comments Monocytes # (Auto) (test code = 742-7) 0.7 0.2-0.8 [facility]evilleEosinophils # (Auto)2018-10-04 05:46:00* Test Item Value Reference Range Interpretation Comments Eosinophils # (Auto) (test code = 711-2) 0.2 0.0-0.4 [facility]evilleBasophils # (Auto)2018-10-04 05:46:00* Test Item Value Reference Range Interpretation Comments Basophils # (Auto) (test code = 704-7) 0.0 0.0-0.1 [facility]evilleAbsolute Immature Granulocyte (auto 2018-10-04 05:46:00* Test Item Value Reference Range Interpretation Comments Absolute Immature Granulocyte (auto (luisito t code = Absolute Immature Granulocyte (auto) 0.03 0-0.1 [facility]evilleWhite Blood Humkx7735-27-59 05:46:00* Test Item Value Reference Range Interpretation Comments White Blood Count (test code = 6690-2) 5.00 4.8-10.8 [facility]evilleRed Blood Yimsy8045-34-57 05:46:00* Test Item Value Reference Range Interpretation Comments Red Blood Count (test code = 789-8) 3.22 4.3-5.7 L [facility] BeevilleHemoglobin2019-04-04 05:46:00* Test Item Value Reference Range Interpretation Comments Hemoglobin (test code = 96082-7) 10.3 14.0-18.0 L [facility] BeevilleHematocrit2019-04-04 05:46:00* Test Item Value Reference Range Interpretation Comments Hematocrit (test code = 4544-3) 29.7 38.2-49.6 L [facility]evilleMean Corpuscular Odwlkg8953-17-25 05:46:00* Test Item Value Reference Range Interpretation Comments Mean Corpuscular Volume (test code = 787-2) 92.2 81-99 [facility]evilleMean Corpuscular Yjlmhbcygu6547-15-47 05:46:00* Test Item Value Reference Range Interpretation Comments Mean Corpuscular Hemoglobin (test code = 785-6) 32.0 28-32 [facility]evilleMean Corpuscular Hemoglobin Concent 2018-10-04 05:46:00* Test Item Value Reference Range Interpretation Comments Mean Corpuscular Hemoglobin Concent (test code = 786-4) 34.7 31-35 [facility]evilleRed Cell Distribution Dueyq8102-44-75 05:46:00* Test Item Value Reference Range Interpretation Comments Red Cell Distribution Width (test code = 24785-2) 11.9 11.7 -14.4 [facility]evillePlatelet Fwqup6536-07-40 05:46:00* Test Item Value Reference Range Interpretation Comments Platelet Count (test code = 777-3) 146 140-360 [facility]evilleNeutrophils (%) (Auto)2018-10-04 05:46:00 * Test Item Value Reference Range Interpretation Comments Neutrophils (%) (Auto) (test code = 30924-1) 65.6 38.7-80.0 [facility]evilleLymphocytes (%) (Auto)2018-10-04 05:46:00 * Test Item Value Reference Range Interpretation Comments Lymphocytes (%) (Auto) (test code = 736-9) 15.6 18.0-39.1 L [facility]evilleMonocytes (%) (Auto)2018-10-04 05:46:00* Test Item Value Reference Range Interpretation Comments Monocytes (%) (Auto) (test code = 5905-5) 13.8 4.4-11.3 H [facility]evilleEosinophils (%) (Auto)2018-10-04 05:46:00 * Test Item Value Reference Range Interpretation Comments Eosinophils (%) (Auto) (test code = 713-8) 4.0 0.0-6.0 [facility]evilleBasophils (%) (Auto)2018-10-04 05:46:00* Test Item Value Reference Range Interpretation Comments Basophils (%) (Auto) (test code = 706-2) 0.4 0.0-1.0 [facility]evilleIM GRANULOCYTES %2018-10-04 05:46:00* Test Item Value Reference Range Interpretation Comments IM GRANULOCYTES % (test code = IM GRANULOCYTES %) 0.6 0.0- 1.0 [facility]evilleNeutrophils # (Auto)2018-10-04 05:46:00* Test Item Value Reference Range Interpretation Comments Neutrophils # (Auto) (test code = 751-8) 3.3 2.1-6.9 [facility]evilleLymphocytes # (Auto)2018-10-04 05:46:00* Test Item Value Reference Range Interpretation Comments Lymphocytes # (Auto) (test code = 01404-4) 0.8 1.0-3.2 L [facility]evilleMonocytes # (Auto)2018-10-04 05:46:00* Test Item Value Reference Range Interpretation Comments Monocytes # (Auto) (test code = 742-7) 0.7 0.2-0.8 [facility]evilleEosinophils # (Auto)2018-10-04 05:46:00* Test Item Value Reference Range Interpretation Comments Eosinophils # (Auto) (test code = 711-2) 0.2 0.0-0.4 [facility]evilleBasophils # (Auto)2018-10-04 05:46:00* Test Item Value Reference Range Interpretation Comments Basophils # (Auto) (test code = 704-7) 0.0 0.0-0.1 [facility]evilleAbsolute Immature Granulocyte (auto 2018-10-04 05:46:00* Test Item Value Reference Range Interpretation Comments Absolute Immature Granulocyte (auto (luisito t code = Absolute Immature Granulocyte (auto) 0.03 0-0.1 [facility]evilleWhite Blood Uoieq0712-87-56 05:46:00* Test Item Value Reference Range Interpretation Comments White Blood Count (test code = 6690-2) 5.00 4.8-10.8 [facility]evilleRed Blood Ayhff2366-80-15 05:46:00* Test Item Value Reference Range Interpretation Comments Red Blood Count (test code = 789-8) 3.22 4.3-5.7 L [facility]evilleHemoglobin2019-04-04 05:46:00* Test Item Value Reference Range Interpretation Comments Hemoglobin (test code = 24454-3) 10.3 14.0-18.0 L [facility] BeevilleHematocrit2019-04-04 05:46:00* Test Item Value Reference Range Interpretation Comments Hematocrit (test code = 4544-3) 29.7 38.2-49.6 L [facility]evilleMean Corpuscular Iwifuf4855-23-00 05:46:00* Test Item Value Reference Range Interpretation Comments Mean Corpuscular Volume (test code = 787-2) 92.2 81-99 [facility]evilleMean Corpuscular Nsoziunnya4339-36-14 05:46:00* Test Item Value Reference Range Interpretation Comments Mean Corpuscular Hemoglobin (test code = 785-6) 32.0 28-32 [facility]evilleMean Corpuscular Hemoglobin Concent 2018-10-04 05:46:00* Test Item Value Reference Range Interpretation Comments Mean Corpuscular Hemoglobin Concent (test code = 786-4) 34.7 31-35 [facility]evilleRed Cell Distribution Utdir4996-73-62 05:46:00* Test Item Value Reference Range Interpretation Comments Red Cell Distribution Width (test code = 63443-4) 11.9 11.7 -14.4 [facility]evillePlatelet Dcqfk6702-94-06 05:46:00* Test Item Value Reference Range Interpretation Comments Platelet Count (test code = 777-3) 146 140-360 [facility]evilleNeutrophils (%) (Auto)2018-10-04 05:46:00 * Test Item Value Reference Range Interpretation Comments Neutrophils (%) (Auto) (test code = 41947-5) 65.6 38.7-80.0 [facility]evilleLymphocytes (%) (Auto)2018-10-04 05:46:00 * Test Item Value Reference Range Interpretation Comments Lymphocytes (%) (Auto) (test code = 736-9) 15.6 18.0-39.1 L [facility]evilleMonocytes (%) (Auto)2018-10-04 05:46:00* Test Item Value Reference Range Interpretation Comments Monocytes (%) (Auto) (test code = 5905-5) 13.8 4.4-11.3 H [facility]evilleEosinophils (%) (Auto)2018-10-04 05:46:00 * Test Item Value Reference Range Interpretation Comments Eosinophils (%) (Auto) (test code = 713-8) 4.0 0.0-6.0 [facility]evilleBasophils (%) (Auto)2018-10-04 05:46:00* Test Item Value Reference Range Interpretation Comments Basophils (%) (Auto) (test code = 706-2) 0.4 0.0-1.0 [facility]evilleIM GRANULOCYTES %2018-10-04 05:46:00* Test Item Value Reference Range Interpretation Comments IM GRANULOCYTES % (test code = IM GRANULOCYTES %) 0.6 0.0- 1.0 [facility]evilleNeutrophils # (Auto)2018-10-04 05:46:00* Test Item Value Reference Range Interpretation Comments Neutrophils # (Auto) (test code = 751-8) 3.3 2.1-6.9 [facility]evilleLymphocytes # (Auto)2018-10-04 05:46:00* Test Item Value Reference Range Interpretation Comments Lymphocytes # (Auto) (test code = 10606-4) 0.8 1.0-3.2 L [facility]evilleMonocytes # (Auto)2018-10-04 05:46:00* Test Item Value Reference Range Interpretation Comments Monocytes # (Auto) (test code = 742-7) 0.7 0.2-0.8 [facility]evilleEosinophils # (Auto)2018-10-04 05:46:00* Test Item Value Reference Range Interpretation Comments Eosinophils # (Auto) (test code = 711-2) 0.2 0.0-0.4 [facility]evilleBasophils # (Auto)2018-10-04 05:46:00* Test Item Value Reference Range Interpretation Comments Basophils # (Auto) (test code = 704-7) 0.0 0.0-0.1 [facility]evilleAbsolute Immature Granulocyte (auto 2018-10-04 05:46:00* Test Item Value Reference Range Interpretation Comments Absolute Immature Granulocyte (auto (luisito t code = Absolute Immature Granulocyte (auto) 0.03 0-0.1 [facility] BeevilleCHEST XRAY LINE PZJOKIFOX3753-62-92 21:07:00 [place] [address] Patient Name: YORDAN LAMBERT MR #: [id number] : 1955 Age/Sex: 63/M Req #: [id number] Adm Physician: PAULETTE CARVER MD Ordered by: PAULETTE CARVER MD Report #: [id number] Location: MED/SURG2 Room/Bed: [facility] Procedure: [id number] DX/ CHEST XRAY LINE PLACEMENT Exam Date: 10/03/18 Exam T imelda: 2049 REPORT STATUS: Signed Examination: Single AP view of the chest. COMPARISON: None. INDICATION : Line placement DISCUSSION: Lines/tubes: Left PICC line with th e tip overlying the SVC. Lungs: The lungs are well inflated and clear. No pneumonia or pulmonary edema. Pleura: No pleural effusion or pneumothorax. Heart and mediastinum: The heart and the mediastinum are unremarkable. Bones and soft tissues: No acute bony abnormalities. IMPRESSION: 1. PICC line with tip over the SVC. Signed by: Dr. Prema Randall M.D. on 10/03/2018 9:08 PM Dictated By: PREMA RANDALL MD 07 Transcribed By: RUBA on 09/18 COPY TO: PAULETTE CARVER MD Bbsusfntgf8736-74-69 12:18:00* Test Item Value Reference Range Interpretation Comments Prealbumin (test code = 75431-7) 7 10-36 L Performed at: - [facility] [id number] Director: Dennis Mccauley MD, Phone: [phone] [facility]ohn Hospital BeevillePrealbumin2019-04-03 12:18:00* Test Item Value Reference Range Interpretation Comments Prealbumin (test code = 02467-0) 7 10-36 L Performed at: - [facility] [id number] Director: Dennis Mccauley MD, Phone: [phone] Spohn Hospital BeevillePrealbumin2019-04-03 12:18:00* Test Item Value Reference Range Interpretation Comments Prealbumin (test code = 94456-7) 7 10-36 L Performed at: [facility] [id number] Director: Dennis Mccauley MD, Phone: [phone] Spohn Hospital BeevillePrealbumin2019-04-03 12:18:00* Test Item Value Reference Range Interpretation Comments Prealbumin (test code = 19157-1) 7 10-36 L Performed at: [facility] [address] [id number] Director: Dennis Mccauley MD, Phone: [phone] Spohn Hospital BeevillePrealbumin2019-04-03 12:18:00* Test Item Value Reference Range Interpretation Comments Prealbumin (test code = 10539-9) 7 10-36 L Performed at: [facility] [address] [id number] Director: Dennis Mccauley MD, Phone: [phone] Spohn Hospital BeevillePrealbumin2019-04-03 12:18:00* Test Item Value Reference Range Interpretation Comments Prealbumin (test code = 35624-8) 7 10-36 L Performed at: - [facility] [id number] Director: Dennis Mccauley MD, Phone: [phone] [facility] Okglguf9125-59-96 07:17:00* Test Item Value Reference Range Interpretation Comments Wound Culture (test code = 6462-6) Organism: STAPHYLOCOCCUS AUREUS [facility] Dsbdmdt5848-62-29 07:17:00* Test Item Value Reference Range Interpretation Comments Wound Culture (test code = 6462-6) Organism: STAPHYLOCOCCUS AUREUS [facility] Gjdgiht1879-26-13 07:17:00* Test Item Value Reference Range Interpretation Comments Wound Culture (test code = 6462-6) Organism: STAPHYLOCOCCUS AUREUS [facility] Jpdobot7132-39-88 07:17:00* Test Item Value Reference Range Interpretation Comments Wound Culture (test code = 6462-6) Organism: STAPHYLOCOCCUS AUREUS [facility] Ycmhqxg3010-41-14 07:17:00* Test Item Value Reference Range Interpretation Comments Wound Culture (test code = 6462-6) No Result Data Provided [facility] Xvtwwmh3944-47-26 07:17:00* Test Item Value Reference Range Interpretation Comments Wound Culture (test code = 6462-6) No Result Data Provided [facility] Axtgdty1848-77-49 06:19:00* Test Item Value Reference Range Interpretation Comments Blood Culture (test code = 600-7) Organism: STAPHYLOCOCCUS AUREUS [facility]2019-04-02 06:19:00* Test Item Value Reference Range Interpretation Comments Blood Culture (test code = 600-7) Organism: STAPHYLOCOCCUS AUREUS [facility]2019-04-02 06:19:00* Test Item Value Reference Range Interpretation Comments Blood Culture (test code = 600-7) Organism: STAPHYLOCOCCUS AUREUS [facility]2019-04-02 06:19:00* Test Item Value Reference Range Interpretation Comments Blood Culture (test code = 600-7) Organism: STAPHYLOCOCCUS AUREUS [facility]2019-04-02 06:19:00* Test Item Value Reference Range Interpretation Comments Blood Culture (test code = 600-7) No Result Data Provided [facility]2019-04-02 06:19:00* Test Item Value Reference Range Interpretation Comments Blood Culture (test code = 600-7) No Result Data Provided [facility] Hospitalycin Level Jksgqg8058-51-59 18:25:00* Test Item Value Reference Range Interpretation Comments Vancomycin Level Trough (test code = 4092-3) 10.3 5.0-10.0 HH Results repeated and called to CORDELL PHILIPAHAM at 1825 on 10/01/18 by GILDARDO KERNS. Read back and verified.[facility] Hospitalycin Level Haszld7704-59-49 18:25:00* Test Item Value Reference Range Interpretation Comments Vancomycin Level Trough (test code = 4092-3) 10.3 5.0-10.0 HH Results repeated and called to CORDELL GREGORIO at 1825 on 10/01/18 by GILDARDO KERNS. Read back and verified.[facility] Hospitalycin Level Syqwrl1984-52-80 18:25:00* Test Item Value Reference Range Interpretation Comments Vancomycin Level Trough (test code = 4092-3) 10.3 5.0-10.0 HH Results repeated and called to CORDELL PERKINS at 1825 on 10/01/18 by GILDARDO KERNS. Read back and verified.[facility]evilleVancomycin Level Mudovq6833-67-97 18:25:00* Test Item Value Reference Range Interpretation Comments Vancomycin Level Trough (test code = 4092-3) 10.3 5.0-10.0 HH Results repeated and called to CORDELL PERKINS at 1825 on 10/01/18 by GILDARDO KERNS. Read back and verified.[facility]evilleVancomycin Level Xhoxub9125-21-25 18:25:00* Test Item Value Reference Range Interpretation Comments Vancomycin Level Trough (test code = 4092-3) 10.3 5.0-10.0 HH Results repeated and called to CORDELL PERKINS at 1825 on 10/01/18 by GILDARDO KERNS. Read back and verified.[facility]evilleVancomycin Level Zcbnth3519-87-09 18:25:00* Test Item Value Reference Range Interpretation Comments Vancomycin Level Trough (test code = 4092-3) 10.3 5.0-10.0 HH Results repeated and called to CORDELL PERKINS at 1825 on 10/01/18 by GILDARDO KERNS. Read back and verified.[facility]evilleCT ABDOMEN/PELVIS [id number] 17:53:00 [place] [address] Patient Name: YORDAN LAMBERT MR #: [id number] : 1955 Age/Sex: 63/M Req #: [id number] Adm Physician: PAULETTE CARVER MD Ordered by: MAGALI CONTRERAS MD Report #: [id number] Location: MED/SURG2 Room/Bed: [facility] Procedure: [id number] CT/CT ABDOMEN/PELVIS W Exam Date: 10/01/18 Exam Time: 1630 REPORT STATUS: Signed EXAM: CT Abdomen and Pelvis WITH contrast INDICATION: Cellulitis. Osteomyelitis. Abs cess. COMPARISON: None. TECHNIQUE: Abdomen and pelvis were scanned uti lizing a multidetector helical scanner from the lung base to the pubic symphys is after administration of IV contrast. Coronal and sagittal reformations were obtained. Routine protocol was performed. Scan was performed when during port al venous phase. IV CONTRAST: 100 mL of Isovue-[address]: Water COMPLICATIONS: None RADIATION DOSE: Total DLP: 1001.13 mGy*cm Estimated effective dose: (DLP x 0.015 x size factor) mSv CTDIvol has been reviewed. It is below the limits set by the Radiat ion Protocol Committee (RPC). Dose modulation, iterative reconstruction , and/or weight based adjustment of the mA/kV was utilized to reduce the radia tion dose to as low as reasonably achievable. FINDINGS: LINES and T UBES: None. LOWER THORAX: Unremarkable HEPATOBILIARY: Scattered calcified granulomas. No biliary ductal dilation. GALLBLADDER: No radio- opaque stones or sludge. No wall thickening. SPLEEN: No splenomegaly. Smal l splenule. PANCREAS: No focal masses or ductal dilatation. ADRENALS : No adrenal nodules KIDNEYS/URETERS: Kidneys enhance symmetrically. N o hydronephrosis. Too small to characterize hypodensity in the anterior right kidney. Bilateral perinephric fat stranding could be due to chronic medical renal disease. Nonobstructing 3 mm stone in the posterior left kidney. GI TRACT: No abnormal distention, wall thickening, or evidence of bowel obstruct ion. Appendix not clearly seen. No inflammatory change in the right lowe r quadrant of the abdomen. Scattered diverticulosis without evidence of div erticulitis. PELVIC ORGANS/BLADDER: Coarse calcifications in the prostate g land. LYMPH NODES: No lymphadenopathy. VESSELS: Scattered vascular andrews cifications.. PERITONEUM / RETROPERITONEUM: No free air or fluid. BONE S: Scattered degenerative change. SOFT TISSUES: Small fat-containing inguin al hernias IMPRESSION: Scattered diverticulosis without evid ence of diverticulitis. Appendix not clearly seen. No inflammatory change in the right lower quadrant of the abdomen. Too small to characterize hypode nsity in the anterior right kidney. Bilateral perinephric fat stranding could be due to chronic medical renal disease. Nonobstructing 3 mm stone in the pos terior left kidney. No abdominal or pelvic abscess is seen. Signed by: Dr. iVncent Espinal M.D. on 10/01/2018 6:01 PM Dictated By: VINCENT ESPINAL MD, MD 00 Transcribed By: RUBA on 10/01/181800 COPY TO: MAGALI CONTRERAS MD MRI FOOT LEFT [id number] 16:37:00 [place] [address] Patient Name: YORDAN LAMBERT MR #: [id number] : 1955 Age/Sex: 63/M Req #: [id number] Adm Physician: PAULETTE CARVER MD Ordered by: HAWK CARIAS DPJordyn Report #: [id number] Location: MED/SURG2 Room/Bed: [facility] Procedure: MRI/MRI FOOT LEFT WO Exam Date: Exam Time: REPORT STATUS: Signed MRI of the left forefoot without contrast. History: Cellulitis. Osteomyelitis. Ulcer. Dec reased range of motion. Technique: Multiplanar multisequence MRI of the loan t without contrast Comparison: Radiographs 09/29/2018 Findings: Ab normal skin ulceration with sinus tract and soft tissue edema at the plantar a spect of the foot at the level of the distal third/fourth metatarsals. There i s associated abnormal soft tissue edema and a lobulated fluid collection exten ding from the plantar aspect of the foot measuring approximately 3 cm in maxim al dimension consistent with a phlegmon/abscess. This is best seen on series 4 image 18. There is associated cortical destruction and bone marrow replacement with bone marrow edema centered at the third distal metatarsal and proximal third toe. Additionally, abnormal bone marrow edema and cortical destruction i s seen at the distal second metatarsal, proximal second toe, distal fourth met atarsal and to a lesser extent proximal fourth toe. Findings are consistent wi th osteomyelitis. Chronic appearing deformity of the distal fifth metatarsa l and proximal fifth toe. Dorsal medial subluxation of the proximal secon d toe with respect to the distal second metatarsal best seen on sagittal image 18 and 19. Scattered degenerative change. Diffuse soft tissue edema. Impression: Findings consistent with skin ulceration, sinus tract, phlegm on/abscess, cellulitis and osteomyelitis as described above centered at the di stal third metatarsal/proximal third toe. Signed by: Dr. Vincent Espinal M.D. on 10/01/2018 5:11 PM Dictated By: VINCENT ESPINAL MD, MD 10 Transcribed By: RUBA on 07/21 COPY TO: HAWK JIMENEZ DPM Bedside Glucose 2018-09-30 20:47:00* Test Item Value Reference Range Interpretation Comments Bedside Glucose (test code = 48130-6) 161 70-120 H Meter ID: [id number] [facility] BeevilleBlood Culture 2018-09-30 15:59:00* Test Item Value Reference Range Interpretation Comments Blood Culture (test code = 40139762) Growth detected. Culture wo rkup ordered. [facility] Csdau5370-19-05 06:29:00* Test Item Value Reference Range Interpretation Comments Sodium Level (test code = 2951-2) 132 136-145 L [facility] BeevillePotassium Ikafo5230-28-12 06:29:00* Test Item Value Reference Range Interpretation Comments Potassium Level (test code = 2823-3) 4.0 3.5-5.1 [facility] BeevilleChloride Nuabw9628-20-24 06:29:00* Test Item Value Reference Range Interpretation Comments Chloride Level (test code = 2075-0) 104 98-107 [facility] BeevilleCarbon Dioxide Bqpku3924-39-19 06:29:00* Test Item Value Reference Range Interpretation Comments Carbon Dioxide Level (test code = 2028-9) 23 22-29 [facility] BeevilleAnion Dxw9254-98-39 06:29:00* Test Item Value Reference Range Interpretation Comments Anion Gap (test code = 26496-9) 9.0 8-16 [facility] BeevilleBlood Urea Abmsgnuf3594-66-69 06:29:00* Test Item Value Reference Range Interpretation Comments Blood Urea Nitrogen (test code = 3094-0) 16 7-26 [facility] BeevilleCreatinine2019-03-31 06:29:00* Test Item Value Reference Range Interpretation Comments Creatinine (test code = 2160-0) 0.81 0.72-1.25 [facility]evilleBUN/Creatinine Ovamw8896-44-40 06:29:00* Test Item Value Reference Range Interpretation Comments BUN/Creatinine Ratio (test code = 3097-3) 20 6-25 [facility] BeevilleEstimat Glomerular Filtration Rate 2018-09-30 06:29:00* Test Item Value Reference Range Interpretation Comments Estimat Glomerular Filtration Rate (test code = 319072149) > 60 >60 Ranges were taken from the National Kidney Disease Education Program and the [facility] Foundation literature.Reference ranges:60 or greater: Kfmzkv16-44 ( for 3 consecutive months): Chronic kidney disease 15 or less: Kidney failureCHRISTUS Spohn Hospital BeevilleGlucose Dexzw3105-30-49 06:29:00* Test Item Value Reference Range Interpretation Comments Glucose Level (test code = LEG8328) 98 74-118 [facility] BeevilleCalcium Bmebp6048-59-58 06:29:00* Test Item Value Reference Range Interpretation Comments Calcium Level (test code = 32173-1) 8.4 8.4-10.2 [facility] BeevilleTotal Eskvwhaiu3738-21-05 06:29:00* Test Item Value Reference Range Interpretation Comments Total Bilirubin (test code = 1975-2) 1.3 0.2-1.2 H [facility] BeevilleAspartate Amino Transf (AST/SGOT) 2018-09-30 06:29:00* Test Item Value Reference Range Interpretation Comments Aspartate Amino Transf (AST/SGOT) (test code = Aspartate Amino Transf (AST/SGOT)) 19 5-34 [facility] BeevilleAlanine Aminotransferase (ALT/SGPT) 2018-09-30 06:29:00* Test Item Value Reference Range Interpretation Comments Alanine Aminotransferase (ALT/SGPT) (test code = 1742-6) 9 0-55 [facility] BeevilleTotal Kctxahv5118-86-99 06:29:00* Test Item Value Reference Range Interpretation Comments Total Protein (test code = 2885-2) 6.2 6.5-8.1 L [facility] BeevilleAlbumin2019-03-31 06:29:00* Test Item Value Reference Range Interpretation Comments Albumin (test code = 1751-7) 2.4 3.5-5.0 L [facility] BeevilleGlobulin2019-03-31 06:29:00* Test Item Value Reference Range Interpretation Comments Globulin (test code = 30594-0) 3.8 2.3-3.5 H [facility] BeevilleAlbumin/Globulin Uwnjz5175-51-37 06:29:00 * Test Item Value Reference Range Interpretation Comments Albumin/Globulin Ratio (test code = 1759-0) 0.6 0.8-2.0 L [facility] BeevilleAlkaline Tdgkdsuiatm1547-94-80 06:29:00* Test Item Value Reference Range Interpretation Comments Alkaline Phosphatase (test code = 6768-6) 90 40-150 [facility] BeevilleWhite Blood Gkxog0728-17-35 05:41:00* Test Item Value Reference Range Interpretation Comments White Blood Count (test code = 6690-2) 7.20 4.8-10.8 [facility] BeevilleRed Blood Fiigz9529-25-64 05:41:00* Test Item Value Reference Range Interpretation Comments Red Blood Count (test code = 789-8) 3.40 4.3-5.7 L [facility] BeevilleHemoglobin2019-03-31 05:41:00* Test Item Value Reference Range Interpretation Comments Hemoglobin (test code = 25831-0) 11.2 14.0-18.0 L [facility] BeevilleHematocrit2019-03-31 05:41:00* Test Item Value Reference Range Interpretation Comments Hematocrit (test code = 4544-3) 32.0 38.2-49.6 L [facility] BeevilleMean Corpuscular Zcjjrw3904-45-30 05:41:00* Test Item Value Reference Range Interpretation Comments Mean Corpuscular Volume (test code = 787-2) 94.1 81-99 [facility] BeevilleMean Corpuscular Xbqwpuptfy0249-31-24 05:41:00* Test Item Value Reference Range Interpretation Comments Mean Corpuscular Hemoglobin (test code = 785-6) 32.9 28-32 H [facility] BeevilleMean Corpuscular Hemoglobin Concent 2018-09-30 05:41:00* Test Item Value Reference Range Interpretation Comments Mean Corpuscular Hemoglobin Concent (test code = 786-4) 35.0 31-35 [facility] BeevilleRed Cell Distribution Lonkj2358-77-21 05:41:00* Test Item Value Reference Range Interpretation Comments Red Cell Distribution Width (test code = 06000-0) 12.5 11.7 -14.4 [facility] BeevillePlatelet Prwup6296-78-41 05:41:00* Test Item Value Reference Range Interpretation Comments Platelet Count (test code = 777-3) 115 140-360 L [facility] BeevilleNeutrophils (%) (Auto)2018-09-30 05:41:00 * Test Item Value Reference Range Interpretation Comments Neutrophils (%) (Auto) (test code = 55827-1) 76.0 38.7-80.0 [facility] BeevilleLymphocytes (%) (Auto)2018-09-30 05:41:00 * Test Item Value Reference Range Interpretation Comments Lymphocytes (%) (Auto) (test code = 736-9) 9.4 18.0-39.1 L [facility] BeevilleMonocytes (%) (Auto)2018-09-30 05:41:00* Test Item Value Reference Range Interpretation Comments Monocytes (%) (Auto) (test code = 5905-5) 13.2 4.4-11.3 H [facility] BeevilleEosinophils (%) (Auto)2018-09-30 05:41:00 * Test Item Value Reference Range Interpretation Comments Eosinophils (%) (Auto) (test code = 713-8) 0.7 0.0-6.0 [facility]evilleBasophils (%) (Auto)2018-09-30 05:41:00* Test Item Value Reference Range Interpretation Comments Basophils (%) (Auto) (test code = 706-2) 0.1 0.0-1.0 [facility] BeevilleIM GRANULOCYTES %2018-09-30 05:41:00* Test Item Value Reference Range Interpretation Comments IM GRANULOCYTES % (test code = IM GRANULOCYTES %) 0.6 0.0- 1.0 [facility] BeevilleNeutrophils # (Auto)2018-09-30 05:41:00* Test Item Value Reference Range Interpretation Comments Neutrophils # (Auto) (test code = 751-8) 5.5 2.1-6.9 [facility] BeevilleLymphocytes # (Auto)2018-09-30 05:41:00* Test Item Value Reference Range Interpretation Comments Lymphocytes # (Auto) (test code = 29466-8) 0.7 1.0-3.2 L [facility] BeevilleMonocytes # (Auto)2018-09-30 05:41:00* Test Item Value Reference Range Interpretation Comments Monocytes # (Auto) (test code = 742-7) 1.0 0.2-0.8 H [facility] BeevilleEosinophils # (Auto)2018-09-30 05:41:00* Test Item Value Reference Range Interpretation Comments Eosinophils # (Auto) (test code = 711-2) 0.1 0.0-0.4 [facility] BeevilleBasophils # (Auto)2018-09-30 05:41:00* Test Item Value Reference Range Interpretation Comments Basophils # (Auto) (test code = 704-7) 0.0 0.0-0.1 [facility] BeevilleAbsolute Immature Granulocyte (auto 2018-09-30 05:41:00* Test Item Value Reference Range Interpretation Comments Absolute Immature Granulocyte (auto (luisito t code = Absolute Immature Granulocyte (auto) 0.04 0-0.1 [facility] BeevilleLactic Acid Kfmzo4845-77-54 17:38:00* Test Item Value Reference Range Interpretation Comments Lactic Acid Level (test code = Lactic Acid Level) 12.1 4.5- 19.8 [facility] BeevilleLactic Acid Nvdql0348-97-22 17:38:00* Test Item Value Reference Range Interpretation Comments Lactic Acid Level (test code = Lactic Acid Level) 12.1 4.5- 19.8 [facility] BeevilleLactic Acid Nvvdn9807-75-56 17:38:00* Test Item Value Reference Range Interpretation Comments Lactic Acid Level (test code = Lactic Acid Level) 12.1 4.5- 19.8 [facility] BeevilleLactic Acid Humlo8982-17-39 17:38:00* Test Item Value Reference Range Interpretation Comments Lactic Acid Level (test code = Lactic Acid Level) 12.1 4.5- 19.8 [facility] BeevilleLactic Acid Ckeyp0000-69-46 17:38:00* Test Item Value Reference Range Interpretation Comments Lactic Acid Level (test code = Lactic Acid Level) 12.1 4.5- 19.8 [facility] BeevilleLactic Acid Hvogv3824-02-20 17:38:00* Test Item Value Reference Range Interpretation Comments Lactic Acid Level (test code = Lactic Acid Level) 12.1 4.5- 19.8 [facility] BeevilleLactic Acid Mtjhj6008-64-64 17:38:00* Test Item Value Reference Range Interpretation Comments Lactic Acid Level (test code = Lactic Acid Level) 12.1 4.5- 19.8 [facility] BeevilleFOOT LEFT LTQFFKXR5130-20-12 17:29:00 [facility] [address] [address] Patient Name: YORDAN LAMBERT MR #: [id number] : 1955 Age/Sex: 63/M Req #: [id number] Adm Physician: Ordered by: SARAH TALLEY BACK OFFICE MEDICAL ASSISTANT Report #: [id number] Location: ER Room/Bed: Procedure: [id number] DX/F OOT LEFT COMPLETE Exam Date: 09/29/18 Exam Time: 170 5 REPORT STATUS: Signed FOOT LEF T COMPLETE - 3 views HISTORY: Swollen toes. COMPARISON: None available. FINDINGS: Multifocal erosions, involving the second, third, fourth a nd fifth distal metatarsals with subluxation of the second metatarsophalangeal joint and complete destruction of the third through fifth metatarsophalangeal joints. There is associated soft tissue swelling of the fore and midfoot and periosteal thickening of the remainder of the metatarsal bones. Partially imaged distal fibular intramedullary telma fixation. Plantar calcaneal enthesop hyte. IMPRESSION: Multifocal erosions, involving the second, third, f ourth and fifth distal metatarsals with subluxation of the second metatarsopha langeal joint and complete destruction of the third through fifth metatarsopha langeal joints. Signed by: Dr. Fidel Cuevas MD on 09/29/2018 5:33 PM Dictated By: FIDEL CUEVAS MD 32 COPY TO: SHERI TALLEY BACK OFFICE MEDICAL ASSISTANT Bedside Nusgahg4622-84-26 08:31:00* Test Item Value Reference Range Interpretation Comments Bedside Glucose (test code = 75386-7) 85 70-120 Meter ID: [id number] Spohn Hospital BeevilleCreatine Kinase 2018-07-15 07:03:00* Test Item Value Reference Range Interpretation Comments Creatine Kinase (test code = 2157-6) 40 30-200 [facility] BeevilleCreatine Urywqs4784-45-20 07:03:00* Test Item Value Reference Range Interpretation Comments Creatine Kinase (test code = 2157-6) 40 30-200 [facility] BeevilleCreatine Tmgaav0172-02-18 07:03:00* Test Item Value Reference Range Interpretation Comments Creatine Kinase (test code = 2157-6) 40 30-200 [facility] BeevilleCreatine Cdgnng6311-46-84 07:03:00* Test Item Value Reference Range Interpretation Comments Creatine Kinase (test code = 2157-6) 40 30-200 [facility] BeevilleCreatine Gwiavk0724-78-61 07:03:00* Test Item Value Reference Range Interpretation Comments Creatine Kinase (test code = 2157-6) 40 30-200 [facility] BeevilleCreatine Ceevbu1426-39-85 07:03:00* Test Item Value Reference Range Interpretation Comments Creatine Kinase (test code = 2157-6) 40 30-200 [facility] BeevilleRanmineral [facility] Vancomycin Vqcsq7257-26-11 06:06:00* Test Item Value Reference Range Interpretation Comments Random Vancomycin Level (test code = 94888-4) 7.6 [facility] Vancomycin Sgxje7276-27-04 06:06:00* Test Item Value Reference Range Interpretation Comments Random Vancomycin Level (test code = 49128-1) 7.6 [facility] Vancomycin Fzbur5556-65-19 06:06:00* Test Item Value Reference Range Interpretation Comments Random Vancomycin Level (test code = 27595-8) 7.6 [facility] Vancomycin Dgoge9949-75-16 06:06:00* Test Item Value Reference Range Interpretation Comments Random Vancomycin Level (test code = 49281-2) 7.6 [facility] BeevilleRandom Vancomycin Mvatg6352-66-11 06:06:00* Test Item Value Reference Range Interpretation Comments Random Vancomycin Level (test code = 63365-2) 7.6 [facility] BeevilleRandom Vancomycin Lzytu1828-56-24 06:06:00* Test Item Value Reference Range Interpretation Comments Random Vancomycin Level (test code = 77210-7) 7.6 [facility] Lakeodium Stfjk4146-22-25 05:55:00* Test Item Value Reference Range Interpretation Comments Sodium Level (test code = 2951-2) 138 136-145 [facility] BeevillePotassium Oluwh5083-93-54 05:55:00* Test Item Value Reference Range Interpretation Comments Potassium Level (test code = 2823-3) 4.0 3.5-5.1 [facility] BeevilleChloride Fxaii6413-02-51 05:55:00* Test Item Value Reference Range Interpretation Comments Chloride Level (test code = 2075-0) 107 98-107 [facility] BeevilleCarbon Dioxide Xghcr5019-84-60 05:55:00* Test Item Value Reference Range Interpretation Comments Carbon Dioxide Level (test code = 2028-9) 25 22-29 [facility] BeevilleAnion Nxy3339-33-35 05:55:00* Test Item Value Reference Range Interpretation Comments Anion Gap (test code = 41415-0) 10.0 8-16 [facility] BeevilleBlood Urea Loqqzlcl4434-16-36 05:55:00* Test Item Value Reference Range Interpretation Comments Blood Urea Nitrogen (test code = 3094-0) 10 7-26 [facility] BeevilleCreatinine2019-01-13 05:55:00* Test Item Value Reference Range Interpretation Comments Creatinine (test code = 2160-0) 0.76 0.72-1.25 [facility] BeevilleBUN/Creatinine Ukeud6868-95-08 05:55:00* Test Item Value Reference Range Interpretation Comments BUN/Creatinine Ratio (test code = 3097-3) 13 6- [facility] BeevilleEstimat Glomerular Filtration Rate 2018-07-15 05:55:00* Test Item Value Reference Range Interpretation Comments Estimat Glomerular Filtration Rate (test code = 653210009) > 60 >60 Ranges were taken from the National Kidney Disease Education Program and the [facility] literature.Reference ranges:60 or greater: Zyzwil67-73 ( for 3 consecutive months): Chronic kidney disease 15 or less: Kidney failureCHRISTUS Spohn Hospital BeevilleGlucose Mttrm4734-79-46 05:55:00* Test Item Value Reference Range Interpretation Comments Glucose Level (test code = BEU5925) 66 74-118 L [facility] BeevilleCalcium Ekzjq0353-92-34 05:55:00* Test Item Value Reference Range Interpretation Comments Calcium Level (test code = 64597-2) 8.6 8.4-10.2 [facility] BeevilleTotal Cgmgffaya6666-43-34 05:55:00* Test Item Value Reference Range Interpretation Comments Total Bilirubin (test code = 1975-2) 0.6 0.2-1.2 [facility] BeevilleAspartate Amino Transf (AST/SGOT) 2018-07-15 05:55:00* Test Item Value Reference Range Interpretation Comments Aspartate Amino Transf (AST/SGOT) (test code = Aspartate Amino Transf (AST/SGOT)) 21 5-34 [facility] BeevilleAlanine Aminotransferase (ALT/SGPT) 2018-07-15 05:55:00* Test Item Value Reference Range Interpretation Comments Alanine Aminotransferase (ALT/SGPT) (test code = 1742-6) 14 0-55 [facility] BeevilleTotal Cwskvdk2698-59-53 05:55:00* Test Item Value Reference Range Interpretation Comments Total Protein (test code = 2885-2) 5.8 6.5-8.1 L [facility] BeevilleAlbumin2019-01-13 05:55:00* Test Item Value Reference Range Interpretation Comments Albumin (test code = 1751-7) 2.7 3.5-5.0 L [facility] BeevilleGlobulin2019-01-13 05:55:00* Test Item Value Reference Range Interpretation Comments Globulin (test code = 09881-7) 3.1 2.3-3.5 [facility] BeevilleAlbumin/Globulin Vxhsp7813-90-97 05:55:00 * Test Item Value Reference Range Interpretation Comments Albumin/Globulin Ratio (test code = 1759-0) 0.9 0.8-2.0 [facility] BeevilleAlkaline Ondlpcsddav3222-39-56 05:55:00* Test Item Value Reference Range Interpretation Comments Alkaline Phosphatase (test code = 6768-6) 93 40-150 [facility] BeevilleCreatine Kinase QI9729-21-52 05:43:00* Test Item Value Reference Range Interpretation Comments Creatine Kinase MB (test code = 64564-8) 1.10 0-5.0 [facility]evilleTranmed health medical centern Q9214-82-80 05:43:00* Test Item Value Reference Range Interpretation Comments Troponin I (test code = MQO6585) 0.005 0-0.300 [facility] BeevilleCreatine Kinase XI1189-83-66 05:43:00* Test Item Value Reference Range Interpretation Comments Creatine Kinase MB (test code = 56732-6) 1.10 0-5.0 [facility] P8221-15-15 05:43:00* Test Item Value Reference Range Interpretation Comments Troponin I (test code = HHK0060) 0.005 0-0.300 [facility] BeevilleCreatine Kinase EQ2737-90-35 05:43:00* Test Item Value Reference Range Interpretation Comments Creatine Kinase MB (test code = 53859-4) 1.10 0-5.0 [place] [address]2019-01-13 05:43:00* Test Item Value Reference Range Interpretation Comments Troponin I (test code = KRT6164) 0.005 0-0.300 [facility] BeevilleCreatine Kinase TB8815-35-75 05:43:00* Test Item Value Reference Range Interpretation Comments Creatine Kinase MB (test code = 60584-8) 1.10 0-5.0 [place] [address]-01-13 05:43:00* Test Item Value Reference Range Interpretation Comments Troponin I (test code = UWK2706) 0.005 0-0.300 [facility] BeevilleCreatine Kinase IW8520-10-65 05:43:00* Test Item Value Reference Range Interpretation Comments Creatine Kinase MB (test code = 52300-9) 1.10 0-5.0 [facility] BeevilleTrtennova healthcare clevelandnin D9429-86-43 05:43:00* Test Item Value Reference Range Interpretation Comments Troponin I (test code = MUU0351) 0.005 0-0.300 [facility] BeevilleCreatine Kinase VB3873-51-33 05:43:00* Test Item Value Reference Range Interpretation Comments Creatine Kinase MB (test code = 22026-2) 1.10 0-5.0 [facility]evilleTrJocelyn [place] [address]B0998-64-05 05:43:00* Test Item Value Reference Range Interpretation Comments Troponin I (test code = MCQ6928) 0.005 0-0.300 [facility] BeevilleLactic Acid Zlyew3510-67-06 05:24:00* Test Item Value Reference Range Interpretation Comments Lactic Acid Level (test code = Lactic Acid Level) 10.8 4.5- 19.8 [facility] BeevilleWhite Blood Ndwft7179-85-04 05:09:00* Test Item Value Reference Range Interpretation Comments White Blood Count (test code = 6690-2) 5.61 4.8-10.8 [facility] BeevilleRed Blood Vvctu4095-25-15 05:09:00* Test Item Value Reference Range Interpretation Comments Red Blood Count (test code = 789-8) 3.43 4.3-5.7 L [facility] BeevilleHemoglobin2019-01-13 05:09:00* Test Item Value Reference Range Interpretation Comments Hemoglobin (test code = 69511-4) 10.9 14.0-18.0 L [facility] BeevilleHematocrit2019-01-13 05:09:00* Test Item Value Reference Range Interpretation Comments Hematocrit (test code = 4544-3) 31.5 38.2-49.6 L [facility] BeevilleMean Corpuscular Ywajzp7648-87-69 05:09:00* Test Item Value Reference Range Interpretation Comments Mean Corpuscular Volume (test code = 787-2) 91.8 81-99 [facility] BeevilleMean Corpuscular Txtngkbjsf5511-26-72 05:09:00* Test Item Value Reference Range Interpretation Comments Mean Corpuscular Hemoglobin (test code = 785-6) 31.8 28-32 [facility] BeevilleMean Corpuscular Hemoglobin Concent 2018-07-15 05:09:00* Test Item Value Reference Range Interpretation Comments Mean Corpuscular Hemoglobin Concent (test code = 786-4) 34.6 31-35 [facility] BeevilleRed Cell Distribution Xwtpz5689-12-37 05:09:00* Test Item Value Reference Range Interpretation Comments Red Cell Distribution Width (test code = 63630-6) 11.0 11.7 -14.4 L [facility] BeevillePlatelet Fuzzs5915-21-06 05:09:00* Test Item Value Reference Range Interpretation Comments Platelet Count (test code = 777-3) 138 140-360 L [facility] BeevilleNeutrophils (%) (Auto)2018-07-15 05:09:00 * Test Item Value Reference Range Interpretation Comments Neutrophils (%) (Auto) (test code = 91707-5) 51.9 38.7-80.0 [facility] BeevilleLymphocytes (%) (Auto)2018-07-15 05:09:00 * Test Item Value Reference Range Interpretation Comments Lymphocytes (%) (Auto) (test code = 736-9) 22.8 18.0-39.1 [facility] BeevilleMonocytes (%) (Auto)2018-07-15 05:09:00* Test Item Value Reference Range Interpretation Comments Monocytes (%) (Auto) (test code = 5905-5) 13.9 4.4-11.3 H [facility] BeevilleEosinophils (%) (Auto)2018-07-15 05:09:00 * Test Item Value Reference Range Interpretation Comments Eosinophils (%) (Auto) (test code = 713-8) 9.8 0.0-6.0 H [facility] BeevilleBasophils (%) (Auto)2018-07-15 05:09:00* Test Item Value Reference Range Interpretation Comments Basophils (%) (Auto) (test code = 706-2) 0.9 0.0-1.0 [facility] BeevilleIM GRANULOCYTES %2018-07-15 05:09:00* Test Item Value Reference Range Interpretation Comments IM GRANULOCYTES % (test code = IM GRANULOCYTES %) 0.7 0.0- 1.0 [facility]2018-07-15 05:09:00* Test Item Value Reference Range Interpretation Comments Neutrophils # (Auto) (test code = 751-8) 2.9 2.1-6.9 [facility]ymph[facility] # (Auto)2018-07-15 05:09:00* Test Item Value Reference Range Interpretation Comments Lymphocytes # (Auto) (test code = 81118-6) 1.3 1.0-3.2 [facility] # (Auto)2018-07-15 05:09:00* Test Item Value Reference Range Interpretation Comments Monocytes # (Auto) (test code = 742-7) 0.8 0.2-0.8 [facility] (Auto)2018-07-15 05:09:00* Test Item Value Reference Range Interpretation Comments Eosinophils # (Auto) (test code = 711-2) 0.6 0.0-0.4 H [facility] # (Auto)2018-07-15 05:09:00* Test Item Value Reference Range Interpretation Comments Basophils # (Auto) (test code = 704-7) 0.1 0.0-0.1 [facility] Immature Granulocyte (auto 2018-07-15 05:09:00* Test Item Value Reference Range Interpretation Comments Absolute Immature Granulocyte (auto (luisito t code = Absolute Immature Granulocyte (auto) 0.04 0-0.1 [facility] [id number] 20:41:00* Test Item Value Reference Range Interpretation Comments Urine WBC (test code = 5821-4) 6-10 0-5 H [facility] [id number] 20:41:00* Test Item Value Reference Range Interpretation Comments Urine RBC (test code = 01352-6) 0-5 0-5 [facility] Ofkyphhz8947-05-96 20:41:00* Test Item Value Reference Range Interpretation Comments Urine Bacteria (test code = 94119-2) FEW NONE [facility] Epithelial Tozzw9697-39-47 20:41:00 * Test Item Value Reference Range Interpretation Comments Urine Epithelial Cells (test code = 15333-8) FEW NONE [facility] Calcium Oxalate Qshrqnpu4936-51-22 20:41:00* Test Item Value Reference Range Interpretation Comments Urine Calcium Oxalate Crystals (test code = 5774-5) FEW FE W [facility] Amorphous Wlsvyllr5115-49-77 20:41:00* Test Item Value Reference Range Interpretation Comments Urine Amorphous Sediment (test code = 8246-1) FEW FEW [facility] Itxzy0066-33-38 20:41:00* Test Item Value Reference Range Interpretation Comments Urine Mucus (test code = 8247-9) FEW RARE H [facility] [id number] 20:41:00* Test Item Value Reference Range Interpretation Comments Urine WBC (test code = 5821-4) 6-10 0-5 H [facility] [id number] 20:41:00* Test Item Value Reference Range Interpretation Comments Urine RBC (test code = 56008-8) 0-5 0-5 [facility] Ccnvngyi4813-78-71 20:41:00* Test Item Value Reference Range Interpretation Comments Urine Bacteria (test code = 22892-7) [facility] Oncsu2454-99-06 20:41:00 * Test Item Value Reference Range Interpretation Comments Urine Epithelial Cells (test code = 03378-3) FEW NONE [facility] Calcium Oxalate Wrslxqsk7231-78-75 20:41:00* Test Item Value Reference Range Interpretation Comments Urine Calcium Oxalate Crystals (test code = 5774-5) FEW FE W [facility] Amorphous Ytdwjzsu5908-42-83 20:41:00* Test Item Value Reference Range Interpretation Comments Urine Amorphous Sediment (test code = 8246-1) FEW FEW [facility] Dgxml3636-64-22 20:41:00* Test Item Value Reference Range Interpretation Comments Urine Mucus (test code = 8247-9) FEW RARE H [facility] NPE9792-87-34 20:41:00* Test Item Value Reference Range Interpretation Comments Urine WBC (test code = 5821-4) 6-10 0-5 H [facility] PBY9477-97-63 20:41:00* Test Item Value Reference Range Interpretation Comments Urine RBC (test code = 16531-3) 0-5 0-5 [facility] Qvdvpphk9218-21-86 20:41:00* Test Item Value Reference Range Interpretation Comments Urine Bacteria (test code = 80006-2) FEW NONE [facility] Epithelial Ggxbj3153-96-86 20:41:00 * Test Item Value Reference Range Interpretation Comments Urine Epithelial Cells (test code = 45126-4) FEW NONE [facility] Calcium Oxalate Hlqkcxub4471-48-78 20:41:00* Test Item Value Reference Range Interpretation Comments Urine Calcium Oxalate Crystals (test code = 5774-5) FEW FE W [facility] Amorphous Cuhgtjgg9656-86-41 20:41:00* Test Item Value Reference Range Interpretation Comments Urine Amorphous Sediment (test code = 8246-1) FEW FEW [facility] Kmpvv3516-81-96 20:41:00* Test Item Value Reference Range Interpretation Comments Urine Mucus (test code = 8247-9) FEW RARE H [facility] RUA5355-51-02 20:41:00* Test Item Value Reference Range Interpretation Comments Urine WBC (test code = 5821-4) 6-10 0-5 H [facility] [id number] 20:41:00* Test Item Value Reference Range Interpretation Comments Urine RBC (test code = 89272-4) 0-5 0-5 [facility] Hahxnpuu5634-33-13 20:41:00* Test Item Value Reference Range Interpretation Comments Urine Bacteria (test code = 17530-9) FEW NONE [facility] Epithelial Kkfvz2289-61-85 20:41:00 * Test Item Value Reference Range Interpretation Comments Urine Epithelial Cells (test code = 18065-5) FEW NONE [facility] Calcium Oxalate Zrhnonau7938-37-78 20:41:00* Test Item Value Reference Range Interpretation Comments Urine Calcium Oxalate Crystals (test code = 5774-5) FEW FE W [facility] Amorphous Svzxmdwj7536-44-91 20:41:00* Test Item Value Reference Range Interpretation Comments Urine Amorphous Sediment (test code = 8246-1) FEW FEW [facility] Cnxci5661-32-76 20:41:00* Test Item Value Reference Range Interpretation Comments Urine Mucus (test code = 8247-9) FEW RARE H [facility] WHF7507-10-00 20:41:00* Test Item Value Reference Range Interpretation Comments Urine WBC (test code = 5821-4) 6-10 0-5 H [facility] [id number] 20:41:00* Test Item Value Reference Range Interpretation Comments Urine RBC (test code = 72013-5) 0-5 0-5 [facility] Mrldqcdg1744-42-45 20:41:00* Test Item Value Reference Range Interpretation Comments Urine Bacteria (test code = 20738-2) FEW NONE [facility] Epithelial Jeqnr4150-69-39 20:41:00 * Test Item Value Reference Range Interpretation Comments Urine Epithelial Cells (test code = 57468-5) FEW NONE [facility] Calcium Oxalate Jmnjehuc4548-27-26 20:41:00* Test Item Value Reference Range Interpretation Comments Urine Calcium Oxalate Crystals (test code = 5774-5) FEW FE W [facility] Amorphous Bysmzjdc6534-48-34 20:41:00* Test Item Value Reference Range Interpretation Comments Urine Amorphous Sediment (test code = 8246-1) FEW FEW [facility] Lxujm0657-33-14 20:41:00* Test Item Value Reference Range Interpretation Comments Urine Mucus (test code = 8247-9) FEW RARE H [facility] RUY9792-48-48 20:41:00* Test Item Value Reference Range Interpretation Comments Urine WBC (test code = 5821-4) 6-10 0-5 H [facility] QLW9867-90-83 20:41:00* Test Item Value Reference Range Interpretation Comments Urine RBC (test code = 64452-6) 0-5 0-5 [facility] Srbqouts0874-84-98 20:41:00* Test Item Value Reference Range Interpretation Comments Urine Bacteria (test code = 59144-5) FEW NONE [facility] Epithelial Vokdj5668-75-03 20:41:00 * Test Item Value Reference Range Interpretation Comments Urine Epithelial Cells (test code = 40217-2) FEW NONE [facility] Calcium Oxalate Azbnnfxt0470-48-92 20:41:00* Test Item Value Reference Range Interpretation Comments Urine Calcium Oxalate Crystals (test code = 5774-5) FEW FE W [facility] Amorphous Zgwhsbdl1359-44-04 20:41:00* Test Item Value Reference Range Interpretation Comments Urine Amorphous Sediment (test code = 8246-1) FEW FEW [facility] Ntnwr8859-72-69 20:41:00* Test Item Value Reference Range Interpretation Comments Urine Mucus (test code = 8247-9) FEW RARE H [facility] Hkhve7505-77-92 20:35:00* Test Item Value Reference Range Interpretation Comments Urine Color (test code = 5778-6) YELLOW YELLOW [facility] Mduoczn5722-38-79 20:35:00* Test Item Value Reference Range Interpretation Comments Urine Clarity (test code = 97919-8) HAZY CLEAR [facility] Specific Zxtryif9275-68-43 20:35:00 * Test Item Value Reference Range Interpretation Comments Urine Specific Champion (test code = 5811-5) 1.025 1.010-1.02 5 [facility] nJ8514-77-18 20:35:00* Test Item Value Reference Range Interpretation Comments Urine pH (test code = 28205-9) 6 5-7 [facility] Leukocyte Endorzpu1565-98-07 20:35:00* Test Item Value Reference Range Interpretation Comments Urine Leukocyte Esterase (test code = 5799-2) NEGATIVE NEGATIVE [facility] Mfhngpl4837-26-58 20:35:00* Test Item Value Reference Range Interpretation Comments Urine Nitrite (test code = 11712-2) NEGATIVE NEGATIVE [facility] Xwibvog0497-41-93 20:35:00* Test Item Value Reference Range Interpretation Comments Urine Protein (test code = 5804-0) NEGATIVE NEGATIVE [facility] Glucose (UA)2018-07-14 20:35:00* Test Item Value Reference Range Interpretation Comments Urine Glucose (UA) (test code = 2349-9) NEGATIVE NEGATIVE [facility] Yzszswp8754-98-81 20:35:00* Test Item Value Reference Range Interpretation Comments Urine Ketones (test code = 59074-5) NEGATIVE NEGATIVE [facility] Kunnfmutzpmg3976-87-13 20:35:00* Test Item Value Reference Range Interpretation Comments Urine Urobilinogen (test code = 51492-0) 0.2 0.2-1 [facility] Lzrtmjfqb5918-88-70 20:35:00* Test Item Value Reference Range Interpretation Comments Urine Bilirubin (test code = 1978-6) NEGATIVE NEGATIVE [facility] Jjrkz8389-07-50 20:35:00* Test Item Value Reference Range Interpretation Comments Urine Blood (test code = 49600-9) NEGATIVE NEGATIVE [facility] Wrcej9342-29-09 20:35:00* Test Item Value Reference Range Interpretation Comments Urine Color (test code = 5778-6) YELLOW YELLOW [facility] Mmwuxpt6834-97-98 20:35:00* Test Item Value Reference Range Interpretation Comments Urine Clarity (test code = 88081-7) HAZY CLEAR [facility] Specific Dxeoxyw5974-74-99 20:35:00 * Test Item Value Reference Range Interpretation Comments Urine Specific Champion (test code = 5811-5) 1.025 1.010-1.02 5 [facility] cI9096-77-90 20:35:00* Test Item Value Reference Range Interpretation Comments Urine pH (test code = 67769-2) 6 5-7 [facility] Leukocyte Qjhrvxlz4878-04-74 20:35:00* Test Item Value Reference Range Interpretation Comments Urine Leukocyte Esterase (test code = 5799-2) NEGATIVE NEGATIVE [facility] Rsettzs5407-74-38 20:35:00* Test Item Value Reference Range Interpretation Comments Urine Nitrite (test code = 85419-7) NEGATIVE NEGATIVE [facility] Cfcnohq1675-86-57 20:35:00* Test Item Value Reference Range Interpretation Comments Urine Protein (test code = 5804-0) NEGATIVE NEGATIVE [facility] Glucose (UA)2018-07-14 20:35:00* Test Item Value Reference Range Interpretation Comments Urine Glucose (UA) (test code = 2349-9) NEGATIVE NEGATIVE [facility] Grithzx4232-88-27 20:35:00* Test Item Value Reference Range Interpretation Comments Urine Ketones (test code = 60946-5) NEGATIVE NEGATIVE [facility] Riapofjzzhhl9659-31-57 20:35:00* Test Item Value Reference Range Interpretation Comments Urine Urobilinogen (test code = 72179-9) 0.2 0.2-1 [facility] Zlnvbktjj6174-09-17 20:35:00* Test Item Value Reference Range Interpretation Comments Urine Bilirubin (test code = 1978-6) NEGATIVE NEGATIVE [facility] Woewj7780-11-78 20:35:00* Test Item Value Reference Range Interpretation Comments Urine Blood (test code = 81240-4) NEGATIVE NEGATIVE [facility] Binrc2883-38-30 20:35:00* Test Item Value Reference Range Interpretation Comments Urine Color (test code = 5778-6) YELLOW YELLOW [facility] Wivlfon6115-67-51 20:35:00* Test Item Value Reference Range Interpretation Comments Urine Clarity (test code = 83942-6) HAZY CLEAR [facility] Specific Cypupmk7400-25-35 20:35:00 * Test Item Value Reference Range Interpretation Comments Urine Specific Champion (test code = 5811-5) 1.025 1.010-1.02 5 [facility] aK9596-07-00 20:35:00* Test Item Value Reference Range Interpretation Comments Urine pH (test code = 07177-1) 6 5-7 [facility] Leukocyte Lldokxdr3752-65-96 20:35:00* Test Item Value Reference Range Interpretation Comments Urine Leukocyte Esterase (test code = 5799-2) NEGATIVE NEGATIVE [facility] Ocjafca9398-44-00 20:35:00* Test Item Value Reference Range Interpretation Comments Urine Nitrite (test code = 39904-1) NEGATIVE NEGATIVE [facility] Wuoneqh0913-93-91 20:35:00* Test Item Value Reference Range Interpretation Comments Urine Protein (test code = 5804-0) NEGATIVE NEGATIVE [facility] Glucose (UA)2018-07-14 20:35:00* Test Item Value Reference Range Interpretation Comments Urine Glucose (UA) (test code = 2349-9) NEGATIVE NEGATIVE [facility] Wvrcobt7690-05-88 20:35:00* Test Item Value Reference Range Interpretation Comments Urine Ketones (test code = 98033-9) NEGATIVE NEGATIVE [facility] Hwxflvvbwdji1802-85-66 20:35:00* Test Item Value Reference Range Interpretation Comments Urine Urobilinogen (test code = 36246-9) 0.2 0.2-1 [facility] Burlusfny8721-89-41 20:35:00* Test Item Value Reference Range Interpretation Comments Urine Bilirubin (test code = 1978-6) NEGATIVE NEGATIVE [facility] Gqexa5268-34-50 20:35:00* Test Item Value Reference Range Interpretation Comments Urine Blood (test code = 85988-7) NEGATIVE NEGATIVE [facility] Walbz8825-26-31 20:35:00* Test Item Value Reference Range Interpretation Comments Urine Color (test code = 5778-6) YELLOW YELLOW [facility] Uxhxiye9870-22-18 20:35:00* Test Item Value Reference Range Interpretation Comments Urine Clarity (test code = 32244-6) HAZY CLEAR [facility] Specific Xxdkdzd4072-72-55 20:35:00 * Test Item Value Reference Range Interpretation Comments Urine Specific Champion (test code = 5811-5) 1.025 1.010-1.02 5 [facility] xO0940-57-08 20:35:00* Test Item Value Reference Range Interpretation Comments Urine pH (test code = 22940-3) 6 5-7 [facility] Leukocyte Cyzfipsj1495-45-64 20:35:00* Test Item Value Reference Range Interpretation Comments Urine Leukocyte Esterase (test code = 5799-2) NEGATIVE NEGATIVE [facility] Zqjfvgp2232-18-07 20:35:00* Test Item Value Reference Range Interpretation Comments Urine Nitrite (test code = 73248-0) NEGATIVE NEGATIVE [facility] Qmykwva6350-87-49 20:35:00* Test Item Value Reference Range Interpretation Comments Urine Protein (test code = 5804-0) NEGATIVE NEGATIVE [facility] Glucose (UA)2018-07-14 20:35:00* Test Item Value Reference Range Interpretation Comments Urine Glucose (UA) (test code = 2349-9) NEGATIVE NEGATIVE [facility] Afwhbii0496-09-80 20:35:00* Test Item Value Reference Range Interpretation Comments Urine Ketones (test code = 68787-2) NEGATIVE NEGATIVE [facility] Yotlyostuojh6414-47-98 20:35:00* Test Item Value Reference Range Interpretation Comments Urine Urobilinogen (test code = 59932-2) 0.2 0.2-1 [facility] Yofbenruc8864-26-20 20:35:00* Test Item Value Reference Range Interpretation Comments Urine Bilirubin (test code = 1978-6) NEGATIVE NEGATIVE [facility] Tqpqd7326-01-78 20:35:00* Test Item Value Reference Range Interpretation Comments Urine Blood (test code = 34583-6) NEGATIVE NEGATIVE [facility] Hkles4715-50-72 20:35:00* Test Item Value Reference Range Interpretation Comments Urine Color (test code = 5778-6) YELLOW YELLOW [facility] Ngkocxz2011-37-66 20:35:00* Test Item Value Reference Range Interpretation Comments Urine Clarity (test code = 27463-0) HAZY CLEAR [facility] Specific Cchptdt8559-14-35 20:35:00 * Test Item Value Reference Range Interpretation Comments Urine Specific Champion (test code = 5811-5) 1.025 1.010-1.02 5 [facility] [id number] 20:35:00* Test Item Value Reference Range Interpretation Comments Urine pH (test code = 93118-6) 6 5-7 [facility] Leukocyte Autblhkp6926-85-48 20:35:00* Test Item Value Reference Range Interpretation Comments Urine Leukocyte Esterase (test code = 5799-2) NEGATIVE NEGATIVE [facility] Jngeqmm3242-71-05 20:35:00* Test Item Value Reference Range Interpretation Comments Urine Nitrite (test code = 39790-7) NEGATIVE NEGATIVE [facility] Douecxz7550-23-14 20:35:00* Test Item Value Reference Range Interpretation Comments Urine Protein (test code = 5804-0) NEGATIVE NEGATIVE [facility] Glucose (UA)2018-07-14 20:35:00* Test Item Value Reference Range Interpretation Comments Urine Glucose (UA) (test code = 2349-9) NEGATIVE NEGATIVE [facility] Yitmlpe8206-31-53 20:35:00* Test Item Value Reference Range Interpretation Comments Urine Ketones (test code = 27091-7) NEGATIVE NEGATIVE [facility] Jwynjxcpjshn8669-75-65 20:35:00* Test Item Value Reference Range Interpretation Comments Urine Urobilinogen (test code = 78885-9) 0.2 0.2-1 [facility] Rvgwicbzb8324-72-77 20:35:00* Test Item Value Reference Range Interpretation Comments Urine Bilirubin (test code = 1978-6) NEGATIVE NEGATIVE [facility] Vzerh0647-54-23 20:35:00* Test Item Value Reference Range Interpretation Comments Urine Blood (test code = 47917-5) NEGATIVE NEGATIVE [facility] Yiipq2373-28-79 20:35:00* Test Item Value Reference Range Interpretation Comments Urine Color (test code = 5778-6) YELLOW YELLOW [facility] Fnohqip4764-59-26 20:35:00* Test Item Value Reference Range Interpretation Comments Urine Clarity (test code = 93349-3) HAZY CLEAR [facility] Specific Qcevlcp1768-10-07 20:35:00 * Test Item Value Reference Range Interpretation Comments Urine Specific Champion (test code = 5811-5) 1.025 1.010-1.02 5 [facility] mP5606-40-48 20:35:00* Test Item Value Reference Range Interpretation Comments Urine pH (test code = 08485-8) 6 5-7 [facility] Leukocyte Mnzzyvpz9760-05-09 20:35:00* Test Item Value Reference Range Interpretation Comments Urine Leukocyte Esterase (test code = 5799-2) NEGATIVE NEGATIVE [facility] Qaifczv8423-43-81 20:35:00* Test Item Value Reference Range Interpretation Comments Urine Nitrite (test code = 90350-8) NEGATIVE NEGATIVE [facility] Scpxqka2976-81-93 20:35:00* Test Item Value Reference Range Interpretation Comments Urine Protein (test code = 5804-0) NEGATIVE NEGATIVE [facility] Glucose (UA)2018-07-14 20:35:00* Test Item Value Reference Range Interpretation Comments Urine Glucose (UA) (test code = 2349-9) NEGATIVE NEGATIVE [facility] Ptionay7026-90-67 20:35:00* Test Item Value Reference Range Interpretation Comments Urine Ketones (test code = 84824-5) NEGATIVE NEGATIVE [facility] Rofipiliplws3651-42-01 20:35:00* Test Item Value Reference Range Interpretation Comments Urine Urobilinogen (test code = 78398-3) 0.2 0.2-1 [facility] Ynnckvawv8357-98-99 20:35:00* Test Item Value Reference Range Interpretation Comments Urine Bilirubin (test code = 1978-6) NEGATIVE NEGATIVE [facility] Aovys8876-43-30 20:35:00* Test Item Value Reference Range Interpretation Comments Urine Blood (test code = 31937-1) NEGATIVE NEGATIVE [facility] Nwyuq6113-06-10 20:03:00* Test Item Value Reference Range Interpretation Comments Magnesium Level (test code = 66504-4) 2.5 1.3-2.1 [facility] Oreqn6946-10-79 20:03:00* Test Item Value Reference Range Interpretation Comments Magnesium Level (test code = 71945-0) 2.5 1.3-2.1 [facility] Mbcof5534-52-78 20:03:00* Test Item Value Reference Range Interpretation Comments Magnesium Level (test code = 60909-3) 2.5 1.3-2.1 H [facility] Xndkx1698-52-15 20:03:00* Test Item Value Reference Range Interpretation Comments Magnesium Level (test code = 13996-9) 2.5 1.3-2.1 H [facility] Xnrdt4237-55-53 20:03:00* Test Item Value Reference Range Interpretation Comments Magnesium Level (test code = 54658-3) 2.5 1.3-2.1 [facility] Ztezu1969-51-81 20:03:00* Test Item Value Reference Range Interpretation Comments Magnesium Level (test code = 44838-1) 2.5 1.3-2.1 H [facility] Partial Thromboplast Time 2018-07-14 19:55:00* Test Item Value Reference Range Interpretation Comments Activated Partial Thromboplast Time (test code = 64518-3) 29.0 23.8-35.5 [facility] Partial Thromboplast Time 2018-07-14 19:55:00* Test Item Value Reference Range Interpretation Comments Activated Partial Thromboplast Time (test code = 09334-6) 29.0 23.8-35.5 [facility] Partial Thromboplast Time 2018-07-14 19:55:00* Test Item Value Reference Range Interpretation Comments Activated Partial Thromboplast Time (test code = 84198-5) 29.0 23.8-35.5 [facility] Partial Thromboplast Time 2018-07-14 19:55:00* Test Item Value Reference Range Interpretation Comments Activated Partial Thromboplast Time (test code = 70212-4) 29.0 23.8-35.5 [facility] Partial Thromboplast Time 2018-07-14 19:55:00* Test Item Value Reference Range Interpretation Comments Activated Partial Thromboplast Time (test code = 31829-6) 29.0 23.8-35.5 [facility] Partial Thromboplast Time 2018-07-14 19:55:00* Test Item Value Reference Range Interpretation Comments Activated Partial Thromboplast Time (test code = 76466-9) 29.0 23.8-35.5 [facility]eville[facility]thrombin Kofj6209-01-69 19:54:00* Test Item Value Reference Range Interpretation Comments Prothrombin Time (test code = 5902-2) 13.7 11.9-14.5 [facility] International Ratio 2018-07-14 19:54:00* Test Item Value Reference Range Interpretation Comments Prothromb Time International Ratio (test code = 6301-6) 0.96 Oral Anticoagulant Therapy INR Values:1. Low Intensity Therapy 1.5 - 2.02 . Moderate Intensity Therapy 2.0 - 3.03. High Intensity Therapy(1) 2.5 - 3. 54. High Intensity Therapy(2) 3.0 - 4.05. Panic Value INR > 5.0 [facility] Vuvw2625-15-30 19:54:00* Test Item Value Reference Range Interpretation Comments Prothrombin Time (test code = 5902-2) 13.7 11.9-14.5 [facility] International Ratio 2018-07-14 19:54:00* Test Item Value Reference Range Interpretation Comments Prothromb Time International Ratio (test code = 6301-6) 0.96 Oral Anticoagulant Therapy INR Values:1. Low Intensity Therapy 1.5 - 2.02 . Moderate Intensity Therapy 2.0 - 3.03. High Intensity Therapy(1) 2.5 - 3. 54. High Intensity Therapy(2) 3.0 - 4.05. Panic Value INR > 5.0 [facility] [id number] 19:54:00* Test Item Value Reference Range Interpretation Comments Prothrombin Time (test code = 5902-2) 13.7 11.9-14.5 [facility] International Ratio 2018-07-14 19:54:00* Test Item Value Reference Range Interpretation Comments Prothromb Time International Ratio (test code = 6301-6) 0.96 Oral Anticoagulant Therapy INR Values:1. Low Intensity Therapy 1.5 - 2.02 . Moderate Intensity Therapy 2.0 - 3.03. High Intensity Therapy(1) 2.5 - 3. 54. High Intensity Therapy(2) 3.0 - 4.05. Panic Value INR > 5.0 [facility] [id number] 19:54:00* Test Item Value Reference Range Interpretation Comments Prothrombin Time (test code = 5902-2) 13.7 11.9-14.5 [facility] International Ratio 2018-07-14 19:54:00* Test Item Value Reference Range Interpretation Comments Prothromb Time International Ratio (test code = 6301-6) 0.96 Oral Anticoagulant Therapy INR Values:1. Low Intensity Therapy 1.5 - 2.02 . Moderate Intensity Therapy 2.0 - 3.03. High Intensity Therapy(1) 2.5 - 3. 54. High Intensity Therapy(2) 3.0 - 4.05. Panic Value INR > 5.0 [facility] [id number] 19:54:00* Test Item Value Reference Range Interpretation Comments Prothrombin Time (test code = 5902-2) 13.7 11.9-14.5 [facility] International Ratio 2018-07-14 19:54:00* Test Item Value Reference Range Interpretation Comments Prothromb Time International Ratio (test code = 6301-6) 0.96 Oral Anticoagulant Therapy INR Values:1. Low Intensity Therapy 1.5 - 2.02 . Moderate Intensity Therapy 2.0 - 3.03. High Intensity Therapy(1) 2.5 - 3. 54. High Intensity Therapy(2) 3.0 - 4.05. Panic Value INR > 5.0 [facility] [id number] 19:54:00* Test Item Value Reference Range Interpretation Comments Prothrombin Time (test code = 5902-2) 13.7 11.9-14.5 [facility] International Ratio 2018-07-14 19:54:00* Test Item Value Reference Range Interpretation Comments Prothromb Time International Ratio (test code = 6301-6) 0.96 Oral Anticoagulant Therapy INR Values:1. Low Intensity Therapy 1.5 - 2.02 . Moderate Intensity Therapy 2.0 - 3.03. High Intensity Therapy(1) 2.5 - 3. 54. High Intensity Therapy(2) 3.0 - 4.05. Panic Value INR > 5.0 [facility]2018-07-14 19:35:00 [place] [address] Patient Name: YORDAN LAMBERT MR #: [id number] : 1955 Age/Sex: 62/M Req #: [id number] Adm Physician: Ordered by: MIRIAM MCKINNON BACK OFFICE MEDICAL ASSISTANT Report #: [id number] Location: ER Room/Bed: Procedure: [id number] DX/ CHEST SINGLE (PORTABLE) Exam Date: 07/14/18 Exam Antoine e: 1907 REPORT STATUS: Signed CH EST SINGLE (PORTABLE), 07/14/2018 6:44 PM Technique: CHEST SINGLE (PORTABLE) Comparison: 06/22/2018 Clinical history: Orthostatic hypotension Findi ngs: See Impression Impression: Limited by portable technique and soft ti ssue attenuation 1. Lines/Tubes: Right PICC now seen projecting over the right brachiocephalic subclavian vein junction. 2. Stable prominent cardiomediast inal silhouette. 3. No consolidation or edema. No effusion or pneumothorax. Signed by: Dr Sanford Hamlin MD on 07/14/2018 7:36 PM Dictated By: SANFORD HAMLIN MD 35 T ranscribed By: RUBA on 07/14/181935 COPY TO: MIRIAM MCKINNON BACK OFFICE MEDICAL ASSISTANT CHEST XRAY LINE [id number] 18:02:00 [place] [address] Patient Name: YORDAN LAMBERT MR #: [id number] : 1955 Age/Sex: 62/M Req #: [id number] Adm Physician: Ordered by: MEERA VASQUEZ MD Report #: [id number] Location: DX Room/Bed: Procedure: [id number] D X/CHEST XRAY LINE PLACEMENT Exam Date: 06/22/18 Exam Time: 1725 REPORT STATUS: Signed EXAMINATION: CHEST XRAY LINE PLACEMENT COMPARISON: None INDICAT ION: PICC line placement DISCUSSION: Frontal view of the chest obtai nomi at 1732 hours. HEART AND MEDIASTINUM: The cardiomediastinal silhouette is unremarkable. LINES: Right PICC line terminates in the SVC. RK NGS: The lungs are well inflated and clear. No pneumonia or pulmonary edema. PLEURA: No pleural effusion or pneumothorax. BONES AND SOFT TISSUES: Mi ld degenerative changes of the right AC joint. No focal osseous lesion. The so ft tissues are normal. IMPRESSION: Right PICC line terminates in the SVC. No pneumothorax. Signed by: Dr. Fara Doe MD on 06/22/2018 6: 03 PM Dictated By: FARA DOE MD 02 Transcribed By: RUBA on 06/22/181802 COPY TO: MEERA VASQUEZ MD Wound [id number] 07:00:00* Test Item Value Reference Range Interpretation Comments Wound Culture (test code = 6462-6) Organism: PSEUDOMONAS AERUGINOSA [facility] [id number] 07:00:00* Test Item Value Reference Range Interpretation Comments Wound Culture (test code = 6462-6) Organism: PSEUDOMONAS AERUGINOSA [facility]evillePrealbumin2018-10-27 09:05:00* Test Item Value Reference Range Interpretation Comments Prealbumin (test code = 73114-3) Performed at: [address] [id number] Director: Dennis Mccauley MD, Phone: [phone] [facility]ohn [facility] BeevillePrealbumin2018-10-27 09:05:00* Test Item Value Reference Range Interpretation Comments Prealbumin (test code = 75782-9) 23 10-36 Performed at: [facility] [address] [place], [place] [id number] Director: Dennis Mccauley MD, Phone: [phone] [facility] BeevilleErythrocyte Sedimentation [id number] 14:46:00* Test Item Value Reference Range Interpretation Comments Erythrocyte Sedimentation Rate (test code = 4537-7) 20 0- 13 H [facility]eville[facility]throcyte Sedimentation [id number] 14:46:00* Test Item Value Reference Range Interpretation Comments Erythrocyte Sedimentation Rate (test code = 4537-7) 20 0- 13 H [facility]eville[facility] Sedimentation [id number] 14:46:00* Test Item Value Reference Range Interpretation Comments Erythrocyte Sedimentation Rate (test code = 4537-7) 20 0- 13 H [facility]eville[facility] Sedimentation [id number] 14:46:00* Test Item Value Reference Range Interpretation Comments Erythrocyte Sedimentation Rate (test code = 4537-7) 20 0- 13 H [facility]eville[facility]throcyte Sedimentation [id number] 14:46:00* Test Item Value Reference Range Interpretation Comments Erythrocyte Sedimentation Rate (test code = 4537-7) 20 0- 13 H [facility]eville[facility]rocyte Sedimentation [id number] 14:46:00* Test Item Value Reference Range Interpretation Comments Erythrocyte Sedimentation Rate (test code = 4537-7) 20 0- 13 H [facility]evilleHemoglobin A1c [id number] 14:20:00 * Test Item Value Reference Range Interpretation Comments Hemoglobin A1c Percent (test code = Hemoglobin A1c Percent) 6.0 4.0-7.0 [facility] A1c [id number] 14:20:00 * Test Item Value Reference Range Interpretation Comments Hemoglobin A1c Percent (test code = Hemoglobin A1c Percent) 6.0 4.0-7.0 [facility] A1c [id number] 14:20:00 * Test Item Value Reference Range Interpretation Comments Hemoglobin A1c Percent (test code = Hemoglobin A1c Percent) 6.0 4.0-7.0 [facility] A[facility] [id number] 14:20:00 * Test Item Value Reference Range Interpretation Comments Hemoglobin A1c Percent (test code = Hemoglobin A1c Percent) 6.0 4.0-7.0 [facility] A1[facility] [id number] 14:20:00 * Test Item Value Reference Range Interpretation Comments Hemoglobin A1c Percent (test code = Hemoglobin A1c Percent) 6.0 4.0-7.0 [facility] A1c [id number] 14:20:00 * Test Item Value Reference Range Interpretation Comments Hemoglobin A1c Percent (test code = Hemoglobin A1c Percent) 6.0 4.0-7.0 [facility] 2 [id number] 13:00:00 [facility] [address] [address] Patient Name: YORDAN LAMBERT MR #: [id number] : 0 1955 Age/Sex: 62/M Req #: [id number] Adm Physician: Ordered by: MAGALI CONTRERAS MD Report #: [id number] Location: [facility] Room/Bed: Procedure: [id number] DX/CHEST 2 VIEWS Exam Date: Exam Time: 1233 REPORT STATUS: Signed EXAMINATION: PA and lateral views of the chest. COMPARISON: None C LINICAL HISTORY: PICC position DISCUSSION: Right upper extremity PICC is noted. The tip projects over the low superior vena cava. Lungs are we ll-inflated and without focal consolidation, pleural effusion, or pneumothorax . Tortuosity of the thoracic aorta with atherosclerotic calcification. Normal heart size. No pulmonary edema. No acute osseous abnormalities. Multilevel degenerative disc changes of the thoracic spine. IMPRESSION: Tip of th e right upper extremity PICC projects over the low superior vena cava. Signed by: Dr. Yordan Lofton M.D. on 03/09/2018 1:02 PM Dictated B y: YORDAN LOFTON MD 130 Transcribed By: RUBA on 03/09/181301 COPY TO: MAGALI CONTRERAS MD CHEST XRAY LINE [id number] 11:19:00 [place] [address] Patient Name: YORDAN LAMBERT MR #: [id number] : 1955 Age/Sex: 62/M Req #: [id number] Adm Physician: Ordered by: MAGALI CONTRERAS MD Report #: [id number] Location: OR Room/Bed: Procedure: [id number] DX/CHEST XRAY LINE PLACEMENT Ex am Date: 01/26/18 Exam Time: 0900 REPORT STATUS : Signed PROCEDURE: A single AP view of the chest. COMPARISON: 01/06/20 17 INDICATIONS: PICC LINE PLACEMENT FINDINGS: Lines/tubes: R ight upper shotty PICC line has its tip at the cavoatrial junction Lung s: The lungs are well inflated and clear. There is no evidence of pneumonia or pulmonary edema. Pleura: There is no pleural effusion or pneumothorax. Heart and mediastinum: Normal heart size. Mild tortuosity of the thora cic aorta. Bones: No acute bony abnormality. IMPRESSION: Rig ht upper extremity PICC line has its tip at the cavoatrial junction Dictat ed by: Elizabeth Ling M.D. on 01/26/2018 at 11:19 Electronically approve d by: Elizabeth Ling M.D. on 01/26/2018 at 11:19 Dictated By: ELIZABETH LING MD 111 Transcribed By: VICKI on 01/26/181118 COPY TO: MAGALI CONTRERAS MD
--- NOTE | 2020-02-07 22:47 | Diagnostic Imaging Report ---
CT BRAIN WO HISTORY: Headache COMPARISON: MRI of the brain 01/08/[address] 10/21/2019 Technique: Noncontrast axial scans were obtained from skull base to the vertex. Coronal and sagittal reconstructions obtained from the axial data. One or more of the following dose reduction techniques were used: Automated exposure control, adjustment of the mA and/or kV according to patient size, and/or utilization of iterative reconstruction technique. DISCUSSION: Scalp/Skull: Unremarkable. Brain sulci: Mildly prominent. Ventricles: Compensatory dilatation. Extra-axial spaces: Stable focal dural calcification in the right anterior clinoid process may be a small meningioma. No new masses or fluid collections. Carotid and vertebral artery calcifications are present. Stable punctate calcifications in the right sylvian fissure also may be vascular (within the right middle cerebral artery). Parenchyma: Focal loss of marquez-white differentiation and hypodensity in the medial left occipital lobe (anterior lingual gyrus and cuneus) are associated with mild local mass effect. The hypodensity slightly extends into the splenium of the corpus callosum. This is compatible with an acute or subacute left posterior cerebral artery territory infarct. This infarct is slightly larger when compared to acute ischemic signal abnormalities seen on MRI dated 01/08/2020. Mild focal cortical hyperdensity along the anterior left parieto-occipital sulcus may suggest petechial hemorrhagic conversion. There is no significant brain herniation. Mild bilateral deep white matter hypodensity is likely chronic microvascular ischemic change. Otherwise, no masses, hemorrhage, or other large vascular territory acute infarct. Dural sinuses: No abnormal densities. Sellar/Suprasellar region: Intact. Skull base: Intact. Incidental findings: Bilateral ocular lens replacement. Opacified, mildly expanded left anterior ethmoid air cell may be due to a small mucocele. IMPRESSION: 1. Progressive acute to subacute infarct in the medial left occipital lobe with local cytotoxic edema/brain swelling and possible petechial hemorrhagic conversion. The infarct is slightly larger when compared to acute ischemic signal abnormalities seen on MRI dated 01/08/2020. 2. No other significant changes were compared to MRI of the brain dated 01/08/2020 with differences in technique taken into account. 3. No other acute intracranial abnormalities. 4. Mild supratentorial chronic microvascular ischemic change. Mild generalized cerebral volume loss. Signed by: Dr. Fady Escalante M.D. on 02/07/2020 10:42 PM
--- NOTE | 2020-02-07 23:11 | NUR ---
MULU BLOCK SPEAKING TO NEUROLOGIST AT [facility] DT
--- NOTE | 2020-02-07 23:18 | NUR ---
ER MD AT [facility] BEDSIDE DISCUSSING POC/STATUS/TRANSFER WITH PATIENT
--- NOTE | 2020-02-07 23:19 | NUR ---
MULU BLOCK SPEAKING TO DR. Sean SPAIN AT [facility]
[2020-02-07] MEDS ORDERED: METOPROLOL TARTRATE INJ 1 MG/ML VIAL IV ONE (23:30)
[2020-02-08 02:32] VITALS: BP 142/76
== END 2020-02-08 01:00 | disposition other institution (70) ==
LOC: ER 21:28
DX: I61.9 Nontraumatic intracerebral hemorrhage, unspecified (principal); I69.90 Unspecified sequelae of unspecified cerebrovascular disease; R51 Headache; E11.9 Type 2 diabetes mellitus without complications
CPT/HCPCS: 36415; 70450; 80048; 82948; 85025; 85610; 85730; 99284

== ENCOUNTER 2020-02-25 15:19 | Outpatient (RCR) | payer MEDICARE, OTHER ==
[~2020-02-25 15:19] MED LIST changes: +MINERAL OIL/PETROLAT/GLYCERI 6OZ BTL ONE
== END 2020-03-02 ==
LOC: WCC 15:19
PROVIDERS: ATTEND Podiatrist Foot & Ankle Surgery
DX: E11.621 Type 2 diabetes mellitus with foot ulcer (principal); E11.69 Type 2 diabetes mellitus with other specified complication; E11.65 Type 2 diabetes mellitus with hyperglycemia; L97.421 Non-pressure chronic ulcer of left heel and midfoot limited to breakdown of skin; G45.9 Transient cerebral ischemic attack, unspecified; I87.8 Other specified disorders of veins; I10 Essential (primary) hypertension; I48.91 Unspecified atrial fibrillation; W22.8XXA Striking against or struck by other objects, initial encounter; Z01.810 Encounter for preprocedural cardiovascular examination; Z01.811 Encounter for preprocedural respiratory examination

== ENCOUNTER 2020-03-31 13:49 | Outpatient (RCR) | payer MEDICARE, OTHER | END 2020-04-01 | LOC: WCC 13:49 | PROVIDERS: ATTEND Podiatrist Foot & Ankle Surgery | DX: E11.621 Type 2 diabetes mellitus with foot ulcer (principal); E11.69 Type 2 diabetes mellitus with other specified complication; E11.65 Type 2 diabetes mellitus with hyperglycemia; L97.521 Non-pressure chronic ulcer of other part of left foot limited to breakdown of skin; L97.421 Non-pressure chronic ulcer of left heel and midfoot limited to breakdown of skin; I87.8 Other specified disorders of veins; G45.9 Transient cerebral ischemic attack, unspecified; I10 Essential (primary) hypertension; I48.91 Unspecified atrial fibrillation; W22.8XXA Striking against or struck by other objects, initial encounter; Z01.810 Encounter for preprocedural cardiovascular examination; Z01.811 Encounter for preprocedural respiratory examination ==

== ENCOUNTER 2020-04-28 13:39 | Outpatient (RCR) | payer MEDICARE, OTHER | END 2020-05-02 | LOC: WCC 13:39 | PROVIDERS: ATTEND Podiatrist Foot & Ankle Surgery | DX: E11.621 Type 2 diabetes mellitus with foot ulcer (principal); E11.69 Type 2 diabetes mellitus with other specified complication; E11.65 Type 2 diabetes mellitus with hyperglycemia; L97.421 Non-pressure chronic ulcer of left heel and midfoot limited to breakdown of skin; L97.521 Non-pressure chronic ulcer of other part of left foot limited to breakdown of skin; G45.9 Transient cerebral ischemic attack, unspecified; I10 Essential (primary) hypertension; I48.91 Unspecified atrial fibrillation; I87.8 Other specified disorders of veins; W22.8XXA Striking against or struck by other objects, initial encounter; Z01.810 Encounter for preprocedural cardiovascular examination; Z01.811 Encounter for preprocedural respiratory examination | CPT/HCPCS: 36415; 82948 ==

== ENCOUNTER 2020-05-12 11:32 | Emergency (ER) | payer MEDICARE, OTHER ==
[~2020-05-12] VITALS: Ht 193 cm; Wt 136.1 kg
[~2020-05-12 11:32] MED LIST changes: -MINERAL OIL/PETROLAT/GLYCERI 6OZ BTL ONE
[2020-05-12] MEDS ORDERED: ONDANSETRON HCL INJ 2MG/ML 2ML 2 MG/ML VIAL IV STA (12:04)
[2020-05-12] MEDS ORDERED: PANTOPRAZOLE 40 MG 10ML VIAL IV STA (12:04)
[2020-05-12] MEDS ORDERED: SODIUM CHLORIDE 0.9% 1000ML 1,000 ML IV STA (12:04)
[2020-05-12 12:25] LABS: BASOPHILS # (AUTO) 0.1 (0.0-0.1); BASOPHILS % 0.4 % (0.0-1.0); EOSINOPHILS % 0.1 % (0.0-6.0); HEMATOCRIT 42.1 % (38.2-49.6); HEMOGLOBIN 14.5 g/dL (14.0-18.0); LYMPHOCYTES # (AUTO) 0.5 (1.0-3.2); LYMPHOCYTES % 3.8 % (18.0-39.1); MEAN CORPUSCULAR HEMOGLOBIN 30.9 pg (28-32); MEAN CORPUSCULAR HGB CONC 34.4 g/dL (31-35); MEAN CORPUSCULAR VOLUME 89.8 fL (81-99); MONOCYTES # (AUTO) 0.6 (0.2-0.8); MONOCYTES % 4.9 % (4.4-11.3); NEUTROPHILS # (AUTO) 10.8 (2.1-6.9); NEUTROPHILS % 90.2 % (38.7-80.0); PLATELET COUNT 128 x10e3/uL (140-360); RED BLOOD COUNT 4.69 x10e6/uL (4.3-5.7); RED CELL DISTRIBUTION WIDTH 11.9 % (11.7-14.4)
[2020-05-12 12:30] LABS: INR 1.11; PROTHROMBIN TIME 14.9 seconds (11.9-14.5)
[2020-05-12 12:40] LABS: ALBUMIN 3.8 g/dL (3.5-5.0); ALBUMIN/GLOBULIN RATIO 0.9 (0.8-2.0); ANION GAP 13.5 mmol/L (8-16); CALCIUM 9.4 mg/dL (8.4-10.2); CREATININE, SERUM 1.23 mg/dL (0.72-1.25); MAGNESIUM 1.8 MG/DL (1.3-2.1); POTASSIUM 4.5 mmol/L (3.5-5.1)
[2020-05-12 13:16] LABS: CLARITY,URINE SL CLOUDY (CLEAR); COLOR,URINE YELLOW (YELLOW)
[2020-05-12 13:17] LABS: BACTERIA,URINE RARE /HPF; BILIRUBIN,URINE SMALL (NEGATIVE); EPITHELIAL CELLS,URINE FEW /LPF; KETONES,URINE NEGATIVE (NEGATIVE); LEUKOCYTE ESTERASE ,URINE NEGATIVE (NEGATIVE); NITRITE,URINE NEGATIVE (NEGATIVE); PROTEIN,URINE DIPSTICK 1+ (NEGATIVE); URINE UROBILINOGEN 1 mg/dL (0.2 - 1)
[2020-05-12 14:00] VITALS: BP 131/78
== END 2020-05-12 14:02 | disposition home or self-care (01) ==
LOC: ER 11:45
DX: R11.2 Nausea with vomiting, unspecified (principal); R51.9 Headache, unspecified; I10 Essential (primary) hypertension; E11.65 Type 2 diabetes mellitus with hyperglycemia; I48.91 Unspecified atrial fibrillation
CPT/HCPCS: 36415; 70450; 71045; 80053; 81001; 82550; 82553; 83735; 83880; 84484; 85025; 85610; 85730; 87086; 93005; 99284; C9113; J2405; J7030

== ENCOUNTER 2020-05-26 15:12 | Outpatient (RCR) | payer MEDICARE, OTHER ==
[~2020-05-26 15:12] MED LIST changes: +LIDOCAINE VISC 2% SOLN 15 ML UDC ONE; +MINERAL OIL/PETROLAT/GLYCERI 2OZ CRM ONE
== END 2020-06-01 ==
LOC: WCC 15:12
PROVIDERS: ATTEND Podiatrist Foot & Ankle Surgery
DX: E11.621 Type 2 diabetes mellitus with foot ulcer (principal); E11.69 Type 2 diabetes mellitus with other specified complication; E11.65 Type 2 diabetes mellitus with hyperglycemia; L97.421 Non-pressure chronic ulcer of left heel and midfoot limited to breakdown of skin; I87.8 Other specified disorders of veins; G45.9 Transient cerebral ischemic attack, unspecified; I10 Essential (primary) hypertension; I48.91 Unspecified atrial fibrillation; W22.8XXA Striking against or struck by other objects, initial encounter; Z01.810 Encounter for preprocedural cardiovascular examination; Z01.811 Encounter for preprocedural respiratory examination
CPT/HCPCS: 36415; 82948; 87071; 87075; 87205

== ENCOUNTER 2020-06-30 14:35 | Outpatient (RCR) | payer MEDICARE, OTHER ==
[~2020-06-30 14:35] MED LIST changes: -MINERAL OIL/PETROLAT/GLYCERI 2OZ CRM ONE
== END 2020-07-02 ==
LOC: WCC 14:35
PROVIDERS: ATTEND Podiatrist Foot & Ankle Surgery
DX: E11.621 Type 2 diabetes mellitus with foot ulcer (principal); E11.69 Type 2 diabetes mellitus with other specified complication; E11.65 Type 2 diabetes mellitus with hyperglycemia; M65.071 Abscess of tendon sheath, right ankle and foot; I87.8 Other specified disorders of veins; G45.9 Transient cerebral ischemic attack, unspecified; I10 Essential (primary) hypertension; I48.91 Unspecified atrial fibrillation; W22.8XXA Striking against or struck by other objects, initial encounter; Z01.810 Encounter for preprocedural cardiovascular examination; Z01.811 Encounter for preprocedural respiratory examination
CPT/HCPCS: 36415; 82948

== ENCOUNTER 2020-07-28 14:26 | Outpatient (RCR) | payer MEDICARE, OTHER ==
[~2020-07-28 14:26] MED LIST changes: +CADEXOMER IODINE 30 GM TUBE ONE; -LIDOCAINE VISC 2% SOLN 15 ML UDC ONE; +MINERAL OIL/PETROLAT/GLYCERI 6OZ BTL ONE
== END 2020-08-02 ==
LOC: WCC 14:26
PROVIDERS: ATTEND Podiatrist Foot & Ankle Surgery
DX: E11.621 Type 2 diabetes mellitus with foot ulcer (principal); E11.69 Type 2 diabetes mellitus with other specified complication; E11.65 Type 2 diabetes mellitus with hyperglycemia; L97.421 Non-pressure chronic ulcer of left heel and midfoot limited to breakdown of skin; M65.071 Abscess of tendon sheath, right ankle and foot; I87.8 Other specified disorders of veins; I10 Essential (primary) hypertension; G45.9 Transient cerebral ischemic attack, unspecified; I48.91 Unspecified atrial fibrillation; W22.8XXA Striking against or struck by other objects, initial encounter; Z01.810 Encounter for preprocedural cardiovascular examination; Z01.811 Encounter for preprocedural respiratory examination
CPT/HCPCS: 36415; 82948

== ENCOUNTER 2020-08-25 14:21 | Outpatient (RCR) | payer MEDICARE, OTHER ==
[~2020-08-25 14:21] MED LIST changes: -CADEXOMER IODINE 30 GM TUBE ONE; -MINERAL OIL/PETROLAT/GLYCERI 6OZ BTL ONE
== END 2020-08-30 ==
LOC: WCC 14:21
PROVIDERS: ATTEND Podiatrist Foot & Ankle Surgery
DX: E11.621 Type 2 diabetes mellitus with foot ulcer (principal); E11.69 Type 2 diabetes mellitus with other specified complication; E11.65 Type 2 diabetes mellitus with hyperglycemia; M65.071 Abscess of tendon sheath, right ankle and foot; L97.421 Non-pressure chronic ulcer of left heel and midfoot limited to breakdown of skin; I87.8 Other specified disorders of veins; G45.9 Transient cerebral ischemic attack, unspecified; I10 Essential (primary) hypertension; I48.91 Unspecified atrial fibrillation; W22.8XXA Striking against or struck by other objects, initial encounter; Z01.810 Encounter for preprocedural cardiovascular examination; Z01.811 Encounter for preprocedural respiratory examination
CPT/HCPCS: 36415; 82948

== ENCOUNTER 2020-09-22 14:49 | Outpatient (RCR) | payer MEDICARE, OTHER ==
[~2020-09-22 14:49] MED LIST changes: +LIDOCAINE/PRILOCAINE 2.5-2.5% KIT ONE
== END 2020-09-30 ==
LOC: WCC 14:49
PROVIDERS: ATTEND Podiatrist Foot & Ankle Surgery
DX: E11.621 Type 2 diabetes mellitus with foot ulcer (principal); E11.69 Type 2 diabetes mellitus with other specified complication; E11.65 Type 2 diabetes mellitus with hyperglycemia; L97.421 Non-pressure chronic ulcer of left heel and midfoot limited to breakdown of skin; M65.071 Abscess of tendon sheath, right ankle and foot; I87.8 Other specified disorders of veins; G45.9 Transient cerebral ischemic attack, unspecified; I10 Essential (primary) hypertension; I48.91 Unspecified atrial fibrillation; W22.8XXA Striking against or struck by other objects, initial encounter; Z01.810 Encounter for preprocedural cardiovascular examination; Z01.811 Encounter for preprocedural respiratory examination

== ENCOUNTER 2020-10-27 15:39 | Outpatient (RCR) | payer MEDICARE, OTHER ==
[~2020-10-27 15:39] MED LIST changes: +LIDOCAINE VISC 2% SOLN 15 ML UDC ONE; -LIDOCAINE/PRILOCAINE 2.5-2.5% KIT ONE
== END 2020-10-30 ==
LOC: WCC 15:39
PROVIDERS: ATTEND Podiatrist Foot & Ankle Surgery
DX: E11.621 Type 2 diabetes mellitus with foot ulcer (principal); E11.69 Type 2 diabetes mellitus with other specified complication; E11.65 Type 2 diabetes mellitus with hyperglycemia; L97.421 Non-pressure chronic ulcer of left heel and midfoot limited to breakdown of skin; M65.071 Abscess of tendon sheath, right ankle and foot; I87.8 Other specified disorders of veins; G45.9 Transient cerebral ischemic attack, unspecified; I10 Essential (primary) hypertension; I48.91 Unspecified atrial fibrillation; W22.8XXA Striking against or struck by other objects, initial encounter; Z01.810 Encounter for preprocedural cardiovascular examination; Z01.811 Encounter for preprocedural respiratory examination

== ENCOUNTER 2020-11-24 13:41 | Outpatient (RCR) | payer MEDICARE, OTHER ==
[~2020-11-24 13:41] MED LIST changes: -LIDOCAINE VISC 2% SOLN 15 ML UDC ONE
== END 2020-11-30 ==
LOC: WCC 13:41
PROVIDERS: ATTEND Podiatrist Foot & Ankle Surgery
DX: E11.621 Type 2 diabetes mellitus with foot ulcer (principal); E11.69 Type 2 diabetes mellitus with other specified complication; E11.65 Type 2 diabetes mellitus with hyperglycemia; L89.891 Pressure ulcer of other site, stage 1; L97.421 Non-pressure chronic ulcer of left heel and midfoot limited to breakdown of skin; M65.071 Abscess of tendon sheath, right ankle and foot; I87.8 Other specified disorders of veins; I10 Essential (primary) hypertension; G45.9 Transient cerebral ischemic attack, unspecified; I48.91 Unspecified atrial fibrillation; W22.8XXA Striking against or struck by other objects, initial encounter; Z01.810 Encounter for preprocedural cardiovascular examination; Z01.811 Encounter for preprocedural respiratory examination

== ENCOUNTER 2020-12-22 12:34 | Outpatient (RCR) | payer MEDICARE, OTHER ==
[~2020-12-22 12:34] MED LIST changes: +LIDOCAINE VISC 2% SOLN 15 ML UDC ONE
[2020-12-31] MEDS ORDERED: METOPROLOL SUCC25 MG PO (09:39)
== END 2020-12-30 ==
LOC: WCC 12:34
PROVIDERS: ATTEND Podiatrist Foot & Ankle Surgery
DX: L89.894 Pressure ulcer of other site, stage 4 (principal); L89.891 Pressure ulcer of other site, stage 1; E11.621 Type 2 diabetes mellitus with foot ulcer; E11.69 Type 2 diabetes mellitus with other specified complication; E11.65 Type 2 diabetes mellitus with hyperglycemia; L97.421 Non-pressure chronic ulcer of left heel and midfoot limited to breakdown of skin; M65.071 Abscess of tendon sheath, right ankle and foot; I87.8 Other specified disorders of veins; G45.9 Transient cerebral ischemic attack, unspecified; I10 Essential (primary) hypertension; I48.91 Unspecified atrial fibrillation; W22.8XXA Striking against or struck by other objects, initial encounter; Z01.810 Encounter for preprocedural cardiovascular examination; Z01.811 Encounter for preprocedural respiratory examination

== ENCOUNTER → 2020-12-31 | Day surgery (SDC) | payer MEDICARE ==
[2020-12-28 15:01] LABS: BASOPHILS % 0.5 % (0.0-1.0); EOSINOPHILS # (AUTO) 0.2 (0.0-0.4); HEMATOCRIT 38.5 % (38.2-49.6); HEMOGLOBIN 13.3 g/dL (14.0-18.0); LYMPHOCYTES # (AUTO) 1.5 (1.0-3.2); LYMPHOCYTES % 18.8 % (18.0-39.1); MEAN CORPUSCULAR HEMOGLOBIN 31.5 pg (28-32); MEAN CORPUSCULAR HGB CONC 34.5 g/dL (31-35); MEAN CORPUSCULAR VOLUME 91.2 fL (81-99); MONOCYTES # (AUTO) 0.7 (0.2-0.8); MONOCYTES % 8.7 % (4.4-11.3); NEUTROPHILS # (AUTO) 5.5 (2.1-6.9); NEUTROPHILS % 69.5 % (38.7-80.0); PLATELET COUNT 147 x10e3/uL (140-360); RED BLOOD COUNT 4.22 x10e6/uL (4.3-5.7); RED CELL DISTRIBUTION WIDTH 11.9 % (11.7-14.4)
[2020-12-28 15:13] LABS: INR 1.17; PROTHROMBIN TIME 15.6 seconds (11.9-14.5)
[2020-12-28 15:22] LABS: ALBUMIN 3.5 g/dL (3.5-5.0); ALBUMIN/GLOBULIN RATIO 1.1 (0.8-2.0); ANION GAP 12.5 mmol/L (8-16); CALCIUM 9.5 mg/dL (8.4-10.2); CREATININE, SERUM 0.92 mg/dL (0.72-1.25); POTASSIUM 5.5 mmol/L (3.5-5.1)
[2020-12-31] VITALS (8 sets, daily range): BP systolic 144–170; BP diastolic 70–86
[~2020-12-31] VITALS: Ht 193 cm; Wt 124.7 kg
[~2020-12-31] MED LIST changes: +FENTANYL CITRATE/PF 100MCG/2 ML INJ ONE; +HEPARIN SOD/SOD CHLORIDE 2,000 ML ONE; +IOPAMIDOL 300MG/ML 100 ML INFUS..BTL IV ONE; +LIDOCAINE HCL 2% LOCAL 20 ML VIAL ONE; -LIDOCAINE VISC 2% SOLN 15 ML UDC ONE; +MIDAZOLAM HCL 2 MG/2 ML VIAL ONE; +SODIUM CHLORIDE 0.9% 1000ML 1,000 ML ONE
== END | disposition home or self-care (01) ==
LOC: CATH LAB 08:22
PROVIDERS: ATTEND Internal Medicine Cardiovascular Disease
DX: I70.235 Atherosclerosis of native arteries of right leg with ulceration of other part of foot (principal); L97.519 Non-pressure chronic ulcer of other part of right foot with unspecified severity; I87.2 Venous insufficiency (chronic) (peripheral); I82.493 Acute embolism and thrombosis of other specified deep vein of lower extremity, bilateral; I48.0 Paroxysmal atrial fibrillation; I10 Essential (primary) hypertension; R07.9 Chest pain, unspecified; E78.2 Mixed hyperlipidemia; R09.89 Other specified symptoms and signs involving the circulatory and respiratory systems; E66.01 Morbid (severe) obesity due to excess calories; R00.1 Bradycardia, unspecified; E11.9 Type 2 diabetes mellitus without complications; Z01.812 Encounter for preprocedural laboratory examination; Z79.02 Long term (current) use of antithrombotics/antiplatelets; Z79.84 Long term (current) use of oral hypoglycemic drugs; Z68.33 Body mass index [BMI] 33.0-33.9, adult; Z86.73 Personal history of transient ischemic attack (TIA), and cerebral infarction without residual deficits; Z82.49 Family history of ischemic heart disease and other diseases of the circulatory system; Z83.3 Family history of diabetes mellitus
CPT/HCPCS: 36140; 36415 ×2; 75625; 75716; 76937; 80053; 82948; 85025; 85610; C1760; C1769; J2001; J2250; J3010; J7030; Q9967; 36247; 75630; 99152; 99153

== ENCOUNTER 2021-01-26 14:20 | Outpatient (RCR) | payer MEDICARE ==
[~2021-01-26 14:20] MED LIST changes: -FENTANYL CITRATE/PF 100MCG/2 ML INJ ONE; -HEPARIN SOD/SOD CHLORIDE 2,000 ML ONE; -IOPAMIDOL 300MG/ML 100 ML INFUS..BTL IV ONE; -LIDOCAINE HCL 2% LOCAL 20 ML VIAL ONE; +LIDOCAINE/PRILOCAINE 2.5-2.5% KIT ONE; -MIDAZOLAM HCL 2 MG/2 ML VIAL ONE; -SODIUM CHLORIDE 0.9% 1000ML 1,000 ML ONE; +TRYPSIN/BALSAM PERU/CASTOR OIL ONE
== END 2021-01-30 ==
LOC: WCC 14:20
PROVIDERS: ATTEND Podiatrist Foot & Ankle Surgery
DX: E11.621 Type 2 diabetes mellitus with foot ulcer (principal); E11.69 Type 2 diabetes mellitus with other specified complication; E11.65 Type 2 diabetes mellitus with hyperglycemia; L89.894 Pressure ulcer of other site, stage 4; L89.891 Pressure ulcer of other site, stage 1; M65.071 Abscess of tendon sheath, right ankle and foot; L97.421 Non-pressure chronic ulcer of left heel and midfoot limited to breakdown of skin; I87.8 Other specified disorders of veins; G45.9 Transient cerebral ischemic attack, unspecified; I10 Essential (primary) hypertension; I48.91 Unspecified atrial fibrillation; W22.8XXA Striking against or struck by other objects, initial encounter; Z01.810 Encounter for preprocedural cardiovascular examination; Z01.811 Encounter for preprocedural respiratory examination

== ENCOUNTER → 2021-03-02 | Outpatient (RCR) | payer MEDICARE ==
[~2021-03-02] MED LIST changes: -LIDOCAINE/PRILOCAINE 2.5-2.5% KIT ONE
== END ==
LOC: WCC 02-09 13:15
PROVIDERS: ATTEND Podiatrist Foot & Ankle Surgery
DX: E11.621 Type 2 diabetes mellitus with foot ulcer (principal); E11.69 Type 2 diabetes mellitus with other specified complication; E11.65 Type 2 diabetes mellitus with hyperglycemia; L89.894 Pressure ulcer of other site, stage 4; L89.891 Pressure ulcer of other site, stage 1; M65.071 Abscess of tendon sheath, right ankle and foot; L97.421 Non-pressure chronic ulcer of left heel and midfoot limited to breakdown of skin; G45.9 Transient cerebral ischemic attack, unspecified; I87.8 Other specified disorders of veins; I10 Essential (primary) hypertension; I48.91 Unspecified atrial fibrillation; W22.8XXA Striking against or struck by other objects, initial encounter; Z01.810 Encounter for preprocedural cardiovascular examination; Z01.811 Encounter for preprocedural respiratory examination
CPT/HCPCS: 87071; 87075; 87186; 87205

== ENCOUNTER → 2021-04-01 | Outpatient (RCR) | payer MEDICARE ==
[2021-03-09 15:13] LABS: BASOPHILS # (AUTO) 0.1 (0.0-0.1); BASOPHILS % 0.5 % (0.0-1.0); EOSINOPHILS # (AUTO) 0.2 (0.0-0.4); EOSINOPHILS % 1.8 % (0.0-6.0); HEMATOCRIT 36.2 % (38.2-49.6); HEMOGLOBIN 12.2 g/dL (14.0-18.0); LYMPHOCYTES # (AUTO) 1.4 (1.0-3.2); LYMPHOCYTES % 15.1 % (18.0-39.1); MEAN CORPUSCULAR HEMOGLOBIN 31.4 pg (28-32); MEAN CORPUSCULAR HGB CONC 33.7 g/dL (31-35); MEAN CORPUSCULAR VOLUME 93.1 fL (81-99); MONOCYTES # (AUTO) 0.8 (0.2-0.8); MONOCYTES % 8.7 % (4.4-11.3); NEUTROPHILS # (AUTO) 6.9 (2.1-6.9); NEUTROPHILS % 73.3 % (38.7-80.0); PLATELET COUNT 173 x10e3/uL (140-360); RED BLOOD COUNT 3.89 x10e6/uL (4.3-5.7); RED CELL DISTRIBUTION WIDTH 11.7 % (11.7-14.4)
[2021-03-09 15:34] LABS: ALBUMIN 3.5 g/dL (3.5-5.0); ANION GAP 13.3 mmol/L (8-16); CREATININE, SERUM 0.99 mg/dL (0.72-1.25); POTASSIUM 4.3 mmol/L (3.5-5.1)
[~2021-04-01] MED LIST changes: -TRYPSIN/BALSAM PERU/CASTOR OIL ONE
== END ==
LOC: WCC 03-09 15:56
PROVIDERS: ATTEND Podiatrist Foot & Ankle Surgery
DX: E11.621 Type 2 diabetes mellitus with foot ulcer (principal); E11.69 Type 2 diabetes mellitus with other specified complication; E11.65 Type 2 diabetes mellitus with hyperglycemia; L89.894 Pressure ulcer of other site, stage 4; M65.071 Abscess of tendon sheath, right ankle and foot; L97.421 Non-pressure chronic ulcer of left heel and midfoot limited to breakdown of skin; I87.8 Other specified disorders of veins; R60.0 Localized edema; G45.9 Transient cerebral ischemic attack, unspecified; I10 Essential (primary) hypertension; I48.91 Unspecified atrial fibrillation; B96.5 Pseudomonas (aeruginosa) (mallei) (pseudomallei) as the cause of diseases classified elsewhere; W22.8XXA Striking against or struck by other objects, initial encounter; Z01.810 Encounter for preprocedural cardiovascular examination; Z01.811 Encounter for preprocedural respiratory examination
CPT/HCPCS: 36415; 80053; 82948; 83036; 84134; 85025; 85651; 86140

== ENCOUNTER 2021-04-27 14:43 | Outpatient (RCR) | payer MEDICARE ==
[~2021-04-27 14:43] MED LIST changes: +LIDOCAINE/PRILOCAINE 2.5-2.5% KIT ONE
== END 2021-05-02 ==
LOC: WCC 14:43
PROVIDERS: ATTEND Podiatrist Foot & Ankle Surgery
DX: L89.894 Pressure ulcer of other site, stage 4 (principal); L89.892 Pressure ulcer of other site, stage 2; E11.621 Type 2 diabetes mellitus with foot ulcer; E11.69 Type 2 diabetes mellitus with other specified complication; E11.40 Type 2 diabetes mellitus with diabetic neuropathy, unspecified; M65.071 Abscess of tendon sheath, right ankle and foot; L97.421 Non-pressure chronic ulcer of left heel and midfoot limited to breakdown of skin; R60.0 Localized edema; I87.8 Other specified disorders of veins; G45.9 Transient cerebral ischemic attack, unspecified; I10 Essential (primary) hypertension; I48.91 Unspecified atrial fibrillation; B96.5 Pseudomonas (aeruginosa) (mallei) (pseudomallei) as the cause of diseases classified elsewhere; Z01.810 Encounter for preprocedural cardiovascular examination; Z01.811 Encounter for preprocedural respiratory examination; W22.8XXA Striking against or struck by other objects, initial encounter
CPT/HCPCS: 36415; 82948

== ENCOUNTER 2021-05-16 15:37 | Emergency (ER) | payer MEDICARE ==
[~2021-05-16] VITALS: Ht 193 cm; Wt 124.7 kg
[~2021-05-16 15:37] MED LIST changes: -LIDOCAINE/PRILOCAINE 2.5-2.5% KIT ONE
[2021-05-16] MEDS ORDERED: CASIRIVIMAB/IMDEVIMAB 10 ML in SODIUM CHLORIDE 0.9% 100 ML IV ONE (15:45)
== END 2021-05-16 18:07 | disposition home or self-care (01) ==
LOC: ER 15:44
DX: U07.1 COVID-19 (principal); I10 Essential (primary) hypertension; E11.9 Type 2 diabetes mellitus without complications; I48.91 Unspecified atrial fibrillation
CPT/HCPCS: 99283; J7050

== ENCOUNTER → 2021-06-01 | Outpatient (RCR) | payer MEDICARE ==
[~2021-06-01] MED LIST changes: +LIDOCAINE VISC 2% SOLN 15 ML UDC ONE
== END ==
LOC: WCC 05-04 08:09
PROVIDERS: ATTEND Podiatrist Foot & Ankle Surgery
DX: E11.621 Type 2 diabetes mellitus with foot ulcer (principal); E11.69 Type 2 diabetes mellitus with other specified complication; E11.65 Type 2 diabetes mellitus with hyperglycemia; L89.894 Pressure ulcer of other site, stage 4; L89.892 Pressure ulcer of other site, stage 2; M65.071 Abscess of tendon sheath, right ankle and foot; L97.421 Non-pressure chronic ulcer of left heel and midfoot limited to breakdown of skin; I87.8 Other specified disorders of veins; R60.0 Localized edema; G45.9 Transient cerebral ischemic attack, unspecified; I10 Essential (primary) hypertension; I48.91 Unspecified atrial fibrillation; B96.5 Pseudomonas (aeruginosa) (mallei) (pseudomallei) as the cause of diseases classified elsewhere; W22.8XXA Striking against or struck by other objects, initial encounter; Z01.810 Encounter for preprocedural cardiovascular examination; Z01.811 Encounter for preprocedural respiratory examination

== ENCOUNTER 2021-07-01 12:46 | Outpatient (RCR) | payer MEDICARE ==
[~2021-07-01 12:46] MED LIST changes: -LIDOCAINE VISC 2% SOLN 15 ML UDC ONE; +LIDOCAINE/PRILOCAINE 2.5-2.5% KIT ONE; +MUPIROCIN 2% OINT 22 GM TUBE ONE
== END 2021-07-02 ==
LOC: WCC 12:46
PROVIDERS: ATTEND Podiatrist Foot & Ankle Surgery
DX: E11.621 Type 2 diabetes mellitus with foot ulcer (principal); E11.69 Type 2 diabetes mellitus with other specified complication; E11.65 Type 2 diabetes mellitus with hyperglycemia; L89.894 Pressure ulcer of other site, stage 4; M65.071 Abscess of tendon sheath, right ankle and foot; L97.421 Non-pressure chronic ulcer of left heel and midfoot limited to breakdown of skin; I87.8 Other specified disorders of veins; R60.0 Localized edema; G45.9 Transient cerebral ischemic attack, unspecified; I10 Essential (primary) hypertension; I48.91 Unspecified atrial fibrillation; W22.8XXA Striking against or struck by other objects, initial encounter; Z01.810 Encounter for preprocedural cardiovascular examination; Z01.811 Encounter for preprocedural respiratory examination

== ENCOUNTER 2021-07-27 07:56 | Outpatient (RCR) | payer MEDICARE ==
[~2021-07-27 07:56] MED LIST changes: -LIDOCAINE/PRILOCAINE 2.5-2.5% KIT ONE; -MUPIROCIN 2% OINT 22 GM TUBE ONE
[2021-07-27] MEDS ORDERED: LIDOCAINE VISC 2% SOLN 15 ML UDC ONE (19:37)
== END 2021-08-02 ==
LOC: WCC 07:56
PROVIDERS: ATTEND Podiatrist Foot & Ankle Surgery
DX: E11.621 Type 2 diabetes mellitus with foot ulcer (principal); E11.69 Type 2 diabetes mellitus with other specified complication; E11.65 Type 2 diabetes mellitus with hyperglycemia; L89.894 Pressure ulcer of other site, stage 4; M65.071 Abscess of tendon sheath, right ankle and foot; L97.421 Non-pressure chronic ulcer of left heel and midfoot limited to breakdown of skin; I87.8 Other specified disorders of veins; R60.0 Localized edema; G45.9 Transient cerebral ischemic attack, unspecified; I10 Essential (primary) hypertension; I48.91 Unspecified atrial fibrillation; W22.8XXA Striking against or struck by other objects, initial encounter; Z01.810 Encounter for preprocedural cardiovascular examination; Z01.811 Encounter for preprocedural respiratory examination

== ENCOUNTER 2021-08-24 09:40 | Outpatient (RCR) | payer MEDICARE ==
[~2021-08-24 09:40] MED LIST changes: +TRYPSIN/BALSAM PERU/CASTOR OIL ONE
== END 2021-08-30 ==
LOC: WCC 09:40
PROVIDERS: ATTEND Podiatrist Foot & Ankle Surgery
DX: L89.894 Pressure ulcer of other site, stage 4 (principal); E11.621 Type 2 diabetes mellitus with foot ulcer; E11.628 Type 2 diabetes mellitus with other skin complications; E11.69 Type 2 diabetes mellitus with other specified complication; E11.65 Type 2 diabetes mellitus with hyperglycemia; M65.071 Abscess of tendon sheath, right ankle and foot; L97.421 Non-pressure chronic ulcer of left heel and midfoot limited to breakdown of skin; I70.203 Unspecified atherosclerosis of native arteries of extremities, bilateral legs; I87.8 Other specified disorders of veins; R60.0 Localized edema; G45.9 Transient cerebral ischemic attack, unspecified; I48.91 Unspecified atrial fibrillation; I10 Essential (primary) hypertension; G99.0 Autonomic neuropathy in diseases classified elsewhere; W22.8XXA Striking against or struck by other objects, initial encounter; Z01.810 Encounter for preprocedural cardiovascular examination; Z01.811 Encounter for preprocedural respiratory examination

== ENCOUNTER 2021-09-28 14:17 | Outpatient (RCR) | payer MEDICARE ==
[~2021-09-28 14:17] MED LIST changes: +LIDOCAINE VISC 2% SOLN 15 ML UDC ONE; -TRYPSIN/BALSAM PERU/CASTOR OIL ONE
== END 2021-09-30 ==
LOC: WCC 14:17
PROVIDERS: ATTEND Podiatrist Foot & Ankle Surgery
DX: L89.894 Pressure ulcer of other site, stage 4 (principal); E11.621 Type 2 diabetes mellitus with foot ulcer; E11.69 Type 2 diabetes mellitus with other specified complication; E11.65 Type 2 diabetes mellitus with hyperglycemia; L97.421 Non-pressure chronic ulcer of left heel and midfoot limited to breakdown of skin; M65.071 Abscess of tendon sheath, right ankle and foot; I70.203 Unspecified atherosclerosis of native arteries of extremities, bilateral legs; I87.8 Other specified disorders of veins; R60.0 Localized edema; G45.9 Transient cerebral ischemic attack, unspecified; I10 Essential (primary) hypertension; I48.91 Unspecified atrial fibrillation; G99.0 Autonomic neuropathy in diseases classified elsewhere; W22.8XXA Striking against or struck by other objects, initial encounter; Z01.810 Encounter for preprocedural cardiovascular examination; Z01.811 Encounter for preprocedural respiratory examination
CPT/HCPCS: 87071; 87075; 87205

== ENCOUNTER 2021-10-29 15:49 | Outpatient (RCR) | payer MEDICARE ==
[~2021-10-29 15:49] MED LIST changes: -LIDOCAINE VISC 2% SOLN 15 ML UDC ONE
== END 2021-10-30 ==
LOC: WCC 15:49
PROVIDERS: ATTEND Podiatrist Foot & Ankle Surgery
DX: E11.621 Type 2 diabetes mellitus with foot ulcer (principal); E11.69 Type 2 diabetes mellitus with other specified complication; E11.65 Type 2 diabetes mellitus with hyperglycemia; M65.071 Abscess of tendon sheath, right ankle and foot; L97.511 Non-pressure chronic ulcer of other part of right foot limited to breakdown of skin; L97.421 Non-pressure chronic ulcer of left heel and midfoot limited to breakdown of skin; I87.8 Other specified disorders of veins; R60.0 Localized edema; G45.9 Transient cerebral ischemic attack, unspecified; I10 Essential (primary) hypertension; G99.0 Autonomic neuropathy in diseases classified elsewhere; I48.91 Unspecified atrial fibrillation; I70.203 Unspecified atherosclerosis of native arteries of extremities, bilateral legs; W22.8XXA Striking against or struck by other objects, initial encounter; Z01.810 Encounter for preprocedural cardiovascular examination; Z01.811 Encounter for preprocedural respiratory examination
CPT/HCPCS: 36415; 82948

== ENCOUNTER 2021-11-23 12:17 | Outpatient (RCR) | payer MEDICARE ==
[~2021-11-23 12:17] MED LIST changes: +LIDOCAINE VISC 2% SOLN 15 ML UDC ONE; +TRYPSIN/BALSAM PERU/CASTOR OIL ONE
[2021-11-23] MEDS ORDERED: TRYPSIN/BALSAM PERU/CASTOR OIL ONE (16:28)
[2021-11-23] MEDS ORDERED: LIDOCAINE VISC 2% SOLN 15 ML UDC ONE (16:28)
== END 2021-11-30 ==
LOC: WCC 12:17
PROVIDERS: ATTEND Podiatrist Foot & Ankle Surgery
DX: E11.621 Type 2 diabetes mellitus with foot ulcer (principal); E11.69 Type 2 diabetes mellitus with other specified complication; E11.65 Type 2 diabetes mellitus with hyperglycemia; L97.428 Non-pressure chronic ulcer of left heel and midfoot with other specified severity; M65.071 Abscess of tendon sheath, right ankle and foot; I70.203 Unspecified atherosclerosis of native arteries of extremities, bilateral legs; I87.8 Other specified disorders of veins; R60.0 Localized edema; G45.9 Transient cerebral ischemic attack, unspecified; I10 Essential (primary) hypertension; I48.91 Unspecified atrial fibrillation; G99.0 Autonomic neuropathy in diseases classified elsewhere; W22.8XXA Striking against or struck by other objects, initial encounter; Z01.810 Encounter for preprocedural cardiovascular examination; Z01.811 Encounter for preprocedural respiratory examination

== ENCOUNTER 2021-12-28 10:52 | Outpatient (RCR) | payer MEDICARE ==
[~2021-12-28 10:52] MED LIST changes: -LIDOCAINE VISC 2% SOLN 15 ML UDC ONE; +MINERAL OIL/PETROLAT/GLYCERI 6OZ BTL ONE
[2021-12-28] MEDS ORDERED: TRYPSIN/BALSAM PERU/CASTOR OIL ONE ×2 (12:14→12:57)
== END 2021-12-30 ==
LOC: WCC 10:52
PROVIDERS: ATTEND Podiatrist Foot & Ankle Surgery
DX: E11.621 Type 2 diabetes mellitus with foot ulcer (principal); E11.69 Type 2 diabetes mellitus with other specified complication; E11.65 Type 2 diabetes mellitus with hyperglycemia; M65.071 Abscess of tendon sheath, right ankle and foot; I87.8 Other specified disorders of veins; R60.0 Localized edema; I70.203 Unspecified atherosclerosis of native arteries of extremities, bilateral legs; I10 Essential (primary) hypertension; G45.9 Transient cerebral ischemic attack, unspecified; G99.0 Autonomic neuropathy in diseases classified elsewhere; I48.91 Unspecified atrial fibrillation; W22.8XXA Striking against or struck by other objects, initial encounter; Z01.810 Encounter for preprocedural cardiovascular examination; Z01.811 Encounter for preprocedural respiratory examination

== ENCOUNTER 2022-01-25 11:06 | Outpatient (RCR) | payer MEDICARE ==
[~2022-01-25 11:06] MED LIST changes: +MINERAL OIL/PETROLAT/GLYCERI 2OZ CRM ONE; -MINERAL OIL/PETROLAT/GLYCERI 6OZ BTL ONE; +SILVER SULFADIAZINE 50GM CREAM ONE
== END 2022-01-30 ==
LOC: WCC 11:06
PROVIDERS: ATTEND Podiatrist Foot & Ankle Surgery
DX: E11.621 Type 2 diabetes mellitus with foot ulcer (principal); E11.69 Type 2 diabetes mellitus with other specified complication; E11.65 Type 2 diabetes mellitus with hyperglycemia; M65.071 Abscess of tendon sheath, right ankle and foot; L97.428 Non-pressure chronic ulcer of left heel and midfoot with other specified severity; L97.511 Non-pressure chronic ulcer of other part of right foot limited to breakdown of skin; L97.521 Non-pressure chronic ulcer of other part of left foot limited to breakdown of skin; I70.203 Unspecified atherosclerosis of native arteries of extremities, bilateral legs; I87.8 Other specified disorders of veins; R60.0 Localized edema; G45.9 Transient cerebral ischemic attack, unspecified; I10 Essential (primary) hypertension; I48.91 Unspecified atrial fibrillation; G99.0 Autonomic neuropathy in diseases classified elsewhere; W22.8XXA Striking against or struck by other objects, initial encounter; Z01.810 Encounter for preprocedural cardiovascular examination; Z01.811 Encounter for preprocedural respiratory examination

== ENCOUNTER 2022-03-01 14:14 | Outpatient (RCR) | payer MEDICARE ==
[~2022-03-01 14:14] MED LIST changes: +LIDOCAINE VISC 2% SOLN 15 ML UDC ONE; -MINERAL OIL/PETROLAT/GLYCERI 2OZ CRM ONE; +MUPIROCIN 2% OINT 22 GM TUBE ONE; -SILVER SULFADIAZINE 50GM CREAM ONE; -TRYPSIN/BALSAM PERU/CASTOR OIL ONE
[2022-03-02] MEDS ORDERED: JANUVIA100 MG PO (16:05)
[2022-03-02] MEDS ORDERED: LIPITOR20 MG PO (16:05)
== END 2022-03-02 ==
LOC: WCC 14:14
PROVIDERS: ATTEND Podiatrist Foot & Ankle Surgery
DX: E11.621 Type 2 diabetes mellitus with foot ulcer (principal); E11.65 Type 2 diabetes mellitus with hyperglycemia; E11.69 Type 2 diabetes mellitus with other specified complication; M86.071 Acute hematogenous osteomyelitis, right ankle and foot; L97.511 Non-pressure chronic ulcer of other part of right foot limited to breakdown of skin; L97.521 Non-pressure chronic ulcer of other part of left foot limited to breakdown of skin; L97.428 Non-pressure chronic ulcer of left heel and midfoot with other specified severity; I70.203 Unspecified atherosclerosis of native arteries of extremities, bilateral legs; I87.8 Other specified disorders of veins; R60.0 Localized edema; G45.9 Transient cerebral ischemic attack, unspecified; I10 Essential (primary) hypertension; G99.0 Autonomic neuropathy in diseases classified elsewhere; I48.91 Unspecified atrial fibrillation; W22.8XXA Striking against or struck by other objects, initial encounter

== ENCOUNTER → 2022-03-03 | Day surgery (SDC) | payer MEDICARE ==
[2022-03-01 13:58] LABS: BASOPHILS % 0.3 % (0.0-1.0); EOSINOPHILS # (AUTO) 0.2 (0.0-0.4); EOSINOPHILS % 1.7 % (0.0-6.0); HEMATOCRIT 41.3 % (38.2-49.6); HEMOGLOBIN 13.7 g/dL (14.0-18.0); LYMPHOCYTES # (AUTO) 1.5 (1.0-3.2); LYMPHOCYTES % 17.2 % (18.0-39.1); MEAN CORPUSCULAR HEMOGLOBIN 31.1 pg (28-32); MEAN CORPUSCULAR HGB CONC 33.2 g/dL (31-35); MEAN CORPUSCULAR VOLUME 93.9 fL (81-99); MONOCYTES # (AUTO) 0.9 (0.2-0.8); MONOCYTES % 9.7 % (4.4-11.3); NEUTROPHILS # (AUTO) 6.2 (2.1-6.9); NEUTROPHILS % 70.6 % (38.7-80.0); PLATELET COUNT 156 x10e3/uL (140-360); RED CELL DISTRIBUTION WIDTH 11.7 % (11.7-14.4)
[2022-03-01 14:11] LABS: INR 1.01; PROTHROMBIN TIME 14.2 seconds (11.9-14.5)
[2022-03-01 14:20] LABS: ALBUMIN 3.7 g/dL (3.5-5.0); ANION GAP 14.7 mmol/L (8-16); CALCIUM 9.5 mg/dL (8.4-10.2); CHOL/HDL RATIO 3.5 (3.9-4.7); CREATININE, SERUM 1.11 mg/dL (0.72-1.25); POTASSIUM 4.7 mmol/L (3.5-5.1)
[2022-03-03] VITALS (9 sets, daily range): BP systolic 141–182; BP diastolic 77–83
[~2022-03-03] VITALS: Ht 193 cm; Wt 122.5 kg
[~2022-03-03] MED LIST changes: +ALPRAZOLAM 0.5 MG TAB ONE; +DIPHENHYDRAMINE HCL 25 MG CAP ONE; +FENTANYL CITRATE/PF 100MCG/2 ML INJ ONE; +HEPARIN SOD (PORCINE) 1000 UNIT/ML 30ML ONE; +HEPARIN SOD/SOD CHLORIDE 2,000 ML ONE; +IOPAMIDOL 370 MG/ML 100 ML INFUS..BTL INJ ONE; +LIDOCAINE HCL 1% LOCAL INJ 20 ML VIAL ONE; -LIDOCAINE VISC 2% SOLN 15 ML UDC ONE; +LIPITOR20 MG PO; +MIDAZOLAM HCL 2 MG/2 ML VIAL ONE; -MUPIROCIN 2% OINT 22 GM TUBE ONE; +NITROGLYCERIN/D5W 200 MCG/ML 250 ML ONE; +SODIUM CHLORIDE 0.9% 1000ML 1,000 ML ONE; +VERAPAMIL HCL 2.5 MG/ML 2 ML VIAL ONE
== END | disposition home or self-care (01) ==
LOC: CATH LAB 08:32
PROVIDERS: ATTEND Internal Medicine Cardiovascular Disease
DX: I25.10 Atherosclerotic heart disease of native coronary artery without angina pectoris (principal); R94.39 Abnormal result of other cardiovascular function study; I82.493 Acute embolism and thrombosis of other specified deep vein of lower extremity, bilateral; I70.211 Atherosclerosis of native arteries of extremities with intermittent claudication, right leg; I10 Essential (primary) hypertension; R09.89 Other specified symptoms and signs involving the circulatory and respiratory systems; I87.2 Venous insufficiency (chronic) (peripheral); I48.0 Paroxysmal atrial fibrillation; E78.2 Mixed hyperlipidemia; G45.9 Transient cerebral ischemic attack, unspecified; E11.9 Type 2 diabetes mellitus without complications; E66.01 Morbid (severe) obesity due to excess calories; Z79.02 Long term (current) use of antithrombotics/antiplatelets; Z79.82 Long term (current) use of aspirin; Z79.84 Long term (current) use of oral hypoglycemic drugs; Z79.899 Other long term (current) drug therapy; Z68.33 Body mass index [BMI] 33.0-33.9, adult
CPT/HCPCS: 36415; 80053; 80061; 85025; 85610; 93458; C1887; J1644; J2001; J2250; J3010; J7030; Q9967; 99152

== ENCOUNTER 2022-03-29 11:41 | Outpatient (RCR) | payer MEDICARE ==
[~2022-03-29 11:41] MED LIST changes: -ALPRAZOLAM 0.5 MG TAB ONE; -DIPHENHYDRAMINE HCL 25 MG CAP ONE; -FENTANYL CITRATE/PF 100MCG/2 ML INJ ONE; -HEPARIN SOD (PORCINE) 1000 UNIT/ML 30ML ONE; -HEPARIN SOD/SOD CHLORIDE 2,000 ML ONE; -IOPAMIDOL 370 MG/ML 100 ML INFUS..BTL INJ ONE; -LIDOCAINE HCL 1% LOCAL INJ 20 ML VIAL ONE; +LIDOCAINE VISC 2% SOLN 15 ML UDC ONE; -MIDAZOLAM HCL 2 MG/2 ML VIAL ONE; -NITROGLYCERIN/D5W 200 MCG/ML 250 ML ONE; -SODIUM CHLORIDE 0.9% 1000ML 1,000 ML ONE; -VERAPAMIL HCL 2.5 MG/ML 2 ML VIAL ONE
== END 2022-04-01 ==
LOC: WCC 11:41
PROVIDERS: ATTEND Podiatrist Foot & Ankle Surgery
DX: E11.621 Type 2 diabetes mellitus with foot ulcer (principal); E11.69 Type 2 diabetes mellitus with other specified complication; E11.65 Type 2 diabetes mellitus with hyperglycemia; M65.071 Abscess of tendon sheath, right ankle and foot; L97.428 Non-pressure chronic ulcer of left heel and midfoot with other specified severity; L97.521 Non-pressure chronic ulcer of other part of left foot limited to breakdown of skin; L97.421 Non-pressure chronic ulcer of left heel and midfoot limited to breakdown of skin; I70.203 Unspecified atherosclerosis of native arteries of extremities, bilateral legs; I87.8 Other specified disorders of veins; R60.0 Localized edema; G99.0 Autonomic neuropathy in diseases classified elsewhere; G45.9 Transient cerebral ischemic attack, unspecified; I10 Essential (primary) hypertension; I48.91 Unspecified atrial fibrillation; A49.01 Methicillin susceptible Staphylococcus aureus infection, unspecified site; W22.8XXA Striking against or struck by other objects, initial encounter; Z01.810 Encounter for preprocedural cardiovascular examination; Z01.811 Encounter for preprocedural respiratory examination

== ENCOUNTER 2022-04-26 09:58 | Outpatient (RCR) | payer MEDICARE ==
[~2022-04-26 09:58] MED LIST changes: -LIDOCAINE VISC 2% SOLN 15 ML UDC ONE; +MUPIROCIN 2% OINT 22 GM TUBE ONE
[2022-04-26] MEDS ORDERED: LIDOCAINE VISC 2% SOLN 15 ML UDC ONE (13:22)
[2022-04-26] MEDS ORDERED: MUPIROCIN 2% OINT 22 GM TUBE ONE (13:22)
== END 2022-05-02 ==
LOC: WCC 09:58
PROVIDERS: ATTEND Podiatrist Foot & Ankle Surgery
DX: E11.621 Type 2 diabetes mellitus with foot ulcer (principal); E11.65 Type 2 diabetes mellitus with hyperglycemia; E11.69 Type 2 diabetes mellitus with other specified complication; M65.071 Abscess of tendon sheath, right ankle and foot; G45.9 Transient cerebral ischemic attack, unspecified; L97.521 Non-pressure chronic ulcer of other part of left foot limited to breakdown of skin; L97.428 Non-pressure chronic ulcer of left heel and midfoot with other specified severity; I70.203 Unspecified atherosclerosis of native arteries of extremities, bilateral legs; I87.8 Other specified disorders of veins; R60.0 Localized edema; I48.91 Unspecified atrial fibrillation; I10 Essential (primary) hypertension; G99.0 Autonomic neuropathy in diseases classified elsewhere; A49.01 Methicillin susceptible Staphylococcus aureus infection, unspecified site; Z01.810 Encounter for preprocedural cardiovascular examination; Z01.811 Encounter for preprocedural respiratory examination; W22.8XXA Striking against or struck by other objects, initial encounter

== ENCOUNTER 2022-05-31 07:47 | Outpatient (RCR) | payer MEDICARE ==
[~2022-05-31 07:47] MED LIST changes: +LIDOCAINE VISC 2% SOLN 15 ML UDC ONE
[2022-05-31] MEDS ORDERED: MUPIROCIN 2% OINT 22 GM TUBE ONE (12:42)
[2022-05-31] MEDS ORDERED: LIDOCAINE VISC 2% SOLN 15 ML UDC ONE (12:42)
== END 2022-06-01 ==
LOC: WCC 07:47
PROVIDERS: ATTEND Podiatrist Foot & Ankle Surgery
DX: E11.621 Type 2 diabetes mellitus with foot ulcer (principal); E11.69 Type 2 diabetes mellitus with other specified complication; E11.65 Type 2 diabetes mellitus with hyperglycemia; M65.071 Abscess of tendon sheath, right ankle and foot; L97.428 Non-pressure chronic ulcer of left heel and midfoot with other specified severity; L97.521 Non-pressure chronic ulcer of other part of left foot limited to breakdown of skin; I70.203 Unspecified atherosclerosis of native arteries of extremities, bilateral legs; I87.8 Other specified disorders of veins; R60.0 Localized edema; G45.9 Transient cerebral ischemic attack, unspecified; I10 Essential (primary) hypertension; I48.91 Unspecified atrial fibrillation; G99.0 Autonomic neuropathy in diseases classified elsewhere; A49.01 Methicillin susceptible Staphylococcus aureus infection, unspecified site; W22.8XXA Striking against or struck by other objects, initial encounter; Z01.810 Encounter for preprocedural cardiovascular examination; Z01.811 Encounter for preprocedural respiratory examination
CPT/HCPCS: 36415; 82948

== ENCOUNTER → 2022-08-02 | Outpatient (RCR) | payer MEDICARE ==
[~2022-08-02] MED LIST changes: -LIDOCAINE VISC 2% SOLN 15 ML UDC ONE; -MUPIROCIN 2% OINT 22 GM TUBE ONE
== END ==
LOC: WCC 07-19 08:03
PROVIDERS: ATTEND Podiatrist Foot & Ankle Surgery
DX: E11.621 Type 2 diabetes mellitus with foot ulcer (principal); E11.69 Type 2 diabetes mellitus with other specified complication; E11.65 Type 2 diabetes mellitus with hyperglycemia; L97.428 Non-pressure chronic ulcer of left heel and midfoot with other specified severity; L97.521 Non-pressure chronic ulcer of other part of left foot limited to breakdown of skin; M65.071 Abscess of tendon sheath, right ankle and foot; I70.203 Unspecified atherosclerosis of native arteries of extremities, bilateral legs; G45.9 Transient cerebral ischemic attack, unspecified; I48.91 Unspecified atrial fibrillation; I10 Essential (primary) hypertension; G99.0 Autonomic neuropathy in diseases classified elsewhere; I87.8 Other specified disorders of veins; A49.01 Methicillin susceptible Staphylococcus aureus infection, unspecified site; W22.8XXA Striking against or struck by other objects, initial encounter; Z01.810 Encounter for preprocedural cardiovascular examination; Z01.811 Encounter for preprocedural respiratory examination

== ENCOUNTER → 2022-08-30 | Outpatient (RCR) | payer MEDICARE ==
[~2022-08-30] MED LIST changes: +HYDROMORPHONE 1MG/1ML INJ ONE; +MUPIROCIN 2% OINT 22 GM TUBE ONE; +SUGAMMADEX SODIUM 200 MG/2 ML VIAL IV ONE
== END ==
LOC: WCC 08-16 09:13
PROVIDERS: ATTEND Podiatrist Foot & Ankle Surgery
DX: E11.621 Type 2 diabetes mellitus with foot ulcer (principal); E11.69 Type 2 diabetes mellitus with other specified complication; E11.65 Type 2 diabetes mellitus with hyperglycemia; G45.9 Transient cerebral ischemic attack, unspecified; M65.071 Abscess of tendon sheath, right ankle and foot; L97.428 Non-pressure chronic ulcer of left heel and midfoot with other specified severity; A49.01 Methicillin susceptible Staphylococcus aureus infection, unspecified site; L97.521 Non-pressure chronic ulcer of other part of left foot limited to breakdown of skin; I70.203 Unspecified atherosclerosis of native arteries of extremities, bilateral legs; I87.8 Other specified disorders of veins; G99.0 Autonomic neuropathy in diseases classified elsewhere; I10 Essential (primary) hypertension; I48.91 Unspecified atrial fibrillation; W22.8XXS Striking against or struck by other objects, sequela; Z01.810 Encounter for preprocedural cardiovascular examination; Z01.811 Encounter for preprocedural respiratory examination
CPT/HCPCS: 11042 ×2; 99213 ×2; J1170

== ENCOUNTER 2022-10-25 07:32 | Outpatient (RCR) | payer MEDICARE ==
[~2022-10-25 07:32] MED LIST changes: -HYDROMORPHONE 1MG/1ML INJ ONE; -SUGAMMADEX SODIUM 200 MG/2 ML VIAL IV ONE
== END 2022-10-30 ==
LOC: WCC 07:32
PROVIDERS: ATTEND Podiatrist Foot & Ankle Surgery
DX: E11.621 Type 2 diabetes mellitus with foot ulcer (principal); L97.521 Non-pressure chronic ulcer of other part of left foot limited to breakdown of skin; L97.428 Non-pressure chronic ulcer of left heel and midfoot with other specified severity; I70.203 Unspecified atherosclerosis of native arteries of extremities, bilateral legs; G99.0 Autonomic neuropathy in diseases classified elsewhere
CPT/HCPCS: 36415; 82948

== ENCOUNTER 2022-11-14 21:52 | Emergency (ER) | payer MEDICARE ==
[~2022-11-14] VITALS: Ht 193 cm; Wt 122.5 kg
[~2022-11-14 21:52] MED LIST changes: -MUPIROCIN 2% OINT 22 GM TUBE ONE
[2022-11-14] MEDS ORDERED: LIDOCAINE 1% W/EPINEPHRINE 20 ML VIAL INJ ONE (22:00)
[2022-11-14] MEDS ORDERED: SODIUM CHLORIDE 0.9% 1000ML 1,000 ML IV STA (23:05)
[2022-11-14 23:26] LABS: BASOPHILS % 0.4 % (0.0-1.0); EOSINOPHILS # (AUTO) 0.2 (0.0-0.4); EOSINOPHILS % 2.4 % (0.0-6.0); HEMATOCRIT 34.8 % (38.2-49.6); LYMPHOCYTES # (AUTO) 1.6 (1.0-3.2); LYMPHOCYTES % 18.8 % (18.0-39.1); MEAN CORPUSCULAR HEMOGLOBIN 31.6 pg (28-32); MEAN CORPUSCULAR HGB CONC 34.5 g/dL (31-35); MEAN CORPUSCULAR VOLUME 91.6 fL (81-99); MONOCYTES # (AUTO) 0.8 (0.2-0.8); MONOCYTES % 10.2 % (4.4-11.3); NEUTROPHILS # (AUTO) 5.6 (2.1-6.9); NEUTROPHILS % 67.6 % (38.7-80.0); PLATELET COUNT 156 x10e3/uL (140-360); RED CELL DISTRIBUTION WIDTH 11.6 % (11.7-14.4)
[2022-11-15 00:30] VITALS: BP 132/71; PULSE 80; RESP 16; TEMP 98; O2SAT 98
== END 2022-11-15 00:04 | disposition home or self-care (01) ==
LOC: ER 22:04
DX: I83.891 Varicose veins of right lower extremity with other complications (principal); I10 Essential (primary) hypertension; E11.9 Type 2 diabetes mellitus without complications; I48.91 Unspecified atrial fibrillation; I25.10 Atherosclerotic heart disease of native coronary artery without angina pectoris
CPT/HCPCS: 35226; 36415; 85025; 99284; J7030

== ENCOUNTER 2022-11-15 08:05 | Outpatient (RCR) | payer MEDICARE ==
[2022-11-25] MEDS ORDERED: LEVALBUTEROL TA15 GM INH (19:33)
== END 2022-11-30 ==
LOC: WCC 08:05
PROVIDERS: ATTEND Plastic Surgery
DX: E11.621 Type 2 diabetes mellitus with foot ulcer (principal); L97.428 Non-pressure chronic ulcer of left heel and midfoot with other specified severity; L97.521 Non-pressure chronic ulcer of other part of left foot limited to breakdown of skin; L97.511 Non-pressure chronic ulcer of other part of right foot limited to breakdown of skin
CPT/HCPCS: 36415; 82948

== ENCOUNTER 2022-11-20 14:59 | Inpatient (IN) | payer MEDICARE ==
[~2022-11-20] VITALS: Ht 193 cm; Wt 122.5 kg
[2022-11-20] MEDS ORDERED: SODIUM CHLORIDE 0.9% 1000ML 1,000 ML IV STA (15:56)
[2022-11-20] MEDS ORDERED: Vancomycin IV 1 GM in SODIUM CHLORIDE 0.9% 250ML 250 ML IV STA (15:56)
[2022-11-20] MEDS ORDERED: ACETAMINOPHEN 325 MG TAB PO ONE (16:00)
[2022-11-20 16:10] LABS: BASOPHILS % 0.1 % (0.0-1.0); EOSINOPHILS % 0.4 % (0.0-6.0); HEMATOCRIT 32.1 % (38.2-49.6); HEMOGLOBIN 10.8 g/dL (14.0-18.0); LYMPHOCYTES # (AUTO) 0.5 (1.0-3.2); LYMPHOCYTES % 7.2 % (18.0-39.1); MEAN CORPUSCULAR HEMOGLOBIN 30.8 pg (28-32); MEAN CORPUSCULAR HGB CONC 33.6 g/dL (31-35); MEAN CORPUSCULAR VOLUME 91.5 fL (81-99); MONOCYTES # (AUTO) 0.5 (0.2-0.8); MONOCYTES % 6.6 % (4.4-11.3); NEUTROPHILS % 85.1 % (38.7-80.0); PLATELET COUNT 165 x10e3/uL (140-360); RED BLOOD COUNT 3.51 x10e6/uL (4.3-5.7); RED CELL DISTRIBUTION WIDTH 11.8 % (11.7-14.4)
[2022-11-20 16:24] LABS: INR 1.41; PROTHROMBIN TIME 17.8 seconds (11.9-14.5)
[2022-11-20 16:25] LABS: PARTIAL THROMBOPLASTIN TIME 39.6 seconds (23.8-35.5)
[2022-11-20 16:33] LABS: ALANINE AMINOTRANSFERASE 14 IU/L (0-55); ALBUMIN 3.1 g/dL (3.5-5.0); ALBUMIN/GLOBULIN RATIO 0.9 (0.8-2.0); ALKALINE PHOSPHATASE 97 IU/L (40-150); ANION GAP 13.1 mmol/L (8-16); BLOOD UREA NITROGEN 15 mg/dL (7-26); BUN/CREATININE RATIO 17 (6-25); CALCIUM 8.6 mg/dL (8.4-10.2); CARBON DIOXIDE 21 mmol/L (22-29); CHLORIDE 103 mmol/L (98-107); CREATININE, SERUM 0.87 mg/dL (0.72-1.25); GLUCOSE 110 mg/dL (74-118); MAGNESIUM 1.5 MG/DL (1.3-2.1); POTASSIUM 4.1 mmol/L (3.5-5.1); SODIUM 133 mmol/L (136-145)
[2022-11-20] MEDS ORDERED: SODIUM CHLORIDE 0.9% 500ML 500 ML IV ONE (17:00)
[2022-11-20 18:09] LABS: CLARITY,URINE HAZY (CLEAR); COLOR,URINE AMBER (YELLOW)
[2022-11-20 18:10] LABS: KETONES,URINE NEGATIVE (NEGATIVE); LEUKOCYTE ESTERASE ,URINE NEGATIVE (NEGATIVE); NITRITE,URINE NEGATIVE (NEGATIVE); PROTEIN,URINE DIPSTICK 1+ (NEGATIVE); URINE UROBILINOGEN 1 mg/dL (0.2 - 1)
[2022-11-20 18:11] LABS: AMORPHOUS SEDIMENT,URINE FEW (FEW); BACTERIA,URINE FEW /HPF; EPITHELIAL CELLS,URINE FEW /LPF; RBC,URINE 21-50 /HPF (0-5)
[2022-11-20] MEDS ORDERED: ACETAMINOPHEN 325 MG TAB PO PRN (18:45)
[2022-11-20] MEDS ORDERED: DEXTROSE 50% SYRINGE 50 ML IV PRN ×2 (18:45→20:15)
[2022-11-20] MEDS ORDERED: ONDANSETRON HCL INJ 2MG/ML 2ML 2 MG/ML VIAL IV PRN (18:45)
[2022-11-20 20:00] VITALS: BP 146/63; PULSE 86; RESP 18; TEMP 98.4; O2SAT 100
[2022-11-20] MEDS: SODIUM CHLORIDE 0.9% 1000ML 1,000 ML IV SCH (20:25)
[2022-11-20 21:00] VITALS: BP 146/63; PULSE 86; RESP 18; TEMP 98.4; O2SAT 100
[2022-11-20] MEDS: ATORVASTATIN 40 MG TAB PO SCH (21:00)
[2022-11-20] MEDS: INSULIN LISPRO 100 UNIT/1 ML 3ML VIAL SQ SCH (21:00)
[2022-11-20] MEDS: MELATONIN 3 MG TAB PO SCH (21:22)
[2022-11-20] MEDS: HYDROCODONE/APAP 5MG-325MG TAB PO PRN (21:22)
[2022-11-21] VITALS (7 sets, daily range): BP systolic 133–157; BP diastolic 47–75; PULSE 73–81; RESP 17–20; TEMP 98–99.9; O2SAT 97–100
[2022-11-21] MEDS: Vancomycin IV 1 GM in SODIUM CHLORIDE 0.9% 250ML 250 ML IV SCH ×3 (03:06→21:45)
[2022-11-21] MEDS: SODIUM CHLORIDE 0.9% 1000ML 1,000 ML IV SCH ×2 (03:08→12:15)
[2022-11-21 06:05] LABS: BASOPHILS % 0.2 % (0.0-1.0); EOSINOPHILS % 0.2 % (0.0-6.0); HEMATOCRIT 26.7 % (38.2-49.6); LYMPHOCYTES # (AUTO) 0.5 (1.0-3.2); LYMPHOCYTES % 9.6 % (18.0-39.1); MEAN CORPUSCULAR HEMOGLOBIN 30.6 pg (28-32); MEAN CORPUSCULAR HGB CONC 33.7 g/dL (31-35); MEAN CORPUSCULAR VOLUME 90.8 fL (81-99); MONOCYTES # (AUTO) 0.7 (0.2-0.8); MONOCYTES % 12.8 % (4.4-11.3); NEUTROPHILS # (AUTO) 4.1 (2.1-6.9); NEUTROPHILS % 76.6 % (38.7-80.0); PLATELET COUNT 113 x10e3/uL (140-360); RED BLOOD COUNT 2.94 x10e6/uL (4.3-5.7); RED CELL DISTRIBUTION WIDTH 11.5 % (11.7-14.4)
[2022-11-21 06:21] LABS: ALBUMIN 2.6 g/dL (3.5-5.0); ALBUMIN/GLOBULIN RATIO 0.9 (0.8-2.0); ANION GAP 10.2 mmol/L (8-16); CALCIUM 7.9 mg/dL (8.4-10.2); CREATININE, SERUM 0.83 mg/dL (0.72-1.25); POTASSIUM 4.2 mmol/L (3.5-5.1)
[2022-11-21 06:48] LABS: FERRITIN 114.08 ng/mL (21.81-274.66)
[2022-11-21] MEDS: INSULIN LISPRO 100 UNIT/1 ML 3ML VIAL SQ SCH ×4 (07:30→21:53)
[2022-11-21] MEDS: FERROUS SULFATE 325 MG TAB PO SCH (12:15)
[2022-11-21] MEDS: APIXABAN 5 MG TABLET PO SCH (17:13)
[2022-11-21] MEDS: ATORVASTATIN 40 MG TAB PO SCH (21:46)
[2022-11-21] MEDS: MELATONIN 3 MG TAB PO SCH (21:46)
[2022-11-22] VITALS (8 sets, daily range): BP systolic 131–165; BP diastolic 58–80; PULSE 62–85; RESP 18–20; TEMP 98.3–99.4; O2SAT 98–100
[2022-11-22] MEDS: SODIUM CHLORIDE 0.9% 1000ML 1,000 ML IV SCH ×2 (00:23→09:08)
[2022-11-22] MEDS: INSULIN LISPRO 100 UNIT/1 ML 3ML VIAL SQ SCH ×4 (07:30→22:01)
[2022-11-22] MEDS: Vancomycin IV 1 GM in SODIUM CHLORIDE 0.9% 250ML 250 ML IV SCH ×2 (09:00→21:52)
[2022-11-22] MEDS: FERROUS SULFATE 325 MG TAB PO SCH (09:07)
[2022-11-22] MEDS: APIXABAN 5 MG TABLET PO SCH ×2 (09:07→16:09)
[2022-11-22] MEDS ORDERED: ONDANSETRON HCL 4 MG ORAL DISINTEGRATING TAB PO PRN (11:45)
[2022-11-22] MEDS ORDERED: PIPERACILLIN/TAZOBACTAM 3.375 GM VIAL ONE (15:49)
[2022-11-22] MEDS: ATORVASTATIN 40 MG TAB PO SCH (21:52)
[2022-11-22] MEDS: MELATONIN 3 MG TAB PO SCH (21:52)
[2022-11-23] VITALS (8 sets, daily range): BP systolic 113–167; BP diastolic 61–72; PULSE 58–80; RESP 18–21; TEMP 97.4–98.6; O2SAT 97–100
[2022-11-23] MEDS: SODIUM CHLORIDE 0.9% 1000ML 1,000 ML IV SCH ×3 (05:23→16:42)
[2022-11-23 06:13] LABS: BASOPHILS % 0.4 % (0.0-1.0); EOSINOPHILS # (AUTO) 0.1 (0.0-0.4); HEMATOCRIT 27.6 % (38.2-49.6); HEMOGLOBIN 9.4 g/dL (14.0-18.0); LYMPHOCYTES # (AUTO) 0.7 (1.0-3.2); LYMPHOCYTES % 12.8 % (18.0-39.1); MEAN CORPUSCULAR HGB CONC 34.1 g/dL (31-35); MEAN CORPUSCULAR VOLUME 91.1 fL (81-99); MONOCYTES # (AUTO) 0.9 (0.2-0.8); MONOCYTES % 16.9 % (4.4-11.3); NEUTROPHILS # (AUTO) 3.6 (2.1-6.9); NEUTROPHILS % 67.3 % (38.7-80.0); PLATELET COUNT 154 x10e3/uL (140-360); RED BLOOD COUNT 3.03 x10e6/uL (4.3-5.7); RED CELL DISTRIBUTION WIDTH 11.5 % (11.7-14.4)
[2022-11-23] MEDS: HYDROCODONE/APAP 5MG-325MG TAB PO PRN (06:27)
[2022-11-23 06:36] LABS: ALBUMIN 2.5 g/dL (3.5-5.0); ALBUMIN/GLOBULIN RATIO 0.8 (0.8-2.0); CALCIUM 8.2 mg/dL (8.4-10.2); CREATININE, SERUM 0.81 mg/dL (0.72-1.25)
[2022-11-23] MEDS: APIXABAN 5 MG TABLET PO SCH (08:45)
[2022-11-23] MEDS: Vancomycin IV 1 GM in SODIUM CHLORIDE 0.9% 250ML 250 ML IV SCH ×2 (08:45→22:26)
[2022-11-23] MEDS: FERROUS SULFATE 325 MG TAB PO SCH (08:45)
[2022-11-23] MEDS: INSULIN LISPRO 100 UNIT/1 ML 3ML VIAL SQ SCH ×4 (08:52→21:00)
[2022-11-23] MEDS: MELATONIN 3 MG TAB PO SCH (22:26)
[2022-11-23] MEDS: ATORVASTATIN 40 MG TAB PO SCH (22:26)
[2022-11-24] VITALS (20 sets, daily range): BP systolic 104–152; BP diastolic 52–88; PULSE 59–96; RESP 16–24; TEMP 98.1–98.6; O2SAT 98–100
[2022-11-24] MEDS: SODIUM CHLORIDE 0.9% 1000ML 1,000 ML IV SCH ×3 (01:19→23:26)
[2022-11-24 05:45] LABS: BASOPHILS % 0.5 % (0.0-1.0); EOSINOPHILS # (AUTO) 0.2 (0.0-0.4); EOSINOPHILS % 3.2 % (0.0-6.0); HEMATOCRIT 26.6 % (38.2-49.6); LYMPHOCYTES # (AUTO) 0.8 (1.0-3.2); LYMPHOCYTES % 14.1 % (18.0-39.1); MEAN CORPUSCULAR HEMOGLOBIN 31.1 pg (28-32); MEAN CORPUSCULAR HGB CONC 33.8 g/dL (31-35); MONOCYTES # (AUTO) 0.7 (0.2-0.8); MONOCYTES % 12.9 % (4.4-11.3); NEUTROPHILS # (AUTO) 3.8 (2.1-6.9); NEUTROPHILS % 68.8 % (38.7-80.0); PLATELET COUNT 154 x10e3/uL (140-360); RED BLOOD COUNT 2.89 x10e6/uL (4.3-5.7); RED CELL DISTRIBUTION WIDTH 11.4 % (11.7-14.4)
[2022-11-24 06:11] LABS: ALBUMIN 2.4 g/dL (3.5-5.0); ALBUMIN/GLOBULIN RATIO 0.8 (0.8-2.0); CREATININE, SERUM 0.81 mg/dL (0.72-1.25)
[2022-11-24] MEDS: INSULIN LISPRO 100 UNIT/1 ML 3ML VIAL SQ SCH ×4 (07:30→21:39)
[2022-11-24] MEDS: Vancomycin IV 1 GM in SODIUM CHLORIDE 0.9% 250ML 250 ML IV SCH ×2 (08:18→21:32)
[2022-11-24] MEDS: FERROUS SULFATE 325 MG TAB PO SCH (08:18)
[2022-11-24] MEDS: MUPIROCIN 2% OINT 22 GM TUBE TOP SCH (08:44)
[2022-11-24] MEDS ORDERED: LIDOCAINE HCL 2% LOCAL 20 ML VIAL ONE (10:56)
[2022-11-24] MEDS ORDERED: HEPARIN SOD (PORCINE) 1000 UNIT/ML 30ML ONE (10:56)
[2022-11-24] MEDS ORDERED: HEPARIN SOD/SOD CHLORIDE 2,000 ML ONE (10:57)
[2022-11-24] MEDS ORDERED: MIDAZOLAM HCL 2 MG/2 ML VIAL ONE ×2 (10:58→13:14)
[2022-11-24] MEDS ORDERED: IOPAMIDOL 370 MG/ML 100 ML INFUS..BTL INJ ONE (10:58)
[2022-11-24] MEDS ORDERED: NITROGLYCERIN/D5W 200 MCG/ML 250 ML ONE (10:58)
[2022-11-24] MEDS ORDERED: SODIUM CHLORIDE 0.9% 1000ML 1,000 ML ONE ×2 (10:58→11:22)
[2022-11-24] MEDS ORDERED: FENTANYL CITRATE/PF 100MCG/2 ML INJ ONE ×2 (10:59→13:45)
[2022-11-24] MEDS ORDERED: VERAPAMIL HCL 2.5 MG/ML 2 ML VIAL ONE (11:22)
[2022-11-24] MEDS ORDERED: Morphine 4mg INJECTION 4 MG/ML INJ IV PRN (15:15)
[2022-11-24] MEDS ORDERED: Morphine 4mg INJECTION 4 MG/ML INJ ONE (15:15)
[2022-11-24] MEDS: MELATONIN 3 MG TAB PO SCH (21:31)
[2022-11-24] MEDS: ATORVASTATIN 40 MG TAB PO SCH (21:31)
[2022-11-25 00:57] VITALS: BP 136/58; PULSE 66; RESP 18; TEMP 98.5; O2SAT 98
[2022-11-25 04:00] VITALS: BP 124/61; PULSE 78; RESP 17; TEMP 98.8; O2SAT 100
[2022-11-25 05:50] LABS: BASOPHILS % 0.3 % (0.0-1.0); EOSINOPHILS # (AUTO) 0.2 (0.0-0.4); EOSINOPHILS % 2.6 % (0.0-6.0); HEMATOCRIT 24.8 % (38.2-49.6); HEMOGLOBIN 8.2 g/dL (14.0-18.0); LYMPHOCYTES # (AUTO) 0.7 (1.0-3.2); LYMPHOCYTES % 11.8 % (18.0-39.1); MEAN CORPUSCULAR HEMOGLOBIN 30.5 pg (28-32); MEAN CORPUSCULAR HGB CONC 33.1 g/dL (31-35); MEAN CORPUSCULAR VOLUME 92.2 fL (81-99); MONOCYTES # (AUTO) 0.8 (0.2-0.8); MONOCYTES % 12.1 % (4.4-11.3); NEUTROPHILS # (AUTO) 4.5 (2.1-6.9); NEUTROPHILS % 72.7 % (38.7-80.0); PLATELET COUNT 158 x10e3/uL (140-360); RED BLOOD COUNT 2.69 x10e6/uL (4.3-5.7); RED CELL DISTRIBUTION WIDTH 11.5 % (11.7-14.4)
[2022-11-25 06:27] LABS: ALBUMIN 2.3 g/dL (3.5-5.0); ALBUMIN/GLOBULIN RATIO 0.8 (0.8-2.0); ANION GAP 10.1 mmol/L (8-16); CALCIUM 7.8 mg/dL (8.4-10.2); CREATININE, SERUM 0.8 mg/dL (0.72-1.25); POTASSIUM 4.1 mmol/L (3.5-5.1)
[2022-11-25] MEDS: MUPIROCIN 2% OINT 22 GM TUBE TOP SCH (08:20)
[2022-11-25] MEDS: Vancomycin IV 1 GM in SODIUM CHLORIDE 0.9% 250ML 250 ML IV SCH (08:20)
[2022-11-25] MEDS: FERROUS SULFATE 325 MG TAB PO SCH (08:20)
[2022-11-25] MEDS: INSULIN LISPRO 100 UNIT/1 ML 3ML VIAL SQ SCH ×2 (08:37→11:30)
[2022-11-25 08:47] VITALS: BP 131/70; PULSE 77; RESP 18; TEMP 98.3; O2SAT 100
[2022-11-25] MEDS ORDERED: CEFTRIAXONE 1 GM VIAL IM ONE (09:15)
[2022-11-25] MEDS: APIXABAN 5 MG TABLET PO SCH (09:22)
[2022-11-25] MEDS ORDERED: CEFTRIAXONE 2 GM in SODIUM CHLORIDE 0.9% 100 ML IV ONE (10:00)
[2022-11-25 12:12] VITALS: BP 127/65; PULSE 65; RESP 16; TEMP 98.3; O2SAT 97
[2022-11-25] MEDS ORDERED: LEVALBUTEROL TA15 GM INH (19:33)
[2022-11-26] MEDS ORDERED: CEFTRIAXONE 2 GM in SODIUM CHLORIDE 0.9% 100 ML IV SCH (09:00)
== END 2022-11-25 13:21 | disposition home or self-care (01) | DRG 629 ==
LOC: ER 15:21 → ERHOLD 18:41 → MED/SURG2 20:40
PROVIDERS: ADMIT Internal Medicine; ATTEND Internal Medicine
PROC: 047P3ZZ Dilation of Right Anterior Tibial Artery, Percutaneous Approach (ICD-10-PCS; principal; 2022-11-24)
PROC: 04CP3ZZ Extirpation of Matter from Right Anterior Tibial Artery, Percutaneous Approach (ICD-10-PCS; 2022-11-24)
PROC: 047R3Z1 Dilation of Right Posterior Tibial Artery using Drug-Coated Balloon, Percutaneous Approach (ICD-10-PCS; 2022-11-24)
PROC: B41D1ZZ Fluoroscopy of Aorta and Bilateral Lower Extremity Arteries using Low Osmolar Contrast (ICD-10-PCS; 2022-11-24)
DX: E11.69 Type 2 diabetes mellitus with other specified complication (principal); M86.071 Acute hematogenous osteomyelitis, right ankle and foot; N39.0 Urinary tract infection, site not specified; E11.621 Type 2 diabetes mellitus with foot ulcer; L97.519 Non-pressure chronic ulcer of other part of right foot with unspecified severity; I48.0 Paroxysmal atrial fibrillation; E11.42 Type 2 diabetes mellitus with diabetic polyneuropathy; E11.51 Type 2 diabetes mellitus with diabetic peripheral angiopathy without gangrene; I70.201 Unspecified atherosclerosis of native arteries of extremities, right leg; I83.11 Varicose veins of right lower extremity with inflammation; I10 Essential (primary) hypertension; E66.9 Obesity, unspecified; Z68.32 Body mass index [BMI] 32.0-32.9, adult; D64.9 Anemia, unspecified
CPT/HCPCS: 0223U; 36415; 36569; 37228; 37229; 37232; 71045; 75625; 75716; 80053; 80202; 81001; 82728; 82948; 83036; 83540; 83605; 83735; 84466; 84484; 85025; 85610; 85730; 86140; 87040; 87071; 87086; 87186; 87205; 93005; 93306; 96361; 96372; 99152; 99153; 99252; 99284; C1724; C1725; C1760; C1769; C1894; C2623; J0696; J1644; J2001; J2250; J2270; J2543; J7030; J7040; J7050; Q9967

== ENCOUNTER 2022-11-28 13:33 | Emergency (ER) | payer MEDICARE ==
[~2022-11-28] VITALS: Ht 193 cm; Wt 122.5 kg
[~2022-11-28 13:33] MED LIST changes: +LEVALBUTEROL TA15 GM INH
[2022-11-28 14:22] LABS: BASOPHILS % 0.4 % (0.0-1.0); EOSINOPHILS # (AUTO) 0.3 (0.0-0.4); EOSINOPHILS % 3.3 % (0.0-6.0); HEMATOCRIT 29.7 % (38.2-49.6); HEMOGLOBIN 9.9 g/dL (14.0-18.0); LYMPHOCYTES # (AUTO) 1.1 (1.0-3.2); LYMPHOCYTES % 14.4 % (18.0-39.1); MEAN CORPUSCULAR HGB CONC 33.3 g/dL (31-35); MONOCYTES # (AUTO) 0.7 (0.2-0.8); NEUTROPHILS # (AUTO) 5.7 (2.1-6.9); NEUTROPHILS % 72.1 % (38.7-80.0); PLATELET COUNT 252 x10e3/uL (140-360); RED CELL DISTRIBUTION WIDTH 11.7 % (11.7-14.4)
[2022-11-28 14:43] LABS: ANION GAP 12.1 mmol/L (8-16); CALCIUM 8.9 mg/dL (8.4-10.2); CREATININE, SERUM 0.76 mg/dL (0.72-1.25); POTASSIUM 4.1 mmol/L (3.5-5.1)
[2022-11-28 19:15] VITALS: BP 152/71; O2SAT 100
== END 2022-11-28 19:16 | disposition home or self-care (01) ==
LOC: ER 13:36
DX: Z45.2 Encounter for adjustment and management of vascular access device (principal); I10 Essential (primary) hypertension; E11.65 Type 2 diabetes mellitus with hyperglycemia; I48.91 Unspecified atrial fibrillation
CPT/HCPCS: 36415; 36584; 71045; 80048; 85025; 99283

== ENCOUNTER 2022-12-26 08:00 | Outpatient (RCR) | payer MEDICARE ==
[~2022-12-26 08:00] MED LIST changes: +MINERAL OIL/PETROLAT/GLYCERI 6OZ BTL ONE; +MUPIROCIN 2% OINT 22 GM TUBE ONE; +TRIAMCINOLONE ACET 0.1% CREAM 15 GM TUBE ONE; +TRYPSIN/BALSAM PERU/CASTOR OIL ONE
== END 2022-12-30 ==
LOC: WCC 08:00
PROVIDERS: ATTEND Podiatrist Foot & Ankle Surgery
DX: E11.621 Type 2 diabetes mellitus with foot ulcer (principal); M86.171 Other acute osteomyelitis, right ankle and foot; L97.428 Non-pressure chronic ulcer of left heel and midfoot with other specified severity; L97.516 Non-pressure chronic ulcer of other part of right foot with bone involvement without evidence of necrosis
CPT/HCPCS: 11042; 11044; 36415 ×7; 82948 ×7; 88304; 88305; 88311 ×2; 99213 ×3; 99214; G0277 ×7

== ENCOUNTER 2023-05-02 08:01 | Outpatient (RCR) | payer MEDICARE ==
[~2023-05-02 08:01] MED LIST changes: -MINERAL OIL/PETROLAT/GLYCERI 6OZ BTL ONE; -TRIAMCINOLONE ACET 0.1% CREAM 15 GM TUBE ONE; -TRYPSIN/BALSAM PERU/CASTOR OIL ONE
[2023-05-02] MEDS ORDERED: MUPIROCIN 2% OINT 22 GM TUBE ONE (12:20)
== END 2023-05-02 23:22 | disposition home or self-care (01) ==
LOC: WCC 08:01
PROVIDERS: ATTEND Podiatrist Foot & Ankle Surgery
DX: E11.621 Type 2 diabetes mellitus with foot ulcer (principal); L97.428 Non-pressure chronic ulcer of left heel and midfoot with other specified severity; L97.521 Non-pressure chronic ulcer of other part of left foot limited to breakdown of skin; L97.518 Non-pressure chronic ulcer of other part of right foot with other specified severity
CPT/HCPCS: 87071; 87075; 87205; 88304; 88305; 88311

== ENCOUNTER 2023-05-30 09:11 | Outpatient (RCR) | payer MEDICARE ==
[~2023-05-30 09:11] MED LIST changes: -MUPIROCIN 2% OINT 22 GM TUBE ONE
== END 2023-06-01 ==
LOC: WCC 09:11
PROVIDERS: ATTEND Podiatrist Foot & Ankle Surgery
DX: E11.621 Type 2 diabetes mellitus with foot ulcer (principal); L97.428 Non-pressure chronic ulcer of left heel and midfoot with other specified severity; L97.521 Non-pressure chronic ulcer of other part of left foot limited to breakdown of skin; L97.518 Non-pressure chronic ulcer of other part of right foot with other specified severity; L97.511 Non-pressure chronic ulcer of other part of right foot limited to breakdown of skin

== ENCOUNTER 2023-12-01 08:00 | Outpatient (RCR) | payer MEDICARE ==
[~2023-12-01 08:00] MED LIST changes: +ASPIRIN81 MG PO; +VITAMIN B121000 MCG PO
== END 2023-12-01 15:20 | disposition home or self-care (01) ==
LOC: WCC 08:00
PROVIDERS: ATTEND Podiatrist Foot & Ankle Surgery
DX: E11.621 Type 2 diabetes mellitus with foot ulcer (principal); L97.428 Non-pressure chronic ulcer of left heel and midfoot with other specified severity; L97.521 Non-pressure chronic ulcer of other part of left foot limited to breakdown of skin

== ENCOUNTER 2024-06-08 06:16 | Emergency (ER) | payer MEDICARE ==
[~2024-06-08] VITALS: Ht 193 cm; Wt 122.5 kg
[2024-06-08 06:21] VITALS: PULSE 73; RESP 19; TEMP 98; O2SAT 94
[2024-06-08] MEDS ORDERED: FAMOTIDINE 20 MG/2 ML VIAL IV STA (06:40)
[2024-06-08] MEDS ORDERED: DIPHENHYDRAMINE HCL INJ 50 MG/ML VIAL IV ONE (06:45)
[2024-06-08 06:59] LABS: BASOPHILS % 0.4 % (0.0-1.0); EOSINOPHILS # (AUTO) 0.1 (0.0-0.4); EOSINOPHILS % 2.5 % (0.0-6.0); HEMATOCRIT 37.4 % (38.2-49.6); HEMOGLOBIN 12.4 g/dL (14.0-18.0); LYMPHOCYTES % 23.3 % (18.0-39.1); MEAN CORPUSCULAR HEMOGLOBIN 31.1 pg (28-32); MEAN CORPUSCULAR HGB CONC 33.2 g/dL (31-35); MEAN CORPUSCULAR VOLUME 93.7 fL (81-99); MONOCYTES # (AUTO) 0.3 (0.2-0.8); MONOCYTES % 7.6 % (4.4-11.3); NEUTROPHILS # (AUTO) 2.9 (2.1-6.9); NEUTROPHILS % 65.3 % (38.7-80.0); PLATELET COUNT 155 x10e3/uL (140-360); RED BLOOD COUNT 3.99 x10e6/uL (4.3-5.7); RED CELL DISTRIBUTION WIDTH 11.9 % (11.7-14.4); WHITE BLOOD COUNT 4.46 x10e3/uL (4.8-10.8)
[2024-06-08 07:19] LABS: ANION GAP 13.4 mmol/L (8-16); CALCIUM 9.3 mg/dL (8.4-10.2); CREATININE, SERUM 0.99 mg/dL (0.72-1.25); POTASSIUM 4.4 mmol/L (3.5-5.1)
[2024-06-08 08:44] VITALS: BP 150/68; PULSE 52; RESP 13
== END 2024-06-08 08:45 | disposition home or self-care (01) ==
LOC: ER 06:30
DX: T78.3XXA Angioneurotic edema, initial encounter (principal); E11.65 Type 2 diabetes mellitus with hyperglycemia; I10 Essential (primary) hypertension; I48.91 Unspecified atrial fibrillation; Z86.73 Personal history of transient ischemic attack (TIA), and cerebral infarction without residual deficits
CPT/HCPCS: 36415; 80048; 85025; 99284